=== PATIENT | male | born 1975 | race Caucasian/White ===

== ENCOUNTER 2016-05-23 23:52 | Emergency (ER) | payer OTHER ==
[~2016-05-23] VITALS: Ht 167.6 cm; Wt 77.2 kg
[~2016-05-23 23:52] MED LIST: CTP1 PO; FLV1 PO; LBR25 PO; LSN25 PO; PRT40 PO; THM100 PO; TPRSR25 PO
[2016-05-23 23:55] VITALS: TEMP 36.7; Ht 167.6 cm; Wt 77.2 kg
--- NOTE | 2016-05-24 00:17 | EMERGENCY ROOM VISIT NOTE ---
History Report prepared by Gui: John Torres Under the Supervision of: Dr. Parish Luis M.D. First contact with patient: 00:00 Chief Complaint: MENTAL HEALTH EVALUATION Stated Complaint: MENTAL HEALTH EVAL History of Present Illness The patient is a 40 year old male who presents to the Emergency Room via police after the patient's called because she felt he was violating a PFA. Per patient, him and his were fighting when he got upset and said some things he didn't mean such as threatening to hurt himself. The patient notes that these threats were just a "knee jerk reaction" from the altercation and he did not actually mean them. At this time, he denies any violent thoughts, suicidal or homicidal ideation. He notes that he has been somewhat depressed since his marriage has not been going well for the past few months. The patient also consumed some alcohol today. He denies any pain at this time. Source of History: patient Onset: prior to arrival Position: other (global ) Note: Denies: violent thoughts, suicidal ideation, homicidal ideation Review of Systems See HPI for pertinent positives & negatives. A total of 10 systems reviewed and were otherwise negative. Past Medical & Surgical Medical Problems: (1) Alcoholism (2) Hypertension Family History No pertinent family history Social History Smoking Status: Current Some Day Smoker Alcohol Use: heavy Drug Use: none Marital Status: Housing Status: lives with family Occupation Status: employed Current/Historical Medications Scheduled Chlordiazepoxide (Chlordiazepoxide HCl), 25 MG PO BID Clonidine HCl (Clonidine HCl), 0.2 MG PO BID Folic Acid (Folic Acid), 1 MG PO QAM Lisinopril (Lisinopril), 2.5 MG PO QAM Metoprolol Succinate (Metoprolol Succinate ER), 25 MG PO QAM Pantoprazole (Pantoprazole Sodium), 40 MG PO QAM Thiamine HCl (Vitamin B-1), 100 MG PO QAM Allergies Coded Allergies: No Known Allergies (Unverified , 07/02/15) Physical Exam Vital Signs Date Time Temp Pulse Resp B/P Pulse Ox O2 Delivery O2 Flow Rate FiO2 05/24/16 00:43 68 18 153/101 97 05/23/16 23:55 36.7 76 18 160/113 96 Room Air Physical Exam GENERAL: Patient is well appearing and in no acute distress. HEENT: No acute trauma, normocephalic atraumatic, mucous membranes moist, no nasal congestion, no scleral icterus. NECK: No stridor, no adenopathy, no meningismus, trachea is midline. LUNGS: No dyspnea. Clear to auscultation and equal bilaterally. No wheeze, no rhonchi. HEART: Regular rate and rhythm. No murmurs, rubs, gallops appreciated. ABDOMEN: Soft, nontender, bowel sounds positive, no masses appreciated, no peritonitis. BACK: No midline tenderness, no CVA tenderness EXTREMITIES: Normal motion all extremities, no cyanosis, no edema. NEUROLOGIC: Alert and oriented, no acute motor or sensory deficits, no focal weakness, cranial nerves grossly intact. SKIN: No rash, no jaundice, no diaphoresis. PSYCH: Denies acute depression, admits chronic, denies suicidal ideation, denies homicidal ideation, denies hallucinations. Medical Decision & Procedures ED Course 0003: The patient was evaluated in room A7. A complete history and physical exam was performed. 0038: At this time, I reevaluated the patient and he feels comfortable going to care home. He is aware of his hypertension and will get his blood pressure rechecked in a couple of days. Medical Decision Differential: Mood Disorder, Overdose, Infectious, Electrolyte Abnormality, Cardiac, Hepatic, Endocrine, Toxicologic, Neurologic, amongst other pathologies entertained. 40 yr old male arrives with police after verbal altercation in which he said he might as well but without any act of furtherance nor plan to do so. Here he adamantly states he does not want to kill himself. He is not intoxicated. No evidence of trauma. He admits history of depression though no previous suicidal attempts nor actions. Denies inpatient psych treatment in past. Denies needing to see mental health professional. He does not want to be admitted. He will be going to care home with police. He is aware he can return at any time if worsening or other concerns. He can 911 at any time if concerns to harm himself or others. Impression Primary Impression: Depression Scribe Attestation The scribe's documentation has been prepared under my direction and personally reviewed by me in its entirety. I confirm that the note above accurately reflects all work, treatment, procedures, and medical decision making performed by me. Departure Information Dispostion Home / Self-Care Forms HOME CARE DOCUMENTATION FORM, IMPORTANT VISIT INFORMATION Patient Instructions ED Depression, [facility] Additional Instructions We are always here to help. If at any time you feel you are a risk to yourself or others call 911 or return to ED. Problem Qualifiers Primary Impression: Depression Depression Type: unspecified Qualified Codes: F32.9 - Major depressive disorder, single episode, unspecified
[2016-05-24 00:43] VITALS: BP 153/101; PULSE 68; O2SAT 97
== END 2016-05-24 00:44 | disposition home or self-care (01) ==
LOC: C.EDB 23:53 → C.EDA 05-24 00:44
DX: F32.9 Major depressive disorder, single episode, unspecified (principal); F10.20 Alcohol dependence, uncomplicated; I10 Essential (primary) hypertension; F17.210 Nicotine dependence, cigarettes, uncomplicated; Z79.899 Other long term (current) drug therapy

== ENCOUNTER 2018-07-18 07:02 | Inpatient (IN) ==
[2018-07-18] MEDS ORDERED: MoRPHine SULFATE 4 MG/ML 1 ML CARP\\VIAL IV STA (07:27)
[2018-07-18] MEDS ORDERED: ONDANSETRON INJ 2 MG/ML 2 ML VIAL IV STA (07:27)
[2018-07-18] MEDS ORDERED: SODIUM CHLORIDE 0.9% 1000ML 2,000 ML IV SCH (07:30)
[2018-07-18 08:02] LABS: Basophils # (auto) 0.01 K/uL (0-0.2); Basophils % (auto) 0.2 %; Hematocrit (blood only) 47.6 % (42-52); Lymphocytes # (auto) 0.41 K/uL (1.2-3.4); Lymphocytes % (auto) 6.8 %; Mean Corpuscular Hgb Conc 35.7 g/dL (32-36); Mean Corpuscular Volume 99.6 fL (80-100); Mean Platelet Volume 10.5 fL (7.4-10.4); Monocytes # (auto) 0.34 K/uL (0.11-0.59); Monocytes % (auto) 5.6 %; Neutrophils # (auto) 5.28 K/uL (1.4-6.5); Neutrophils % (auto) 87.4 %; Platelet Count 173 K/uL (130-400); RDW Standard Deviation 54.9 fL (36.4-46.3); Red Blood Count 4.78 M/uL (4.7-6.1); White Blood Count 6.04 K/uL (4.8-10.8)
[2018-07-18 08:22] LABS: Albumin Level 4.1 gm/dl (3.4-5.0); BUN Creatinine Ratio 12.4 (10-20); Calcium 9.9 mg/dl (8.5-10.1); Est GFR (African American) 107.7; Est GFR (Non-African American) 92.9; Potassium 3.7 mmol/L (3.5-5.1)
[2018-07-18 08:25] LABS: Bilirubin,Total 1.9 mg/dl (0.2-1); Globulin 4.3 gm/dl (2.5-4.0); Total Protein 8.4 gm/dl (6.4-8.2)
[2018-07-18 08:56] LABS: Appearance Urine Clear (Clear); Bacteria Urine Automated Negative (Negative); Bilirubin Urine Negative (Negative); Blood Urine 1+ (Negative); Color Urine Dark Yellow; Glucose Urine UA Negative (Negative); Leukocyte Esterase Urine Negative (Negative); Nitrite Urine Negative (Negative); Protein Urine 3+ (Negative); RBC Urine Automated 0-4 /hpf (0-4); Specific Gravity Urine 1.028 (1.000-1.030); Urobilinogen Urine Negative (Negative); pH Urine 5.5 (4.5-7.5)
[2018-07-18 08:57] LABS: Ketones Urine 4+ (Negative)
[2018-07-18] MEDS ORDERED: IOVERSOL 100ml IV PRN (09:02)
[2018-07-18] MEDS ORDERED: THIAMINE HCL 100 MG in SYRINGE 9 ML IV STA (09:09)
[2018-07-18] MEDS ORDERED: LORazepam 1 MG/2 ML VIAL IV PRN ×2 (09:09→13:45)
[2018-07-18] MEDS ORDERED: FOLIC ACID 1 MG in SYRINGE 9.8 ML IV STA (09:09)
--- NOTE | 2018-07-18 09:21 | CT Scan Report ---
ABDOMEN AND PELVIS CT WITH IV CONTRAST CT DOSE: 584.71 mGycm HISTORY: Acute generalized abdominal pain abd pain TECHNIQUE: Multiaxial CT images of the abdomen and pelvis were performed following the use of intrave nous contrast. A dose lowering technique was utilized adhering to the principles of ALARA. COMPARISON STUDY: CT abdomen pelvis 04/23/2018. FINDINGS: Lung bases are generally clear. There is no pneumatosis or pneumoperitoneum identified. Coronary enoc rial calcifications are noted. Hepatic steatosis . There is a 1.5 cm circumscribed hypodense lesion about the left hepatic lobe whic h is unchanged suggestive of a probable cyst. Liver is otherwise unremarkable. There is no biliary du ctal dilation identified. There is mild gallbladder distention. Spleen, pancreas and adrenal glands a re unremarkable. Mild left perinephric stranding. Suggestion of punctate bilateral nephrolithiasis. T here is unchanged mild dilation about the left ureter, most pronounced the left hemipelvis which is u nchanged. Partial distention of the urinary bladder with moderate wall thickening and mild perivesicu lar stranding. Prostate measures within the upper limits of normal in size. Small fat filled bilatera l hernias. Mild calcified plaque about the abdominal aorta without aneurysm. There is no adenopathy. Air distended distal esophagus with mild distal esophageal wall thickening. There are a few small bow el air-fluid levels noted without evidence of small bowel obstruction. Hyperdense focus within the re ctum may reflect a pill fragment. Colonic diverticulosis. There is mild wall thickening noted about t he colon extending from the cecum through the proximal sigmoid with areas of partial distention. Mura l fibrofatty changes about the cecum. Terminal ileum is unremarkable. Fluid is noted about the distal appendiceal tip appendix measures within the upper limits of normal at 7 mm, unchanged without evide nce of acute appendicitis. There is no ascites. Soft tissues are unremarkable. Bones appear to be int act. Suggested bone island about the right femoral neck. IMPRESSION: 1. Mild wall thickening throughout the colon extending from the cecum through the sigmoid may be seco ndary to partial distention versus a nonspecific mild colitis. 2. A few scattered small bowel air-fluid levels throughout the abdomen are noted. These may be physio logic or reflect a mild enteritis or ileus. 3. Fluid about the appendiceal tip redemonstrated which is unchanged. No evidence of acute appendicit is. 4. Mild colonic diverticulosis without acute diverticulitis. 5. Suggested cystitis. Correlate with urinalysis. 6. Hepatic steatosis. 7. Punctate bilateral nonobstructing nephrolithiasis. 8. Additional findings as above. Electronically signed by: Raudel Vazquez M.D. 07/18/2018 9:19 AM
[2018-07-18] MEDS ORDERED: LORazepam 1 MG/2 ML VIAL IV STA (09:55)
[2018-07-18] MEDS ORDERED: METOPROLOL SUCC 50MG EXT REL TAB PO STA (09:57)
[2018-07-18] MEDS ORDERED: METOPROLOL TARTRATE 1 MG/ML VIAL IV STA (10:01)
[2018-07-18] MEDS ORDERED: GI COCKTAIL ED USE PO ONE (11:30)
--- NOTE | 2018-07-18 12:09 | History & Physical Report ---
Date of Service July 18, 2018 Assessment & Plan (1) Hematemesis: Ongoing emesis for several days but witness hematemesis x1 in the ED today Hb WNL, monitor Hx of hiatal hernia and espophagitis Has not been able to take protonix for several days GI cocktail, carafate, protonix CTAP noted Lipase WNL EGD with Dr. Hillman in the past, c/s pending Likely related to alcohol use given this started after a day of drinking on Wednesday and then worsened after alcohol ingestion on Wednesday Pt advised of this (2) Alcohol withdrawal: WAS protocol Mild tachycardia Will start on proph jesica dosing (3) HTN (hypertension): Labile in the setting of missed meds Monitor with metoprolol PRN (4) GERD (gastroesophageal reflux disease): Prontonix BID (5) Anxiety: Ativan PRN (6) Alcoholism: EtOH neg on admission Mildly elevated LFTs and fatty liver noted on CTAP (7) DVT prophylaxis: SCDs given hematemesis History of Present Illness Primary Care Provider: Amaya Anand, DO 42 y/o M c/o inability to tolerate PO. Pt states that he was in his usual state of health. He has a hx of heavy alcohol use, but has cut back his intake substantially. He went to a [employer] game on Wednesday and had "4, 5, 6 maybe all day" and had no issues. He started to have issues with n/v on Wednesday. Wednesday he felt fine. he had to leave work early due to n/v and he did not go to work on Wednesday due to all day n/v. This persisted into Wednesday. He states he "had a couple" drinks on Wednesday despite the emesis. He was able to keep down a sandwich as well. Yesterday however, he had worsening n/v and was not able to keep anything down. He has not been able to take his medications for the last few days due to n/v. He notes a large amount of reflux today. While in the ED he had an episode of emesis that is red/brown in color. This was the first emesis that looks like this. Pt was given a GI cocktail just after this emesis and is feeling improved. He has abd cramping with the emesis, but no abd pain otherwise. He notes that he was SOB with prolonged emesis and at rest at times. Pt denies fever, chest pain, c/d, LE pain or swelling. Pt had an EGD several months ago with Dr. Hillman. He had a f/u appt with him about 2 months ago and things were doing well at that time. He was to have a f/u in the next 1-2 weeks. He is not certain if there are plans for a repeat EGD at that time. Pt states that he was given some sort of medication to help with his anxiety. He drank while using this medication and was having hallucinations. Allergies Allergy/AdvReac Type Severity Reaction Status Date / Time No Known Allergies Allergy Verified 07/18/18 08:44 Home Medications Home Medications Medication Instructions Recorded Confirmed Type bupropion HCl 300 mg PO QAM 04/21/18 07/18/18 History hydrochlorothiazide 12.5 mg PO QAM 04/21/18 07/18/18 History lisinopril 40 mg PO QAM 04/21/18 07/18/18 History metoprolol succinate 100 mg PO QAM 04/21/18 07/18/18 History multivitamin [Daily-Mark] 1 tab PO QAM #1 tab 04/27/18 07/18/18 Rx pantoprazole 40 mg PO BID #60 tab 05/23/18 07/18/18 Rx acetaminophen [Tylenol Extra 500 mg PO Q6H PRN 07/18/18 07/18/18 History Strength] bupropion HCl 150 mg PO QAM 07/18/18 07/18/18 History Past Med/Surg History Medical History Alcoholism (Chronic) Hypertension (Chronic) Esophagitis (Inactive) Anxiety Depression GERD (gastroesophageal reflux disease) Kidney stones Surgical History History of esophagogastroduodenoscopy (EGD) Hx of vasectomy Family History Aunt Family history of diabetes mellitus Mother Family hx colonic polyps Other No family history of adverse response to anesthesia Social History Preferred Language: Greenlandic Beliefs That Will Affect Care: None Current Living Situation: Alone Other Information That Helps Us Care for You: No Feels Safe at Home: Yes Smoking Status: Never smoker Hx Alcohol Use: Yes Hx Substance Use: No (PREVIOUS HX OF MARIJUANA USE) Review of Systems Pertinent positives and negatives reviewed in HPI--all others negative Physical Exam Vital Signs (Past 24 Hours): Last Vital Signs Temp 36.8 C 07/18/18 07:09 Pulse 109 H 07/18/18 11:00 Resp 16 07/18/18 11:00 BP 143/107 H 07/18/18 11:00 Pulse Ox 98 07/18/18 11:00 Constitutional: WD/WN, vitals as above Eyes: normal visual lopez by confrontation and + anicteric sclerae Neck: normal visual inspection and trachea midline Respiratory: normal respiratory effort, lungs clear to auscultation Cardiovascular: Rate/Rhythm: regular rhythm and + tachycardic Gastrointestinal (Abdomen): Inspection/Auscultation: abdomen not distended Percussion/Palpation: abdomen soft; abdomen nontender Musculoskeletal: Head/Neck/Chest: normocephalic and head atraumatic negative for edema, peripheral pulses intact Skin: no rashes, warm and dry Neurologic: awake; not confused Speech / Cognition: normal speech Psychiatric: Orientation: oriented x 3 Affect: + anxious affect Results & Data Diagnostic Findings CTAP: 1. Mild wall thickening throughout the colon extending from the cecum through the sigmoid may be secondary to partial distention versus a nonspecific mild colitis. 2. A few scattered small bowel air-fluid levels throughout the abdomen are noted. These may be physiologic or reflect a mild enteritis or ileus. 3. Fluid about the appendiceal tip redemonstrated which is unchanged. No evidence of acute appendicitis. 4. Mild colonic diverticulosis without acute diverticulitis. 5. Suggested cystitis. Correlate with urinalysis. 6. Hepatic steatosis. 7. Punctate bilateral nonobstructing nephrolithiasis. 8. Additional findings as above. ECG Rhythm: sinus tachycardia Code Status & VTE Plan Code Status Full code VTE Prophylaxis Plan VTE Prophylaxis will be ordered: Yes (1) Alcohol withdrawal Complication of substance-induced condition: with delirium Qualified Code(s): F10.231 - Alcohol dependence with withdrawal delirium
--- NOTE | 2018-07-18 13:01 | Emergency Department Note ---
Entered by Rebecca Messer acting as a scribe for History of Present Illness General Chief complaint: Flu Like Symptoms Stated complaint: EVERYTHING-VOMITING Source: patient History of Present Illness Provider complaint: vomiting Onset (ago): day(s) 6 Location: abdomen Severity: similar to prior episodes Pain Consistency: + other (persistent) Maximum Pain Intensity: 4 Quality: + other (vomiting) Associated symptoms: + other (difficulty urinating, pain with urination, constipation, abdominal pain. Denies: cough, fever) The patient is a 42 year old male who presents to the Emergency Room with complaints of persistent vomiting beginning 3 days ago. The patient notes difficulty urinating and pain with urination, beginning around 6 days ago. He reports constipation. The patient states he has abdominal pain from vomiting. He denies cough or fever. The patient reports history of similar symptoms 3 months ago. He states he drinks alcohol 2 or 3 times a week, about 4 to 6 drinks per occasion. No other exacerbating or remitting factors. He is unable to keep anything down at this point. Home Medications Home Medications Medication Instructions Recorded Confirmed Type bupropion HCl 300 mg PO QAM 04/21/18 07/18/18 History hydrochlorothiazide 12.5 mg PO QAM 04/21/18 07/18/18 History lisinopril 40 mg PO QAM 04/21/18 07/18/18 History metoprolol succinate 100 mg PO QAM 04/21/18 07/18/18 History multivitamin [Daily-Mark] 1 tab PO QAM #1 tab 04/27/18 07/18/18 Rx pantoprazole 40 mg PO BID #60 tab 05/23/18 07/18/18 Rx acetaminophen [Tylenol Extra 500 mg PO Q6H PRN 07/18/18 07/18/18 History Strength] bupropion HCl 150 mg PO QAM 07/18/18 07/18/18 History Allergies Allergy/AdvReac Type Severity Reaction Status Date / Time No Known Allergies Allergy Verified 07/18/18 08:44 Past Med/Surg History Medical History Alcoholism (Chronic) Hypertension (Chronic) Esophagitis (Inactive) Anxiety Depression GERD (gastroesophageal reflux disease) Kidney stones Surgical History History of esophagogastroduodenoscopy (EGD) Hx of vasectomy Family History Aunt Family history of diabetes mellitus Mother Family hx colonic polyps Other No family history of adverse response to anesthesia Social History Preferred Language: Wallisian Beliefs That Will Affect Care: None Current Living Situation: Alone Other Information That Helps Us Care for You: No Feels Safe at Home: Yes Smoking Status: Never smoker Hx Alcohol Use: Yes Hx Substance Use: No (PREVIOUS HX OF MARIJUANA USE) Review of Systems See HPI for pertinent positives & negatives. and A total of 10 systems reviewed and were otherwise negative Physical Exam Vital Signs Vital Signs - 24 hr 07/18/18 07:09 07/18/18 07:45 07/18/18 08:49 Temperature 36.8 C Temperature Source Oral Sepsis Recent Fever Within 48 Hours No Sepsis New/Unexplained Change in Mental Status No Sepsis Action Taken by Nursing No Action Required Pulse Rate 140 H Pulse Rate [Left Apical] 112 H Respiratory Rate 18 18 Respiratory Effort / Characteristics Non-Labored Spontaneous Non-Labored Respiratory Depth Normal Normal Respiratory Pattern Regular Blood Pressure 170/120 H Blood Pressure [Right Arm] 159/113 H Blood Pressure Mean 136 Blood Pressure Mean [Right Arm] 128 Blood Pressure Position Sitting Pulse Oximetry 96 98 98 Oxygen Delivery Method Room Air Room Air Room Air 07/18/18 10:00 07/18/18 10:17 07/18/18 11:00 Temperature Temperature Source Sepsis Recent Fever Within 48 Hours Sepsis New/Unexplained Change in Mental Status Sepsis Action Taken by Nursing Pulse Rate 126 H Pulse Rate [Left Apical] 112 H 109 H Respiratory Rate 16 16 Respiratory Effort / Characteristics Non-Labored Respiratory Depth Normal Normal Respiratory Pattern Blood Pressure 147/110 H Blood Pressure [Right Arm] 147/110 H 143/107 H Blood Pressure Mean Blood Pressure Mean [Right Arm] 122 119 Blood Pressure Position Pulse Oximetry 97 98 Oxygen Delivery Method Room Air Room Air 07/18/18 12:45 Temperature Temperature Source Sepsis Recent Fever Within 48 Hours Sepsis New/Unexplained Change in Mental Status Sepsis Action Taken by Nursing Pulse Rate Pulse Rate [Left Apical] 106 H Respiratory Rate 16 Respiratory Effort / Characteristics Respiratory Depth Normal Respiratory Pattern Blood Pressure Blood Pressure [Right Arm] 145/109 H Blood Pressure Mean Blood Pressure Mean [Right Arm] 121 Blood Pressure Position Pulse Oximetry 97 Oxygen Delivery Method Room Air GENERAL: Sitting up in bed, alert, well appearing, well nourished, no distress, non-toxic, disheveled. EYE EXAM: normal conjunctiva. PERRL and EOM's grossly intact. OROPHARYNX: no exudate, no erythema, lips, buccal mucosa, and tongue normal and mucous membranes are dry. NECK: supple, no nuchal rigidity, no adenopathy, non-tender LUNGS: Clear to auscultation. Normal chest wall mechanics HEART: Tachycardic. No murmurs, S1 normal and S2 normal ABDOMEN: abdomen soft, normo-active bowel, sounds, no masses, no rebound or guarding. Mild diffuse tenderness. BACK: Back is symmetrical on inspection and there is no deformity, no midline tenderness, no CVA tenderness. SKIN: no rashes and no bruising UPPER EXTREMITIES: upper extremities are grossly normal. LOWER EXTREMITIES: No pitting edema. NEURO EXAM: Normal sensorium, cranial nerves II-XII grossly intact, normal speech, no gross weakness of arms, no gross weakness of legs. Course ED COURSE: Vital signs were reviewed and showed tachycardia. The patients medical record was reviewed. The above diagnostic studies were performed and reviewed. ED treatments and interventions as stated above. 0718: The patient was evaluated in room B10. A complete history and physical examination was performed. 0837: I reevaluated the patient and discussed his test results. 0844: I updated the patient. 0954: Upon reevaluation, the patient's heart rate is still 125. 1021: I reviewed the patient's case with Dr. Valerio, [facility] hospitalist. She will evaluate the patient for further management. 1024: Upon reevaluation, the patient is resting. I discussed my findings with the patient and he understands and agrees with the treatment plan. Based on the patients age, coexisting illnesses, exam and lab findings the decision to treat as an inpatient was made. The patient remained stable while under my care. The patient will be evaluated for further management. Consultations Consultation #1: Dr. Valerio [facility] hospitalist Time: 10:21 Administered Medications Lorazepam (Ativan) 1 mg in 2 mls @ 0.5 mls/min IV UD PRN PRN Reason: Alcohol Withdrawal Stop: 08/17/18 09:08 Last Admin: 07/18/18 09:28 Dose: 0.5 mls/min Documented by: [id number] Ioversol (Optiray 320 100ml) 94 ml IV ONCE PRN PRN Reason: Interaction Checking Stop: 07/22/18 09:01 Last Admin: 07/18/18 09:03 Dose: 94 ml Documented by: [id number] Discontinued Medications Al Hydrox/Mg Hydrox/Simethicone () 1 dose PO ONE ONE Stop: 07/18/18 11:31 Last Admin: 07/18/18 11:40 Dose: 1 dose Documented by: [id number] Sodium Chloride (Nss 1000ml) 2,000 mls @ 999 mls/hr IV .Q2H1M ALVERTO Stop: 07/18/18 09:30 Last Infusion: 07/18/18 09:57 Dose: 0 mls/hr Documented by: [id number] Admin: 07/18/18 07:53 Dose: 999 mls/hr Documented by: [id number] Folic Acid 1 mg/ Syringe 10 mls @ 5 mls/min IV NOW STA Stop: 07/18/18 09:10 Last Admin: 07/18/18 10:04 Dose: 5 mls/min Documented by: [id number] Thiamine HCl 100 mg/ Syringe 10 mls @ 2 mls/min IV NOW STA Stop: 07/18/18 09:13 Last Admin: 07/18/18 10:04 Dose: 2 mls/min Documented by: [id number] Lorazepam (Ativan) 1 mg in 2 mls @ 2 mls/min IV NOW STA Stop: 07/18/18 09:56 Last Admin: 07/18/18 10:04 Dose: 2 mls/min Documented by: [id number] Metoprolol Succinate (Toprol Xl) 100 mg PO NOW STA Stop: 07/18/18 09:58 Last Admin: 07/18/18 10:09 Dose: Not Given Documented by: [id number] Metoprolol Tartrate (Lopressor) 5 mg IV NOW STA Stop: 07/18/18 10:02 Last Admin: 07/18/18 10:17 Dose: 5 mg Documented by: [id number] Morphine Sulfate (Morphine Sulfate) 4 mg IV NOW STA Stop: 07/18/18 07:28 Last Admin: 07/18/18 07:52 Dose: 4 mg Documented by: [id number] Ondansetron HCl (Zofran) 4 mg IV NOW STA Stop: 07/18/18 07:28 Last Admin: 07/18/18 07:52 Dose: 4 mg Documented by: [id number] Medical Decision Making Differential Diagnosis Differential diagnoses includes but is not limited to gastritis, peptic ulcer disease, GERD, gallbladder disease, pancreatitis, small bowel obstruction, acute coronary syndrome, pericarditis, ischemic bowel, irritable bowel disease, irritable bowel syndrome, appendicitis, diverticulitis, malignancy, hernia, urinary tract infection, torsion, perforation, trauma, infectious. Medical Records Attestation: I reviewed the patient's medical records. Home Medications Current Medication List: was personally reviewed by nd Laboratory Data Attestation: I reviewed the patient's lab results. Result diagrams: 07/18/18 07:47 07/18/18 07:47 Lab Results 07/18/18 07/18/18 07/18/18 Range/Units 07:42 07:47 07:47 WBC 6.04 (4.8-10.8) K/uL RBC 4.78 (4.7-6.1) M/uL Hgb 17.0 (14.0-18.0) g/dL Hct 47.6 (42-52) % MCV 99.6 (80-100) fL MCH 35.6 H (25-34) pg MCHC 35.7 (32-36) g/dL RDW Std Deviation 54.9 H (36.4-46.3) fL RDW Coeff of Rashida 15.0 H (11.5-14.5) % Plt Count 173 (130-400) K/uL MPV 10.5 H (7.4-10.4) fL Immature Gran % (Auto) 0.0 % Neut % (Auto) 87.4 % Lymph % (Auto) 6.8 % Grady % (Auto) 5.6 % Eos % (Auto) 0.0 % Baso % (Auto) 0.2 % Immature Gran # (Auto) 0.00 (0.00-0.02) K/uL Neut # (Auto) 5.28 (1.4-6.5) K/uL Lymph # (Auto) 0.41 L (1.2-3.4) K/uL Grady # (Auto) 0.34 (0.11-0.59) K/uL Eos # (Auto) 0.00 (0-0.5) K/uL Baso # (Auto) 0.01 (0-0.2) K/uL Sodium 141 (136-145) mmol/L Potassium 3.7 (3.5-5.1) mmol/L Chloride 104 (98-107) mmol/L Carbon Dioxide 16 L (21-32) mmol/L Anion Gap 21.0 H (3-11) BUN 12 (7-18) mg/dl Creatinine 0.99 (0.6-1.4) mg/dl Est Cr Clr Drug Dosing 90.0 ml/min Est GFR ( Amer) 107.7 Est GFR (Non-Af Amer) 92.9 BUN/Creatinine Ratio 12.4 (10-20) Glucose 113 H (70-99) mg/dl Calcium 9.9 (8.5-10.1) mg/dl Total Bilirubin 1.9 H (0.2-1) mg/dl AST 148 H (15-37) U/L ALT 120 H (12-78) U/L Alkaline Phosphatase 107 (45-117) U/L Total Protein 8.4 H (6.4-8.2) gm/dl Albumin 4.1 (3.4-5.0) gm/dl Globulin 4.3 H (2.5-4.0) gm/dl Albumin/Globulin Ratio 1.0 (0.9-2) Lipase 256 (73-393) U/L Urine Color Urine Appearance (Clear) Urine pH (4.5-7.5) POC Urine pH (4.5-7.5) Ur Specific [place] (1.000-1.030) Urine Protein (Negative) POC Urine Protein (Negative) Urine Glucose (UA) (Negative) POC Ur Glucose (UA) (Normal) Urine Ketones (Negative) POC Urine Ketones (Negative) Urine Blood (Negative) POC Urine Blood (Negative) Urine Nitrite (Negative) POC Urine Nitrite (Negative) Urine Bilirubin (Negative) POC Urine Bilirubin (Negative) Urine Urobilinogen (Negative) POC Urine Urobilinogen (Normal) Ur Leukocyte Esterase (Negative) POC U Leukocyte Esteras (Negative) Urine WBC (Auto) (0-5) /hpf Urine RBC (Auto) (0-4) /hpf U Hyaline Cast (Auto) (0-5) /lpf U Epithel Cells (Auto) (0-5) /lpf Urine Bacteria (Auto) (Negative) Ethyl Alcohol mg/dL < 3.0 (0-3) mg/dl 07/18/18 07/18/18 Range/Units 07:48 07:48 WBC (4.8-10.8) K/uL RBC (4.7-6.1) M/uL Hgb (14.0-18.0) g/dL Hct (42-52) % MCV (80-100) fL MCH (25-34) pg MCHC (32-36) g/dL RDW Std Deviation (36.4-46.3) fL RDW Coeff of Rashida (11.5-14.5) % Plt Count (130-400) K/uL MPV (7.4-10.4) fL Immature Gran % (Auto) % Neut % (Auto) % Lymph % (Auto) % Grady % (Auto) % Eos % (Auto) % Baso % (Auto) % Immature Gran # (Auto) (0.00-0.02) K/uL Neut # (Auto) (1.4-6.5) K/uL Lymph # (Auto) (1.2-3.4) K/uL Grady # (Auto) (0.11-0.59) K/uL Eos # (Auto) (0-0.5) K/uL Baso # (Auto) (0-0.2) K/uL Sodium (136-145) mmol/L Potassium (3.5-5.1) mmol/L Chloride (98-107) mmol/L Carbon Dioxide (21-32) mmol/L Anion Gap (3-11) BUN (7-18) mg/dl Creatinine (0.6-1.4) mg/dl Est Cr Clr Drug Dosing ml/min Est GFR ( Amer) Est GFR (Non-Af Amer) BUN/Creatinine Ratio (10-20) Glucose (70-99) mg/dl Calcium (8.5-10.1) mg/dl Total Bilirubin (0.2-1) mg/dl AST (15-37) U/L ALT (12-78) U/L Alkaline Phosphatase (45-117) U/L Total Protein (6.4-8.2) gm/dl Albumin (3.4-5.0) gm/dl Globulin (2.5-4.0) gm/dl Albumin/Globulin Ratio (0.9-2) Lipase (73-393) U/L Urine Color Dark Yellow Urine Appearance Clear (Clear) Urine pH 5.5 (4.5-7.5) POC Urine pH 5 (4.5-7.5) Ur Specific [place] 1.028 (1.000-1.030) Urine Protein 3+ H (Negative) POC Urine Protein 3+ H (Negative) Urine Glucose (UA) Negative (Negative) POC Ur Glucose (UA) Normal (Normal) Urine Ketones 4+ H (Negative) POC Urine Ketones 3+ (Large) H (Negative) Urine Blood 1+ H (Negative) POC Urine Blood Trace H (Negative) Urine Nitrite Negative (Negative) POC Urine Nitrite Negative (Negative) Urine Bilirubin Negative (Negative) POC Urine Bilirubin Negative (Negative) Urine Urobilinogen Negative (Negative) POC Urine Urobilinogen Normal (Normal) Ur Leukocyte Esterase Negative (Negative) POC U Leukocyte Esteras Negative (Negative) Urine WBC (Auto) 1-5 (0-5) /hpf Urine RBC (Auto) 0-4 (0-4) /hpf U Hyaline Cast (Auto) 1-5 (0-5) /lpf U Epithel Cells (Auto) 5-10 H (0-5) /lpf Urine Bacteria (Auto) Negative (Negative) Ethyl Alcohol mg/dL (0-3) mg/dl Imaging Data Radiologist's Impression: Radiology results as stated below per my review and the radiologist's interpretation: ABDOMEN AND PELVIS CT WITH IV CONTRAST CT DOSE: 584.71 mGycm HISTORY: Acute generalized abdominal pain abd pain TECHNIQUE: Multiaxial CT images of the abdomen and pelvis were performed following the use of intravenous contrast. A dose lowering technique was utilized adhering to the principles of ALARA. COMPARISON STUDY: CT abdomen pelvis 04/23/2018. FINDINGS: Lung bases are generally clear. There is no pneumatosis or pneumoperitoneum identified. Coronary arterial calcifications are noted. Hepatic steatosis . There is a 1.5 cm circumscribed hypodense lesion about the left hepatic lobe which is unchanged suggestive of a probable cyst. Liver is otherwise unremarkable. There is no biliary ductal dilation identified. There is mild gallbladder distention. Spleen, pancreas and adrenal glands are unremarkable. Mild left perinephric stranding. Suggestion of punctate bilateral nephrolithiasis. There is unchanged mild dilation about the left ureter, most pronounced the left hemipelvis which is unchanged. Partial distention of the urinary bladder with moderate wall thickening and mild perivesicular stranding. Prostate measures within the upper limits of normal in size. Small fat filled bilateral hernias. Mild calcified plaque about the abdominal aorta without aneurysm. There is no adenopathy. Air distended distal esophagus with mild distal esophageal wall thickening. There are a few small bowel air-fluid levels noted without evidence of small bowel obstruction. Hyperdense focus within the rectum may reflect a pill fragment. Colonic diverticulosis. There is mild wall thickening noted about the colon extending from the cecum through the proximal sigmoid with areas of partial distention. Mural fibrofatty changes about the cecum. Terminal ileum is unremarkable. Fluid is noted about the distal appendiceal tip appendix measures within the upper limits of normal at 7 mm, unchanged without evidence of acute appendicitis. There is no ascites. Soft tissues are unremarkable. Bones appear to be intact. Suggested bone island about the right femoral neck. IMPRESSION: 1. Mild wall thickening throughout the colon extending from the cecum through the sigmoid may be secondary to partial distention versus a nonspecific mild colitis. 2. A few scattered small bowel air-fluid levels throughout the abdomen are noted. These may be physiologic or reflect a mild enteritis or ileus. 3. Fluid about the appendiceal tip redemonstrated which is unchanged. No evidence of acute appendicitis. 4. Mild colonic diverticulosis without acute diverticulitis. 5. Suggested cystitis. Correlate with urinalysis. 6. Hepatic steatosis. 7. Punctate bilateral nonobstructing nephrolithiasis. 8. Additional findings as above. Electronically signed by: Raudel Vazquez M.D. 07/18/2018 9:19 AM ECG Data Attestation: I personally reviewed and interpreted this ECG as follows: Indication: tachycardia Rate (beats per minute): 120 Rhythm: sinus tachycardia Findings: + other (l axis. poor baseline. ) and + nonspecific-ST abn (septal, lateral) Comparison ECG Date: from (04/21/18) Change: no significant change Blood Pressure Blood Pressure Findings: Normal blood pressure Blood Pressure Disposition: did not require urgent referral MDM Narrative Patient is a 42-year-old male that presents the ER for vomiting which started on Wednesday. He does admit to some burning with urination. He does have sore epigastric region. He drinks about 6 shots of liquor about 3 days a week. He is to be a much heavier drinker. He has no other complaints at this time. Labs were obtained and showed no significant leukocytosis or anemia. BMP with a CO2 of 16. Mild gap at 21. Transaminitis in the 120s-140s. Bilirubin was elevated at 1.9. Transaminitis is actually improved from previous. UA had plus for ketones. Patient was given 2 L IV fluids. Heart rate was in the 140s initially and trended down to the mid 120s. Alcohol was negative. He did not take his Lopressor this morning and he was given IV Lopressor heart rate trended down a little bit more. Initially he had tremors in the upper extremities was hyperte nsive and tachycardic. Unsure at this time whether this is a viral gastroenteritis versus alcohol withdrawal but with his heart rate and tremors and 2 doses of IV Ativan with 1 dose of IV Lopressor I discussed case with the hospitalist for further observation. Impression & Plan Vomiting, Alcohol withdrawal, Tachycardia Critical Care Time I have personally spent 35 minutes of critical care time in the direct management of this patient. This includes bedside care, interpretation of diagnostic studies, and testing, discussion with consultants, patient, and family members, and other required patient management activities. This 35 minutes is in excess of all separately billable procedures. Critical Care Time: Yes Total Critical Care Time: 35 Discharge Plan Visit Data Chief Complaint: Flu Like Symptoms Stated Complaint: EVERYTHING-VOMITING ED Provider: Brian Valerio Discharge Problem: Vomiting, Alcohol withdrawal, Tachycardia Patient Disposition: Being Evaluated by Hospitalist Forms Stand Alone Forms: My [facility] Prescriptions Prescriptions: No Action multivitamin [Daily-Mark] Tablet 1 tab PO QAM Qty: 1 RF: 0 pantoprazole 40 mg tablet,delayed release (DR/EC) 40 mg PO BID Qty: 60 RF: 0 bupropion HCl 300 mg Tablet Extended Release 24 Hr 300 mg PO QAM RF: 0 metoprolol succinate 100 mg Tablet Extended Release 24 Hr 100 mg PO QAM RF: 0 hydrochlorothiazide 12.5 mg Capsule 12.5 mg PO QAM RF: 0 lisinopril 40 mg Tablet 40 mg PO QAM RF: 0 acetaminophen [Tylenol Extra Strength] 500 mg Tablet 500 mg PO Q6H PRN (Reason: Pain) RF: 0 bupropion HCl 150 mg tablet extended release 24 hr 150 mg PO QAM RF: 0 Referrals Referrals: Amaya Anand DO [Primary Care Provider] - Discharge Problem: Vomiting Qualifiers: Vomiting type: unspecified Vomiting Intractability: non-intractable Nausea presence: with nausea Qualified Code(s): R11.2 - Nausea with vomiting, unspecified Alcohol withdrawal Qualifiers: Complication of substance-induced condition: uncomplicated Qualified Code(s): F10.230 - Alcohol dependence with withdrawal, uncomplicated The scribe's documentation has been prepared under my direction and personally reviewed by me in its entirety. I confirm that the note above accurately reflects all work, treatment, procedures, and medical decision making performed by me.
[2018-07-18] MEDS ORDERED: ACETAMINOPHEN 325 MG TAB PO PRN (13:45)
[2018-07-18] MEDS ORDERED: METOPROLOL TARTRATE 1 MG/ML VIAL IV PRN (13:45)
[2018-07-18] MEDS ORDERED: GABAPENTIN 1200MG ALCOHOL WITHDRAWAL LOAD PO STA (13:45)
[2018-07-18] MEDS ORDERED: LORazepam 1 MG TAB PO PRN (13:45)
[2018-07-18] MEDS ORDERED: ALUMINUM/MAGNESIUM SUSP 72 ML, LIDOCAINE HCL VISCOUS 2% 24 ML, BARCODE IDENTIFIER 1 EA PO PRN (13:45)
[2018-07-18] MEDS ORDERED: ONDANSETRON INJ 2 MG/ML 2 ML VIAL IV PRN (13:45)
[2018-07-18] MEDS ORDERED: MAGNESIUM HYDROXIDE SUSP 30 ML UDC PO PRN (13:45)
[2018-07-18] MEDS ORDERED: GABAPENTIN 600 MG TAB PO ONE (14:00)
[2018-07-18] MEDS ORDERED: MULTI-VITAMIN INFUSION 10 ML, THIAMINE HCL 100 MG, FOLIC ACID 1 MG in SODIUM CHLORIDE 0... IV SCH (14:30)
[2018-07-18] MEDS ORDERED: THIAMINE HCL 100 MG in SYRINGE 9 ML IV SCH (14:30)
[2018-07-18] MEDS: SUCRALFATE 1 GM/10 ML UDC PO SCH ×3 (14:31→21:06)
[2018-07-18] MEDS: NSS + 20MEQ KCL 20 MEQ/1,000 ML BAG IV SCH (16:49)
[2018-07-18] MEDS: PANTOprazole 40 MG in SYRINGE 0 ML IV SCH ×2 (17:18→21:06)
[2018-07-18] MEDS: GABAPENTIN 600 MG TAB PO SCH (21:06)
--- NOTE | 2018-07-18 23:08 | Consultation Report ---
DATE OF CONSULTATION: 07/18/2018 ATTENDING PHYSICIAN: Iris Valerio MD CONSULTING PHYSICIAN: Yusef Hillman DO REASON FOR CONSULTATION: Hematemesis. HISTORY OF PRESENT ILLNESS: David Ellis is a 42-year-old male who underwent an upper endoscopy on 05/23/2018 secondary to GERD. He was noted to have moderately severe esophagitis. Biopsies were taken at that time. His biopsies at that time showed chronic active esophagitis with ulceration. He was placed on twice daily PPI therapy and was given Carafate for symptom control. He was doing well as an outpatient until returning to the Department of Emergency Medicine on 07/18/2018 with complaints of flu-like symptoms and vomiting. In the Department of Emergency Medicine, he did have laboratory studies, which showed a hemoglobin of 17.0, hematocrit 47.6, white blood cell count of 6.04, platelet count of 173. His liver panel showed a total bilirubin of 1.9 with an AST of 148, ALT of 120 and an alkaline phosphatase of 107. He did have a CT scan of the abdomen and pelvis performed, which showed mild wall thickening throughout the colon extending from the cecum through the sigmoid to be secondary to partial distention versus a nonspecific mild colitis. There are few small bowel air fluid levels, mild colonic diverticulosis, hepatic steatosis. He was subsequently admitted. He did have a single episode of hematemesis in the ER today per patient's chart. He was admitted. He was placed on Protonix 40 mg IV b.i.d. and Carafate 1 g p.o. q.i.d. At the time that I saw the patient, he stated that he was having severe epigastric pain rated as a 6/10 in intensity, nonradiating that did improve slightly with a GI cocktail, exacerbated by alcohol. He is asking for IV pain medication as he feels that his pain is severe. He states that he has not had any further episodes of vomiting since his one episode in the ER. He has not had a bowel movement in 2 days. He denies melena or hematochezia. He has not been hemodynamically unstable since his arrival. He states that he has continued to drink alcohol, though he has maintained outpatient therapy with Protonix b.i.d. He denies any further complaints. PAST MEDICAL HISTORY: Significant for GERD, kidney stones, esophagitis, depression, anxiety, hypertension, chronic alcohol abuse. PAST SURGICAL HISTORY: Includes vasectomy. ALLERGIES: None. MEDICATIONS AT PRESENT: Include Tylenol 650 mg p.o. q. 4 hours p.r.n. pain or fever, Ativan 1 mg p.r.n. alcohol withdrawal symptoms, gabapentin 600 mg p.o. q. 12 hours, gabapentin 600 mg p.o. q. 6 hours, gabapentin 600 mg p.o. q. 24 hours protocol, magnesium hydroxide 30 mL p.o. q. 12 p.r.n. constipation, Zofran 4 mg IV q. 6 p.r.n. nausea, Protonix 40 mg IV b.i.d., Carafate 1 g p.o. q.i.d. SOCIAL HISTORY: Negative for tobacco or illicit drug use. He does drink alcohol daily. REVIEW OF SYSTEMS: Negative x12 system review. PHYSICAL EXAMINATION: VITAL SIGNS: Temp 36.9, pulse 97, respirations 16, blood pressure 148/90, pulse ox 95% on room air. GENERAL: He is awake, cooperative, agitated, mild distress from pain. HEAD: Normocephalic, atraumatic. ENT: External evaluation of ears and nose are normal. Oropharynx clear. NECK: Soft, supple. No JVD or lymphadenopathy. CHEST: Clear to auscultation bilaterally. CARDIOVASCULAR SYSTEM: Regular rate and rhythm. ABDOMEN: Soft, tender in the midepigastric area. Nondistended. Positive bowel sounds. There is no appreciable hepatosplenomegaly or stigmata of chronic liver disease. EXTREMITIES: No clubbing, cyanosis or edema. LABORATORY STUDIES AND RADIOGRAPHIC STUDIES: Reviewed in the HPI. IMPRESSION: A 42-year-old male with known alcohol abuse and known severe esophagitis on recent esophagogastroduodenoscopy who returns with severe epigastric abdominal pain and a single episode of hematemesis. He remains hemodynamically stable. PLAN: At the present time, I would recommend continuing the patient on Protonix 40 mg IV b.i.d. I would recommend continuing him on Carafate 1 g p.o. q.i.d. I would recommend that the patient now be observed for alcohol withdrawal and I will defer to the primary team in regards to pain management. I will follow his clinical course and make further recommendations. I did inform him that continued alcohol abuse can worsen his known esophagitis and also lead to nausea and vomiting, which can lead to corrosive damage to the esophagus from gastric contents being expelled into the esophagus. He is not interested in alcohol cessation either as an inpatient or outpatient program at present.
[2018-07-19] MEDS: NSS + 20MEQ KCL 20 MEQ/1,000 ML BAG IV SCH ×2 (02:45→18:04)
[2018-07-19] MEDS: GABAPENTIN 600 MG TAB PO SCH (03:33)
[2018-07-19 06:17] LABS: Basophils # (auto) 0.01 K/uL (0-0.2); Basophils % (auto) 0.2 %; Eosinophils # (auto) 0.01 K/uL (0-0.5); Eosinophils % (auto) 0.2 %; Hematocrit (blood only) 44.5 % (42-52); Hemoglobin 15.1 g/dL (14.0-18.0); Immature Granulocytes # (auto) 0.01 K/uL (0.00-0.02); Immature Granulocytes % (auto) 0.2 %; Lymphocytes # (auto) 1.29 K/uL (1.2-3.4); Lymphocytes % (auto) 25.8 %; Mean Corpuscular Hgb Conc 33.9 g/dL (32-36); Mean Corpuscular Volume 103.5 fL (80-100); Mean Platelet Volume 11.1 fL (7.4-10.4); Monocytes # (auto) 0.53 K/uL (0.11-0.59); Monocytes % (auto) 10.6 %; Neutrophils # (auto) 3.15 K/uL (1.4-6.5); Platelet Count 117 K/uL (130-400); RDW Coefficient of Variation 15.1 % (11.5-14.5); RDW Standard Deviation 57.1 fL (36.4-46.3)
[2018-07-19 06:51] LABS: BUN Creatinine Ratio 12.6 (10-20); Calcium 8.2 mg/dl (8.5-10.1); Creatinine Clr Calc Pharmacy 102.4 ml/min; Est GFR (African American) 122.5; Est GFR (Non-African American) 105.7; Magnesium 1.8 mg/dl (1.8-2.4); Potassium 3.5 mmol/L (3.5-5.1)
[2018-07-19 07:02] LABS: Phosphorus 1.2 mg/dl (2.5-4.9)
[2018-07-19] MEDS ORDERED: POTASSIUM PHOS 3 MMOL/1 ML INFUSION IV STA (08:09)
[2018-07-19] MEDS ORDERED: POTASSIUM PHOSPHATE 24 MMOL in SODIUM CHLORIDE 0.9% 500 ML IV ONE (08:45)
[2018-07-19] MEDS: SUCRALFATE 1 GM/10 ML UDC PO SCH ×2 (09:20→13:00)
[2018-07-19] MEDS: PANTOprazole 40 MG in SYRINGE 0 ML IV SCH (09:20)
--- NOTE | 2018-07-19 09:24 | Gastroenterology Progress Note ---
Date of Service July 19, 2018 Assessment & Plan (1) Esophagitis determined by endoscopy: Patient is a 42 yo male with esophagitis who stopped taking his PPI therapy and presented to the ER after developing hematemesis. He is hemodynamically stable. He is hungry. He has had no further hematemesis or melena. 1) Protonix 40 mg IV twice daily. When discharged can be transitioned to 40 mg po BID. 2) Continue Carafate 1 gm four times daily before meals and bedtime for a total of 10 days. 3) Okay to advance diet as tolerated. 4) Plan for outpatient EGD once appropriate healing time has passed. Our office has scheduled this. Instructions will be mailed to patient. He is to follow-up in the office after this procedure. 5) Supportive care and alcohol withdrawal protocol per primary team. Thank you for allowing us to participate in the care of this patient. If you should have further questions or concerns, please contact [phone] or [phone]. Present on Admission?: Yes Supervising Physician Co-Signing Physician Notes Agree with DARRELL Calloway as above Abd: Soft, NT, ND, +BS Continue current therapy, doing much better today Advance diet as tolerated Repeat EGD as outpatient in 2 weeks Subjective Patient is a 42 yo male with known esophagitis likely 2/2 alcohol use who returned to the hospital after developing hematemesis. He had not been taking his PPI therapy for several days. He is presently on IV Protonix 40 mg BID. He is taking Carafate 1 gm four times daily. At present, he is hemodynamically s table. H/H is 15.1/44.5. He denies further hematemesis, epigastric pain, reflux, or heartburn. He reports he is incredibly hungry. He denies further complaints at present. Constitutional: no fever Respiratory: no cough and no dyspnea Cardiovascular: no chest pain Gastrointestinal: no abdominal pain, no heartburn, no hematemesis and no melena Physical Exam Vital Signs (Past 24 Hours): Last Vital Signs Temp 36.8 C 07/19/18 07:57 Pulse 71 07/19/18 07:57 Resp 20 07/19/18 07:57 BP 148/100 H 07/19/18 07:57 Pulse Ox 96 07/19/18 07:57 Constitutional: WD/WN, vitals as above Respiratory: normal respiratory effort, lungs clear to auscultation Cardiovascular: RRR, no murmur, no edema Gastrointestinal (Abdomen): normal bowel sounds, soft, nontender, no hepatosplenomegaly Psychiatric: A+Ox3, euthymic affect
[2018-07-19] MEDS ORDERED: GABAPENTIN 600 MG TAB PO SCH (10:00)
[2018-07-19] MEDS ORDERED: METOPROLOL SUCC 50MG EXT REL TAB PO STA (17:57)
--- NOTE | 2018-07-19 20:48 | Discharge Summary ---
Date of Service date of admission - July 18, 2018 date of discharge - July 19, 2018 Admission HPI Per Admitting Provider 42 y/o male with h/o alcohol abuse who presented with emesis and inability to tolerate PO. Again he has a history of heavy alcohol use but has cut back his intake substantially of late. He went to a [employer] game one week ago and had "4, 5, 6 maybe all day" and had no issues. He then started to have nausea/emesis on Wednesday of last week. Wednesday he felt fine. he had to leave work early due to nausea/emesis and he did not go to work on Wednesday due to the vomiting. This persisted into Wednesday. He stated he "had a couple" drinks on Wednesday despite the emesis. He was able to keep down a sandwich as well. Yesterday (Wednesday) however he had worsening nausea/vomiting and was not able to keep anything down. He has not been able to take his medications for the last few days due to the GI symptoms. He notes a large amount of reflux today. While in the ED he had an episode of emesis that is red/brown in color. This was the first emesis that looks like this. Pt was given a GI cocktail just after this emesis and is feeling improved. He has abdominal cramping with the emesis but no abdominal pain otherwise. He notes that he was SOB with prolonged emesis and at rest at times. Pt denies fever, chest pain, c/d, LE pain or swelling. Pt had an EGD several months ago with Dr. Hillman. He had a f/u appt with him about 2 months ago and things were doing well at that time. He was to have a f/u in the next 1-2 weeks. Pt states that he was given some sort of medication to help with his anxiety. He drank while using this medication and was having hallucinations. Principal Diagnosis nausea, vomiting, hematemesis - resolved; due to esophagitis/gastritis? enteritis? Discharge Exam Constitutional well developed and well nourished; no acute distress, not ill appearing, not intoxicated appearing, + not average body habitus, not diaphoretic and not malnourished ENMT external ear and nose normal, oropharynx normal Respiratory normal respiratory effort, lungs clear to auscultation Cardiovascular Rate/Rhythm: regular rhythm and + tachycardic Heart Sounds: normal S1 and normal S2; no murmur Vessels: posterior tibial pulses present and dorsalis pedis pulses present; no JVD Extremities: no edema Gastrointestinal (Abdomen) normal bowel sounds, soft, nontender, no hepatosplenomegaly Skin no rashes, warm and dry Neurologic no focal motor deficits Psychiatric A+Ox3, euthymic affect Discharge Data Allergies Allergy/AdvReac Type Severity Reaction Status Date / Time No Known Allergies Allergy Verified 07/18/18 08:44 Consultations gastroenterology Ordered Studies CT abd/pelvis - IMPRESSION: 1. Mild wall thickening throughout the colon extending from the cecum through the sigmoid may be secondary to partial distention versus a nonspecific mild colitis. 2. A few scattered small bowel air-fluid levels throughout the abdomen are noted. These may be physiologic or reflect a mild enteritis or ileus. 3. Fluid about the appendiceal tip redemonstrated which is unchanged. No evidence of acute appendicitis. 4. Mild colonic diverticulosis without acute diverticulitis. 5. Suggested cystitis. Correlate with urinalysis. 6. Hepatic steatosis. 7. Punctate bilateral nonobstructing nephrolithiasis. Hospital Course (1) Hematemesis: Has had esophagitis in the past - EGD confirmed - and thus recurrent esophagitis could have caused this. Tameka-shannan tear from recent vomiting also possible. Either way the hematemesis did not recur. He will continue on PPI twice daily. Carafate 1gm QID x 7 days was added at discharge. Seen in consult by GI -- they will perform outpatient EGD in the near-future. Discharge hemoglobin was 15.1. (2) Vomiting: See above. Suspect esophagitis in the setting of recent heavy alcohol use. Cannot exclude infectious gastroenteritis but felt to be less likely. Was able to tolerate a diet prior to discharge. (3) Tachycardia: Suspect he had mild alcohol withdrawal. I cannot exclude that he was going through withdrawal several days prior to admission. Perhaps his intractable nausea/emesis in the week leading up to this stay was actually due somewhat in part to withdrawal. He will resume his toprol xl daily. (4) Anxiety: Continue wellbutrin. (5) GERD (gastroesophageal reflux disease): PPI BID + carafate 1gm QID. Outpatient EGD recommended. (6) HTN (hypertension): Resume all prior outpatient medications. (7) Alcoholism: Counseled to quit drinking. May have had alcohol withdrawal prior to admission and during his brief stay. Discharged on folic acid + thiamine. Also discharged on gabapentin taper for suspected withdrawal. (8) Alcoholic hepatitis: Mildly elevated LFTs during the stay. Will need these repeated as an outpatient. (9) Thrombocytopenia: Likely due to alcohol abuse. needs repeat CBC as outpatient to ensure normalization. (10) Esophagitis determined by endoscopy: history of. repeat EGD after discharge. Continue PPI twice daily. (11) Hypophosphatemia: Replaced with IV phosphorus. Total Time Total Time Spent Total Time Spent (In Minutes): 35 Total Time Includes: Examination of the Patient, Discharge Planning and Medication Reconciliation Discharge Plan Discharge Items Patient Disposition: Home - Self-Care Reason For Visit: vomiting Discharge Diagnosis: vomiting - resolved; now tolerating diet. probable alcohol withdrawal. Discharge Goals: Diagnostic testing and Therapeutic intervention Activity: As commented below Activity Comment: no driving for the next 3 days Exercise/Sports: Wait until after follow-up appointment Driving/Machine Use: Resume 3 days after discharge Non-emergency contact: Primary Care Provider Call non-emergency contact if: you have any medication questions, your symptoms worsen and your temperature is above 100.5 Follow-up/Referrals: Amaya Anand DO [Primary Care Provider] - Diet: Regular Addtl Provider Instructions: From Akbar Peck - hospitalist - You were admitted for vomiting. This was likely due to recent consumption of alcohol. You were seen by Anika GARCIA - they plan to perform an upper endoscopy on you in the near-future. Your symptoms improved with fluids, IV acid reducers, and time. I suspect you have been experiencing alcohol withdrawal over the last few days at home. At this time we recommend - 1. gabapentin taper - this will help with any residual alcohol withdrawal. Start this medication TONIGHT. 2. folic acid supplement 1 tablet daily for 30 days. 3. thiamine supplement - 2 tablets twice a day for 30 days. 4. magnesium supplement daily indefinitely unless otherwise directed by your doctors. 5. carafate (sucralfate) 1gm before meals & at bedtime for 1 week. 6. STOP ALL TYLENOL CONSUMPTION. 7. PLEASE ABSTAIN 100% FROM ALCOHOL IF POSSIBLE. Your family doctor can refer you to specialists, counselors, etc to help you abstain. 8. Advise no driving for 3 days. 9. Continue your pantoprazole twice a day as previous. 10. Diet - avoid spicy foods, fried foods, soda, tea, coffee, fast foods, alcohol - for 2 weeks minimum. 11. follow-up -- see your family doctor within 5-7 days. 12. return to [facility] if - * you have fevers over 100.5 degrees * you have worsening abdominal pain, nausea, vomiting * you have yellowing of the whites of the eyes * you have vomiting of any blood * any other concerns Prescriptions: New gabapentin 600 mg Tablet 600 mg PO DIRECTED Qty: 7 RF: 0 thiamine HCl (vitamin B1) 100 mg tablet 200 mg PO BID 30 Days Qty: 120 RF: 0 folic acid 1 mg tablet 1 mg PO DAILY 30 Days Qty: 30 RF: 0 sucralfate [Carafate] 1 gram tablet 1 gm PO ACHS 7 Days Qty: 28 RF: 0 magnesium oxide 400 mg capsule 400 mg PO DAILY Qty: 30 RF: 2 Continued multivitamin [Daily-Mark] Tablet 1 tab PO QAM Qty: 1 RF: 0 pantoprazole 40 mg tablet,delayed release (DR/EC) 40 mg PO BID Qty: 60 RF: 0 bupropion HCl 300 mg Tablet Extended Release 24 Hr 300 mg PO QAM RF: 0 metoprolol succinate 100 mg Tablet Extended Release 24 Hr 100 mg PO QAM RF: 0 hydrochlorothiazide 12.5 mg Capsule 12.5 mg PO QAM RF: 0 lisinopril 40 mg Tablet 40 mg PO QAM RF: 0 bupropion HCl 150 mg tablet extended release 24 hr 150 mg PO QAM RF: 0 Discontinued acetaminophen [Tylenol Extra Strength] 500 mg Tablet 500 mg PO Q6H PRN (Reason: Pain) RF: 0 Stand-Alone Forms: [facility] Discharge Orders: Discharge Order (Routine); Ordered 07/19/18 Ordered By: Akbar Peck Admission Data Admit Date/Time: 07/18/18 12:11 Attending Provider: Akbar Peck Admit Provider: Iris Valerio Primary Care Provider: Amaya Anand Other Providers: Iris Valerio ; Yusef Hillman Service: Medical Other Interventions: Discharge Summary Assessment (RN) Last Done: 07/19/18 18:05 Pending Studies at Discharge: No DC Date/Time DO NOT enter until pt leaves facility: 07/19/18 18:23
[2018-07-20] MEDS ORDERED: GABAPENTIN 600 MG TAB PO SCH (14:00)
[2018-07-21] MEDS ORDERED: GABAPENTIN 600 MG TAB PO SCH (22:00)
== END 2018-07-19 18:23 | disposition home or self-care (01) | DRG 369 ==
LOC: ED 07:02 → SUATTDRO 12:11 → 2N 12:11

== ENCOUNTER 2019-07-01 15:13 | Inpatient (IN) ==
--- OUTSIDE RECORDS SUMMARY | 2019-07-01 15:15 | External Medical Summary | Continuity of Care Document ---
:1975 Author Name Ramses Gonzalez, Provider Address Unavailable Unavailable , Care Team Providers Name Role Phone Unavailable Unavailable Unavailable Katrina Soliman PA-C Unavailable [email or web address] WILLYIVANALACY Unavailable Unavailable Unavailable Unavailable Unavailable Problems Gastric reflux (530.81) (K21.9) Elevated liver enzymes (790.5) (R74.8) Alcohol abuse (305.00) (F10.10) Abnormal CT scan, esophagus (793.4) (R93.3) Esophagitis determined by endoscopy (530.10) (K20.9) Allergies and Adverse Reactions No Known Drug Allergies (Allergy) Medications Pantoprazole Sodium 40 MG Oral Tablet De layed Release; TAKE 1 TABLET TWICE DAILY 30 MINUTES BEFORE BREAKFAST AND DINNER. LORETTA Soliman Start: 2018 Quantity: 60 Refills: 5 Lisinopril 10 MG Oral Tablet , M.D. Refills: 0 hydroCHLOROthiazide 12.5 MG Oral Tablet , M.D. Refills: 0 Metoprolol Tartrate TABS , M.D. Refills: 0 Wellbutrin SR 150 MG Oral Tablet Extended Release 12 Hour , M.D. Refills: 0 Procedures Procedures not documented Immunizations Immunizations not documented Plan of Treatment Planned Observations Planned Goals not documented Results No Known Results Results not documented Encounters Appointment; Thomas Valdez M.D. 20-Jul-2018 9:20 Encounter Diagnosis: Problem not documented Appointment; Katrina Soliman PA-C 09-May-2018 16:00 Encounter Diagnosis: Problem not documented Appointment; Katrina Soliman PA-C 25-Apr-2018 14:00 Encounter Diagnosis: Problem not documented
--- OUTSIDE RECORDS SUMMARY | 2019-07-01 15:16 | External Medical Summary | Continuity of Care Document ---
:1975 Author Name Ramses Gonzalez, Provider Address Unavailable Unavailable , Care Team Providers Name Role Phone Unavailable Unavailable Unavailable Katrina Soliman PA-C Unavailable [email or web address] LACY AGUILERA Unavailable Unavailable Unavailable Unavailable Unavailable Problems Gastric reflux (530.81) (K21.9) Elevated liver enzymes (790.5) (R74.8) Alcohol abuse (305.00) (F10.10) Abnormal CT scan, esophagus (793.4) (R93.3) Esophagitis determined by endoscopy (530.10) (K20.9) Allergies and Adverse Reactions No Known Drug Allergies (Allergy) Medications Lisinopril 10 MG Oral Tablet , M.D. Refills: 0 hydroCHLOROthiazide 12.5 MG Oral Tablet , M.D. Refills: 0 Metoprolol Tartrate TABS , M.D. Refills: 0 Wellbutrin SR 150 MG Oral Tablet Extended Release 12 Hour , M.D. Refills: 0 Pantoprazole Sodium 40 MG Oral Tablet De layed Release; TAKE 1 TABLET TWICE DAILY 30 MINUTES BEFORE BREAKFAST AND DINNER. LORETTA Soliman Start: 2018 Quantity: 60 Refills: 5 Procedures Procedures not documented Immunizations Immunizations not [...]
[2019-07-01] MEDS ORDERED: FAMOTIDINE 20MG/5ML IV PUSH IV STA (15:29)
[2019-07-01] MEDS ORDERED: SODIUM CHLORIDE 0.9% 1000ML 1,000 ML IV SCH (15:30)
[2019-07-01] MEDS ORDERED: MULTI-VITAMIN INFUSION 10 ML, THIAMINE HCL 100 MG, FOLIC ACID 1 MG in SODIUM CHLORIDE 0... IV ONE (15:32)
[2019-07-01 16:03] LABS: Basophils # (auto) 0.17 K/uL (0-0.2); Basophils % (auto) 1.2 %; Eosinophils # (auto) 0.08 K/uL (0-0.5); Eosinophils % (auto) 0.6 %; Hematocrit (blood only) 34.7 % (42-52); Hemoglobin 11.7 g/dL (14.0-18.0); Immature Granulocytes # (auto) 0.05 K/uL (0.00-0.02); Immature Granulocytes % (auto) 0.4 %; Lymphocytes # (auto) 2.27 K/uL (1.2-3.4); Mean Corpuscular Hemoglobin 37.3 pg (25-34); Mean Corpuscular Hgb Conc 33.7 g/dL (32-36); Mean Corpuscular Volume 110.5 fL (80-100); Mean Platelet Volume 11.5 fL (7.4-10.4); Monocytes # (auto) 1.53 K/uL (0.11-0.59); Monocytes % (auto) 10.8 %; Neutrophils # (auto) 10.05 K/uL (1.4-6.5); Platelet Count 349 K/uL (130-400); RDW Coefficient of Variation 17.7 % (11.5-14.5); RDW Standard Deviation 71.9 fL (36.4-46.3); Red Blood Count 3.14 M/uL (4.7-6.1); White Blood Count 14.15 K/uL (4.8-10.8)
[2019-07-01 16:11] LABS: INR 1.2 (0.9-1.1)
[2019-07-01] MEDS ORDERED: IOVERSOL 100ml IV PRN (16:25)
--- NOTE | 2019-07-01 16:27 | XRay Report ---
XR chest 1V portable HISTORY: weakness COMPARISON: Chest 04/23/2018. FINDINGS: There are low lung volumes. Mild elevation of the right hemidiaphragm. No evidence for pulm onary edema. The cardiac silhouette is normal in size. Right basilar linear densities favor subsegmen tanya atelectasis. The upper lung zones are clear. IMPRESSION: Low lung volumes with a right basilar linear density suggesting subsegmental atelectasis. ACT 112: Negative or not required by law. Electronically signed by: Dl Quiñones M.D. 07/01/2019 4:26 PM
[2019-07-01 16:37] LABS: Alanine Aminotransferase 103 U/L (12-78); Albumin Globulin Ratio 0.5 (0.9-2); Albumin Level 2.3 gm/dl (3.4-5.0); Alkaline Phosphatase 408 U/L (45-117); Aspartate Aminotransferase 438 U/L (15-37); BUN Creatinine Ratio 18.7 (10-20); Bilirubin,Total 12.1 mg/dl (0.2-1); Blood Urea Nitrogen 34 mg/dl (7-18); Carbon Dioxide 23 mmol/L (21-32); Chloride 105 mmol/L (98-107); Est GFR (African American) 51.9; Est GFR (Non-African American) 44.8; Globulin 4.4 gm/dl (2.5-4.0); Glucose 113 mg/dl (70-99); Magnesium 1.5 mg/dl (1.8-2.4); Potassium 3.1 mmol/L (3.5-5.1); Sodium 138 mmol/L (136-145); Total Protein 6.7 gm/dl (6.4-8.2); Troponin I < 0.015 ng/ml (0-0.045)
--- NOTE | 2019-07-01 16:43 | Emergency Department Note ---
ED Provider Note NAME: EL ZARAGOZA AGE: 43 SEX: M ARRIVES VIA: Walk-In INFORMANT: Patient, ED PROVIDER(S): Vanessa Aguilar MD CHIEF COMPLAINT: Mid upper back pain, abdominal pain, weakness x2 weeks IMPRESSION: Jaundice PLAN: Disposition: Admitted Condition: Unstable MEDICAL DECISION MAKING: This patient was evaluated and appeared to be in no significant distress. Vital signs were obtained and patient's blood pressure is noted to be markedly hypotensive, SBP 60s to 70s. Patient states he took lisinopril 40, metoprolol succinate 100 and hydrochlorothiazide 12.5 this morning. He denies any alcohol for several days however blood alcohol level is 199. Patient is clearly jaundiced on exam. He has an established history of alcohol abuse, cirrhosis of the liver. He is afebrile and heart rate is stable. Patient did receive 1 L of IV normal saline solution bolus, a liter of banana bag in addition with little improvement in his blood pressure. CT scan of the abdomen pelvis was performed. CT imaging reveals no acute abnormality, cirrhotic liver and portal hypertension are noted. There is a small amount of ascites and a distended gallbladder. Patient did receive 20 mEq of IV potassium, 1 g of IV magnesium. A third liter of normal saline solution was hung. Case was discussed with Dr. Young of the hospitalist service who will evaluate the patient for further management. The patient was informed of the findings and plan and agrees. Triage Nursing notes reviewed. Additional history obtained from father Prior medical records reviewed Vital Signs: reviewed and remarkable for hypotension, normal heart rate Differential diagnosis: Obstructing pancreatic mass, cholelithiasis, pancreatitis, peptic ulcer, sepsis, pneumonia, aspiration, GI bleed, alcohol intoxication, medication overdose ER treatment provided: IV normal saline solution Banana bag Diagnostics interpreted by me: ECG: Normal sinus rhythm at 77 bpm with a low voltage QRS, T wave inversion in t he anterior lateral leads. No ectopy, no acute ischemic change Cardiac Monitoring: An order for cardiac monitoring was placed and the patient is found to be in a normal sinus rhythm at 70 bpm. Laboratory studies: Patient was noted to have alcohol of 199 Imaging studies: XR chest 1V portable HISTORY: weakness COMPARISON: Chest 04/23/2018. FINDINGS: There are low lung volumes. Mild elevation of the right hemidiaphragm. No evidence for pulmonary edema. The cardiac silhouette is normal in size. Right basilar linear densities favor subsegmental atelectasis. The upper lung zones are clear. IMPRESSION: Low lung volumes with a right basilar linear density suggesting subsegmental atelectasis. ACT 112: Negative or not required by law. Electronically signed by: Dl Quiñones M.D. 07/01/2019 4:26 PM Dictated: 07/01/19 1625 Transcribed: 07/01/191624 ABDOMEN AND PELVIS CT WITH IV CONTRAST CT DOSE: 422.25 mGy.cm HISTORY: epigastric pain to back, ETOH jaundice TECHNIQUE: Multiaxial CT images of the abdomen and pelvis were performed following the use of intravenous contrast. A dose lowering technique was utilized adhering to the principles of ALARA. COMPARISON STUDY: Liver CT 03/14/2019. Abdomen and pelvis CT 07/18/2018. FINDINGS: A few bibasilar linear densities consistent with subsegmental atelectasis. No pneumoperitoneum. No pneumatosis. No suspicious lytic or blastic osseous lesions. Heterogeneous liver demonstrating fatty change. Stable 1.7 cm hypodense lesion within the left hepatic lobe. This favors a cyst. Mild gallbladder wall thickening is noted. Small amount of ascites most pronounced within the perihepatic location and the pelvis. The spleen, adrenal glands, pancreas, and kidneys enhance normally. No hydronephrosis. No retroperitoneal lymphadenopathy. Small paraesophageal varices are noted. Recanalization of the umbilical vein with a few small upper abdominal varicosities. Nodular contour to the liver consistent with cirrhosis. Small amount of edema surrounding the pancreas favors the ascites. The main portal vein is patent. Normal bladder. Fal l fat-containing right inguinal hernia. No retroperitoneal lymphadenopathy. Normal caliber abdominal aorta. Colonic diverticulosis. No CT evidence for acute diverticulitis. No bowel wall thickening or obstruction. Normal appendix. Submucosal fat within the proximal colon remains unchanged. This is likely chronic. IMPRESSION: 1. Cirrhotic liver with evidence for portal hypertension. 2. Small amount of ascites. There is edema surrounding the pancreas which is likely due to the ascites. The pancreas demonstrates normal enhancement. 3. Mild gallbladder wall thickening which is likely due to the patient's edematous state. A developing acute cholecystitis is considered less likely but not entirely excluded. 4. No bowel wall thickening or obstruction. 5. Colonic diverticulosis. No evidence for acute diverticulitis. ACT 112: Negative or not required by law. Electronically signed by: Dl Quiñones M.D. 07/01/2019 5:03 PM Dictated: 07/01/191651 Transcribed: 07/01/191651 Consultation(s): Dr. Young, [facility] hospitalist. HPI: 43/M arrives for evaluation of weakness, abdominal pain for the better part of 2 weeks. Patient states he has not been feeling well overall and has been taking Tylenol intermittently. Patient took 1000 mg last evening and 500 mg again today. He states he has not had any alcohol for "several days." Patient has been feeling depressed about his inability to work. He had a job at [employer] for several days but states it was too stressful and the pay was too low. Patient apparently called his parents today with complaints of chest pain. He complains of upper middle back pain and abdominal pain. He denies any vomiting or fevers. He denies any blood in his stools. Patient has been to our facility with alcohol intoxication, alcohol withdrawal and delirium. ROS: See above HPI for pertinent positives & negatives. A total of 10 systems reviewed and were otherwise negative. PAST MEDICAL HISTORY:Alcohol abuse, cirrhosis, alcohol withdrawal, delirium PAST SURGICAL HISTORY:See Below FAMILY HISTORY:See Below SOCIAL HISTORY:Positive continued alcohol consumption, recently briefly worked at [employer], otherwise unemployed. HOME MEDICATIONS:Bupropion, gabapentin, hydrochlorothiazide, lisinopril, mag oxide, metoprolol, daily multivitamin, pantoprazole, Carafate ALLERGIES:Ibuprofen PHYSICAL EXAMINATION: Vital signs reviewed. Hypotensive General: Chronically ill-appearing, in no significant distress. HEENT: Positive scleral icterus, PERRLA, neck supple. Atraumatic. Cardiovascular: Regular rate and rhythm, no extra sounds. Pulmonary: Clear to auscultation bilaterally, normal work of breathing. Abdomen: Soft, mild diffuse abdominal tenderness, nondistended, positive bowel sounds. Musculoskeletal: Atraumatic, no peripheral edema. Neurologic: Patient awake alert and oriented x 3 Skin: Warm, dry, jaundiced, no rash Critical care: I have personally spent greater than 45 minutes of critical care time in the direct management of this patient. This includes bedside care, interpretation of diagnostic studies, and testing, discussion with consultants, patient, and family members, and other required patient management activities. This 45 minutes is in excess of all separately billable procedures. Vanessa Aguilar MD Impression & Plan Acute hepatic failure, Acute hypotension, Jaundice, Alcohol abuse with intoxication Past Med/Surg History Surgical History History of esophagogastroduodenoscopy (EGD) Hx of vasectomy Family History Aunt Family history of diabetes mellitus Mother Family hx colonic polyps Other No family history of adverse response to anesthesia Denies family history of Crohn's disease Colorectal cancer Ulcerative colitis Social History Preferred Language: Yoruba Communication Ability: Effective Visual Impairment: No Limitations Cut Filer Required: No Beliefs That Will Affect Care: None Current Living Situation: Alone Feels Safe at Home: Yes Smoking Status: Never smoker Second Hand Exposure: No ; Hx Alcohol Use: Yes Alcohol type: other Alcohol Intake Frequency Comment: hx of heavy use, now at 3-4 x/week Hx Substance Use: No (PREVIOUS HX OF MARIJUANA USE) Results & Data Vital Signs Vital Signs - 24 hr 07/01/19 15:19 07/01/19 15:25 07/01/19 15:27 Temperature 36.8 C Temperature Source Oral Pulse Rate 87 Pulse Rate from SpO2 Sensor Pulse Rhythm Regular Pulse Strength Normal Respiratory Rate 20 Respiratory Effort / Characteristics Non-Labored Spontaneous Respiratory Depth Normal Respiratory Pattern Regular Blood Pressure 74/44 L Blood Pressure [Right Arm] 85/55 L 80/56 L Blood Pressure Mean 54 Blood Pressure Mean [Right Arm] 65 64 Blood Pressure Position Sitting Pulse Oximetry 98 Oxygen Delivery Method Room Air Sepsis Recent Fever Within 48 Hours No Sepsis Action Taken by Nursing No Action Required 07/01/19 15:47 07/01/19 15:48 07/01/19 15:49 Temperature Temperature Source Pulse Rate 71 Pulse Rate from SpO2 Sensor 71 Pulse Rhythm Pulse Strength Respiratory Rate 19 Respiratory Effort / Characteristics Respiratory Depth Respiratory Pattern Blood Pressure 55/35 L Blood Pressure [Right Arm] Blood Pressure Mean 38 Blood Pressure Mean [Right Arm] Blood Pressure Position Pulse Oximetry 96 96 96 Oxygen Delivery Method Room Air Room Air Sepsis Recent Fever Within 48 Hours Sepsis Action Taken by Nursing 07/01/19 15:50 07/01/19 15:53 07/01/19 15:54 Temperature Temperature Source Pulse Rate 70 69 70 Pulse Rate from SpO2 Sensor 70 70 70 Pulse Rhythm Pulse Strength Respiratory Rate 18 18 17 Respiratory Effort / Characteristics Respiratory Depth Respiratory Pattern Blood Pressure 60/35 L 65/41 L 63/41 L Blood Pressure [Right Arm] Blood Pressure Mean 47 52 45 Blood Pressure Mean [Right Arm] Blood Pressure Position Pulse Oximetry 96 95 95 Oxygen Delivery Method Sepsis Recent Fever Within 48 Hours Sepsis Action Taken by Nursing 07/01/19 16:00 07/01/19 16:10 07/01/19 16:13 Temperature Temperature Source Pulse Rate 72 72 75 Pulse Rate from SpO2 Sensor 72 73 77 Pulse Rhythm Pulse Strength Respiratory Rate 16 22 22 Respiratory Effort / Characteristics Respiratory Depth Respiratory Pattern Blood Pressure 72/48 L 76/55 L 77/61 L Blood Pressure [Right Arm] Blood Pressure Mean 53 61 64 Blood Pressure Mean [Right Arm] Blood Pressure Position Pulse Oximetry 98 99 100 Oxygen Delivery Method Room Air Room Air Sepsis Recent Fever Within 48 Hours Sepsis Action Taken by Nursing 07/01/19 16:20 07/01/19 16:35 07/01/19 16:36 Temperature Temperature Source Pulse Rate 80 82 86 Pulse Rate from SpO2 Sensor 80 82 86 Pulse Rhythm Pulse Strength Respiratory Rate 20 21 23 Respiratory Effort / Characteristics Respiratory Depth Respiratory Pattern Blood Pressure 87/61 L 85/64 L 85/64 L Blood Pressure [Right Arm] Blood Pressure Mean 72 71 68 Blood Pressure Mean [Right Arm] Blood Pressure Position Pulse Oximetry 99 99 99 Oxygen Delivery Method Room Air Room Air Sepsis Recent Fever Within 48 Hours Sepsis Action Taken by Nursing 07/01/19 16:40 07/01/19 16:41 07/01/19 16:50 Temperature Temperature Source Pulse Rate 84 85 80 Pulse Rate from SpO2 Sensor 84 83 Pulse Rhythm Pulse Strength Respiratory Rate 21 16 Respiratory Effort / Characteristics Respiratory Depth Respiratory Pattern Blood Pressure 84/64 L 83/59 L Blood Pressure [Right Arm] Blood Pressure Mean 68 62 Blood Pressure Mean [Right Arm] Blood Pressure Position Pulse Oximetry 98 100 Oxygen Delivery Method Sepsis Recent Fever Within 48 Hours Sepsis Action Taken by Nursing 07/01/19 16:51 07/01/19 16:53 07/01/19 17:00 Temperature Temperature Source Pulse Rate 79 81 83 Pulse Rate from SpO2 Sensor 82 Pulse Rhythm Pulse Strength Respiratory Rate 16 19 21 Respiratory Effort / Characteristics Respiratory Depth Respiratory Pattern Blood Pressure Blood Pressure [Right Arm] Blood Pressure Mean Blood Pressure Mean [Right Arm] Blood Pressure Position Pulse Oximetry 96 Oxygen Delivery Method Sepsis Recent Fever Within 48 Hours Sepsis Action Taken by Nursing 07/01/19 17:02 07/01/19 17:04 Temperature Temperature Source Pulse Rate 79 81 Pulse Rate from SpO2 Sensor 79 80 Pulse Rhythm Pulse Strength Respiratory Rate 19 18 Respiratory Effort / Characteristics Respiratory Depth Respiratory Pattern Blood Pressure 82/58 L Blood Pressure [Right Arm] Blood Pressure Mean 66 Blood Pressure Mean [Right Arm] Blood Pressure Position Pulse Oximetry 98 100 Oxygen Delivery Method Sepsis Recent Fever Within 48 Hours Sepsis Action Taken by Nursing Laboratory Data Result diagrams: 07/01/19 15:36 07/01/19 15:36 Lab Results 07/01/19 07/01/19 07/01/19 Range/Units 15:36 15:36 15:36 WBC 14.15 H (4.8-10.8) K/uL RBC 3.14 L (4.7-6.1) M/uL Hgb 11.7 L (14.0-18.0) g/dL Hct 34.7 L (42-52) % MCV 110.5 H (80-100) fL MCH 37.3 H (25-34) pg MCHC 33.7 (32-36) g/dL RDW Std Deviation 71.9 H (36.4-46.3) fL RDW Coeff of Rashida 17.7 H (11.5-14.5) % Plt Count 349 (130-400) K/uL MPV 11.5 H (7.4-10.4) fL Immature Gran % (Auto) 0.4 % Neut % (Auto) 71.0 % Lymph % (Auto) 16.0 % Robertson % (Auto) 10.8 % Eos % (Auto) 0.6 % Baso % (Auto) 1.2 % Immature Gran # (Auto) 0.05 H (0.00-0.02) K/uL Neut # (Auto) 10.05 H (1.4-6.5) K/uL Lymph # (Auto) 2.27 (1.2-3.4) K/uL Robertson # (Auto) 1.53 H (0.11-0.59) K/uL Eos # (Auto) 0.08 (0-0.5) K/uL Baso # (Auto) 0.17 (0-0.2) K/uL PT 13.0 H (9.0-12.0) Seconds INR 1.2 H (0.9-1.1) Sodium 138 (136-145) mmol/L Potassium 3.1 L (3.5-5.1) mmol/L Chloride 105 (98-107) mmol/L Carbon Dioxide 23 (21-32) mmol/L Anion Gap 10.0 (3-11) BUN 34 H (7-18) mg/dl Creatinine 1.80 H (0.6-1.4) mg/dl Est Cr Clr Drug Dosing 49.0 ml/min Est GFR ( Amer) 51.9 Est GFR (Non-Af Amer) 44.8 BUN/Creatinine Ratio 18.7 (10-20) Glucose 113 H (70-99) mg/dl Lactate (0.4-2.0) mmol/L Calcium 8.0 L (8.5-10.1) mg/dl Magnesium 1.5 L (1.8-2.4) mg/dl Total Bilirubin 12.1 H (0.2-1) mg/dl AST 438 H (15-37) U/L ALT 103 H (12-78) U/L Alkaline Phosphatase 408 H (45-117) U/L Ammonia (11-32) umol/L Troponin I < 0.015 (0-0.045) ng/ml Total Protein 6.7 (6.4-8.2) gm/dl Albumin 2.3 L (3.4-5.0) gm/dl Globulin 4.4 H (2.5-4.0) gm/dl Albumin/Globulin Ratio 0.5 L (0.9-2) TSH 3.760 (0.300-4.500) uIu/ml Acetaminophen Ethyl Alcohol mg/dL (0-3) mg/dl 07/01/19 07/01/19 07/01/19 Range/Units 15:36 15:36 15:36 WBC (4.8-10.8) K/uL RBC (4.7-6.1) M/uL Hgb (14.0-18.0) g/dL Hct (42-52) % MCV (80-100) fL MCH (25-34) pg MCHC (32-36) g/dL RDW Std Deviation (36.4-46.3) fL RDW Coeff of Rashida (11.5-14.5) % Plt Count (130-400) K/uL MPV (7.4-10.4) fL Immature Gran % (Auto) % Neut % (Auto) % Lymph % (Auto) % Robertson % (Auto) % Eos % (Auto) % Baso % (Auto) % Immature Gran # (Auto) (0.00-0.02) K/uL Neut # (Auto) (1.4-6.5) K/uL Lymph # (Auto) (1.2-3.4) K/uL Robertson # (Auto) (0.11-0.59) K/uL Eos # (Auto) (0-0.5) K/uL Baso # (Auto) (0-0.2) K/uL PT (9.0-12.0) Seconds INR (0.9-1.1) Sodium (136-145) mmol/L Potassium (3.5-5.1) mmol/L Chloride (98-107) mmol/L Carbon Dioxide (21-32) mmol/L Anion Gap (3-11) BUN (7-18) mg/dl Creatinine (0.6-1.4) mg/dl Est Cr Clr Drug Dosing ml/min Est GFR ( Amer) Est GFR (Non-Af Amer) BUN/Creatinine Ratio (10-20) Glucose (70-99) mg/dl Lactate 4.8 H* (0.4-2.0) mmol/L Calcium (8.5-10.1) mg/dl Magnesium (1.8-2.4) mg/dl Total Bilirubin (0.2-1) mg/dl AST (15-37) U/L ALT (12-78) U/L Alkaline Phosphatase (45-117) U/L Ammonia < 10.0 L (11-32) umol/L Troponin I (0-0.045) ng/ml Total Protein (6.4-8.2) gm/dl Albumin (3.4-5.0) gm/dl Globulin (2.5-4.0) gm/dl Albumin/Globulin Ratio (0.9-2) TSH (0.300-4.500) uIu/ml Acetaminophen Ethyl Alcohol mg/dL 199.0 H (0-3) mg/dl 03/21/20 Range/Units 15:46 WBC (4.8-10.8) K/uL RBC (4.7-6.1) M/uL Hgb (14.0-18.0) g/dL Hct (42-52) % MCV (80-100) fL MCH (25-34) pg MCHC (32-36) g/dL RDW Std Deviation (36.4-46.3) fL RDW Coeff of Rashida (11.5-14.5) % Plt Count (130-400) K/uL MPV (7.4-10.4) fL Immature Gran % (Auto) % Neut % (Auto) % Lymph % (Auto) % Robertson % (Auto) % Eos % (Auto) % Baso % (Auto) % Immature Gran # (Auto) (0.00-0.02) K/uL Neut # (Auto) (1.4-6.5) K/uL Lymph # (Auto) (1.2-3.4) K/uL Robertson # (Auto) (0.11-0.59) K/uL Eos # (Auto) (0-0.5) K/uL Baso # (Auto) (0-0.2) K/uL PT (9.0-12.0) Seconds INR (0.9-1.1) Sodium (136-145) mmol/L Potassium (3.5-5.1) mmol/L Chloride (98-107) mmol/L Carbon Dioxide (21-32) mmol/L Anion Gap (3-11) BUN (7-18) mg/dl Creatinine (0.6-1.4) mg/dl Est Cr Clr Drug Dosing ml/min Est GFR ( Amer) Est GFR (Non-Af Amer) BUN/Creatinine Ratio (10-20) Glucose (70-99) mg/dl Lactate (0.4-2.0) mmol/L Calcium (8.5-10.1) mg/dl Magnesium (1.8-2.4) mg/dl Total Bilirubin (0.2-1) mg/dl AST (15-37) U/L ALT (12-78) U/L Alkaline Phosphatase (45-117) U/L Ammonia (11-32) umol/L Troponin I (0-0.045) ng/ml Total Protein (6.4-8.2) gm/dl Albumin (3.4-5.0) gm/dl Globulin (2.5-4.0) gm/dl Albumin/Globulin Ratio (0.9-2) TSH (0.300-4.500) uIu/ml Acetaminophen Cancelled Ethyl Alcohol mg/dL (0-3) mg/dl Administered Medications Ioversol (Optiray 320 100ml) 94 ml IV ONCE PRN PRN Reason: Interaction Checking Stop: 07/05/19 16:24 Last Admin: 07/01/19 16:26 Dose: 94 ml Documented by: [id number] Discontinued Medications Famotidine (Pepcid 20mg Iv Push) 20 mg IV ONE STA Stop: 07/01/19 15:30 Last Admin: 07/01/19 17:05 Dose: 20 mg Documented by: [id number] Sodium Chloride (Nss 1000ml) 1,000 mls @ 999 mls/hr IV .Q1H1M ALVERTO Stop: 07/01/19 16:30 Last Infusion: 07/01/19 17:06 Dose: 0 mls/hr Documented by: [id number] Infusion: 07/01/19 16:47 Dose: 0 mls/hr Documented by: [id number] Admin: 07/01/19 15:47 Dose: 999 mls/hr Documented by: [id number] Multivitamins 10 ml/ Thiamine HCl 100 mg/ Folic Acid 1 mg/Sodium Chloride 1,011.2 mls @ 1,011.2 mls/hr IV .Q1H ONE Stop: 07/01/19 16:31 Last Infusion: 07/01/19 16:47 Dose: 0 mls/hr Documented by: [id number] Admin: 07/01/19 15:51 Dose: 1,011.2 mls/hr Documented by: [id number] Ceftriaxone Sodium (Rocephin) 2,000 mg in 70 mls @ 140 mls/hr IV NOW STA Stop: 07/01/19 17:15 Last Admin: 07/01/19 17:05 Dose: 140 mls/hr Documented by: [id number] Discharge Plan Visit Data Chief Complaint: Shortness of Breath/Dyspnea Stated Complaint: SOB ED Provider: Vanessa Aguilar Discharge Problem: Acute hepatic failure, Acute hypotension, Jaundice, Alcohol abuse with intoxication Patient Disposition: Admitted As Inpatient Forms Stand Alone Forms: [facility] Prescriptions Prescriptions: No Action pantoprazole 40 mg tablet,delayed release (DR/EC) 40 mg PO BID Qty: 60 RF: 0 multivitamin [Daily-Mark] Tablet 1 tab PO QAM Qty: 1 RF: 0 metoprolol succinate 100 mg Tablet Extended Release 24 Hr 100 mg PO QAM RF: 0 hydrochlorothiazide 12.5 mg Capsule 12.5 mg PO QAM RF: 0 lisinopril 40 mg Tablet 40 mg PO QAM RF: 0 bupropion HCl 150 mg tablet extended release 24 hr 150 mg PO QAM RF: 0 magnesium oxide 400 mg capsule 400 mg PO DAILY Qty: 30 RF: 2 gabapentin 600 mg tablet 600 mg PO UD PRN (Reason: Pain) RF: 0 sucralfate 1 gram tablet 1 g PO ACHS RF: 0 Referrals Referrals: Amaya Anand DO [Primary Care Provider] - Meds Home Medications and Allergies Home Medications Medication Instructions Recorded Confirmed Type hydrochlorothiazide 12.5 mg PO QAM 04/21/18 07/01/19 History lisinopril 40 mg PO QAM 04/21/18 07/01/19 History metoprolol succinate 100 mg PO QAM 04/21/18 07/01/19 History bupropion HCl 150 mg PO QAM 07/18/18 07/01/19 History gabapentin 600 mg PO UD PRN 07/01/19 07/01/19 History sucralfate 1 g PO ACHS 07/01/19 07/01/19 History Allergies Allergy/AdvReac Type Severity Reaction Status Date / Time ibuprofen AdvReac Intermediate MAKES HIM Verified 07/01/19 16:48 PUKE Discharge Problem: Acute hepatic failure Qualifiers: Hepatic coma status: without hepatic coma Qualified Code(s): K72.00 - Acute and subacute hepatic failure without coma
[2019-07-01] MEDS ORDERED: cefTRIAXone SODIUM 2,000 MG/70 ML BAG IV STA (16:46)
--- NOTE | 2019-07-01 17:04 | CT Scan Report ---
ABDOMEN AND PELVIS CT WITH IV CONTRAST CT DOSE: 422.25 mGy.cm HISTORY: epigastric pain to back, ETOH jaundice TECHNIQUE: Multiaxial CT images of the abdomen and pelvis were performed following the use of intrave nous contrast. A dose lowering technique was utilized adhering to the principles of ALARA. COMPARISON STUDY: Liver CT 03/14/2019. Abdomen and pelvis CT 07/18/2018. FINDINGS: A few bibasilar linear densities consistent with subsegmental atelectasis. No pneumoperiton eum. No pneumatosis. No suspicious lytic or blastic osseous lesions. Heterogeneous liver demonstratin g fatty change. Stable 1.7 cm hypodense lesion within the left hepatic lobe. This favors a cyst. Mild gallbladder wall thickening is noted. Small amount of ascites most pronounced within the perihepatic location and the pelvis. The spleen, adrenal glands, pancreas, and kidneys enhance normally. No hydr onephrosis. No retroperitoneal lymphadenopathy. Small paraesophageal varices are noted. Recanalizatio n of the umbilical vein with a few small upper abdominal varicosities. Nodular contour to the liver c onsistent with cirrhosis. Small amount of edema surrounding the pancreas favors the ascites. The main portal vein is patent. Normal bladder. Fall fat-containing right inguinal hernia. No retroperitoneal lymphadenopathy. Normal caliber abdominal aorta. Colonic diverticulosis. No CT evidence for acute di verticulitis. No bowel wall thickening or obstruction. Normal appendix. Submucosal fat within the pro ximal colon remains unchanged. This is likely chronic. IMPRESSION: 1. Cirrhotic liver with evidence for portal hypertension. 2. Small amount of ascites. There is edema surrounding the pancreas which is likely due to the ascite s. The pancreas demonstrates normal enhancement. 3. Mild gallbladder wall thickening which is likely due to the patient's edematous state. A developin g acute cholecystitis is considered less likely but not entirely excluded. 4. No bowel wall thickening or obstruction. 5. Colonic diverticulosis. No evidence for acute diverticulitis. ACT 112: Negative or not required by law. Electronically signed by: Dl Quiñones M.D. 07/01/2019 5:03 PM
[2019-07-01] MEDS ORDERED: MAGNESIUM SULFATE / D5W 1 GM/100 ML BAG IV ONE (17:11)
[2019-07-01 17:17] LABS: Macrocytosis Present; Target Cells 1+
--- NOTE | 2019-07-01 17:37 | History & Physical Report ---
Date of Service July 01, 2019 Assessment & Plan (1) Alcoholic hepatitis: patient admits to being depressed, drinking a lot more recently, drinks hard liquor he has also been taking Tylenol for back pain Bili up to 12, AST 400, ALT 100, Alk phos 408 INR is only 1.2 Cr up at 1.8, likely dehydrated discriminant function only 16, d/w Dr. Beverly, no mortality benefit to give Prednisilone at this time will give supportive care with IV fluids, monitor CMP closely GI will see tomorrow (2) Acute hypotension: combinations of three things: he is volume depleted, he has cirrhosis and always with soft BP and he took all his medications this morning receiving his second bag of fluids now will continue NSS at 100cc/hr can bolus if needed but he is completely asymptomatic with BP in the 80's systolic, feels fine suspect he lives with pressures close to this low no suspicion of sepsis as he has no clear source will follow up on lactic acid, blood cultures, started on Rocephin for time being (3) GERD (gastroesophageal reflux disease): continue Protonix (4) Cirrhosis: ongoing issue he has been reluctant to accept that it is his alcohol abuse follows with Dr. Hillman in the clinic (5) SUNG (acute kidney injury): Cr up to 1.8, baseline is <1 due to dehydration, drank a Dr Pepper today, had a glass of tea yesterday not drinking any water he is drinking alcohol aggressive hydrations, repeat BMP later this evening and tomorrow HOLD lisinopril and HCTZ renally dose medications (6) Lactic acidosis: likely due to hypovolemia, poor perfusion despite two liters of fluid lactic acid up to 5.9 mentating normally will monitor closely History of Present Illness Chief Complaint: I feel sick Primary Care Provider: Amaya Anand, DO 43 yo male with history of cirrhosis, alcohol abuse, GERD, hypertension who presents to the ED complaining of feeling fatigued, short of breath and yellowing skin. He says that he symptoms have been going on for a few days. He has not noticed any fever or chills, no abdominal pain. He has some nausea but he always has nausea. He has not been drinking fluids other than alcohol, drinking at least 6 hard drinks a day, but likely more. He has only had a Dr. Ritter today and a glass of tea yesterday. Minimal food intake. He admits that this has been going on for the past week. On Wednesday he met with his ex and consumer attorney and they were concerned that he was yellow. He had not noticed being yellow before. His father says that last weekend, 7 days ago, he was not yellow so this is new issue. He does not have a cough, does not have any dysuria but admits that he is not making much urine and it is dark. He had a normal bowel movement today, no melena or bright red blood. He was having some neck and back pain for which he took 2000mg of Tylenol yesterday and 1000 or 2000mg of Tylenol today, he could not remember if it was one or two pills. He admits that he has been taking his Metoprolol 100mg, Lisinopril 40mg and HCTZ 25mg every day, he took them this morning. He had alcohol today. In the ED he was profoundly hypotensive but was still mentating normally with recorded systolic BP in the 60's. He received two liters of fluid and BP up to high 80's systolic and he felt great, felt a lot better. His only complaint for me was that he was laying too flat and his neck hurt. Labs showed WBC of 14k, he had no recorded fever. INR 1.2. Cr elevated at 1.8 which is markedly up from a baseline of < 1. Bilirubin up to 12 which is the highest it has ever been. AST and Alk phos in the 400's and ALT in the 100's. Lactic acid elevated at 4. CXR did not show an infiltrate. CT abdomen pelvis with cirrhotic liver, mild ascites, distended gall bladder with some surrounding fluid but no clear signs of cholecystitis. Given the lack of abdominal pain, no fever and heavy alcohol intake acute alcohol hepatitis was felt more likely than cholecystitis. Allergies Allergy/AdvReac Type Severity Reaction Status Date / Time ibuprofen AdvReac Intermediate MAKES HIM Verified 07/01/19 16:48 PUKE Home Medications Home Medications Medication Instructions Recorded Confirmed Type hydrochlorothiazide 12.5 mg PO QAM 04/21/18 07/01/19 History lisinopril 40 mg PO QAM 04/21/18 07/01/19 History metoprolol succinate 100 mg PO QAM 04/21/18 07/01/19 History multivitamin [Daily-Mark] 1 tab PO QAM #1 tab 04/27/18 07/01/19 Rx bupropion HCl 150 mg PO QAM 07/18/18 07/01/19 History magnesium oxide 400 mg PO DAILY #30 cap 07/19/18 07/01/19 Rx pantoprazole 40 mg tablet,delayed 40 mg PO BID #60 tab 05/29/19 07/01/19 Rx release gabapentin 300 mg PO TID 07/01/19 07/01/19 History sucralfate 1 g PO ACHS 07/01/19 07/01/19 History Past Med/Surg History Surgical History History of esophagogastroduodenoscopy (EGD) Hx of vasectomy Family History Aunt Family history of diabetes mellitus Mother Family hx colonic polyps Other No family history of adverse response to anesthesia Denies family history of Crohn's disease Colorectal cancer Ulcerative colitis Social History Preferred Language: [place] Communication Ability: Effective Visual Impairment: No Limitations Residential Green Building 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 Required: No Beliefs That Will Affect Care: None Current Living Situation: Alone Current Living Situation Comment: rents a house Other Information That Helps Us Care for You: No Feels Safe at Home: Yes Safety Concerns: Feels Safe At This Time Smoking Status: Former smoker Second Hand Exposure: No ; Hx Alcohol Use: Yes Alcohol type: hard liquor Alcohol Intake Frequency Comment: hx of heavy use, now at 3-4 x/week Hx Substance Use: No (Pt has med card for marijuana) Review of Systems Review of Systems: All systems reviewed & are unremarkable except as noted in HPI & below Constitutional: + fatigue and + weakness; no fever, no chills and no sweats Respiratory: + dyspnea on exertion; no cough, no dyspnea and no wheezing Cardiovascular: no chest pain, no palpitations, no syncope and no edema Gastrointestinal: + nausea; no abdominal pain, no vomiting, no constipation, no diarrhea/loose stools, no blood in stools and no melena Genitourinary: + decreased urination (dark urine); no dysuria, no hematuria and no flank pain Musculoskeletal: + back pain, + neck pain and + muscle weakness (generalized) Integumentary: + yellowing of the skin Physical Exam Constitutional: + ill appearing; no altered mental status and not in distress Eyes: PERRL and EOM intact bilaterally; sclerae not anicteric (icterus) ENMT: external ear and nose normal, oropharynx normal (dry oral mucous membranes) Neck: trachea midline, no thyromegaly Respiratory: normal respiratory effort, lungs clear to auscultation Cardiovascular: RRR, no murmur, no edema (weak peripheral pulses) Gastrointestinal (Abdomen): Inspection/Auscultation: + abdomen distended and normal bowel sounds Percussion/Palpation: abdomen soft and + dullness to percussion; abdomen nontender, no guarding, abdomen not rigid, no hepatosplenomegaly and no ascites Musculoskeletal: no cyanosis or clubbing, extremities motor strength 5/5 Skin: no rashes, warm and dry + jaundice Neurologic: patellar DTR's 2+ bilat, sensation intact and PERRL, EOMI, accommodation nl, no face palsy, no dysarthria Psychiatric: A+Ox3, euthymic affect Lymphatic: no cervical or axillary lymphadenopathy Results & Data Vital Signs (Past 12 Hours) Vital Signs Temp Pulse Resp BP BP Pulse Ox 07/01/19 17:20 80 22 81/53 L 07/01/19 17:10 86 23 88/59 L 98 07/01/19 17:04 81 18 82/58 L 100 07/01/19 17:02 79 19 98 07/01/19 17:00 83 21 96 07/01/19 16:53 81 19 07/01/19 16:51 79 16 07/01/19 16:50 80 16 83/59 L 07/01/19 16:41 85 21 100 07/01/19 16:40 84 84/64 L 98 07/01/19 16:36 86 23 85/64 L 99 07/01/19 16:35 82 21 85/64 L 99 07/01/19 16:20 80 20 87/61 L 99 07/01/19 16:13 75 22 77/61 L 100 07/01/19 16:10 72 22 76/55 L 99 07/01/19 16:00 72 16 72/48 L 98 07/01/19 15:54 70 17 63/41 L 95 07/01/19 15:53 69 18 65/41 L 95 07/01/19 15:50 70 18 60/35 L 96 07/01/19 15:49 71 19 55/35 L 96 07/01/19 15:48 96 07/01/19 15:47 96 07/01/19 15:27 80/56 L 07/01/19 15:25 85/55 L 07/01/19 15:19 36.8 C 87 20 74/44 L 98 Laboratory Results Laboratory Results - last 24 hr 07/01/19 07/01/19 07/01/19 15:36 15:36 15:36 WBC 14.15 H RBC 3.14 L Hgb 11.7 L Hct 34.7 L MCV 110.5 H MCH 37.3 H MCHC 33.7 RDW Std Deviation 71.9 H RDW Coeff of Rashida 17.7 H Plt Count 349 MPV 11.5 H Immature Gran % (Auto) 0.4 Neut % (Auto) 71.0 Lymph % (Auto) 16.0 [place] % (Auto) 10.8 Eos % (Auto) 0.6 Baso % (Auto) 1.2 Immature Gran # (Auto) 0.05 H Neut # (Auto) 10.05 H Lymph # (Auto) 2.27 [place] # (Auto) 1.53 H Eos # (Auto) 0.08 Baso # (Auto) 0.17 Macrocytosis Present Target Cells 1+ PT 13.0 H INR 1.2 H Sodium 138 Potassium 3.1 L Chloride 105 Carbon Dioxide 23 Anion Gap 10.0 BUN 34 H Creatinine 1.80 H Est Cr Clr Drug Dosing 49.0 Est GFR ( Amer) 51.9 Est GFR (Non-Af Amer) 44.8 BUN/Creatinine Ratio 18.7 Glucose 113 H Lactate Calcium 8.0 L Magnesium 1.5 L Total Bilirubin 12.1 H AST 438 H ALT 103 H Alkaline Phosphatase 408 H Ammonia Troponin I < 0.015 Total Protein 6.7 Albumin 2.3 L Globulin 4.4 H Albumin/Globulin Ratio 0.5 L TSH 3.760 Acetaminophen Ethyl Alcohol mg/dL Miscellaneous Test 07/01/19 07/01/19 07/01/19 15:36 15:36 15:36 WBC RBC Hgb Hct MCV MCH MCHC RDW Std Deviation RDW Coeff of Rashida Plt Count MPV Immature Gran % (Auto) Neut % (Auto) Lymph % (Auto) [place] % (Auto) Eos % (Auto) Baso % (Auto) Immature Gran # (Auto) Neut # (Auto) Lymph # (Auto) [place] # (Auto) Eos # (Auto) Baso # (Auto) Macrocytosis Target Cells PT INR Sodium Potassium Chloride Carbon Dioxide Anion Gap BUN Creatinine Est Cr Clr Drug Dosing Est GFR ( Amer) Est GFR (Non-Af Amer) BUN/Creatinine Ratio Glucose Lactate 4.8 H* Calcium Magnesium Total Bilirubin AST ALT Alkaline Phosphatase Ammonia < 10.0 L Troponin I Total Protein Albumin Globulin Albumin/Globulin Ratio TSH Acetaminophen Ethyl Alcohol mg/dL 199.0 H Miscellaneous Test 07/01/19 07/01/19 07/01/19 15:46 15:46 17:25 WBC RBC Hgb Hct MCV MCH MCHC RDW Std Deviation RDW Coeff of Rashida Plt Count MPV Immature Gran % (Auto) Neut % (Auto) Lymph % (Auto) [place] % (Auto) Eos % (Auto) Baso % (Auto) Immature Gran # (Auto) Neut # (Auto) Lymph # (Auto) [place] # (Auto) Eos # (Auto) Baso # (Auto) Macrocytosis Target Cells PT INR Sodium Potassium Chloride Carbon Dioxide Anion Gap BUN Creatinine Est Cr Clr Drug Dosing Est GFR ( Amer) Est GFR (Non-Af Amer) BUN/Creatinine Ratio Glucose Lactate 5.9 H* Calcium Magnesium Total Bilirubin AST ALT Alkaline Phosphatase Ammonia Troponin I Total Protein Albumin Globulin Albumin/Globulin Ratio TSH Acetaminophen Cancelled Ethyl Alcohol mg/dL Miscellaneous Test Pending 07/01/19 19:19 WBC RBC Hgb Hct MCV MCH MCHC RDW Std Deviation RDW Coeff of Rashida Plt Count MPV Immature Gran % (Auto) Neut % (Auto) Lymph % (Auto) [place] % (Auto) Eos % (Auto) Baso % (Auto) Immature Gran # (Auto) Neut # (Auto) Lymph # (Auto) [place] # (Auto) Eos # (Auto) Baso # (Auto) Macrocytosis Target Cells PT INR Sodium Potassium Chloride Carbon Dioxide Anion Gap BUN Creatinine Est Cr Clr Drug Dosing Est GFR ( Amer) Est GFR (Non-Af Amer) BUN/Creatinine Ratio Glucose Lactate 5.4 H* Calcium Magnesium Total Bilirubin AST ALT Alkaline Phosphatase Ammonia Troponin I Total Protein Albumin Globulin Albumin/Globulin Ratio TSH Acetaminophen Ethyl Alcohol mg/dL Miscellaneous Test Diagnostic Findings XR chest 1V portable FINDINGS: There are low lung volumes. Mild elevation of the right hemidiaphragm. No evidence for pulmonary edema. The cardiac silhouette is normal in size. Right basilar linear densities favor subsegmental atelectasis. The upper lung zones are clear. IMPRESSION: Low lung volumes with a right basilar linear density suggesting subsegmental atelectasis. CT ABDOMEN/PELVIS IMPRESSION: 1. Cirrhotic liver with evidence for portal hypertension. 2. Small amount of ascites. There is edema surrounding the pancreas which is likely due to the ascites. The pancreas demonstrates normal enhancement. 3. Mild gallbladder wall thickening which is likely due to the patient's edematous state. A developing acute cholecystitis is considered less likely but not entirely excluded. 4. No bowel wall thickening or obstruction. 5. Colonic diverticulosis. No evidence for acute diverticulitis. Code Status & VTE Plan VTE Prophylaxis Plan VTE Prophylaxis will be ordered: Yes PG Care Time/CCT Total # of Minutes Spent Total Time Spent with Patient: Total time spent is greater than 50% in coordination of care (as documented) at patient's floor/unit and/or counseling patient: Coding Level of Care Code 37430 Initial Inpt Care Lvl 3 Diagnoses Alcoholic hepatitis K70.10 Acute hypotension I95.9 GERD (gastroesophageal reflux disease) K21.9 Cirrhosis K74.60 SUNG (acute kidney injury) N17.9 Lactic acidosis E87.2
[2019-07-01] MEDS: SODIUM CHLORIDE 0.9% 500 ML IV SCH ×3 (18:04→22:10)
[2019-07-01] MEDS: POTASSIUM CHLORIDE / WTR 10 MEQ/100 ML PLCT IV SCH ×2 (18:04→19:05)
[2019-07-01] MEDS ORDERED: ONDANSETRON INJ 2 MG/ML 2 ML VIAL IV PRN (19:40)
[2019-07-01] MEDS ORDERED: LORazepam 1 MG TAB PO PRN (19:40)
[2019-07-01] MEDS: PANTOprazole 40 MG TAB PO SCH (20:26)
[2019-07-01] MEDS: FOLIC ACID 1 MG in SYRINGE 9.8 ML IV SCH (20:26)
[2019-07-01] MEDS: GABAPENTIN 300 MG CAP PO SCH (20:26)
[2019-07-01] MEDS: HEPARIN SOD 5,000 UNIT/0.5 ML VIAL SQ SCH (20:26)
[2019-07-01] MEDS: THIAMINE HCL 100 MG in SYRINGE 9 ML IV SCH (20:26)
[2019-07-01] MEDS: SODIUM CHLORIDE 0.9% 1000ML 1,000 ML IV SCH (20:27)
[2019-07-01 21:48] LABS: Albumin Globulin Ratio 0.5 (0.9-2); BUN Creatinine Ratio 21.3 (10-20); Bilirubin,Total 9.3 mg/dl (0.2-1); Creatinine Clr Calc Pharmacy 63.4 ml/min; Est GFR (African American) 70.9; Est GFR (Non-African American) 61.2; Globulin 3.8 gm/dl (2.5-4.0); Potassium 4.1 mmol/L (3.5-5.1); Total Protein 5.8 gm/dl (6.4-8.2)
[2019-07-01] MEDS ORDERED: IBUPROFEN 200 MG TAB PO PRN (22:26)
[2019-07-01 22:33] LABS: Appearance Urine Slightly Cloudy (Clear); Color Urine Amber; Ictotest Urine Positive (Negative); Specific Gravity Urine 1.044 (1.000-1.030); Sulfosalicylic Acid Urine Negative (Negative)
[2019-07-01 22:35] LABS: Bacteria Urine Automated Negative (Negative); RBC Urine Automated 0-4 /hpf (0-4)
[2019-07-01] MEDS ORDERED: KETOROLAC TROMETHAMINE 15 MG/ML VIAL IV ONE (22:44)
[2019-07-02] MEDS: HEPARIN SOD 5,000 UNIT/0.5 ML VIAL SQ SCH ×3 (06:09→20:37)
[2019-07-02] MEDS: SODIUM CHLORIDE 0.9% 1000ML 1,000 ML IV SCH ×3 (06:27→23:48)
[2019-07-02 07:06] LABS: Basophils # (auto) 0.15 K/uL (0-0.2); Basophils % (auto) 1.9 %; Eosinophils # (auto) 0.08 K/uL (0-0.5); Hematocrit (blood only) 30.3 % (42-52); Hemoglobin 10.1 g/dL (14.0-18.0); Immature Granulocytes # (auto) 0.03 K/uL (0.00-0.02); Immature Granulocytes % (auto) 0.4 %; Lymphocytes # (auto) 1.21 K/uL (1.2-3.4); Lymphocytes % (auto) 15.3 %; Mean Corpuscular Hemoglobin 37.1 pg (25-34); Mean Corpuscular Hgb Conc 33.3 g/dL (32-36); Mean Corpuscular Volume 111.4 fL (80-100); Mean Platelet Volume 11.2 fL (7.4-10.4); Monocytes # (auto) 0.96 K/uL (0.11-0.59); Monocytes % (auto) 12.1 %; Neutrophils # (auto) 5.49 K/uL (1.4-6.5); Neutrophils % (auto) 69.3 %; Platelet Count 223 K/uL (130-400); RDW Coefficient of Variation 18.1 % (11.5-14.5); Red Blood Count 2.72 M/uL (4.7-6.1); White Blood Count 7.92 K/uL (4.8-10.8)
[2019-07-02 07:20] LABS: INR 1.3 (0.9-1.1)
[2019-07-02] MEDS: BuPROPion XL 150 MG TABCR PO SCH (07:34)
[2019-07-02] MEDS: GABAPENTIN 300 MG CAP PO SCH ×3 (07:34→20:37)
[2019-07-02] MEDS: PANTOprazole 40 MG TAB PO SCH ×2 (07:34→20:37)
[2019-07-02 07:40] LABS: BUN Creatinine Ratio 17.6 (10-20); Calcium 7.4 mg/dl (8.5-10.1); Creatinine Clr Calc Pharmacy 50.9 ml/min; Est GFR (African American) 54.4; Potassium 3.8 mmol/L (3.5-5.1)
[2019-07-02 07:41] LABS: Macrocytosis Present; Target Cells 2+
[2019-07-02 07:43] LABS: Albumin Globulin Ratio 0.5 (0.9-2); Bilirubin,Total 10.6 mg/dl (0.2-1); Globulin 3.9 gm/dl (2.5-4.0); Total Protein 5.9 gm/dl (6.4-8.2)
[2019-07-02] MEDS ORDERED: KETOROLAC 30 MG/ML VIAL IV PRN (08:37)
[2019-07-02] MEDS: THIAMINE HCL 100 MG in SYRINGE 9 ML IV SCH (09:36)
[2019-07-02] MEDS: FOLIC ACID 1 MG in SYRINGE 9.8 ML IV SCH (09:36)
[2019-07-02] MEDS: BACLOFEN 10 MG TAB PO SCH ×2 (10:26→20:37)
[2019-07-02] MEDS: POLYETHYLENE (MIRALAX) 17 GM PACK PO SCH ×2 (10:26→20:37)
--- NOTE | 2019-07-02 11:08 | Gastrointestinal Consultation ---
Date of Consultation July 02, 2019 Assessment & Plan (1) Alcoholic hepatitis: 43-year-old gentleman with non-decompensated clinical cirrhosis with a clinical presentation of an acute hepatitis picture in the setting of an elevated white count, and renal dysfunction concerning for alcoholic hepatitis and subsequent acute kidney injury concerning for renal syndrome. He does not have any signs of bleeding or confusion. Discriminant function is not greater than 32 meaning that there is no role or clinical benefit for steroids Follow blood cultures UA without concern but follow urine culture Check urine sodium Reasonable to start Trental, although data is lacking for treatment of all But more prevention of HRS which he may indeed have Given his volume resuscitation which is been greater than 2 L and urine output of only 450 since admission, if urine sodium is less than 10 I would start Midodrine 5 mg 3 times daily, 25 mg IV every 8 of albumin, and 150 mg IV every 8 of octreotide Follow Tylenol level Reasonable to check EBV, HSV, and acute hep a and B labs. Alcohol sensation Watch for withdrawal Dr. Hillman will return tomorrow to assume care. History of Present Illness Reason for Consultation: Concern of hepatitis Attending Physician: Alexander Young, DO History of Present Illness I was asked to see this gentleman on behalf of Dr. Hillman whom I am covering for today, He is a 43-year-old male with history of clinical cirrhosis without decompensating features who presented to the ER after family found him with complaints of fatigue and yellow skin. He apparently has been having symptoms ongoing for the last several days, he has been having normal food and p.o. intake, he has been drinking 4-6 vodka drinks a day. He is not known to have any decompensating features such as bleeding, ascites, or hepatic encephalopathy, he also does not complain of any of those symptoms or concerns today. He has no complaints and has no nausea vomiting abdominal pain or confusion now or yesterday upon admission. In the ER he was found to be hypotensive with normal mentation, he received 2 L of fluid with normalization of his blood pressure. A white count was shown to be 14 INR 1.2 and a creatinine of 1.8. Bilirubin was up to 12 at presentation with an AST ALT in the 400s and 100s respectively. Chest x-ray was that without infiltrate and CT scan of the abdomen showed a cirrhotic liver very mild ascites with no changes concerning for obstruction. Overnight he is without complaint, he has no signs of bleeding, no nausea vomiting no abdominal pain. His last endoscopy revealed only reflux esophagitis without evidence of varices. Allergies Allergy/AdvReac Type Severity Reaction Status Date / Time ibuprofen AdvReac Intermediate MAKES HIM Verified 07/01/19 16:48 PUKE Home Medications Home Medications Medication Instructions Recorded Confirmed Type hydrochlorothiazide 12.5 mg PO QAM 04/21/18 07/01/19 History lisinopril 40 mg PO QAM 04/21/18 07/01/19 History metoprolol succinate 100 mg PO QAM 04/21/18 07/01/19 History multivitamin [Daily-Mark] 1 tab PO QAM #1 tab 04/27/18 07/01/19 Rx bupropion HCl 150 mg PO QAM 07/18/18 07/01/19 History magnesium oxide 400 mg PO DAILY #30 cap 07/19/18 07/01/19 Rx pantoprazole 40 mg tablet,delayed 40 mg PO BID #60 tab 05/29/19 07/01/19 Rx release gabapentin 300 mg PO TID 07/01/19 07/01/19 History sucralfate 1 g PO ACHS 07/01/19 07/01/19 History Patient History Surgical History History of esophagogastroduodenoscopy (EGD) Hx of vasectomy Family History Aunt Family history of diabetes mellitus Mother Family hx colonic polyps Other No family history of adverse response to anesthesia Denies family history of Crohn's disease Colorectal cancer Ulcerative colitis Social History Preferred Language: [place] Communication Ability: Effective Visual Impairment: No Limitations Foam Molder Required: No Beliefs That Will Affect Care: None Current Living Situation: Alone Current Living Situation Comment: rents a house Other Information That Helps Us Care for You: No Feels Safe at Home: Yes Safety Concerns: Feels Safe At This Time Smoking Status: Former smoker Second Hand Exposure: No ; Hx Alcohol Use: Yes Alcohol type: hard liquor Alcohol Intake Frequency Comment: hx of heavy use, now at 3-4 x/week Hx Substance Use: No (Pt has med card for marijuana) Physical Exam Physical Exam: Deeply yellow eating a solid food sitting up in bed during her interview no signs of asterixis Constitutional: WD/WN, vitals as above Cardiovascular: RRR, no murmur, no edema Gastrointestinal (Abdomen): normal bowel sounds, soft, nontender, no hepatosplenomegaly Results & Data ([facility]) Vital Signs (Past 12 Hours) Vital Signs Temp Pulse Pulse Resp BP BP Pulse Ox 07/02/19 09:00 79 07/02/19 07:14 36.8 C 78 20 106/73 98 07/02/19 04:29 36.9 C 80 22 109/76 99 07/01/19 23:51 36.8 C 81 20 96/65 L 98 07/01/19 23:47 84
[2019-07-02] MEDS ORDERED: MAGNESIUM SULFATE / D5W 1 GM/100 ML BAG IV ONE (12:00)
[2019-07-02] MEDS: PENTOXIFYLLINE 400MG EXT REL TAB PO SCH ×2 (12:15→20:37)
--- NOTE | 2019-07-02 15:39 | Hospitalist Progress Note ---
Date of Service July 02, 2019 Assessment & Plan (1) Alcoholic hepatitis: patient admits to being depressed, drinking a lot more recently, drinks hard liquor he had also been taking Tylenol for back pain Bili up to 12, AST 400, ALT 100, Alk phos 408, PT was 13 all at time of admission discriminant function 16 on admission, up a little further at 19 today but still < 32, no role for steroids repeat CMP this afternoon still with elevated bili at 11.1, PT 14.2, AST ALT and alk phos all down slightly albumin 2.0 continue supportive care with fluids, follow up on cultures to rule out infection viral testing, hepatitis sent by GI (2) SUNG (acute kidney injury): Cr up to 1.8, baseline is <1 due to dehydration, very little oral intake for several days besides alcohol not drinking any water was taking lisinopril and HCTZ up until time of admission aggressive IV hydration, at this time + 5 liters, 650mL of UO so he is not oliguric urine sodium is 28 so less inclined to think he has hepatorenal syndrome but could still develop it Dr. Beverly recommends starting Trental to prevent HRS repeat Cr is 1.86 this afternoon, will ask Dr. Butcher to see tomorrow since the Cr did not improve with IV fluids hold nephrotoxins, renally dose medications (3) Acute hypotension: combinations of three things: he is volume depleted, he has cirrhosis and always with soft BP and he took all his blood pressure medications prior to admission positive 5 liters at this point BP are better, consistently > 100 systolic no suspicion of sepsis as he has no clear source continue on Rocephin for now and follow up on blood cultures at 48 hours out no fever and WBC down to 7k (suspect it was up on admission due to hemoconcentration) (4) GERD (gastroesophageal reflux disease): continue Protonix (5) Cirrhosis: ongoing issue he has been reluctant to accept that it is his alcohol abuse follows with Dr. 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 says he normally does not do this he admits to having spasms frequently will try heat three times a day for 20 minuts, Baclofen 10mg BID (8) Lactic acidosis: likely due to hypovolemia, poor perfusion lactic acid trended up to peak of 5.9 and then trended down to 4.3 with better blood pressure repeat in the morning BP stable, mentating well, does not appear that ill overall overall prognosis would be guarded, unsure how well or how quickly he will recover from acute hepatitis Admission and Anticipated Discharge Date Admission Date: July 01, 2019 Subjective patient feeling better today, his main complaint is some bilateral lower back pain, more on the right says his muscles started to cramp after he was working on his feet a lot at [employer] he feels like he has more energy today, he was able to sit up in bed for a while his appetite is better, ate his entire breakfast and lunch discussed with Dr. Beverly, appreciate his input, checked urine sodium and it was 28, argues against HRS reviewed labs in detail, Cr still elevated at 1.7 and then 1.8 on repeat this afternoon bili up at 11, PT up slightly at 14.2, his discriminant function score still < 32 so no role for steroids, d/w Dr. Beverly he is making urine but he is positive almost 5 liters with 650mL total urine output Dr. Beverly recommended Trental to prevent HRS transaminases still elevated WBC down to 7, no clear signs of infection, perhaps leukocytosis yesterday was just hemoconcentration no signs of withdrawal at this time Review of Systems Review of Systems: All systems reviewed & are unremarkable except as noted in HPI & below Constitutional: + fatigue and + weakness; no fever Respiratory: + dyspnea on exertion; no cough and no dyspnea Cardiovascular: no chest pain, no palpitations, no syncope and no edema Gastrointestinal: + nausea (only after blood draws, vasovagal) and + constipation; no abdominal pain and no diarrhea/loose stools Genitourinary: no dysuria and no decreased urination Integumentary: + yellowing of the skin Physical Exam Constitutional: no altered mental status and not in distress Eyes: PERRL and EOM intact bilaterally; sclerae not anicteric (icterus) ENMT: external ear and nose normal, oropharynx normal (dry oral mucous membranes) Neck: trachea midline, no thyromegaly Respiratory: normal respiratory effort, lungs clear to auscultation Cardiovascular: RRR, no murmur, no edema (weak peripheral pulses) Gastrointestinal (Abdomen): Inspection/Auscultation: + abdomen distended and normal bowel sounds Percussion/Palpation: abdomen soft and + dullness to percussion; abdomen nontender, no guarding, abdomen not rigid, no hepatosplenomegaly and no ascites Musculoskeletal: no cyanosis or clubbing, extremities motor strength 5/5 Skin: no rashes, warm and dry + jaundice Neurologic: patellar DTR's 2+ bilat, sensation intact and PERRL, EOMI, accommodation nl, no face palsy, no dysarthria Psychiatric: A+Ox3, euthymic affect Lymphatic: no cervical or axillary lymphadenopathy Results & Data ([facility]) Vital Signs (Past 12 Hours) Vital Signs Temp Pulse Pulse Resp BP BP Pulse Ox 07/02/19 11:54 36.6 C 85 20 104/69 99 07/02/19 09:00 79 07/02/19 07:14 36.8 C 78 20 106/73 98 07/02/19 04:29 36.9 C 80 22 109/76 99 Laboratory Results Laboratory Results - last 24 hr 07/01/19 07/01/19 07/01/19 15:36 15:36 15:36 WBC 14.15 H RBC 3.14 L Hgb 11.7 L Hct 34.7 L MCV 110.5 H MCH 37.3 H MCHC 33.7 RDW Std Deviation 71.9 H RDW Coeff of Rashida 17.7 H Plt Count 349 MPV 11.5 H Immature Gran % (Auto) 0.4 Neut % (Auto) 71.0 Lymph % (Auto) 16.0 [place] % (Auto) 10.8 Eos % (Auto) 0.6 Baso % (Auto) 1.2 Immature Gran # (Auto) 0.05 H Neut # (Auto) 10.05 H Lymph # (Auto) 2.27 [place] # (Auto) 1.53 H Eos # (Auto) 0.08 Baso # (Auto) 0.17 Macrocytosis Present Target Cells 1+ PT 13.0 H INR 1.2 H Sodium 138 Potassium 3.1 L Chloride 105 Carbon Dioxide 23 Anion Gap 10.0 BUN 34 H Creatinine 1.80 H Est Cr Clr Drug Dosing 49.0 Est GFR ( Amer) 51.9 Est GFR (Non-Af Amer) 44.8 BUN/Creatinine Ratio 18.7 Glucose 113 H Lactate Calcium 8.0 L Magnesium 1.5 L Total Bilirubin 12.1 H AST 438 H ALT 103 H Alkaline Phosphatase 408 H Ammonia Troponin I < 0.015 Total Protein 6.7 Albumin 2.3 L Globulin 4.4 H Albumin/Globulin Ratio 0.5 L TSH 3.760 Urine Color Urine Appearance Urine pH Ur Specific [place] Urine Protein Urine Glucose (UA) Urine Ketones Urine Blood Urine Nitrite Urine Bilirubin Urine Urobilinogen Ur Leukocyte Esterase Urine WBC (Auto) Urine RBC (Auto) U Hyaline Cast (Auto) U Epithel Cells (Auto) Urine Bacteria (Auto) Ur Random Sodium Acetaminophen Ethyl Alcohol mg/dL Miscellaneous Test 07/01/19 07/01/19 07/01/19 15:36 15:36 15:36 WBC RBC Hgb Hct MCV MCH MCHC RDW Std Deviation RDW Coeff of Rashida Plt Count MPV Immature Gran % (Auto) Neut % (Auto) Lymph % (Auto) [place] % (Auto) Eos % (Auto) Baso % (Auto) Immature Gran # (Auto) Neut # (Auto) Lymph # (Auto) [place] # (Auto) Eos # (Auto) Baso # (Auto) Macrocytosis Target Cells PT INR Sodium Potassium Chloride Carbon Dioxide Anion Gap BUN Creatinine Est Cr Clr Drug Dosing Est GFR ( Amer) Est GFR (Non-Af Amer) BUN/Creatinine Ratio Glucose Lactate 4.8 H* Calcium Magnesium Total Bilirubin AST ALT Alkaline Phosphatase Ammonia < 10.0 L Troponin I Total Protein Albumin Globulin Albumin/Globulin Ratio TSH Urine Color Urine Appearance Urine pH Ur Specific [place] Urine Protein Urine Glucose (UA) Urine Ketones Urine Blood Urine Nitrite Urine Bilirubin Urine Urobilinogen Ur Leukocyte Esterase Urine WBC (Auto) Urine RBC (Auto) U Hyaline Cast (Auto) U Epithel Cells (Auto) Urine Bacteria (Auto) Ur Random Sodium Acetaminophen Ethyl Alcohol mg/dL 199.0 H Miscellaneous Test 07/01/19 07/01/19 07/01/19 15:46 15:46 17:25 WBC RBC Hgb Hct MCV MCH MCHC RDW Std Deviation RDW Coeff of Rashida Plt Count MPV Immature Gran % (Auto) Neut % (Auto) Lymph % (Auto) [place] % (Auto) Eos % (Auto) Baso % (Auto) Immature Gran # (Auto) Neut # (Auto) Lymph # (Auto) [place] # (Auto) Eos # (Auto) Baso # (Auto) Macrocytosis Target Cells PT INR Sodium Potassium Chloride Carbon Dioxide Anion Gap BUN Creatinine Est Cr Clr Drug Dosing Est GFR ( Amer) Est GFR (Non-Af Amer) BUN/Creatinine Ratio Glucose Lactate 5.9 H* Calcium Magnesium Total Bilirubin AST ALT Alkaline Phosphatase Ammonia Troponin I Total Protein Albumin Globulin Albumin/Globulin Ratio TSH Urine Color Urine Appearance Urine pH Ur Specific [place] Urine Protein Urine Glucose (UA) Urine Ketones Urine Blood Urine Nitrite Urine Bilirubin Urine Urobilinogen Ur Leukocyte Esterase Urine WBC (Auto) Urine RBC (Auto) U Hyaline Cast (Auto) U Epithel Cells (Auto) Urine Bacteria (Auto) Ur Random Sodium Acetaminophen Cancelled Ethyl Alcohol mg/dL Miscellaneous Test Pending 07/01/19 07/01/19 07/01/19 19:19 21:05 21:13 WBC RBC Hgb Hct MCV MCH MCHC RDW Std Deviation RDW Coeff of Rashida Plt Count MPV Immature Gran % (Auto) Neut % (Auto) Lymph % (Auto) [place] % (Auto) Eos % (Auto) Baso % (Auto) Immature Gran # (Auto) Neut # (Auto) Lymph # (Auto) [place] # (Auto) Eos # (Auto) Baso # (Auto) Macrocytosis Target Cells PT INR Sodium 141 Potassium 4.1 D Chloride 112 H Carbon Dioxide 17 L Anion Gap 11.0 BUN 30 H Creatinine 1.39 D Est Cr Clr Drug Dosing 63.4 Est GFR ( Amer) 70.9 Est GFR (Non-Af Amer) 61.2 BUN/Creatinine Ratio 21.3 H Glucose 113 H Lactate 5.4 H* 4.3 H* Calcium 7.0 L Magnesium Total Bilirubin 9.3 H AST 376 H ALT 91 H Alkaline Phosphatase 356 H Ammonia Troponin I Total Protein 5.8 L Albumin 2.0 L Globulin 3.8 Albumin/Globulin Ratio 0.5 L TSH Urine Color Urine Appearance Urine pH Ur Specific [place] Urine Protein Urine Glucose (UA) Urine Ketones Urine Blood Urine Nitrite Urine Bilirubin Urine Urobilinogen Ur Leukocyte Esterase Urine WBC (Auto) Urine RBC (Auto) U Hyaline Cast (Auto) U Epithel Cells (Auto) Urine Bacteria (Auto) Ur Random Sodium Acetaminophen Ethyl Alcohol mg/dL Miscellaneous Test 07/01/19 07/02/19 07/02/19 22:00 06:45 06:45 WBC 7.92 RBC 2.72 L Hgb 10.1 L Hct 30.3 L MCV 111.4 H MCH 37.1 H MCHC 33.3 RDW Std Deviation 73.0 H RDW Coeff of Rashida 18.1 H Plt Count 223 MPV 11.2 H Immature Gran % (Auto) 0.4 Neut % (Auto) 69.3 Lymph % (Auto) 15.3 [place] % (Auto) 12.1 Eos % (Auto) 1.0 Baso % (Auto) 1.9 Immature Gran # (Auto) 0.03 H Neut # (Auto) 5.49 Lymph # (Auto) 1.21 [place] # (Auto) 0.96 H Eos # (Auto) 0.08 Baso # (Auto) 0.15 Macrocytosis Present Target Cells 2+ PT 14.0 H INR 1.3 H Sodium Potassium Chloride Carbon Dioxide Anion Gap BUN Creatinine Est Cr Clr Drug Dosing Est GFR ( Amer) Est GFR (Non-Af Amer) BUN/Creatinine Ratio Glucose Lactate Calcium Magnesium Total Bilirubin AST ALT Alkaline Phosphatase Ammonia Troponin I Total Protein Albumin Globulin Albumin/Globulin Ratio TSH Urine Color Erika Urine Appearance Slightly Cloudy A Urine pH Ur Specific [place] 1.044 H Urine Protein Urine Glucose (UA) Urine Ketones Urine Blood Urine Nitrite Urine Bilirubin Urine Urobilinogen Ur Leukocyte Esterase Urine WBC (Auto) 1-5 Urine RBC (Auto) 0-4 U Hyaline Cast (Auto) 1-5 U Epithel Cells (Auto) 5-10 H Urine Bacteria (Auto) Negative Ur Random Sodium Acetaminophen Ethyl Alcohol mg/dL Miscellaneous Test 07/02/19 07/02/19 07/02/19 06:45 12:25 15:19 WBC RBC Hgb Hct MCV MCH MCHC RDW Std Deviation RDW Coeff of Rashida Plt Count MPV Immature Gran % (Auto) Neut % (Auto) Lymph % (Auto) [place] % (Auto) Eos % (Auto) Baso % (Auto) Immature Gran # (Auto) Neut # (Auto) Lymph # (Auto) [place] # (Auto) Eos # (Auto) Baso # (Auto) Macrocytosis Target Cells PT 14.2 H INR 1.4 H Sodium 140 Potassium 3.8 Chloride 111 H Carbon Dioxide 22 Anion Gap 7.0 BUN 30 H Creatinine 1.73 H D Est Cr Clr Drug Dosing 50.9 Est GFR ( Amer) 54.4 Est GFR (Non-Af Amer) 47.0 BUN/Creatinine Ratio 17.6 Glucose 106 H Lactate Calcium 7.4 L Magnesium Total Bilirubin 10.6 H AST 358 H ALT 86 H Alkaline Phosphatase 349 H Ammonia Troponin I Total Protein 5.9 L Albumin 2.0 L Globulin 3.9 Albumin/Globulin Ratio 0.5 L TSH Urine Color Urine Appearance Urine pH Ur Specific [place] Urine Protein Urine Glucose (UA) Urine Ketones Urine Blood Urine Nitrite Urine Bilirubin Urine Urobilinogen Ur Leukocyte Esterase Urine WBC (Auto) Urine RBC (Auto) U Hyaline Cast (Auto) U Epithel Cells (Auto) Urine Bacteria (Auto) Ur Random Sodium 28 Acetaminophen Ethyl Alcohol mg/dL Miscellaneous Test 07/02/19 15:19 WBC RBC Hgb Hct MCV MCH MCHC RDW Std Deviation RDW Coeff of Rashida Plt Count MPV Immature Gran % (Auto) Neut % (Auto) Lymph % (Auto) [place] % (Auto) Eos % (Auto) Baso % (Auto) Immature Gran # (Auto) Neut # (Auto) Lymph # (Auto) [place] # (Auto) Eos # (Auto) Baso # (Auto) Macrocytosis Target Cells PT INR Sodium 140 Potassium 4.0 Chloride 110 H Carbon Dioxide 19 L Anion Gap 12.0 H BUN 31 H Creatinine 1.86 H Est Cr Clr Drug Dosing 47.4 Est GFR ( Amer) 49.9 Est GFR (Non-Af Amer) 43.0 BUN/Creatinine Ratio 16.7 Glucose 114 H Lactate Calcium 7.6 L Magnesium Total Bilirubin 11.1 H AST 317 H ALT 81 H Alkaline Phosphatase 350 H Ammonia Troponin I Total Protein 6.0 L Albumin 2.0 L Globulin 4.0 Albumin/Globulin Ratio 0.5 L TSH Urine Color Urine Appearance Urine pH Ur Specific [place] Urine Protein Urine Glucose (UA) Urine Ketones Urine Blood Urine Nitrite Urine Bilirubin Urine Urobilinogen Ur Leukocyte Esterase Urine WBC (Auto) Urine RBC (Auto) U Hyaline Cast (Auto) U Epithel Cells (Auto) Urine Bacteria (Auto) Ur Random Sodium Acetaminophen Ethyl Alcohol mg/dL Miscellaneous Test Medications Administered Current Inpatient Medications Baclofen (Lioresal) 10 mg PO BID [facility] Stop: 08/01/19 09:59 Last Admin: 07/02/19 10:26 Dose: 10 mg Documented by: Bupropion HCl (Wellbutrin-Xl) 150 mg PO QAM [facility] Stop: 08/01/19 08:59 Last Admin: 07/02/19 07:34 Dose: 150 mg Documented by: Gabapentin (Neurontin) 300 mg PO TID [facility] Stop: 07/31/19 20:59 Last Admin: 07/02/19 13:59 Dose: 300 mg Documented by: Heparin Sodium (Porcine) (Heparin Sodium (Porcine)) 5,000 units SQ Q8 [facility] Stop: 07/31/19 21:59 Last Admin: 07/02/19 13:59 Dose: 5,000 units Documented by: Sodium Chloride (Nss 1000ml) 1,000 mls @ 100 mls/hr IV .Q10H [facility] Stop: 07/31/19 19:39 Last Admin: 07/02/19 06:27 Dose: 100 mls/hr Documented by: Thiamine HCl 100 mg/ Syringe 10 mls @ 2 [facility] [place]: 07/31/19 19:59 Last Admin: 07/02/19 09:36 Dose: 2 mls/min Documented by: Folic Acid 1 mg/ Syringe 10 mls @ 5 mls[facility] [place]: 07/31/19 19:59 Last Admin: 07/02/19 09:36 Dose: 5 mls/min Documented by: Ioversol (Optiray 320 100ml) 94 ml IV ONCE PRN PRN Reason: Interaction Checking Stop: 07/05/19 16:24 Last Admin: 07/01/19 16:26 Dose: 94 ml Documented by: Ketorolac Tromethamine (Toradol) 30 mg IV Q6H PRN PRN Reason: Pain Stop: 07/07/19 08:36 Last Admin: 07/02/19 09:34 Dose: 30 mg Documented by: Lorazepam (Ativan) 1 mg PO ONE PRN; Protocol PRN Reason: EtoH Withdrawal AWSS 6-10 Ondansetron HCl (Zofran) 4 mg IV Q6H PRN PRN Reason: Nausea Stop: 07/31/19 19:39 Pantoprazole Sodium (Protonix) 40 mg PO BID [facility] Stop: 07/31/19 20:59 Last Admin: 07/02/19 07:34 Dose: 40 mg Documented by: Pentoxifylline (Trental) 400 mg PO BID [facility] Stop: 08/01/19 11:29 Last Admin: 07/02/19 12:15 Dose: 400 mg Documented by: Polyethylene Glycol (Miralax Powder Packet) 17 gm PO BID [facility] Stop: 08/01/19 09:59 Last Admin: 07/02/19 10:26 Dose: 17 gm Documented by: PG Care Time/CCT Total # of Minutes Spent Total Time Spent with Patient: Total time spent is greater than 50% in coordination of care (as documented) at patient's floor/unit and/or counseling patient: Coding Level of Care Code 16426 Subseq Hosp Care Lvl 3 Diagnoses Alcoholic hepatitis K70.10 SUNG (acute kidney injury) N17.9 Acute hypotension I95.9 GERD (gastroesophageal reflux disease) K21.9 Cirrhosis K74.60 Alcohol withdrawal F10.230 Complication of substance-induced condition: uncomplicated Back pain M54.9 Lactic acidosis E87.2 (1) Alcohol withdrawal Complication of substance-induced condition: uncomplicated Qualified Code(s): F10.230 - Alcohol dependence with withdrawal, uncomplicated
[2019-07-02 15:52] LABS: INR 1.4 (0.9-1.1); Prothrombin Time 14.2 Seconds (9.0-12.0)
[2019-07-02 15:53] LABS: Albumin Globulin Ratio 0.5 (0.9-2); BUN Creatinine Ratio 16.7 (10-20); Bilirubin,Total 11.1 mg/dl (0.2-1); Calcium 7.6 mg/dl (8.5-10.1); Creatinine Clr Calc Pharmacy 47.4 ml/min; Est GFR (African American) 49.9
[2019-07-02] MEDS: cefTRIAXone SODIUM 1,000 MG in DEXTROSE 5% 50 ML IV SCH (17:03)
--- NOTE | 2019-07-02 18:24 | Electrocardiogram Report ---
Test Reason : Blood Pressure : / mmHG Vent. Rate : 077 BPM Atrial Rate : 077 BPM P-R Int : 156 ms QRS Dur : 090 ms QT Int : 472 ms P-R-T Axes : 006 012 015 degrees QTc Int : 534 ms Normal sinus rhythm Low voltage QRS T wave abnormality, consider anterolateral ischemia Abnormal ECG When compared with ECG of 18-JUL-2018 07:30, Vent. rate has decreased BY 43 BPM Confirmed by David Joseph ([id number]) on 07/02/2019 6:23:51 PM Referred By: REFERRED SELF Confirmed By:Rigo Joseph
[2019-07-03] MEDS: HEPARIN SOD 5,000 UNIT/0.5 ML VIAL SQ SCH ×3 (05:59→20:41)
[2019-07-03 06:26] LABS: Basophils # (auto) 0.09 K/uL (0-0.2); Eosinophils # (auto) 0.09 K/uL (0-0.5); Hematocrit (blood only) 29.6 % (42-52); Hemoglobin 9.9 g/dL (14.0-18.0); Immature Granulocytes # (auto) 0.05 K/uL (0.00-0.02); Immature Granulocytes % (auto) 0.5 %; Lymphocytes # (auto) 1.58 K/uL (1.2-3.4); Mean Corpuscular Hemoglobin 37.6 pg (25-34); Mean Corpuscular Hgb Conc 33.4 g/dL (32-36); Mean Corpuscular Volume 112.5 fL (80-100); Mean Platelet Volume 11.3 fL (7.4-10.4); Monocytes % (auto) 8.6 %; Neutrophils % (auto) 71.9 %; Platelet Count 208 K/uL (130-400); RDW Coefficient of Variation 17.8 % (11.5-14.5); RDW Standard Deviation 72.5 fL (36.4-46.3); Red Blood Count 2.63 M/uL (4.7-6.1); White Blood Count 9.31 K/uL (4.8-10.8)
[2019-07-03 06:40] LABS: INR 1.5 (0.9-1.1); Prothrombin Time 15.6 Seconds (9.0-12.0)
[2019-07-03 06:50] LABS: Macrocytosis Present; Target Cells 2+
[2019-07-03 06:51] LABS: Albumin Globulin Ratio 0.5 (0.9-2); Albumin Level 1.9 gm/dl (3.4-5.0); BUN Creatinine Ratio 20.7 (10-20); Bilirubin,Total 11.4 mg/dl (0.2-1); Calcium 7.5 mg/dl (8.5-10.1); Est GFR (African American) 72.2; Est GFR (Non-African American) 62.3; Globulin 3.8 gm/dl (2.5-4.0); Potassium 3.6 mmol/L (3.5-5.1); Total Protein 5.7 gm/dl (6.4-8.2)
[2019-07-03] MEDS: FOLIC ACID 1 MG in SYRINGE 9.8 ML IV SCH (08:23)
[2019-07-03] MEDS: THIAMINE HCL 100 MG in SYRINGE 9 ML IV SCH (08:23)
[2019-07-03] MEDS: GABAPENTIN 300 MG CAP PO SCH ×3 (08:24→20:41)
[2019-07-03] MEDS: PANTOprazole 40 MG TAB PO SCH ×2 (08:24→20:41)
[2019-07-03] MEDS: BACLOFEN 10 MG TAB PO SCH ×2 (08:24→20:40)
[2019-07-03] MEDS: BuPROPion XL 150 MG TABCR PO SCH (08:24)
[2019-07-03] MEDS: PENTOXIFYLLINE 400MG EXT REL TAB PO SCH ×2 (08:24→20:41)
[2019-07-03] MEDS: POLYETHYLENE (MIRALAX) 17 GM PACK PO SCH ×2 (08:25→20:41)
[2019-07-03] MEDS: NORMOSOL-R 1,000 ML IV SCH ×2 (09:32→17:32)
--- NOTE | 2019-07-03 09:46 | Nephrology Consultation ---
Date of Consultation July 03, 2019 Assessment & Plan (1) Alcoholic hepatitis: ETOH use up until day of admission. Current MELD 23. Mild ascites noted on US. Albumin 1.9. (2) SUNG (acute kidney injury): Clinically consistent with prerenal physiology due to dehydration. No obvious signs of infection. Non-oliguric. Urine sodium 28. Urine findings and clinical presentation less consistent with HRS. Electrolytes are within normal limits. Volume status is acceptable. I would provide an additional 1 L of IVF with a balance solution today. Continue to maintain a slightly positive fluid balance. A liter of Normosol has been ordered to infuse once NSS complete. Please continue to document I/O's and repeat a metabolic profile tomorrow AM. Creatinine did improve overnight appropriately. To minimize the risk of exposure to different healthcare providers during the hospitalization, nephrology will continue to follow peripherally during the hospitalization. Please call with any questions or concerns. I would advise that we avoid NSAIDS at this time and have placed a stop on the order for PRN toradol. Lisinopril has been held but STACEY/ARB could be considered as needed for hypertension. (3) Acute hypotension: (4) Cirrhosis: (5) Back pain: (6) Lactic acidosis: History of Present Illness Reason for Consultation: SUNG Requesting Physician: Akbar Peck Attending Physician: Akbar Peck History of Present Illness Mr. Ellis is a 43-year-old male with alcoholic cirrhosis who presented to the ED at [facility] with fatigue and jaundice. The patient was brought to the hospital by concerned family. He had been consuming at least 4-6 drinks of vodka per day prior to admission. Laboratory studies on admission demonstrated acute kidney injury. Baseline creatinine was known to be normal. Lactate was elevated at 5.9. Evidence of decompensated liver disease also noted with cholestasis including a total bili of 11.4. Current MELD score 23. Creatinine has improved from 1.86 to 1.37 mg/dL. Electrolytes were found to be within normal limits. Lactate is improving. Cultures are pending. A positive fluid balance has been maintained with IV saline. BP was low on admission and has also improved with volume resuscitation. US demonstrated mild ascites. There is no history of variceal bleeding, ascites, or hepatic encephalopathy. The patient has not been evaluated for liver transplant in the past. Lisinopril has been held. He denies significant NSAID use. He cannot tolerate Ibuprofen due to a history of gastritis and ulcers. David was seen while he was walking the halls this morning. Sinus tachycardia noted on tele. David states that he feels well. He denies any tremors. Review of systems is notable for chronic back pain and some abdominal bloating. Appetite is good and he feels that he ate too much this morning. He has not been eating well at home. Allergies Allergy/AdvReac Type Severity Reaction Status Date / Time ibuprofen AdvReac Intermediate MAKES HIM Verified 07/01/19 16:48 PUKE Home Medications Home Medications Medication Instructions Recorded Confirmed Type hydrochlorothiazide 12.5 mg PO QAM 04/21/18 07/01/19 History lisinopril 40 mg PO QAM 04/21/18 07/01/19 History metoprolol succinate 100 mg PO QAM 04/21/18 07/01/19 History multivitamin [Daily-Mark] 1 tab PO QAM #1 tab 04/27/18 07/01/19 Rx bupropion HCl 150 mg PO QAM 07/18/18 07/01/19 History magnesium oxide 400 mg PO DAILY #30 cap 07/19/18 07/01/19 Rx pantoprazole 40 mg tablet,delayed 40 mg PO BID #60 tab 05/29/19 07/01/19 Rx release gabapentin 300 mg PO TID 07/01/19 07/01/19 History sucralfate 1 g PO ACHS 07/01/19 07/01/19 History Patient History Medical History Alcoholism (Chronic) Anxiety Depression Esophagitis (Inactive) GERD (gastroesophageal reflux disease) Hypertension (Chronic) Kidney stones Surgical History History of esophagogastroduodenoscopy (EGD) Hx of vasectomy Family History Aunt Family history of diabetes mellitus Mother Family hx colonic polyps Other No family history of adverse response to anesthesia Denies family history of Crohn's disease Colorectal cancer Ulcerative colitis Social History Preferred Language: Azeri Communication Ability: Effective Visual Impairment: No Limitations Die Polisher Required: No Beliefs That Will Affect Care: None Current Living Situation: Alone Current Living Situation Comment: rents a house Other Information That Helps Us Care for You: No Feels Safe at Home: Yes Safety Concerns: Feels Safe At This Time Smoking Status: Former smoker Second Hand Exposure: No ; Hx Alcohol Use: Yes Alcohol type: hard liquor Alcohol Intake Frequency Comment: hx of heavy use, now at 3-4 x/week Hx Substance Use: No (Pt has med card for marijuana) Review of Systems Constitutional: no fever, no chills and no anorexia Eyes: no problem reported Ear, Nose, Mouth, Throat: no problem reported Respiratory: no cough and no dyspnea Cardiovascular: no chest pain, no palpitations and no edema Gastrointestinal: + bloating; no nausea and no diarrhea/loose stools Genitourinary: no problem reported Musculoskeletal: no problem reported Integumentary: + change in skin color Neurologic: no problem reported Psychiatric: no problem reported Physical Exam Constitutional: well developed; no acute distress Eyes: no conjunctival abnormality and sclerae not anicteric ENMT: Mouth: + dry oral mucous membranes; no oral mucosal abnormality Respiratory: normal respiratory effort; not tachypneic Skin: + jaundice Results & Data Vital Signs (Past 12 Hours) Vital Signs Temp Pulse Pulse Pulse Resp BP Pulse Ox 07/03/19 07:47 83 07/03/19 07:30 36.6 C 87 16 116/79 98 07/03/19 03:44 36.7 C 84 18 104/70 98 07/02/19 23:40 36.8 C 84 18 106/73 98 Laboratory Results Laboratory Results - last 24 hr 07/02/19 07/02/19 07/02/19 12:25 15:19 15:19 WBC RBC Hgb Hct MCV MCH MCHC RDW Std Deviation RDW Coeff of Rashida Plt Count MPV Immature Gran % (Auto) Neut % (Auto) Lymph % (Auto) [place] % (Auto) Eos % (Auto) Baso % (Auto) Immature Gran # (Auto) Neut # (Auto) Lymph # (Auto) [place] # (Auto) Eos # (Auto) Baso # (Auto) Macrocytosis Target Cells PT 14.2 H INR 1.4 H Sodium 140 Potassium 4.0 Chloride 110 H Carbon Dioxide 19 L Anion Gap 12.0 H BUN 31 H Creatinine 1.86 H Est Cr Clr Drug Dosing 47.4 Est GFR ( Amer) 49.9 Est GFR (Non-Af Amer) 43.0 BUN/Creatinine Ratio 16.7 Glucose 114 H Lactate Calcium 7.6 L Total Bilirubin 11.1 H AST 317 H ALT 81 H Alkaline Phosphatase 350 H Total Protein 6.0 L Albumin 2.0 L Globulin 4.0 Albumin/Globulin Ratio 0.5 L Ur Random Sodium 28 07/03/19 07/03/19 07/03/19 06:16 06:16 06:16 WBC 9.31 RBC 2.63 L Hgb 9.9 L Hct 29.6 L MCV 112.5 H MCH 37.6 H MCHC 33.4 RDW Std Deviation 72.5 H RDW Coeff of Rashida 17.8 H Plt Count 208 MPV 11.3 H Immature Gran % (Auto) 0.5 Neut % (Auto) 71.9 Lymph % (Auto) 17.0 [place] % (Auto) 8.6 Eos % (Auto) 1.0 Baso % (Auto) 1.0 Immature Gran # (Auto) 0.05 H Neut # (Auto) 6.70 H Lymph # (Auto) 1.58 [place] # (Auto) 0.80 H Eos # (Auto) 0.09 Baso # (Auto) 0.09 Macrocytosis Present Target Cells 2+ PT 15.6 H INR 1.5 H Sodium Potassium Chloride Carbon Dioxide Anion Gap BUN Creatinine Est Cr Clr Drug Dosing Est GFR ( Amer) Est GFR (Non-Af Amer) BUN/Creatinine Ratio Glucose Lactate 2.9 H* Calcium Total Bilirubin AST ALT Alkaline Phosphatase Total Protein Albumin Globulin Albumin/Globulin Ratio Ur Random Sodium 07/03/19 06:16 WBC RBC Hgb Hct MCV MCH MCHC RDW Std Deviation RDW Coeff of Rashida Plt Count MPV Immature Gran % (Auto) Neut % (Auto) Lymph % (Auto) [place] % (Auto) Eos % (Auto) Baso % (Auto) Immature Gran # (Auto) Neut # (Auto) Lymph # (Auto) [place] # (Auto) Eos # (Auto) Baso # (Auto) Macrocytosis Target Cells PT INR Sodium 141 Potassium 3.6 Chloride 112 H Carbon Dioxide 20 L Anion Gap 9.0 BUN 28 H Creatinine 1.37 D Est Cr Clr Drug Dosing 70.0 Est GFR ( Amer) 72.2 Est GFR (Non-Af Amer) 62.3 BUN/Creatinine Ratio 20.7 H Glucose 101 H Lactate Calcium 7.5 L Total Bilirubin 11.4 H AST 259 H ALT 71 Alkaline Phosphatase 312 H Total Protein 5.7 L Albumin 1.9 L Globulin 3.8 Albumin/Globulin Ratio 0.5 L Ur Random Sodium PG Care Time/CCT Total # of Minutes Spent Total Time Spent with Patient: Total time spent is greater than 50% in coordination of care (as documented) at patient's floor/unit and/or counseling patient: Coding Level of Care Code 67135 Inpt Consult Level 3 Diagnoses Alcoholic hepatitis K70.10 SUNG (acute kidney injury) N17.9 Acute hypotension I95.9 Cirrhosis K74.60 Back pain M54.9 Lactic acidosis E87.2
--- NOTE | 2019-07-03 10:59 | Gastroenterology Progress Note ---
Date of Service July 03, 2019 Assessment & Plan (1) Cirrhosis: Discussed his need for total abstinence from alcohol in the future as it is a known liver toxin, and will worsen his already damaged liver. Discriminant Function remains below 32, no role for steroids Renal panel improved, without evidence of HRS Continue supportive care Consider Social service consult for options for in and outpatient rehab (2) Acute hepatic failure: (3) Elevated liver enzymes: Admission and Anticipated Discharge Date Admission Date: July 01, 2019 Subjective Patient feeling slightly improved today. Still with poor appetite. He denies any abdominal pain, fevers, chills, nausea, vomiting or diarrhea. States his last drink was approximately 5 days ago. He has previously had a DUI, though it was approximately 15 years ago. His longest course of sobriety has been, "months." He states that he has previously done inpatient rehab, but does not have an outpatient treatment plan as of now. He denies any further complaints at present. Review of Systems Review of Systems: All systems reviewed & are unremarkable except as noted in HPI & below Physical Exam Constitutional: + ill appearing (chronic), + frail appearing and + disheveled Eyes: sclerae not anicteric ENMT: external ear and nose normal, oropharynx normal Neck: trachea midline, no thyromegaly Respiratory: normal respiratory effort, lungs clear to auscultation Cardiovascular: RRR, no murmur, no edema Gastrointestinal (Abdomen): Percussion/Palpation: abdomen soft; abdomen nontender, no guarding and abdomen not rigid Skin: + jaundice Results & Data Results & Data ([facility]) Vital Signs (Past 12 Hours) Vital Signs Temp Pulse Pulse Pulse Resp BP Pulse Ox 07/03/19 07:47 83 07/03/19 07:30 36.6 C 87 16 116/79 98 07/03/19 03:44 36.7 C 84 18 104/70 98 07/02/19 23:40 36.8 C 84 18 106/73 98 PG Care Time/CCT Total # of Minutes Spent Total Time Spent with Patient: Total time spent is greater than 50% in coordination of care (as documented) at patient's floor/unit and/or counseling patient: Coding Level of Care Code 55997 Subseq Hosp Care Lvl 3 Diagnoses Cirrhosis K74.60 Acute hepatic failure K72.00 Hepatic coma status: without hepatic coma Elevated liver enzymes R74.8 (1) Acute hepatic failure Hepatic coma status: without hepatic coma Qualified Code(s): K72.00 - Acute and subacute hepatic failure without coma
--- NOTE | 2019-07-03 11:08 | Hospitalist Progress Note ---
Date of Service July 03, 2019 Assessment & Plan (1) Alcoholic hepatitis: ongoing abnormal LFTs these will likely take an extended period of time to normalize discriminant function still <32 thus deferring on steroids spoke with GI - daily labs, supportive care, and low threshold for transfer to tertiary care if any worsening of labs (2) SUNG (acute kidney injury): improving Cr 1.3 today baseline is <1 was taking lisinopril and HCTZ pre-hospital - these have been d/c HRS not suspected at this time likely ATN / pre-renal etiology defer fluid management to nephrology - appreciate their assistance (3) Acute hypotension: resolved s/p fluid resuscitation at admission BP meds on hold (4) GERD (gastroesophageal reflux disease): continue Protonix (5) Cirrhosis: compensated had an EGD in the past that did not show esophageal varices now with superimposed acute alcoholic hepatitis see above (6) Alcohol withdrawal: cont gabapentin cont thiamine/folic acid Ativan PRN (7) Back pain: heat prn Baclofen 10mg BID prn oxycodone prn (8) Lactic acidosis: overall improved Admission and Anticipated Discharge Date Admission Date: July 01, 2019 Subjective patient complains of mild abdominal bloating. but is still eating. feels a bit shaky. denies abdominal pain. no vomiting. moving bowels. no dyspnea. tele normal. Review of Systems Constitutional: no fever and no chills Respiratory: no cough and no dyspnea Cardiovascular: no chest pain Physical Exam Constitutional: no acute distress and no altered mental status Eyes: + scleral abnormality (icteric ) ENMT: external ear and nose normal, oropharynx normal Respiratory: normal respiratory effort, lungs clear to auscultation Cardiovascular: Rate/Rhythm: regular rate and regular rhythm Heart Sounds: normal S1 and normal S2; no murmur Vessels: posterior tibial pulses present and dorsalis pedis pulses present; no JVD Extremities: no edema Gastrointestinal (Abdomen): Inspection/Auscultation: + abdomen distended and normal bowel sounds Percussion/Palpation: abdomen nontender and no hepatosplenomegaly Skin: + jaundice (to umbilicus ) Neurologic: Motor/Sensory: + tremor (mild ) Psychiatric: A+Ox3, euthymic affect Results & Data ([facility]) Vital Signs (Past 12 Hours) Vital Signs Temp Pulse Pulse Pulse Resp BP Pulse Ox 07/03/19 07:47 83 07/03/19 07:30 36.6 C 87 16 116/79 98 07/03/19 03:44 36.7 C 84 18 104/70 98 07/02/19 23:40 36.8 C 84 18 106/73 98 Laboratory Results Laboratory Results - last 24 hr 07/02/19 07/02/19 07/02/19 12:25 15:19 15:19 WBC RBC Hgb Hct MCV MCH MCHC RDW Std Deviation RDW Coeff of Rashida Plt Count MPV Immature Gran % (Auto) Neut % (Auto) Lymph % (Auto) [place] % (Auto) Eos % (Auto) Baso % (Auto) Immature Gran # (Auto) Neut # (Auto) Lymph # (Auto) [place] # (Auto) Eos # (Auto) Baso # (Auto) Macrocytosis Target Cells PT 14.2 H INR 1.4 H Sodium 140 Potassium 4.0 Chloride 110 H Carbon Dioxide 19 L Anion Gap 12.0 H BUN 31 H Creatinine 1.86 H Est Cr Clr Drug Dosing 47.4 Est GFR ( Amer) 49.9 Est GFR (Non-Af Amer) 43.0 BUN/Creatinine Ratio 16.7 Glucose 114 H Lactate Calcium 7.6 L Total Bilirubin 11.1 H AST 317 H ALT 81 H Alkaline Phosphatase 350 H Total Protein 6.0 L Albumin 2.0 L Globulin 4.0 Albumin/Globulin Ratio 0.5 L Ur Random Sodium 28 07/03/19 07/03/19 07/03/19 06:16 06:16 06:16 WBC 9.31 RBC 2.63 L Hgb 9.9 L Hct 29.6 L MCV 112.5 H MCH 37.6 H MCHC 33.4 RDW Std Deviation 72.5 H RDW Coeff of Rashida 17.8 H Plt Count 208 MPV 11.3 H Immature Gran % (Auto) 0.5 Neut % (Auto) 71.9 Lymph % (Auto) 17.0 [place] % (Auto) 8.6 Eos % (Auto) 1.0 Baso % (Auto) 1.0 Immature Gran # (Auto) 0.05 H Neut # (Auto) 6.70 H Lymph # (Auto) 1.58 [place] # (Auto) 0.80 H Eos # (Auto) 0.09 Baso # (Auto) 0.09 Macrocytosis Present Target Cells 2+ PT 15.6 H INR 1.5 H Sodium Potassium Chloride Carbon Dioxide Anion Gap BUN Creatinine Est Cr Clr Drug Dosing Est GFR ( Amer) Est GFR (Non-Af Amer) BUN/Creatinine Ratio Glucose Lactate 2.9 H* Calcium Total Bilirubin AST ALT Alkaline Phosphatase Total Protein Albumin Globulin Albumin/Globulin Ratio Ur Random Sodium 07/03/19 06:16 WBC RBC Hgb Hct MCV MCH MCHC RDW Std Deviation RDW Coeff of Rashida Plt Count MPV Immature Gran % (Auto) Neut % (Auto) Lymph % (Auto) [place] % (Auto) Eos % (Auto) Baso % (Auto) Immature Gran # (Auto) Neut # (Auto) Lymph # (Auto) [place] # (Auto) Eos # (Auto) Baso # (Auto) Macrocytosis Target Cells PT INR Sodium 141 Potassium 3.6 Chloride 112 H Carbon Dioxide 20 L Anion Gap 9.0 BUN 28 H Creatinine 1.37 D Est Cr Clr Drug Dosing 70.0 Est GFR ( Amer) 72.2 Est GFR (Non-Af Amer) 62.3 BUN/Creatinine Ratio 20.7 H Glucose 101 H Lactate Calcium 7.5 L Total Bilirubin 11.4 H AST 259 H ALT 71 Alkaline Phosphatase 312 H Total Protein 5.7 L Albumin 1.9 L Globulin 3.8 Albumin/Globulin Ratio 0.5 L Ur Random Sodium PG Care Time/CCT Total # of Minutes Spent Total Time Spent with Patient: Total time spent is greater than 50% in coordination of care (as documented) at patient's floor/unit and/or counseling patient: Coding Level of Care Code 95846 Subseq Hosp Care Lvl 3 Diagnoses Alcoholic hepatitis K70.10 SUNG (acute kidney injury) N17.9 Acute hypotension I95.9 GERD (gastroesophageal reflux disease) K21.9 Cirrhosis K74.60 Alcohol withdrawal F10.230 Complication of substance-induced condition: uncomplicated Back pain M54.9 Lactic acidosis E87.2 (1) Alcohol withdrawal Complication of substance-induced condition: uncomplicated Qualified Code(s): F10.230 - Alcohol dependence with withdrawal, uncomplicated
[2019-07-03] MEDS: OXYCODONE HCL IR 5 MG TAB (IMMEDIATE RELEASE) PO PRN (13:22)
[2019-07-03] MEDS: DICLOFENAC SOD 1% GEL 100 GM TUBE EXT SCH ×3 (13:23→20:41)
[2019-07-03] MEDS: cefTRIAXone SODIUM 1,000 MG in DEXTROSE 5% 50 ML IV SCH (16:38)
[2019-07-03] MEDS: THIAMINE HCL 200 MG in SODIUM CHLORIDE 0.9% 50 ML IV SCH (20:40)
[2019-07-03] MEDS ORDERED: THIAMINE HCL 200 MG in SYRINGE 9 ML IV SCH (21:00)
[2019-07-04] MEDS: OXYCODONE HCL IR 5 MG TAB (IMMEDIATE RELEASE) PO PRN (00:36)
[2019-07-04] MEDS: NORMOSOL-R 1,000 ML IV SCH ×2 (00:36→08:02)
[2019-07-04] MEDS ORDERED: LORazepam 2 MG/4 ML VIAL IV STA (02:12)
[2019-07-04] MEDS ORDERED: ATIVAN IV ALCOHOL WITHDRAWL IV PRN (04:42)
[2019-07-04] MEDS ORDERED: LORazepam 3 MG/6 ML VIAL IV PRN (04:42)
[2019-07-04] MEDS ORDERED: LORazepam 2 MG/4 ML VIAL IV PRN (04:42)
[2019-07-04 05:01] LABS: Eosinophils # (auto) 0.15 K/uL (0-0.5); Eosinophils % (auto) 1.6 %; Hematocrit (blood only) 26.3 % (42-52); Hemoglobin 8.8 g/dL (14.0-18.0); Immature Granulocytes # (auto) 0.04 K/uL (0.00-0.02); Immature Granulocytes % (auto) 0.4 %; Lymphocytes # (auto) 1.87 K/uL (1.2-3.4); Lymphocytes % (auto) 19.4 %; Mean Corpuscular Hemoglobin 37.9 pg (25-34); Mean Corpuscular Hgb Conc 33.5 g/dL (32-36); Mean Corpuscular Volume 113.4 fL (80-100); Mean Platelet Volume 11.1 fL (7.4-10.4); Monocytes # (auto) 0.93 K/uL (0.11-0.59); Monocytes % (auto) 9.6 %; Neutrophils # (auto) 6.57 K/uL (1.4-6.5); Platelet Count 190 K/uL (130-400); RDW Coefficient of Variation 17.9 % (11.5-14.5); RDW Standard Deviation 73.2 fL (36.4-46.3); Red Blood Count 2.32 M/uL (4.7-6.1); White Blood Count 9.66 K/uL (4.8-10.8)
[2019-07-04 05:16] LABS: INR 1.5 (0.9-1.1); Prothrombin Time 15.1 Seconds (9.0-12.0)
[2019-07-04 05:20] LABS: Albumin Level 1.8 gm/dl (3.4-5.0); BUN Creatinine Ratio 14.2 (10-20); Calcium 7.3 mg/dl (8.5-10.1); Creatinine Clr Calc Pharmacy 55.7 ml/min; Est GFR (African American) 54.8; Est GFR (Non-African American) 47.3; Magnesium 1.8 mg/dl (1.8-2.4); Potassium 3.9 mmol/L (3.5-5.1)
[2019-07-04 05:28] LABS: Albumin Globulin Ratio 0.5 (0.9-2); Bilirubin,Total 11.3 mg/dl (0.2-1); Globulin 3.6 gm/dl (2.5-4.0); Total Protein 5.4 gm/dl (6.4-8.2)
[2019-07-04 05:29] LABS: Giant Platelets 1+; Macrocytosis Present; Target Cells 1+
[2019-07-04] MEDS: HEPARIN SOD 5,000 UNIT/0.5 ML VIAL SQ SCH ×3 (05:31→21:06)
[2019-07-04] MEDS: FOLIC ACID 1 MG in SYRINGE 9.8 ML IV SCH (08:00)
[2019-07-04] MEDS: PENTOXIFYLLINE 400MG EXT REL TAB PO SCH ×2 (08:00→21:07)
[2019-07-04] MEDS: PANTOprazole 40 MG TAB PO SCH ×2 (08:00→21:07)
[2019-07-04] MEDS: BuPROPion XL 150 MG TABCR PO SCH (08:00)
[2019-07-04] MEDS: POLYETHYLENE (MIRALAX) 17 GM PACK PO SCH ×2 (08:01→20:59)
[2019-07-04] MEDS: DICLOFENAC SOD 1% GEL 100 GM TUBE EXT SCH ×4 (08:01→21:06)
[2019-07-04] MEDS: BACLOFEN 10 MG TAB PO SCH ×2 (08:01→21:07)
[2019-07-04] MEDS: GABAPENTIN 300 MG CAP PO SCH ×3 (08:01→21:06)
[2019-07-04] MEDS: THIAMINE HCL 200 MG in SODIUM CHLORIDE 0.9% 50 ML IV SCH ×2 (08:06→21:04)
--- NOTE | 2019-07-04 10:39 | History & Physical Report ---
Date of Service July 04, 2019 Assessment & Plan (1) Jaundice: (2) Cirrhosis: H/H dropped overnight, but no overt signs of bleeding. May be related to decreased production secondary to alcohol abuse and renal disease. Continue current therapy Continue supportive care History of Present Illness Chief Complaint: Patient sleeping but arousable. No overt GI bleeding. No abdominal pain, fevers or chills. Discussed with nursing, no issues at present. Primary Care Provider: Amaya Anand DO Allergies Allergy/AdvReac Type Severity Reaction Status Date / Time ibuprofen AdvReac Intermediate MAKES HIM Verified 07/01/19 16:48 PUKE Home Medications Home Medications Medication Instructions Recorded Confirmed Type hydrochlorothiazide 12.5 mg PO QAM 04/21/18 07/01/19 History lisinopril 40 mg PO QAM 04/21/18 07/01/19 History metoprolol succinate 100 mg PO QAM 04/21/18 07/01/19 History multivitamin [Daily-Mark] 1 tab PO QAM #1 tab 04/27/18 07/01/19 Rx bupropion HCl 150 mg PO QAM 07/18/18 07/01/19 History magnesium oxide 400 mg PO DAILY #30 cap 07/19/18 07/01/19 Rx pantoprazole 40 mg tablet,delayed 40 mg PO BID #60 tab 05/29/19 07/01/19 Rx release gabapentin 300 mg PO TID 07/01/19 07/01/19 History sucralfate 1 g PO ACHS 07/01/19 07/01/19 History Past Med/Surg History Medical History Alcoholism (Chronic) Anxiety Depression Esophagitis (Inactive) GERD (gastroesophageal reflux disease) Hypertension (Chronic) Kidney stones Surgical History History of esophagogastroduodenoscopy (EGD) Hx of vasectomy Family History Aunt Family history of diabetes mellitus Mother Family hx colonic polyps Other No family history of adverse response to anesthesia Denies family history of Crohn's disease Colorectal cancer Ulcerative colitis Social History Preferred Language: Kosovan Communication Ability: Effective Visual Impairment: No Limitations Milliner Helper Required: No Beliefs That Will Affect Care: None Current Living Situation: Alone Current Living Situation Comment: rents a house Other Information That Helps Us Care for You: No Feels Safe at Home: Yes Safety Concerns: Feels Safe At This Time Smoking Status: Former smoker Second Hand Exposure: No ; Hx Alcohol Use: Yes Alcohol type: hard liquor Alcohol Intake Frequency Comment: hx of heavy use, now at 3-4 x/week Hx Substance Use: No (Pt has med card for marijuana) Physical Exam Constitutional: WD/WN, vitals as above Gastrointestinal (Abdomen): Percussion/Palpation: abdomen soft; abdomen nontender Results & Data Vital Signs (Past 12 Hours) Vital Signs Temp Pulse Pulse Resp BP Pulse Ox 07/04/19 07:22 83 07/04/19 07:20 36.4 C L 81 19 97/67 L 96 07/04/19 04:20 36.4 C L 88 22 107/73 95 07/03/19 23:29 36.8 C 85 17 94/61 L 96 07/03/19 23:27 87 Code Status & VTE Plan VTE Prophylaxis Plan VTE Prophylaxis will be ordered: Yes Coding Level of Care Code 74824 OBS Care - Level 2 Diagnoses Jaundice R17 Cirrhosis K74.60
[2019-07-04 14:14] LABS: Hematocrit (blood only) 27.1 % (42-52); Hemoglobin 8.9 g/dL (14.0-18.0)
[2019-07-04] MEDS: LORazepam 1 MG/2 ML VIAL IV PRN (19:34)
--- NOTE | 2019-07-04 20:00 | Hospitalist Progress Note ---
Date of Service July 04, 2019 Assessment & Plan (1) Alcoholic hepatitis: ongoing abnormal LFTs but improving. t. bili largely unchanged. these will likely take an extended period of time to normalize discriminant function still <32 thus deferring on steroids cont daily labs, supportive care, and low threshold for transfer to tertiary care if any worsening of labs patient has had significant weight gain from fluids during this stay - d/c fluids (2) SUNG (acute kidney injury): labile creatinine was 1.3 yesterday, now increased overnight baseline is <1 stop IV fluids as weight is markedly up since admission was taking lisinopril and HCTZ pre-hospital - these have been d/c HRS not suspected but is in differential still likely ATN / pre-renal etiology repeat BMP in am (3) Acute hypotension: resolved s/p fluid resuscitation at admission cont to hold BP meds from home (4) GERD (gastroesophageal reflux disease): continue Protonix (5) Cirrhosis: compensated had an EGD in the past that did not show esophageal varices now with superimposed acute alcoholic hepatitis (6) Alcohol withdrawal: stable cont gabapentin cont thiamine/folic acid Ativan PRN (7) Back pain: heat prn Baclofen 10mg BID - currently scheduled; will make prn starting in am oxycodone prn voltaren gel qid (8) Lactic acidosis: resolved (9) Anemia: recheck of H/H this afternoon showed stability check fecal occult blood due to hemodilution? CBC in am if H/H trend down will ask Dr Hillman to see again - EGD? PT, OT evals DVT proph - heparin SC but low threshold to stop if any concern for GI bleeding Admission and Anticipated Discharge Date Admission Date: July 01, 2019 Subjective feels good today denies any complaints except mild back pain "all over" (paraspinal areas) voltaren gel helps tele stable overnight reports mild shortness of breath with eating but oddly nothing with activity Review of Systems Constitutional: no fever Respiratory: no cough Cardiovascular: no chest pain Gastrointestinal: + bloating and + heartburn Physical Exam Constitutional: no acute distress and no altered mental status Eyes: + scleral abnormality (icteric ) ENMT: external ear and nose normal, oropharynx normal Respiratory: normal respiratory effort, lungs clear to auscultation Auscultation: + diminished lung sounds (bases) Cardiovascular: Rate/Rhythm: regular rate and regular rhythm Heart Sounds: normal S1 and normal S2; no murmur Vessels: posterior tibial pulses present and dorsalis pedis pulses present; no JVD Extremities: no edema Gastrointestinal (Abdomen): Inspection/Auscultation: + abdomen distended and normal bowel sounds Percussion/Palpation: abdomen nontender and no hepatosplenomegaly Skin: + jaundice (to umbilicus ) Psychiatric: A+Ox3, euthymic affect Results & Data ([facility]) Vital Signs (Past 12 Hours) Vital Signs Temp Pulse Pulse Resp BP Pulse Ox 07/04/19 19:28 36.6 C 100 H 22 108/73 95 07/04/19 18:57 36.5 C 93 H 21 104/72 95 07/04/19 15:32 36.9 C 91 H 18 99/66 L 95 07/04/19 15:15 91 H 07/04/19 14:59 36.5 C 84 19 115/68 94 07/04/19 11:14 36.4 C L 80 19 100/66 96 Laboratory Results Laboratory Results - last 24 hr 07/04/19 07/04/19 07/04/19 04:51 04:51 04:51 WBC 9.66 RBC 2.32 L Hgb 8.8 L Hct 26.3 L MCV 113.4 H MCH 37.9 H MCHC 33.5 RDW Std Deviation 73.2 H RDW Coeff of Rashida 17.9 H Plt Count 190 MPV 11.1 H Immature Gran % (Auto) 0.4 Neut % (Auto) 68.0 Lymph % (Auto) 19.4 Travis % (Auto) 9.6 Eos % (Auto) 1.6 Baso % (Auto) 1.0 Immature Gran # (Auto) 0.04 H Neut # (Auto) 6.57 H Lymph # (Auto) 1.87 Travis # (Auto) 0.93 H Eos # (Auto) 0.15 Baso # (Auto) 0.10 Giant Platelets 1+ Macrocytosis Present Target Cells 1+ PT 15.1 H INR 1.5 H Sodium 140 Potassium 3.9 Chloride 113 H Carbon Dioxide 22 Anion Gap 5.0 BUN 24 H Creatinine 1.72 H D Est Cr Clr Drug Dosing 55.7 Est GFR ( Amer) 54.8 Est GFR (Non-Af Amer) 47.3 BUN/Creatinine Ratio 14.2 Glucose 93 Calcium 7.3 L Magnesium 1.8 Total Bilirubin 11.3 H AST 219 H ALT 66 Alkaline Phosphatase 274 H Total Protein 5.4 L Albumin 1.8 L Globulin 3.6 Albumin/Globulin Ratio 0.5 L Folate Stool Occult Bld Scrn 07/04/19 07/04/19 07/04/19 04:51 13:55 17:05 WBC RBC Hgb 8.9 L Hct 27.1 L MCV MCH MCHC RDW Std Deviation RDW Coeff of Rashida Plt Count MPV Immature Gran % (Auto) Neut % (Auto) Lymph % (Auto) Travis % (Auto) Eos % (Auto) Baso % (Auto) Immature Gran # (Auto) Neut # (Auto) Lymph # (Auto) Travis # (Auto) Eos # (Auto) Baso # (Auto) Giant Platelets Macrocytosis Target Cells PT INR Sodium Potassium Chloride Carbon Dioxide Anion Gap BUN Creatinine Est Cr Clr Drug Dosing Est GFR ( Amer) Est GFR (Non-Af Amer) BUN/Creatinine Ratio Glucose Calcium Magnesium Total Bilirubin AST ALT Alkaline Phosphatase Total Protein Albumin Globulin Albumin/Globulin Ratio Folate 7.66 Stool Occult Bld Scrn Positive A PG Care Time/CCT Total # of Minutes Spent Total Time Spent with Patient: Total time spent is greater than 50% in coordinat ion of care (as documented) at patient's floor/unit and/or counseling patient: Coding Level of Care Code 76115 Subseq Hosp Care Lvl 2 Diagnoses Alcoholic hepatitis K70.10 SUNG (acute kidney injury) N17.9 Acute hypotension I95.9 GERD (gastroesophageal reflux disease) K21.9 Cirrhosis K74.60 Alcohol withdrawal F10.230 Complication of substance-induced condition: uncomplicated Back pain M54.9 Lactic acidosis E87.2 Anemia D64.9 (1) Alcohol withdrawal Complication of substance-induced condition: uncomplicated Qualified Code(s): F10.230 - Alcohol dependence with withdrawal, uncomplicated
[2019-07-05] MEDS ORDERED: LORazepam 1 MG/2 ML VIAL IV STA (00:12)
[2019-07-05] MEDS: HEPARIN SOD 5,000 UNIT/0.5 ML VIAL SQ SCH (05:28)
[2019-07-05 05:42] LABS: Hematocrit (blood only) 26.5 % (42-52); Hemoglobin 8.7 g/dL (14.0-18.0); Mean Corpuscular Hgb Conc 32.8 g/dL (32-36); Mean Corpuscular Volume 112.8 fL (80-100); Mean Platelet Volume 11.5 fL (7.4-10.4); Platelet Count 192 K/uL (130-400); RDW Standard Deviation 73.1 fL (36.4-46.3); Red Blood Count 2.35 M/uL (4.7-6.1); White Blood Count 10.15 K/uL (4.8-10.8)
[2019-07-05 06:08] LABS: INR 1.4 (0.9-1.1); Prothrombin Time 14.8 Seconds (9.0-12.0)
[2019-07-05 06:17] LABS: Albumin Globulin Ratio 0.5 (0.9-2); Albumin Level 1.8 gm/dl (3.4-5.0); BUN Creatinine Ratio 13.3 (10-20); Bilirubin,Total 11.5 mg/dl (0.2-1); Calcium 7.9 mg/dl (8.5-10.1); Creatinine Clr Calc Pharmacy 40.9 ml/min; Est GFR (African American) 37.4; Est GFR (Non-African American) 32.3; Globulin 3.5 gm/dl (2.5-4.0); Potassium 3.9 mmol/L (3.5-5.1); Total Protein 5.3 gm/dl (6.4-8.2)
[2019-07-05] MEDS: FOLIC ACID 1 MG in SYRINGE 9.8 ML IV SCH (07:41)
[2019-07-05] MEDS: BuPROPion XL 150 MG TABCR PO SCH (07:42)
[2019-07-05] MEDS: DICLOFENAC SOD 1% GEL 100 GM TUBE EXT SCH ×4 (07:42→20:16)
[2019-07-05] MEDS: PANTOprazole 40 MG TAB PO SCH ×2 (07:42→20:16)
[2019-07-05] MEDS: PENTOXIFYLLINE 400MG EXT REL TAB PO SCH ×2 (07:43→20:16)
[2019-07-05] MEDS: BACLOFEN 10 MG TAB PO SCH (07:43)
[2019-07-05] MEDS: GABAPENTIN 300 MG CAP PO SCH ×3 (07:43→20:16)
[2019-07-05] MEDS: POLYETHYLENE (MIRALAX) 17 GM PACK PO SCH ×2 (07:43→20:19)
[2019-07-05] MEDS: THIAMINE HCL 200 MG in SODIUM CHLORIDE 0.9% 50 ML IV SCH ×2 (07:48→20:16)
[2019-07-05] MEDS ORDERED: BACLOFEN 10 MG TAB PO PRN (08:18)
[2019-07-05] MEDS: MIDODRINE HCL 2.5 MG TAB PO SCH ×3 (09:04→17:16)
[2019-07-05] MEDS: OCTREOTIDE ACETATE 100 MCG/ML VIAL SQ SCH ×2 (09:43→17:13)
[2019-07-05] MEDS: ALBUMIN 25% 50 ML IV SCH ×4 (09:46→17:57)
--- NOTE | 2019-07-05 11:37 | Nephrology Consultation ---
Date of Consultation July 05, 2019 Assessment & Plan (1) Alcoholic hepatitis: ETOH use up until day of admission. Current MELD 23. Mild ascites noted on US. Albumin 1.9. (2) SUNG (acute kidney injury): -- Recurrent SUNG in the setting of alcoholic cirrhosis -- Recheck urine sodium, FeNa -- Will order urine microscopy to check sediment -- Will order renal US to assess for obstruction -- Although initial presentation was suggestive of intravascular volume contraction, kidney function is worsening despite IVF. Agree w/ concern that this is transitioning to type I HRS. Recommend starting SPA 25g IV q 8hrs, midodrine and octreotide. GI has been consulted and has started Trental therapy -- Avoid STACEY/ARB, NSAIDS -- Monitor serial CMP (3) Acute hypotension: -- Corrected w/ IVF, midodrine therapy (4) Cirrhosis: -- Monitor LFT, question need for paracentesis. Await further GI input History of Present Illness Reason for Consultation: SUNG Attending Physician: Akbar Peck History of Present Illness Mr. Willett is a 43 year old white male who is seen at the request of Dr. Peck for evaluation of SUNG. Medical records in the EMR were reviewed today and are summarized as follows: Mr. Willett has a known h/o HTN, kidney stones, depression, GERD and alcoholism. He was brought to the ED approximately four days ago for evaluation of jaundice and fatigue. He acknowledged heavy alcohol use (4 glasses of Vodka/day). In the ED SBP was ~ 60 mmHg, Cr 1.8, AST 400, ALT 100, Bili 12 and INR 1.2. He was admitted and given IV hydration. Mr. Willett was seen by Dr. Butcher. Creatinine improved to 1.3 w/ IV hydration. SUNG was attributed to intravascular volume contraction. Nephrology signed off. Over the last 48 hours, creatinine has risen to 2.4 and patient has become oliguric. Nephrology has now been asked to reevaluate patient for possible HRS. Mr. Willett c/o progressive abdominal distention. He denies fever, diarrhea or emesis. He is not currently on STACEY/ARB or NSAID. Allergies Allergy/AdvReac Type Severity Reaction Status Date / Time ibuprofen AdvReac Intermediate MAKES HIM Verified 07/01/19 16:48 PUKE Home Medications Home Medications Medication Instructions Recorded Confirmed Type hydrochlorothiazide 12.5 mg PO QAM 04/21/18 07/01/19 History lisinopril 40 mg PO QAM 04/21/18 07/01/19 History metoprolol succinate 100 mg PO QAM 04/21/18 07/01/19 History multivitamin [Daily-Mark] 1 tab PO QAM #1 tab 04/27/18 07/01/19 Rx bupropion HCl 150 mg PO QAM 07/18/18 07/01/19 History magnesium oxide 400 mg PO DAILY #30 cap 07/19/18 07/01/19 Rx pantoprazole 40 mg tablet,delayed 40 mg PO BID #60 tab 05/29/19 07/01/19 Rx release gabapentin 300 mg PO TID 07/01/19 07/01/19 History sucralfate 1 g PO ACHS 07/01/19 07/01/19 History Patient History Medical History Alcoholism (Chronic) Anxiety Depression Esophagitis (Inactive) GERD (gastroesophageal reflux disease) Hypertension (Chronic) Kidney stones Surgical History History of esophagogastroduodenoscopy (EGD) Hx of vasectomy Family History Aunt Family history of diabetes mellitus Mother Family hx colonic polyps Other No family history of adverse response to anesthesia Denies family history of Crohn's disease Colorectal cancer Ulcerative colitis Social History Preferred Language: Beninese Communication Ability: Effective Visual Impairment: No Limitations Wildlife 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 Required: No Beliefs That Will Affect Care: None Current Living Situation: Alone Current Living Situation Comment: rents a house Other Information That Helps Us Care for You: No Feels Safe at Home: Yes Safety Concerns: Feels Safe At This Time Smoking Status: Former smoker Second Hand Exposure: No ; Hx Alcohol Use: Yes Alcohol type: hard liquor Alcohol Intake Frequency Comment: hx of heavy use, now at 3-4 x/week Hx Substance Use: No (Pt has med card for marijuana) Review of Systems Constitutional: no fever Eyes: no worsening vision and no problem reported Ear, Nose, Mouth, Throat: no problem reported Respiratory: no cough and no dyspnea Cardiovascular: no chest pain, no palpitations and no edema Gastrointestinal: + bloating; no nausea and no diarrhea/loose stools Genitourinary: no dysuria, no urinary hesitancy and no hematuria Musculoskeletal: no back pain Integumentary: + change in skin color Neurologic: no falls, no dizziness and no confusion Physical Exam Constitutional: jaundiced Eyes: PERRL + scleral icterus ENMT: external ear and nose normal, oropharynx normal Neck: trachea midline, no thyromegaly Respiratory: normal respiratory effort, lungs clear to auscultation Cardiovascular: RRR, no murmur, no edema Gastrointestinal (Abdomen): Inspection/Auscultation: + abdomen distended and + hypoactive bowel sounds Percussion/Palpation: abdomen nontender and no guarding Musculoskeletal: Extremities: no cyanosis Skin: no rashes, warm and dry Neurologic: awake; not confused Results & Data Vital Signs (Past 12 Hours) Vital Signs Temp Pulse Pulse Resp BP Pulse Ox 07/05/19 07:16 87 07/05/19 07:12 36.4 C L 87 18 101/73 97 07/05/19 05:14 36.5 C 103 H 19 107/72 95 07/04/19 23:46 36.5 C 91 H 20 107/70 98 Laboratory Results Laboratory Results WBC 10.15 K/uL (4.8-10.8) 07/05/19 05:08 RBC 2.35 M/uL (4.7-6.1) L 07/05/19 05:08 Hgb 8.7 g/dL (14.0-18.0) L 07/05/19 05:08 Hct 26.5 % (42-52) L 07/05/19 05:08 MCV 112.8 fL (80-100) H 07/05/19 05:08 MCH 37.0 pg (25-34) H 07/05/19 05:08 MCHC 32.8 g/dL (32-36) 07/05/19 05:08 RDW Std Deviation 73.1 fL (36.4-46.3) H 07/05/19 05:08 RDW Coeff of Rashida 18.0 % (11.5-14.5) H 07/05/19 05:08 Plt Count 192 K/uL (130-400) 07/05/19 05:08 MPV 11.5 fL (7.4-10.4) H 07/05/19 05:08 Immature Gran % (Auto) 0.4 % 07/04/19 04:51 Neut % (Auto) 68.0 % 07/04/19 04:51 Lymph % (Auto) 19.4 % 07/04/19 04:51 Charlton % (Auto) 9.6 % 07/04/19 04:51 Eos % (Auto) 1.6 % 07/04/19 04:51 Baso % (Auto) 1.0 % 07/04/19 04:51 Immature Gran # (Auto) 0.04 K/uL (0.00-0.02) H 07/04/19 04:51 Neut # (Auto) 6.57 K/uL (1.4-6.5) H 07/04/19 04:51 Lymph # (Auto) 1.87 K/uL (1.2-3.4) 07/04/19 04:51 Charlton # (Auto) 0.93 K/uL (0.11-0.59) H 07/04/19 04:51 Eos # (Auto) 0.15 K/uL (0-0.5) 07/04/19 04:51 Baso # (Auto) 0.10 K/uL (0-0.2) 07/04/19 04:51 Giant Platelets 1+ 07/04/19 04:51 Macrocytosis Present 07/04/19 04:51 Target Cells 1+ 07/04/19 04:51 PT 14.8 Seconds (9.0-12.0) H 07/05/19 05:08 INR 1.4 (0.9-1.1) H 07/05/19 05:08 Sodium 139 mmol/L (136-145) 07/05/19 05:08 Potassium 3.9 mmol/L (3.5-5.1) 07/05/19 05:08 Chloride 111 mmol/L (98-107) H 07/05/19 05:08 Carbon Dioxide 22 mmol/L (21-32) 07/05/19 05:08 Anion Gap 6.0 (3-11) 07/05/19 05:08 BUN 31 mg/dl (7-18) H 07/05/19 05:08 Creatinine 2.36 mg/dl (0.6-1.4) H D 07/05/19 05:08 Est Cr Clr Drug Dosing 40.9 ml/min 07/05/19 05:08 Est GFR ( Amer) 37.4 07/05/19 05:08 Est GFR (Non-Af Amer) 32.3 07/05/19 05:08 BUN/Creatinine Ratio 13.3 (10-20) 07/05/19 05:08 Glucose 103 mg/dl (70-99) H 07/05/19 05:08 Lactate 2.9 mmol/L (0.4-2.0) H* 07/03/19 06:16 Calcium 7.9 mg/dl (8.5-10.1) L 07/05/19 05:08 Magnesium 1.8 mg/dl (1.8-2.4) 07/04/19 04:51 Total Bilirubin 11.5 mg/dl (0.2-1) H 07/05/19 05:08 AST 239 U/L (15-37) H 07/05/19 05:08 ALT 70 U/L (12-78) 07/05/19 05:08 Alkaline Phosphatase 278 U/L (45-117) H 07/05/19 05:08 Ammonia < 10.0 umol/L (11-32) L 07/01/19 15:36 Troponin I < 0.015 ng/ml (0-0.045) 07/01/19 15:36 Total Protein 5.3 gm/dl (6.4-8.2) L 07/05/19 05:08 Albumin 1.8 gm/dl (3.4-5.0) L 07/05/19 05:08 Globulin 3.5 gm/dl (2.5-4.0) 07/05/19 05:08 Albumin/Globulin Ratio 0.5 (0.9-2) L 07/05/19 05:08 Folate 7.66 ng/ml (>5.38) 07/04/19 04:51 TSH 3.760 uIu/ml (0.300-4.500) 07/01/19 15:36 Urine Color Erika 07/01/19 22:00 Urine Appearance Slightly Cloudy (Clear) A 07/01/19 22:00 Urine pH (4.5-7.5) 07/01/19 22:00 Ur Specific Spring 1.044 (1.000-1.030) H 07/01/19 22:00 Urine Protein (Negative) 07/01/19 22:00 Urine Glucose (UA) (Negative) 07/01/19 22:00 Urine Ketones (Negative) 07/01/19 22:00 Urine Blood (Negative) 07/01/19 22:00 Urine Nitrite (Negative) 07/01/19 22:00 Urine Bilirubin (Negative) 07/01/19 22:00 Urine Urobilinogen (Negative) 07/01/19 22:00 Ur Leukocyte Esterase (Negative) 07/01/19 22:00 Urine WBC (Auto) 1-5 /hpf (0-5) 07/01/19 22:00 Urine RBC (Auto) 0-4 /hpf (0-4) 07/01/19 22:00 U Hyaline Cast (Auto) 1-5 /lpf (0-5) 07/01/19 22:00 U Epithel Cells (Auto) 5-10 /lpf (0-5) H 07/01/19 22:00 Urine Bacteria (Auto) Negative (Negative) 07/01/19 22:00 Ur Random Sodium 28 mmol/L 07/02/19 12:25 Stool Occult Bld Scrn Positive (Negative) A 07/04/19 17:05 Acetaminophen Cancelled 07/01/19 15:46 Ethyl Alcohol mg/dL 199.0 mg/dl (0-3) H 07/01/19 15:36 Miscellaneous Test REPORT 07/01/19 15:46 PG Care Time/CCT Total # of Minutes Spent Total Time Spent with Patient: Total time spent is greater than 50% in coordination of care (as documented) at patient's floor/unit and/or counseling patient: Coding Level of Care Code 23504 Inpt Consult Level 5 Diagnoses Alcoholic hepatitis K70.10 SUNG (acute kidney injury) N17.9 Acute hypotension I95.9 Cirrhosis K74.60
--- NOTE | 2019-07-05 12:50 | XRay Report ---
XR chest 2V PA/lateral HISTORY: dyspnea; eval pulm edema COMPARISON: Chest 07/01/2019. FINDINGS: Mild elevation the right hemidiaphragm with right basilar linear densities suggesting subse gmental atelectasis. Otherwise, lungs are clear. The heart is normal in size. No pleural effusions. N o pneumothorax. No evidence for pulmonary edema. IMPRESSION: Right basilar linear densities suggesting subsegmental atelectasis. Otherwise, no acute process withi n the chest. ACT 112: Negative or not required by law. Electronically signed by: Dl Quiñones M.D. 07/05/2019 12:48 PM
--- NOTE | 2019-07-05 13:35 | Ultrasound Report ---
RIGHT LOWER EXTREMITY VENOUS DOPPLER HISTORY: cirrhosis, edema, eval RLE DVT COMPARISON STUDY: None. FINDINGS: There is normal compressibility, flow, and augmentation within the right lower extremity de ep venous system. IMPRESSION: No DVT within the right lower extremity ACT 112: Negative or not required by law. Electronically signed by: Dl Quiñones M.D. 07/05/2019 1:34 PM
--- NOTE | 2019-07-05 13:38 | Ultrasound Report ---
ULTRASOUND KIDNEYS AND BLADDER CLINICAL HISTORY: Acute renal insufficiency. COMPARISON STUDY: Abdominal CT dated 07/01/2019. TECHNIQUE: Real-time, grayscale, and color flow sonography of the kidneys and bladder is performed. I mages are reviewed in the transverse and longitudinal planes. FINDINGS: Kidneys: The kidneys are normal in size and echotexture. The right kidney measures 11.9 cm inlet and the left kidney measures 12.2 cm in length. There is no hydronephrosis. No shadowing renal calculi ar e identified. There is no sonographic evidence of contour deforming renal mass lesion. No perinephric fluid is identified. Bladder: The bladder wall appears thickened and trabeculated suggesting chronic outlet obstruction. I ntraluminal debris is noted. Ureteral jets were not seen. Upper abdomen: Survey images of the liver show evidence of steatosis. Nodularity of the surface conto ur indicates early change of cirrhosis. Abdominal ascites is noted. The spleen is enlarged measuring 14.2 cm in length. IMPRESSION: 1. The kidneys are normal in size and without hydronephrosis. 2. The appearance of the bladder suggests chronic outlet obstruction. 3. Intraluminal debris is noted in the bladder. Correlation with urinalysis will be required. 4. The liver is steatotic and shows early changes of cirrhosis. 5. Abdominal ascites and splenomegaly indicate portal hypertension. ACT 112: Negative or not required by law. Electronically signed by: Sabas Muñiz M.D. 07/05/2019 1:37 PM
[2019-07-05 14:17] LABS: Appearance Urine Slightly Cloudy (Clear); Color Urine Orange; Specific Gravity Urine 1.025 (1.000-1.030)
[2019-07-05 14:33] LABS: Protein Urine Negative (Negative); Sulfosalicylic Acid Urine Negative (Negative)
[2019-07-05 14:42] LABS: Bacteria Urine 2+ (Negative); Epithelial Cell Urine >30 /lpf (0-5); Hyaline Casts Urine >30 /lpf (0-5); WBC Urine >30 /hpf (0-5)
[2019-07-05 14:43] LABS: Renal Epithelial Cells Urine 0-5 /lpf (0-5)
[2019-07-05] MEDS ORDERED: LORazepam 0.5 MG TAB PO STA (17:43)
--- NOTE | 2019-07-05 18:50 | Hospitalist Progress Note ---
Date of Service July 05, 2019 Assessment & Plan (1) Alcoholic hepatitis: ongoing abnormal LFTs - no significant change overnight (modest improvement ast, t.bili unchanged) these will likely take an extended period of time to normalize discriminant function still <32 thus deferring on steroids cont daily labs, supportive care, and low threshold for transfer to tertiary care if any worsening of labs spoke with Dr Hillman today - no change in care plan (2) SUNG (acute kidney injury): labile creatinine presented with acute kidney injury -- initially there was improvement with IV fluids, then has worsened to >2 overnight at admission he appeared volume depleted with worsening renal function -- developing hepatorenal syndrome?? start octreotide SC q8h; start midodrine 5mg TID; ordered albumin 25%, 25gm IV q8h x 48 hours send u/a send urine Na recheck BMP am nephrology consult appreciated (3) Acute hypotension: resolved s/p fluid resuscitation at admission cont to hold BP meds from home 7kg+ of weight gain since admission -- fluids d/c (4) GERD (gastroesophageal reflux disease): continue Protonix (5) Cirrhosis: had an EGD in the past that did not show esophageal varices now with superimposed acute alcoholic hepatitis has ascites on exam but no abd pain/other symptoms to suggest SBP low threshold for diagnostic paracentesis discriminant function <32; defer on steroids appreciate Dr Hillman's consult (6) Alcohol withdrawal: stable likely mild withdrawal cont gabapentin cont thiamine/folic acid Ativan PRN (7) Back pain: heat prn Baclofen 10mg BID prn oxycodone prn voltaren gel qid (8) Lactic acidosis: resolved (9) Anemia: H/H had dropped since admission -- stool is heme+ placed SC heparin on hold spoke with Dr Hillman - cont PPI bid; hold on EGD; add carafate serial CBC (10) Dyspnea: start with 2-view cxr, r/p pulmonary edema o2 sats wnl however right leg is larger than left leg -- obtain doppler u/s RLE, r/o DVT (11) Confusion: check ammonia, r/o hepatic encephalopathy if negative -- 2nd to mild alcohol withdrawal? meds (narcotics, etc)? follow carefully (12) DVT prophylaxis: hold SC heparin due to heme+ stool and drop in H/H PT/OT evals ordered appreciate nephrology consult and GI consult Admission and Anticipated Discharge Date Admission Date: July 01, 2019 Subjective upon entering the room the blinds were drawn and the lights were off - it was mid-morning. I commented to the patient that over the last few days the room was similar. I asked him if he felt depressed and he replied no. He said "I'm just sick of being in the bed." However, a short time later when i encouraged him to sit in the chair he stated he didn't want to. again complained of mild dyspnea - with eating, and occasionally just watching TV. no cough. no abdominal pain. no nausea or vomiting. appetite fair. Review of Systems Constitutional: + fatigue; no fever and no chills Respiratory: + dyspnea; no cough and no wheezing Cardiovascular: + dyspnea at rest; no chest pain, no orthopnea and no paroxysmal nocturnal dyspnea Gastrointestinal: no abdominal pain, no nausea, no vomiting and no diarrhea/loose stools Physical Exam Constitutional: no acute distress and no altered mental status anxious Eyes: + scleral abnormality (icteric ) ENMT: external ear and nose normal, oropharynx normal Respiratory: normal respiratory effort, lungs clear to auscultation Auscultation: + diminished lung sounds (bases) Cardiovascular: Rate/Rhythm: regular rate and regular rhythm Heart Sounds: normal S1 and normal S2; no murmur Vessels: posterior tibial pulses present and dorsalis pedis pulses present; no JVD Extremities: no edema Gastrointestinal (Abdomen): Inspection/Auscultation: + abdomen distended and normal bowel sounds Percussion/Palpation: abdomen nontender and no hepatosplenomegaly Musculoskeletal: right leg markedly larger than left leg Skin: + jaundice (to umbilicus ) Neurologic: Motor/Sensory: + tremor (mild ); no asterixis Psychiatric: Orientation: alert, oriented to person and oriented to time; + not oriented to place (he couldn't tell me where he was??) Results & Data Results & Data ([facility]) Vital Signs (Past 12 Hours) Vital Signs Temp Pulse Pulse Resp BP Pulse Ox 07/05/19 15:53 36.3 C L 89 18 99/67 L 96 07/05/19 14:46 91 H 07/05/19 11:53 36.5 C 86 18 109/64 98 07/05/19 07:16 87 07/05/19 07:12 36.4 C L 87 18 101/73 97 Laboratory Results Laboratory Results - last 24 hr 07/01/19 07/05/19 07/05/19 15:46 05:08 05:08 WBC 10.15 RBC 2.35 L Hgb 8.7 L Hct 26.5 L MCV 112.8 H MCH 37.0 H MCHC 32.8 RDW Std Deviation 73.1 H RDW Coeff of Rashida 18.0 H Plt Count 192 MPV 11.5 H PT 14.8 H INR 1.4 H Sodium Potassium Chloride Carbon Dioxide Anion Gap BUN Creatinine Est Cr Clr Drug Dosing Est GFR ( Amer) Est GFR (Non-Af Amer) BUN/Creatinine Ratio Glucose Calcium Total Bilirubin AST ALT Alkaline Phosphatase Ammonia Total Protein Albumin Globulin Albumin/Globulin Ratio Urine Color Urine Appearance Urine pH Ur Specific [place] Urine Protein Urine Glucose (UA) Urine Ketones Urine Blood Urine Nitrite Urine Bilirubin Urine Urobilinogen Ur Leukocyte Esterase Urine RBC Urine WBC Ur Epithelial Cells Ur Renal Epithelial Cell Urine Bacteria Hyaline Casts Granular Casts Ur Random Creatinine Ur Random Sodium Miscellaneous Test REPORT 07/05/19 07/05/19 07/05/19 05:08 11:48 13:52 WBC RBC Hgb Hct MCV MCH MCHC RDW Std Deviation RDW Coeff of Rashida Plt Count MPV PT INR Sodium 139 Potassium 3.9 Chloride 111 H Carbon Dioxide 22 Anion Gap 6.0 BUN 31 H Creatinine 2.36 H D Est Cr Clr Drug Dosing 40.9 Est GFR ( Amer) 37.4 Est GFR (Non-Af Amer) 32.3 BUN/Creatinine Ratio 13.3 Glucose 103 H Calcium 7.9 L Total Bilirubin 11.5 H AST 239 H ALT 70 Alkaline Phosphatase 278 H Ammonia < 10.0 L Total Protein 5.3 L Albumin 1.8 L Globulin 3.5 Albumin/Globulin Ratio 0.5 L Urine Color Urine Appearance Urine pH Ur Specific [place] Urine Protein Urine Glucose (UA) Urine Ketones Urine Blood Urine Nitrite Urine Bilirubin Urine Urobilinogen Ur Leukocyte Esterase Urine RBC Urine WBC Ur Epithelial Cells Ur Renal Epithelial Cell Urine Bacteria Hyaline Casts Granular Casts Ur Random Creatinine 244.0 Ur Random Sodium 44 Miscellaneous Test 07/05/19 07/05/19 13:52 13:52 WBC RBC Hgb Hct MCV MCH MCHC RDW Std Deviation RDW Coeff of Rashida Plt Count MPV PT INR Sodium Potassium Chloride Carbon Dioxide Anion Gap BUN Creatinine Est Cr Clr Drug Dosing Est GFR ( Amer) Est GFR (Non-Af Amer) BUN/Creatinine Ratio Glucose Calcium Total Bilirubin AST ALT Alkaline Phosphatase Ammonia Total Protein Albumin Globulin Albumin/Globulin Ratio Urine Color [place] Urine Appearance Slightly Cloudy A Urine pH Ur Specific [place] 1.025 Urine Protein Negative Urine Glucose (UA) Urine Ketones Urine Blood Urine Nitrite Urine Bilirubin Urine Urobilinogen Ur Leukocyte Esterase Urine RBC 5-10 H Urine WBC >30 H Ur Epithelial Cells >30 H Ur Renal Epithelial Cell 0-5 Urine Bacteria 2+ H Hyaline Casts >30 H Granular Casts 1-5 H Ur Random Creatinine Ur Random Sodium Cancelled Miscellaneous Test PG Care Time/CCT Total # of Minutes Spent Total Time Spent with Patient: Total time spent is greater than 50% in coordination of care (as documented) at patient's floor/unit and/or counseling patient: Coding Level of Care Code 71670 Subseq Hosp Care Lvl 3 Diagnoses Alcoholic hepatitis K70.10 SUNG (acute kidney injury) N17.9 Acute hypotension I95.9 GERD (gastroesophageal reflux disease) K21.9 Cirrhosis K74.60 Alcohol withdrawal F10.230 Complication of substance-induced condition: uncomplicated Back pain M54.9 Lactic acidosis E87.2 Anemia D64.9 Dyspnea R06.00 Confusion R41.0 DVT prophylaxis Z29.9 (1) Alcohol withdrawal Complication of substance-induced condition: uncomplicated Qualified Code(s): F10.230 - Alcohol dependence with withdrawal, uncomplicated
[2019-07-05] MEDS: SUCRALFATE 1 GM/10 ML UDC PO SCH (20:15)
[2019-07-05] MEDS: LORazepam 1 MG/2 ML VIAL IV PRN (20:17)
[2019-07-06] MEDS: OCTREOTIDE ACETATE 100 MCG/ML VIAL SQ SCH ×3 (00:10→17:04)
[2019-07-06] MEDS: ALBUMIN 25% 50 ML IV SCH ×6 (00:11→17:47)
[2019-07-06] MEDS: LORazepam 1 MG/2 ML VIAL IV PRN (03:35)
[2019-07-06] MEDS ORDERED: SODIUM CHLORIDE 0.9% 1000ML 500 ML IV ONE (05:56)
[2019-07-06 06:34] LABS: Albumin Level 2.5 gm/dl (3.4-5.0); BUN Creatinine Ratio 17.4 (10-20); Calcium 8.4 mg/dl (8.5-10.1); Creatinine Clr Calc Pharmacy 54.5 ml/min; Est GFR (African American) 52.6; Est GFR (Non-African American) 45.4; Potassium 4.2 mmol/L (3.5-5.1)
[2019-07-06 06:38] LABS: Albumin Globulin Ratio 0.8 (0.9-2); Bilirubin,Total 11.7 mg/dl (0.2-1); Globulin 3.1 gm/dl (2.5-4.0); Total Protein 5.6 gm/dl (6.4-8.2)
[2019-07-06] MEDS: DICLOFENAC SOD 1% GEL 100 GM TUBE EXT SCH ×4 (07:34→22:01)
[2019-07-06] MEDS: PENTOXIFYLLINE 400MG EXT REL TAB PO SCH ×2 (07:35→21:59)
[2019-07-06] MEDS: BuPROPion XL 150 MG TABCR PO SCH (07:35)
[2019-07-06] MEDS: PANTOprazole 40 MG TAB PO SCH ×2 (07:35→21:58)
[2019-07-06] MEDS: FOLIC ACID 1 MG in SYRINGE 9.8 ML IV SCH (07:35)
[2019-07-06] MEDS: MIDODRINE HCL 2.5 MG TAB PO SCH ×3 (07:35→16:50)
[2019-07-06] MEDS: GABAPENTIN 300 MG CAP PO SCH ×2 (07:35→21:58)
[2019-07-06] MEDS: POLYETHYLENE (MIRALAX) 17 GM PACK PO SCH ×2 (07:36→21:59)
[2019-07-06] MEDS: SUCRALFATE 1 GM/10 ML UDC PO SCH ×4 (07:36→21:59)
[2019-07-06] MEDS: THIAMINE HCL 200 MG in SODIUM CHLORIDE 0.9% 50 ML IV SCH ×2 (08:02→22:02)
[2019-07-06] MEDS ORDERED: BACLOFEN 10 MG TAB PO PRN (11:10)
--- NOTE | 2019-07-06 11:15 | Nephrology Progress Note ---
Date of Service July 06, 2019 Assessment & Plan (1) SUNG (acute kidney injury): -- Recurrent SUNG in the setting of alcoholic cirrhosis. Creatinine has improved from 2.3 to 1.7. Patient remains oliguric -- Urine sediment w/ granular casts suggestive of ATN possibly related to hypotension on admission -- Renal US is negative for obstruction -- FeNa 0.1% -- Continue SPA 25g IV q 8hrs, midodrine and octreotide. GI has been consulted and is providing Trental therapy -- Avoid STACEY/ARB, NSAIDS. Recommend reducing Gabapentin dose due to SUNG -- Monitor serial CMP (2) Acute hypotension: -- Will increase midodrine to 7.5 mg po TID (3) Cirrhosis: -- Monitor LFT, question need for paracentesis. Await further GI input Subjective Mr. Willett was seen & examined in his hospital room this morning. He c/o abdominal distention but denies fever, abdominal pain, N/V/D. Review of Systems Constitutional: no fever Eyes: no problem reported Ear, Nose, Mouth, Throat: no problem reported Respiratory: no cough and no dyspnea Cardiovascular: + edema; no chest pain and no palpitations Gastrointestinal: + bloating; no nausea and no diarrhea/loose stools Genitourinary: no dysuria, no urinary hesitancy and no hematuria Musculoskeletal: no back pain Integumentary: + change in skin color Neurologic: no falls, no dizziness and no confusion Physical Exam Constitutional: + ill appearing; not in distress Eyes: PERRL + icterus ENMT: external ear and nose normal, oropharynx normal Neck: trachea midline, no thyromegaly Respiratory: normal respiratory effort, lungs clear to auscultation Cardiovascular: Rate/Rhythm: regular rate and regular rhythm Heart Sounds: no murmur Extremities: + pedal edema (1+ pretibial edema) Gastrointestinal (Abdomen): Inspection/Auscultation: + abdomen distended and + hypoactive bowel sounds Percussion/Palpation: abdomen nontender and no guarding Musculoskeletal: Extremities: no cyanosis Skin: no rashes, warm and dry Neurologic: awake; not confused Results & Data Vital Signs (Past 12 Hours) Vital Signs Temp Pulse Pulse Resp BP Pulse Ox 07/06/19 10:44 36.6 C 74 19 93/61 L 97 07/06/19 07:39 36.4 C L 84 18 104/71 95 07/06/19 03:29 36.4 C L 78 20 107/75 95 07/05/19 23:34 91 H 07/05/19 23:12 36.5 C 79 16 106/73 96 Laboratory Results Laboratory Results WBC 10.15 K/uL (4.8-10.8) 07/05/19 05:08 RBC 2.35 M/uL (4.7-6.1) L 07/05/19 05:08 Hgb 8.7 g/dL (14.0-18.0) L 07/05/19 05:08 Hct 26.5 % (42-52) L 07/05/19 05:08 MCV 112.8 fL (80-100) H 07/05/19 05:08 MCH 37.0 pg (25-34) H 07/05/19 05:08 MCHC 32.8 g/dL (32-36) 07/05/19 05:08 RDW Std Deviation 73.1 fL (36.4-46.3) H 07/05/19 05:08 RDW Coeff of Rashida 18.0 % (11.5-14.5) H 07/05/19 05:08 Plt Count 192 K/uL (130-400) 07/05/19 05:08 MPV 11.5 fL (7.4-10.4) H 07/05/19 05:08 Immature Gran % (Auto) 0.4 % 07/04/19 04:51 Neut % (Auto) 68.0 % 07/04/19 04:51 Lymph % (Auto) 19.4 % 07/04/19 04:51 [place] % (Auto) 9.6 % 07/04/19 04:51 Eos % (Auto) 1.6 % 07/04/19 04:51 Baso % (Auto) 1.0 % 07/04/19 04:51 Immature Gran # (Auto) 0.04 K/uL (0.00-0.02) H 07/04/19 04:51 Neut # (Auto) 6.57 K/uL (1.4-6.5) H 07/04/19 04:51 Lymph # (Auto) 1.87 K/uL (1.2-3.4) 07/04/19 04:51 [place] # (Auto) 0.93 K/uL (0.11-0.59) H 07/04/19 04:51 Eos # (Auto) 0.15 K/uL (0-0.5) 07/04/19 04:51 Baso # (Auto) 0.10 K/uL (0-0.2) 07/04/19 04:51 Giant Platelets 1+ 07/04/19 04:51 Macrocytosis Present 07/04/19 04:51 Target Cells 1+ 07/04/19 04:51 PT 14.8 Seconds (9.0-12.0) H 07/05/19 05:08 INR 1.4 (0.9-1.1) H 07/05/19 05:08 Sodium 140 mmol/L (136-145) 07/06/19 05:42 Potassium 4.2 mmol/L (3.5-5.1) 07/06/19 05:42 Chloride 113 mmol/L (98-107) H 07/06/19 05:42 Carbon Dioxide 21 mmol/L (21-32) 07/06/19 05:42 Anion Gap 6.0 (3-11) 07/06/19 05:42 BUN 31 mg/dl (7-18) H 07/06/19 05:42 Creatinine 1.78 mg/dl (0.6-1.4) H D 07/06/19 05:42 Est Cr Clr Drug Dosing 54.5 ml/min 07/06/19 05:42 Est GFR ( Amer) 52.6 07/06/19 05:42 Est GFR (Non-Af Amer) 45.4 07/06/19 05:42 BUN/Creatinine Ratio 17.4 (10-20) 07/06/19 05:42 Glucose 100 mg/dl (70-99) H 07/06/19 05:42 POC Glucose 101 mg/dl (70-99) H 07/05/19 19:32 Lactate 2.9 mmol/L (0.4-2.0) H* 07/03/19 06:16 Calcium 8.4 mg/dl (8.5-10.1) L 07/06/19 05:42 Magnesium 1.8 mg/dl (1.8-2.4) 07/04/19 04:51 Total Bilirubin 11.7 mg/dl (0.2-1) H 07/06/19 05:42 AST 226 U/L (15-37) H 07/06/19 05:42 ALT 64 U/L (12-78) 07/06/19 05:42 Alkaline Phosphatase 213 U/L (45-117) H 07/06/19 05:42 Ammonia < 10.0 umol/L (11-32) L 07/05/19 11:48 Troponin I < 0.015 ng/ml (0-0.045) 07/01/19 15:36 Total Protein 5.6 gm/dl (6.4-8.2) L 07/06/19 05:42 Albumin 2.5 gm/dl (3.4-5.0) L 07/06/19 05:42 Globulin 3.1 gm/dl (2.5-4.0) 07/06/19 05:42 Albumin/Globulin Ratio 0.8 (0.9-2) L 07/06/19 05:42 Folate 7.66 ng/ml (>5.38) 07/04/19 04:51 TSH 3.760 uIu/ml (0.300-4.500) 07/01/19 15:36 Urine Color [place] 07/05/19 13:52 Urine Appearance Slightly Cloudy (Clear) A 07/05/19 13:52 Urine pH (4.5-7.5) 07/05/19 13:52 Ur Specific [place] 1.025 (1.000-1.030) 07/05/19 13:52 Urine Protein Negative (Negative) 07/05/19 13:52 Urine Glucose (UA) (Negative) 07/05/19 13:52 Urine Ketones (Negative) 07/05/19 13:52 Urine Blood (Negative) 07/05/19 13:52 Urine Nitrite (Negative) 07/05/19 13:52 Urine Bilirubin (Negative) 07/05/19 13:52 Urine Urobilinogen (Negative) 07/05/19 13:52 Ur Leukocyte Esterase (Negative) 07/05/19 13:52 Urine WBC (Auto) 1-5 /hpf (0-5) 07/01/19 22:00 Urine RBC (Auto) 0-4 /hpf (0-4) 07/01/19 22:00 U Hyaline Cast (Auto) 1-5 /lpf (0-5) 07/01/19 22:00 U Epithel Cells (Auto) 5-10 /lpf (0-5) H 07/01/19 22:00 Urine Bacteria (Auto) Negative (Negative) 07/01/19 22:00 Urine RBC 5-10 /hpf (0-4) H 07/05/19 13:52 Urine WBC >30 /hpf (0-5) H 07/05/19 13:52 Ur Epithelial Cells >30 /lpf (0-5) H 07/05/19 13:52 Ur Renal Epithelial Cell 0-5 /lpf (0-5) 07/05/19 13:52 Urine Bacteria 2+ (Negative) H 07/05/19 13:52 Hyaline Casts >30 /lpf (0-5) H 07/05/19 13:52 Granular Casts 1-5 /lpf (0) H 07/05/19 13:52 Ur Random Creatinine 244.0 mg/dl 07/05/19 13:52 Ur Random Sodium 44 mmol/L 07/05/19 13:52 Ur Random Sodium Cancelled 07/05/19 13:52 Stool Occult Bld Scrn Positive (Negative) A 07/04/19 17:05 Acetaminophen Cancelled 07/01/19 15:46 Ethyl Alcohol mg/dL 199.0 mg/dl (0-3) H 07/01/19 15:36 Miscellaneous Test REPORT 07/01/19 15:46 PG Care Time/CCT Total # of Minutes Spent Total Time Spent with Patient: Total time spent is greater than 50% in coordination of care (as documented) at patient's floor/unit and/or counseling patient: Coding Level of Care Code 10037 Subseq Hosp Care Lvl 3 Diagnoses SUNG (acute kidney injury) N17.9 Acute hypotension I95.9 Cirrhosis K74.60
--- NOTE | 2019-07-06 11:19 | Family Medicine Progress Note ---
Date of Service July 06, 2019 Assessment & Plan (1) Anemia: Alcoholic hepatitis in the setting of chronic cirrhosis Continues to have abnormal LFTs without significant change. Bili continues to be elevated as well. Discriminant function < 32-->no indication for steroids yet Daily labs, supportive care (see below) with low threshold to transfer to a tertiary care center if there is any worsening Did have an EGD in the past that was negative for esophageal varices. Some ascites on exam, but low suspicion for SBP at this time Appreciate continued GI recommendations SUNG (acute kidney injury): Suspect ATN possibly from acute hypotension on admission, possibly HRS Cr is a bit labile Continue with octreotide SC q8h albumin 25%, 25g IV q8h x 48 hours (will finish early tomorrow AM) increased midodrine to 7.5mg TID Appreciate nephrology recommendations Acute hypotension: Resolved However, BPs still on the lower end Has gained 7kg+ since admission so will try to avoid additional IVFs. Anemia: Admission hgb 11.7 and has been stable in 8's (today 8.7) for the last 3 days heme + stool. Holding SC heparin PPI BID + carafate QID GERD (gastroesophageal reflux disease): stable continue Protonix BID Alcohol withdrawal: stable with mild symptoms has received gabapentin 300mg TID now for 4 days, will decrease down to 300mg BID x 2 doses then stop. continue with thiamine and folic acid, ativan PRN Back pain: Muscular in nature continue with heating pad (20 minutes at a time PRN) Increased baclofen to 10mg TID PRN--will need to watch for too much sedation/confusion continue oxycodone 5mg q8h PRN and voltaren gel QID Discussed with patient that he should get out of bed with assistance--to the chair for meals and avoid lying in bed for long periods of time PT following, DC'ed from OT Dyspnea: While sleeping appearing to be breathing comfortably, but starts to become visible tachypneic and distressed when talking about his pain and ongoing medical issues CXR on 07/04 with atelectasis Low suspicion for PE, Doppler study of the right leg (some increased size on prior exam) was negative for DVT. Encouraged patient to use incentive spirometer, deep breathing and getting out of bed Wondering if the increased abdominal girth may be contributing to his dyspnea...may be a candidate for therapeutic para Intermittent confusion Ammonia level under detectable limit of lab ?whether this is due to withdrawal vs sedating meds (decreased gabapentin dose). Will follow carefully Lactic acidosis: resolved FEN: low Na diet DVT prophylaxis: holding SC heparin, start SCDs now that DVT in leg is ruled out CODE: FULL Dispo: pending clinical improvement (2) Back pain: (3) SUNG (acute kidney injury): (4) Cirrhosis: (5) Acute hepatic failure: (6) Alcoholic hepatitis: (7) Alcohol withdrawal: (8) GERD (gastroesophageal reflux disease): (9) HTN (hypertension): Admission and Anticipated Discharge Date Admission Date: July 01, 2019 Subjective Patient seen this morning. Reports that he was confused when he woke up in the hospital this morning. Feels that his back pain is the most bothersome issue for him right now. Back pain is located in the lower back on the right side. Reports that this started while he has been in the hospital. Denies having back pain prior to admission. Pain is localized to the right lower back and does not radiate into the buttock or the leg. Feels like someone punched him in the back, cramping and tight sensation. Pain is worse with being in bed and better with walking and move around as well as with the medications he has ordered. However, feels that the medication doesn't last. Still having some dyspnea, especially when his back is bothering him. He has an incentive spirometer in the room, but is not using it regularly. Reports that the ICS "doesn't work right" and makes him very tired. Denies dizziness, nausea, abdominal pain, diarrhea. Does not feel that his a bdomen is distended. Review of Systems Constitutional: + fatigue; no fever and no chills Respiratory: + dyspnea; no cough and no wheezing Cardiovascular: + dyspnea at rest; no chest pain, no orthopnea and no paroxysmal nocturnal dyspnea Musculoskeletal: + back pain Integumentary: + yellowing of the skin Physical Exam Constitutional: no acute distress, no altered mental status and not in distress Eyes: + scleral abnormality (icteric ), PERRL and EOM intact bilaterally ENMT: external ear and nose normal, oropharynx normal Neck: normal visual inspection and trachea midline Respiratory: normal respiratory effort, lungs clear to auscultation Auscultation: + diminished lung sounds (bases) Cardiovascular: RRR, no murmur, no edema (weak peripheral pulses) Rate/Rhythm: regular rate and regular rhythm Heart Sounds: normal S1 and normal S2; no murmur Vessels: posterior tibial pulses present and dorsalis pedis pulses present; no JVD Extremities: + edema (trace edema of the right lower leg) Gastrointestinal (Abdomen): Inspection/Auscultation: + abdomen distended and normal bowel sounds Percussion/Palpation: abdomen soft and + dullness to percussion; abdomen nontender, no guarding, abdomen not rigid, no hepatosplenomegaly and no ascites Abdomen is firm, but not tense. Musculoskeletal: no cyanosis or clubbing, extremities motor strength 5/5 Skin: no rashes, warm and dry + jaundice (to umbilicus ) Neurologic: PERRL, EOMI, accommodation nl, no face palsy, no dysarthria Motor/Sensory: + tremor (mild ); no asterixis Psychiatric: A+Ox3, euthymic affect Orientation: alert, oriented to person, oriented to place (he couldn't tell me where he was??) and oriented to time Results & Data ([facility]) Vital Signs (Past 12 Hours) Vital Signs Temp Pulse Pulse Resp BP Pulse Ox 07/06/19 10:44 36.6 C 74 19 93/61 L 97 07/06/19 07:39 36.4 C L 84 18 104/71 95 07/06/19 03:29 36.4 C L 78 20 107/75 95 07/05/19 23:34 91 H 07/05/19 23:12 36.5 C 79 16 106/73 96 (1) Alcohol withdrawal Complication of substance-induced condition: uncomplicated Qualified Code(s): F10.230 - Alcohol dependence with withdrawal, uncomplicated (2) Acute hepatic failure Hepatic coma status: without hepatic coma Qualified Code(s): K72.00 - Acute and subacute hepatic failure without coma
[2019-07-06] MEDS: OXYCODONE HCL IR 5 MG TAB (IMMEDIATE RELEASE) PO PRN (15:38)
--- NOTE | 2019-07-06 16:26 | Ultrasound Report ---
ABDOMINAL ULTRASOUND TO ASSESS FOR ASCITES HISTORY: evaluate for ascites. COMPARISON: CT of the abdomen and pelvis July 01, 2019. TECHNIQUE: Sonography of the 4 quadrants was performed to assess for ascites. FINDINGS: Liver is heterogeneous. There is slight nodularity of the liver surface indicative of cirrh osis. Please note that a dedicated liver ultrasound was not performed. A small to moderate amount of ascites is noted within the abdomen and pelvis. IMPRESSION: Small to moderate ascites. ACT 112: Negative or not required by law. Electronically signed by: Sachin Glover M.D. 07/06/2019 4:24 PM
[2019-07-07] MEDS: ALBUMIN 25% 50 ML IV SCH ×2 (01:05→02:01)
[2019-07-07] MEDS: OCTREOTIDE ACETATE 100 MCG/ML VIAL SQ SCH ×3 (01:57→17:49)
[2019-07-07 06:04] LABS: Hematocrit (blood only) 23.8 % (42-52); Hemoglobin 7.8 g/dL (14.0-18.0); Mean Corpuscular Hemoglobin 37.5 pg (25-34); Mean Corpuscular Hgb Conc 32.8 g/dL (32-36); Mean Corpuscular Volume 114.4 fL (80-100); Platelet Count 133 K/uL (130-400); RDW Coefficient of Variation 18.8 % (11.5-14.5); RDW Standard Deviation 77.3 fL (36.4-46.3); Red Blood Count 2.08 M/uL (4.7-6.1); White Blood Count 7.11 K/uL (4.8-10.8)
[2019-07-07 06:54] LABS: Albumin Level 2.9 gm/dl (3.4-5.0); BUN Creatinine Ratio 18.4 (10-20); Calcium 8.8 mg/dl (8.5-10.1); Creatinine Clr Calc Pharmacy 62.4 ml/min; Est GFR (African American) 62.2; Est GFR (Non-African American) 53.6; Globulin 2.8 gm/dl (2.5-4.0); Potassium 3.7 mmol/L (3.5-5.1); Total Protein 5.7 gm/dl (6.4-8.2)
[2019-07-07] MEDS: GABAPENTIN 300 MG CAP PO SCH ×2 (08:54→19:57)
[2019-07-07] MEDS: PANTOprazole 40 MG TAB PO SCH ×2 (08:54→19:57)
[2019-07-07] MEDS: MIDODRINE HCL 2.5 MG TAB PO SCH ×3 (08:54→17:45)
[2019-07-07] MEDS: BuPROPion XL 150 MG TABCR PO SCH (08:55)
[2019-07-07] MEDS: SUCRALFATE 1 GM/10 ML UDC PO SCH ×4 (08:55→19:59)
[2019-07-07] MEDS: FOLIC ACID 1 MG in SYRINGE 9.8 ML IV SCH (08:55)
[2019-07-07] MEDS: PENTOXIFYLLINE 400MG EXT REL TAB PO SCH ×2 (08:55→19:58)
[2019-07-07] MEDS: POLYETHYLENE (MIRALAX) 17 GM PACK PO SCH ×2 (08:56→20:02)
[2019-07-07] MEDS: DICLOFENAC SOD 1% GEL 100 GM TUBE EXT SCH ×4 (09:24→19:59)
--- NOTE | 2019-07-07 09:36 | Gastroenterology Progress Note ---
Date of Service July 07, 2019 Assessment & Plan (1) Cirrhosis: (2) Jaundice: (3) Elevated liver enzymes: (4) Anemia: Currently no Overt GI bleeding, occult positive, but anemia is most likely multifactorial Patient is on PPI and Carafate therapy Will need outpatient colonoscopy, but not at current time Continue current therapy Continue supportive care Admission and Anticipated Discharge Date Admission Date: July 01, 2019 Subjective Patient states he is "getting frustrated, and wants to leave." He denies any fevers, chills, nausea, vomiting, diarrhea, hematemesis, melena or hematochezia. He states that his last BM was "normal and brown." Nursing reports no issues overnight. Review of Systems Review of Systems: All systems reviewed & are unremarkable except as noted in HPI & below Physical Exam Constitutional: + ill appearing (Chronic) and + disheveled Jaundice Eyes: sclerae not anicteric Respiratory: normal respiratory effort, lungs clear to auscultation Cardiovascular: RRR, no murmur, no edema Gastrointestinal (Abdomen): normal bowel sounds, soft, nontender, no hepatosplenomegaly Skin: + jaundice Results & Data Results & Data ([facility]) Vital Signs (Past 12 Hours) Vital Signs Temp Pulse Pulse Resp BP Pulse Ox 07/07/19 07:00 36.6 C 92 H 16 110/76 97 07/07/19 04:39 84 07/07/19 04:00 36.6 C 87 18 104/71 96 07/07/19 00:00 36.4 C L 89 20 117/82 94 PG Care Time/CCT Total # of Minutes Spent Total Time Spent with Patient: Total time spent is greater than 50% in coordination of care (as documented) at patient's floor/unit and/or counseling patient: Coding Level of Care Code 58447 Subseq Hosp Care Lvl 3 Diagnoses Cirrhosis K74.60 Jaundice R17 Elevated liver enzymes R74.8 Anemia D64.9
--- NOTE | 2019-07-07 09:53 | Nephrology Progress Note ---
Date of Service July 07, 2019 Assessment & Plan (1) SUNG (acute kidney injury): -- Recurrent SUNG in the setting of alcoholic cirrhosis. Creatinine has improved from 2.3 to 1.5. Patient remains oliguric -- Urine sediment w/ granular casts suggestive of ATN possibly related to hypotension on admission -- Renal US is negative for obstruction -- FeNa 0.1% -- Continue midodrine and octreotide. GI has been consulted and is providing Trental therapy -- Avoid STACEY/ARB, NSAIDS. Recommend reducing Gabapentin dose due to SUNG -- Monitor serial CMP (2) Acute hypotension: -- BP has improved. Continue midodrine 7.5 mg po TID (3) Anemia: -- Progressive decline in Hgb. Recommend transfusion to keep Hgb > 8.0 and check FOBT (4) Cirrhosis: -- Monitor LFT, question need for paracentesis. Await further GI input Subjective Mr. Willett was seen & examined in his hospital room this morning. He curren tly denies fever, dyspnea, angina, abdominal discomfort or diarrhea. He remains noticeably jaundiced Review of Systems Constitutional: no fever and no chills Eyes: no worsening vision and no problem reported Ear, Nose, Mouth, Throat: no problem reported Respiratory: no cough and no dyspnea Cardiovascular: + edema; no chest pain and no palpitations Gastrointestinal: + bloating; no nausea and no diarrhea/loose stools Genitourinary: no dysuria, no urinary hesitancy and no hematuria Musculoskeletal: no back pain Integumentary: + change in skin color Neurologic: no falls, no dizziness and no confusion Physical Exam Constitutional: + ill appearing; not in distress + icterus Eyes: PERRL ENMT: external ear and nose normal, oropharynx normal Neck: trachea midline, no thyromegaly Respiratory: normal respiratory effort, lungs clear to auscultation Cardiovascular: RRR, no murmur, no edema Rate/Rhythm: regular rate and regular rhythm Heart Sounds: no murmur Extremities: + pedal edema (1+ pretibial edema) Gastrointestinal (Abdomen): Inspection/Auscultation: + abdomen distended and + hypoactive bowel sounds Percussion/Palpation: abdomen nontender and no guarding Musculoskeletal: Extremities: no cyanosis Skin: no rashes, warm and dry Neurologic: awake; not confused Results & Data Vital Signs (Past 12 Hours) Vital Signs Temp Pulse Pulse Resp BP Pulse Ox 07/07/19 07:00 36.6 C 92 H 16 110/76 97 07/07/19 04:39 84 07/07/19 04:00 36.6 C 87 18 104/71 96 07/07/19 00:00 36.4 C L 89 20 117/82 94 Laboratory Results Laboratory Tests 07/07/19 07/07/19 05:36 05:36 WBC 7.11 Hgb 7.8 L Hct 23.8 L Plt Count 133 Sodium 141 Potassium 3.7 Chloride 114 H Carbon Dioxide 21 BUN 29 H Creatinine 1.55 H Glucose 106 H Calcium 8.8 PG Care Time/CCT Total # of Minutes Spent Total Time Spent with Patient: Total time spent is greater than 50% in coordination of care (as documented) at patient's floor/unit and/or counseling patient: Coding Level of Care Code 60715 Subseq Hosp Care Lvl 3 Diagnoses SUNG (acute kidney injury) N17.9 Acute hypotension I95.9 Anemia D64.9 Cirrhosis K74.60
[2019-07-07] MEDS: THIAMINE HCL 200 MG in SODIUM CHLORIDE 0.9% 50 ML IV SCH ×2 (11:11→19:57)
[2019-07-07 12:11] LABS: Hematocrit (blood only) 24.5 % (42-52); Mean Corpuscular Hemoglobin 37.4 pg (25-34); Mean Corpuscular Hgb Conc 32.7 g/dL (32-36); Mean Corpuscular Volume 114.5 fL (80-100); Mean Platelet Volume 11.2 fL (7.4-10.4); Platelet Count 124 K/uL (130-400); RDW Coefficient of Variation 18.9 % (11.5-14.5); RDW Standard Deviation 77.2 fL (36.4-46.3); Red Blood Count 2.14 M/uL (4.7-6.1); White Blood Count 7.56 K/uL (4.8-10.8)
--- NOTE | 2019-07-07 16:00 | Family Medicine Progress Note ---
Date of Service July 07, 2019 Assessment & Plan (1) Anemia: 43 y/o male h/o alcoholic hepatitis, chronic cirrhosis, GERD presents with acute anemia, transaminitis w/ alcoholic hepatitis Anemia, acute - gradual decline with most recent H/H of 8. would transfuse with any decrease. Continue PPI, carafate. GI consultation appreciated. Alcoholic hepatitis w/ chronic cirrhosis - Trend LFTs, supportive care. SUNG concerning for ATN 2/2 casts - continue midodrine, octreotide and trend BMP. Nephrology consultation appreciated. Back pain - continue oxycodone 5mg, voltaren, baclofen at present dose. Encourage PT. GERD - on PPI Hypotension - resolved. Avoid fluid overload. FEN: low Na diet DVT prophylaxis: holding SC heparin, start SCDs now that DVT in leg is ruled out CODE: FULL Dispo: pending clinical improvement Admission and Anticipated Discharge Date Admission Date: July 01, 2019 Subjective Resting comfortably in bed without acute complaint at present. Tolerating POI well, reports no black/tarry/bloody stools, n/v/coffee ground emesis. Review of Systems Constitutional: no fever, no chills and no fatigue Respiratory: no cough, no chest congestion and no wheezing Cardiovascular: no chest pain, no palpitations and no edema Gastrointestinal: no abdominal pain, no nausea, no vomiting, no change in stools and no constipation Genitourinary: no dysuria and no urinary frequency Integumentary: + yellowing of the skin Neurologic: no generalized weakness, no loss of sensation and no syncope Physical Exam Constitutional: WD/WN, vitals as above Respiratory: normal respiratory effort, lungs clear to auscultation Cardiovascular: RRR, no murmur, no edema Heart Sounds: normal S1 and normal S2 Gastrointestinal (Abdomen): normal bowel sounds, soft, nontender, no hepatosplenomegaly Skin: + jaundice Psychiatric: A+Ox3, euthymic affect Speech: normal rate/rhythm/volume of speech Results & Data ([facility]) Vital Signs (Past 12 Hours) Vital Signs Temp Pulse Pulse Resp BP Pulse Ox 07/07/19 11:59 36.4 C L 83 16 103/71 96 07/07/19 07:00 36.6 C 92 H 16 110/76 97 07/07/19 04:39 84 07/07/19 04:00 36.6 C 87 18 104/71 96
[2019-07-07 19:07] LABS: Hematocrit (blood only) 26.5 % (42-52); Hemoglobin 8.5 g/dL (14.0-18.0)
[2019-07-08] MEDS: OCTREOTIDE ACETATE 100 MCG/ML VIAL SQ SCH ×2 (00:59→08:16)
[2019-07-08] MEDS: OXYCODONE HCL IR 5 MG TAB (IMMEDIATE RELEASE) PO PRN (05:34)
[2019-07-08 07:26] LABS: Albumin Globulin Ratio 0.9 (0.9-2); Albumin Level 2.6 gm/dl (3.4-5.0); BUN Creatinine Ratio 20.3 (10-20); Bilirubin,Total 12.6 mg/dl (0.2-1); Creatinine Clr Calc Pharmacy 83.5 ml/min; Est GFR (African American) 88.3; Est GFR (Non-African American) 76.2; Globulin 2.9 gm/dl (2.5-4.0); Potassium 3.7 mmol/L (3.5-5.1); Total Protein 5.5 gm/dl (6.4-8.2)
[2019-07-08] MEDS: PENTOXIFYLLINE 400MG EXT REL TAB PO SCH (08:10)
[2019-07-08] MEDS: GABAPENTIN 300 MG CAP PO SCH (08:10)
[2019-07-08] MEDS: SUCRALFATE 1 GM/10 ML UDC PO SCH (08:10)
[2019-07-08] MEDS: BuPROPion XL 150 MG TABCR PO SCH (08:10)
[2019-07-08] MEDS: DICLOFENAC SOD 1% GEL 100 GM TUBE EXT SCH (08:10)
[2019-07-08] MEDS: MIDODRINE HCL 2.5 MG TAB PO SCH (08:11)
[2019-07-08] MEDS: POLYETHYLENE (MIRALAX) 17 GM PACK PO SCH (08:12)
[2019-07-08] MEDS: PANTOprazole 40 MG TAB PO SCH (08:12)
[2019-07-08 08:36] LABS: Basophils # (auto) 0.17 K/uL (0-0.2); Basophils % (auto) 2.1 %; Eosinophils # (auto) 0.21 K/uL (0-0.5); Eosinophils % (auto) 2.6 %; Hematocrit (blood only) 25.7 % (42-52); Hemoglobin 8.4 g/dL (14.0-18.0); Immature Granulocytes # (auto) 0.17 K/uL (0.00-0.02); Immature Granulocytes % (auto) 2.1 %; Lymphocytes # (auto) 1.37 K/uL (1.2-3.4); Lymphocytes % (auto) 16.7 %; Mean Corpuscular Hemoglobin 37.5 pg (25-34); Mean Corpuscular Hgb Conc 32.7 g/dL (32-36); Mean Corpuscular Volume 114.7 fL (80-100); Mean Platelet Volume 11.7 fL (7.4-10.4); Monocytes # (auto) 1.61 K/uL (0.11-0.59); Monocytes % (auto) 19.7 %; Neutrophils # (auto) 4.65 K/uL (1.4-6.5); Neutrophils % (auto) 56.8 %; Platelet Count 126 K/uL (130-400); RDW Standard Deviation 79.6 fL (36.4-46.3); Red Blood Count 2.24 M/uL (4.7-6.1); White Blood Count 8.18 K/uL (4.8-10.8)
[2019-07-08 09:06] LABS: Poikilocytosis Present; Polychromasia 1+; Target Cells 2+
--- NOTE | 2019-07-08 11:44 | Nephrology Progress Note ---
Date of Service July 08, 2019 Assessment & Plan (1) SUNG (acute kidney injury): 43-year-old gentlemen with recurrent SUNG in the setting of alcoholic cirrhosis and hypotension. Urinalysis negative for proteinuria hematuria, renal imaging was negative for postrenal obstruction. Although there was some concern for hepatorenal syndrome however SUNG was thought to be secondary to ATN with hypotension. Acute kidney injury resolved and creatinine down to 1.2, electrolyte acceptable. Remained nonoliguric. Blood pressure has been stable. -- discontinue midodrine and octreotide. --avoid nephrotoxic medications, keep well hydrated. Nephrology will sign off, please do not hesitate to contact if any further assistance needed. Thank you for the consult. Subjective Liborio Was seen and examined in his room this morning. Has been having some back pain however denies any chest pain, shortness of breath, dysuria or difficulty voiding. Blood pressure has been well controlled. Has been having decent urine output. Acute kidney injury resolved, creatinine was 1.2, electrolyte acceptable. Review of Systems Review of Systems: All systems reviewed & are unremarkable except as noted in HPI & below Physical Exam Constitutional: WD/WN, vitals as above Respiratory: normal respiratory effort, lungs clear to auscultation Cardiovascular: RRR, no murmur, no edema Skin: no rashes, warm and dry Neurologic: awake; no focal motor deficits and not confused Psychiatric: A+Ox3, euthymic affect Results & Data Vital Signs (Past 12 Hours) Vital Signs Temp Pulse Pulse Resp BP Pulse Ox 07/08/19 07:12 36.6 C 109 H 21 114/77 96 07/08/19 04:04 36.8 C 93 H 19 106/75 95 07/07/19 23:59 84 PG Care Time/CCT Total # of Minutes Spent Total Time Spent with Patient: Total time spent is greater than 50% in coordination of care (as documented) at patient's floor/unit and/or counseling patient: Coding Level of Care Code 14993 Subseq Hosp Care Lvl 2 Diagnoses SUNG (acute kidney injury) N17.9
--- NOTE | 2019-07-08 12:27 | Discharge Summary ---
Date of Service July 08, 2019 Admission HPI Per Admitting Provider 43 yo male with history of cirrhosis, alcohol abuse, GERD, hypertension who presents to the ED complaining of feeling fatigued, short of breath and yellowing skin. He says that he symptoms have been going on for a few days. He has not noticed any fever or chills, no abdominal pain. He has some nausea but he always has nausea. He has not been drinking fluids other than alcohol, drinking at least 6 hard drinks a day, but likely more. He has only had a DrThien Pepper today and a glass of tea yesterday. Minimal food intake. He admits that this has been going on for the past week. On Wednesday he met with his ex and staff attorney and they were concerned that he was yellow. He had not noticed being yellow before. His father says that last weekend, 7 days ago, he was not yellow so this is new issue. He does not have a cough, does not have any dysuria but admits that he is not making much urine and it is dark. He had a normal bowel movement today, no melena or bright red blood. He was having some neck and back pain for which he took 2000mg of Tylenol yesterday and 1000 or 2000mg of Tylenol today, he could not remember if it was one or two pills. He admits that he has been taking his Metoprolol 100mg, Lisinopril 40mg and HCTZ 25mg every day, he took them this morning. He had alcohol today. In the ED he was profoundly hypotensive but was still mentating normally with recorded systolic BP in the 60's. He received two liters of fluid and BP up to high 80's systolic and he felt great, felt a lot better. His only complaint for me was that he was laying too flat and his neck hurt. Labs showed WBC of 14k, he had no recorded fever. INR 1.2. Cr elevated at 1.8 which is markedly up from a baseline of < 1. Bilirubin up to 12 which is the highest it has ever been. AST and Alk phos in the 400's and ALT in the 100's. Lactic acid elevated at 4. CXR did not show an infiltrate. CT abdomen pelvis with cirrhotic liver, mild ascites, distended gall bladder with some surrounding fluid but no clear signs of cholecystitis. Given the lack of abdominal pain, no fever and heavy alcohol intake acute alcohol hepatitis was felt more likely than cholecystitis. Admission Exam Per Admitting Provider Constitutional: + ill appearing; no altered mental status and not in distress Eyes: PERRL and EOM intact bilaterally; sclerae not anicteric (icterus) ENMT: external ear and nose normal, oropharynx normal (dry oral mucous membranes) Neck: trachea midline, no thyromegaly Respiratory: normal respiratory effort, lungs clear to auscultation Cardiovascular: RRR, no murmur, no edema (weak peripheral pulses) Gastrointestinal (Abdomen): Inspection/Auscultation: + abdomen distended and normal bowel sounds Percussion/Palpation: abdomen soft and + dullness to percussion; abdomen nontender, no guarding, abdomen not rigid, no hepatosplenomegaly and no ascites Musculoskeletal: no cyanosis or clubbing, extremities motor strength 5/5 Skin: no rashes, warm and dry + jaundice Neurologic: patellar DTR's 2+ bilat, sensation intact and PERRL, EOMI, accommodation nl, no face palsy, no dysarthria Psychiatric: A+Ox3, euthymic affect Lymphatic: no cervical or axillary lymphadenopathy Principal Diagnosis acute alcohol hepatitis in the setting of chronic cirrhosis Discharge Exam Constitutional well developed and well nourished Respiratory normal respiratory effort, lungs clear to auscultation Cardiovascular RRR, no murmur, no edema Gastrointestinal (Abdomen) Inspection/Auscultation: normal bowel sounds Percussion/Palpation: abdomen soft; abdomen nontender unable to appreciate hepatosplenomegaly due to body habitus Skin + jaundice Psychiatric A+Ox3, euthymic affect Discharge Data Allergies Allergy/AdvReac Type Severity Reaction Status Date / Time ibuprofen AdvReac Intermediate MAKES HIM Verified 07/01/19 16:48 PUKE Consultations 07/01/19 16:55 ED Decision to Admit Stat 07/01/19 19:40 Consult Case Management - Discharge Planning Routine Consult Gastroenterology Routine 07/02/19 15:55 Consult Nephrology Routine 07/08/19 12:21 Consult [facility] director patient financial services Routine Ordered Studies 07/01/19 15:31 CT abd pelvis IV con only Stat 07/05/19 13:00 US venous doppler LE RT Urgent 07/05/19 13:30 US renal/blad retro comp Routine 07/06/19 15:18 US abdomen limited Routine Hospital Course (1) Alcoholic hepatitis: 43 y/o male h/o alcoholic hepatitis, chronic cirrhosis, GERD presents with acute anemia, transaminitis w/ alcoholic hepatitis Alcoholic hepatitis in the setting of chronic cirrhosis: - On admission had elevated LFTS which have stabilized on discharge close to baseline of AST ~200, AlkPhos ~200, ALT 60s. - MDF <32 - no indication for steroids this admission. - Did have an EGD in the past that was negative for esophageal varices. - Some ascites on exam, but low suspicion for SBP at this time. - Octreotide and midodrine given briefly this admission for concern for HRS but SUNG likely 2/2 ATN and both medications d/c'ed for discharge. - Pt doing well symptomatically at time of discharge. SUNG (acute kidney injury): - Likely 2/2 ATN from hypotension and dehydration on arrival; improved to baseline 1.16 at discharge with IV hydration. - Midodrine and octreotide briefly as above, d/c'ed for discharge. - Appreciate nephrology recommendations throughout his admission. Hx hypertension: - Pt's BPs entire admission have been soft to low normal. - Have d/c'ed home antihypertensives at this time. Anemia: Admission hgb 11.7 and has been stable in 8's (today 8.4) for the last 2 days. Heme + stool this admission. - GI rec's to continue carafate QID and PPI BID. - F/u with Dr. Hillman outpatient; will require colonoscopy in the future. GERD (gastroesophageal reflux disease): stable: - continue Protonix BID. Back/Shoulder pain: - Muscular in nature. - continue with heating and ice pad (20 minutes at a time PRN) in outpatient. - Increased baclofen to 10mg TID PRN--will need to watch for too much sedation/confusion. FEN: low Na diet CODE: FULL (2) GERD (gastroesophageal reflux disease): (3) HTN (hypertension): (4) Cirrhosis: (5) SUNG (acute kidney injury): (6) Anemia: Total Time Total Time Spent Total Time Spent (In Minutes): please see attending attestation Discharge Plan Discharge Items Patient Disposition: Home - Self-Care Reason For Visit: ACUTE HEPATITIS, CIRRHOSIS Discharge Diagnosis: acute hepatitis, anemia Activity: Per Instructions section Non-emergency contact: Primary Care Provider and Hospitalist Call non-emergency contact if: your symptoms worsen and your temperature is above 101 Follow-up/Referrals: Yusef Hillman DO [Physician] - Amaya Anand DO [Primary Care Provider] - Diet: Low Sodium (2gm) Addtl Attending Provider Instructions: - You were admitted to the hospital after being evaluated in the emergency room for your fatigue and yellow skin. It was determined that your jaundice was likely due to your alcohol consumption. You liver has some chronic damage on imaging that was likely made worse by your alcohol drinking. With fluids and medications to help filter toxins from your system your labwork started to improve and you began to feel better. You were followed by GI doctors for your cirrhosis and low blood count and by the kidney doctors for your kidney injury. It was determined that your kidney injury was likely due to not drinking enough fluids in the form of water at home. this also made your blood pressure low which can also hurt your kidneys. Your kidneys began to get better after lots of hydration. Your blood count began to improve on its own after several days in the hospital. An element of this is likely due to your liver disease. You also appeared to have a small amount of blood in your stool for which you should continue your Carafate and Pantoprazole to treat it. - GI, Nephrology, and the primary team determined that you were safe for discharge home. It is important that you have follow up in the outpatient setting with Dr. Hillman regarding your cirrhosis. Someone from the hospital will call you to schedule that appointment. If you do not hear from anyone by next Wednesday please call Dr. Hillman's office. At a later date you will require a colonoscopy to follow up on this small amount of bleeding however this was not acutely necessary in the hospital. You should discuss this with Dr. Hillman at your appointment. - It is important that you do not drink alcohol upon returning home. Any amount of alcohol could further damage your liver causing worsening of your symptoms and even, when severe, coma and . Please reach out to your social supports, friends and family, in order to get some help with regard to your mood changes and coping strategies to help you when you are feeling down. - Please be sure to watch your weight at home. If you start having shortness of breath, increase in the size of your belly, please call your family doctor and Dr. Hillman and if needed come back to the emergency room for acute care. Pending Studies at Discharge: No Stand-Alone Forms: My [facility], Smoking Cessation Medications and DC Order Prescriptions: Continued pantoprazole 40 mg tablet,delayed release (DR/EC) 40 mg PO BID Qty: 60 RF: 0 multivitamin [Daily-Mark] Tablet 1 tab PO QAM Qty: 1 RF: 0 bupropion HCl 150 mg tablet extended release 24 hr 150 mg PO QAM RF: 0 magnesium oxide 400 mg capsule 400 mg PO DAILY Qty: 30 RF: 2 sucralfate 1 gram tablet 1 g PO ACHS RF: 0 gabapentin 300 mg capsule 300 mg PO TID RF: 0 Discontinued metoprolol succinate 100 mg Tablet Extended Release 24 Hr 100 mg PO QAM RF: 0 hydrochlorothiazide 12.5 mg Capsule 12.5 mg PO QAM RF: 0 lisinopril 40 mg Tablet 40 mg PO QAM RF: 0 Discharge Orders: Discharge Order (Routine); Ordered 07/08/19 Ordered By: Lisa He/Other Patient Handouts: Anemia, Addiction Recovery, Discharge Instructions for Cirrhosis of the Liver Admission Data Admit Date/Time: 07/01/19 17:30 Attending Provider: Chencho Bashir Admit Provider: Alexander Young Primary Care Provider: Amaya Anand Other Providers: Alexander Young ; Yusef Hillman ; Domingo Fernandez Other Interventions: Discharge Summary Assessment (RN) Last Done: 07/08/19 13:23 DC Date/Time DO NOT enter until pt leaves facility: 07/08/19 13:45 Supervising Physician Co-Signing Physician Notes Attending attestation Pt seen and examined in concert with Dr. Quintana. In agreement with the documented findings as noted in the resident documentation with any exceptions or additions as noted here. Complaining today of mild right shoulder pain which is not limiting ROM but is relieved with ice pack, common for patient from sleeping in atypical position. On examination, jaundiced, S1/S2 nl RRR no MCG. CTAB. Abd NT, mildly distended, BS+ve Alcoholic hepatitis in the setting of chronic cirrhosis - approaching baseline. Will need follow up with gastroenterology for further evaluation post discharge. SUNG, likely ATN - gradually improved to 1.16 with baseline ~1 in 03/30. would warrant rechecking at follow up HTN - low normal BP throughout admission with anemia and hypovolemia - holding BP medications for re-assess at follow up with primary care. Else see resident documentation as noted. Resident Activity Tracking Resident Involvement: Resident Care Provided Care Provided: Adult Hospital Medicine
== END 2019-07-08 13:45 | disposition home or self-care (01) | DRG 433 ==
LOC: ED 15:13 → SUATTDRO 17:30 → 2S 17:30

== ENCOUNTER 2019-07-13 11:15 | Inpatient (IN) ==
[2019-07-13] MEDS ORDERED: SODIUM CHLORIDE 0.9% 1000ML 1,000 ML IV ONE (11:46)
--- NOTE | 2019-07-13 11:47 | Emergency Department Note ---
History of Present Illness General Chief complaint: Abnormal Labs/Diagnostic Testing Stated complaint: LIVER PROBLEMS Time Seen by Provider: 07/13/19 11:28 Source: patient Mode of arrival: ambulatory Limitations: no limitations History of Present Illness Maximum Pain Intensity: 7 This patient is a 43-year-old male who presents to the emergency department for evaluation of abdominal bloating/pain. Patient was recently seen here and admitted for "liver issues." Patient states that he was discharged 5 days ago and has been progressively worsening since discharge. He was feeling better at the time of discharge, but states that throughout the week he has had abdominal pain and increasing abdominal bloating. He is short of breath and states it feels like he is unable to take a deep breath. His mother has expressed concern that he has been increasingly jaundiced. Patient does report a history of alcohol abuse, but states that his last drink was 1 week prior to his hospitalization. He rates his overall discomfort a 7/10. He has not been eating much due to the abdominal pain and decreased appetite, but states that he has been trying to push fluids. He denies fever/chills, urinary symptoms or vomiting. He denies recent travel or recent sick contacts. Home Medications Home Medications Medication Instructions Recorded Confirmed Type multivitamin [Daily-Mark] 1 tab PO QAM #1 tab 04/27/18 07/13/19 Rx bupropion HCl 150 mg PO QAM 07/18/18 07/13/19 History magnesium oxide 400 mg PO DAILY #30 cap 07/19/18 07/13/19 Rx pantoprazole 40 mg tablet,delayed 40 mg PO BID #60 tab 05/29/19 07/13/19 Rx release gabapentin 300 mg PO TID 07/01/19 07/13/19 History sucralfate 1 g PO ACHS 07/01/19 07/13/19 History furosemide [Lasix] 20 mg PO DAILY #30 tab 07/14/19 Rx spironolactone 25 mg PO DAILY #30 tab 07/14/19 Rx Allergies Allergy/AdvReac Type Severity Reaction Status Date / Time ibuprofen AdvReac Intermediate MAKES HIM Verified 07/13/19 11:34 PUKE Past Med/Surg History Social History Preferred Language: Arabic Communication Ability: Effective Visual Impairment: No Limitations 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 Beliefs That Will Affect Care: None Current Living Situation: Family Current Living Situation Comment: rents a house Other Information That Helps Us Care for You: No Feels Safe at Home: Yes Smoking Status: Never smoker Second Hand Exposure: No ; Hx Alcohol Use: Yes Alcohol type: hard liquor Alcohol Intake Frequency Comment: hx of heavy use, now at 3-4 x/week Hx Substance Use: No Review of Systems A total of 10 systems reviewed and were otherwise negative Physical Exam Vital Signs Vital Signs - 24 hr 07/13/19 11:19 07/13/19 12:12 07/13/19 12:30 Temperature 36.9 C Temperature Source Oral Pulse Rate 117 H 110 H Pulse Rate [Apical] 104 H Pulse Rate from SpO2 Sensor 109 H Respiratory Rate 18 15 27 H Respiratory Effort / Characteristics Non-Labored Respiratory Depth Normal Blood Pressure 121/80 126/85 Blood Pressure [Right Arm] 121/91 Blood Pressure Mean 93 91 Blood Pressure Mean [Right Arm] 101 Pulse Oximetry 96 97 98 Oxygen Delivery Method Room Air Room Air Room Air Sepsis Recent Fever Within 48 Hours No Sepsis New/Unexplained Change in Mental Status No Sepsis Action Taken by Nursing No Action Required 07/13/19 13:30 07/13/19 14:00 Temperature Temperature Source Pulse Rate 104 H 100 H Pulse Rate [Apical] Pulse Rate from SpO2 Sensor 104 H 99 H Respiratory Rate 15 13 Respiratory Effort / Characteristics Respiratory Depth Blood Pressure 130/94 118/91 Blood Pressure [Right Arm] Blood Pressure Mean 111 108 Blood Pressure Mean [Right Arm] Pulse Oximetry 97 98 Oxygen Delivery Method Room Air Room Air Sepsis Recent Fever Within 48 Hours Sepsis New/Unexplained Change in Mental Status Sepsis Action Taken by Nursing VITALS: Vitals are noted on the nurse's note and reviewed by myself. GENERAL: This is a 43-year-old male, in no significant distress, chronically unwell appearing. SKIN: Skin is jaundiced. HEAD: Normocephalic atraumatic. EARS: Moderate amount of cerumen in bilateral auditory canals. EYES: Pupils equal round and reactive to light and accommodation. Conjunctivae without injection, sclerae without icterus. Extraocular movements intact. MOUTH: Mucous membranes dry, lips cracked. Tonsils are not enlarged. Pharynx without erythema or exudate. NECK: Supple without nuchal rigidity. No lymphadenopathy. HEART: Regular rate and rhythm without murmurs gallops or rubs. LUNGS: Clear to auscultation bilaterally without wheezes, rales or rhonchi. No retractions or accessory muscle use. ABDOMEN: Positive bowel sounds x 4. Abdomen is distended, moderate tenderness to palpation across the upper abdomen. No guarding or rebound tenderness. EXTREMITIES: No pitting edema. NEURO: Patient was alert and oriented to person place and time. Procedures Paracentesis Time Out Performed: Yes Indication: possible spontaneous bacterial peritonitis Procedure: diagnostic paracentesis Location: RLQ Local Anesthetic: lidocaine 1% Amount of anesthesia used (mL): 10 Bedside Ultrasound Used: yes, Ascites confirmed and location marked Preparation: 11 blade used to make cece in skin Fluid: clear and sent to lab for analysis Size of Needle Used: 18 Post Procedure Exam: awake, alert Patient Tolerated Procedure: well Complications: none Additional Comments: peformed by Dr. Sandra Course Consultations Consultation #1: Dr. Young - [facility] hospitalist Administered Medications Discontinued Medications Bupropion HCl (Wellbutrin-Xl) 150 mg PO QAM ALVERTO Stop: 08/13/19 08:59 Last Admin: 07/14/19 08:06 Dose: 150 mg Documented by: [id number] Gabapentin (Neurontin) 300 mg PO TID ALVERTO Stop: 08/12/19 20:59 Last Admin: 07/14/19 08:06 Dose: 300 mg Documented by: [id number] Admin: 07/13/19 20:46 Dose: 300 mg Documented by: [id number] Sodium Chloride (Nss 1000ml) 1,000 mls @ 999 mls/hr IV .Q1H1M ONE Stop: 07/13/19 12:46 Last Infusion: 07/13/19 14:18 Dose: 0 mls/hr Documented by: [id number] Admin: 07/13/19 12:36 Dose: 999 mls/hr Documented by: [id number] Albumin Human (Albumin 25%) 50 mls @ 50 mls/hr IV Q1H ALVERTO Stop: 07/13/19 17:44 Last Infusion: 07/13/19 17:30 Dose: 0 mls/hr Documented by: [id number] Admin: 07/13/19 16:42 Dose: 50 mls/hr Documented by: [id number] Infusion: 07/13/19 16:42 Dose: 50 mls/hr Documented by: [id number] Admin: 07/13/19 15:48 Dose: 50 mls/hr Documented by: [id number] Infusion: 07/13/19 15:46 Dose: 0 mls/hr Documented by: [id number] Admin: 07/13/19 14:56 Dose: 50 mls/hr Documented by: [id number] Ceftriaxone Sodium (Rocephin) 1,000 mg in 50 mls @ 100 mls/hr IV Q24H ALVERTO Stop: 07/20/19 17:59 Last Infusion: 07/13/19 19:02 Dose: 0 mls/hr Documented by: [id number] Admin: 07/13/19 18:28 Dose: 100 mls/hr Documented by: [id number] Magnesium Oxide (Mag-Ox) 400 mg PO DAILY ALVERTO Stop: 08/13/19 08:59 Last Admin: 07/14/19 08:06 Dose: 400 mg Documented by: [id number] Multivitamins (Multivitamin Tab) 1 tab PO QAM ALVERTO Stop: 08/13/19 08:59 Last Admin: 07/14/19 08:06 Dose: 1 tab Documented by: [id number] Pantoprazole Sodium (Protonix) 40 mg PO BID ALVERTO Stop: 08/12/19 20:59 Last Admin: 07/14/19 08:06 Dose: 40 mg Documented by: [id number] Admin: 07/13/19 20:46 Dose: 40 mg Documented by: [id number] Sucralfate (Carafate Tab) 1 gm PO ACHS ALVERTO Stop: 08/12/19 17:31 Last Admin: 07/14/19 11:12 Dose: 1 gm Documented by: [id number] Admin: 07/14/19 08:06 Dose: 1 gm Documented by: [id number] Admin: 07/13/19 20:46 Dose: 1 gm Documented by: [id number] Admin: 07/13/19 18:23 Dose: 1 gm Documented by: [id number] Medical Decision Making Differential Diagnosis Differential diagnosis includes acute hepatitis, SBP, hepatorenal syndrome, cirrhosis, cholecystitis, among others. Medical Records Attestation: I reviewed the patient's medical records. Home Medications Current Medication List: was personally reviewed by me Laboratory Data Attestation: I reviewed the patient's lab results. Result diagrams: 07/14/19 08:44 07/14/19 08:44 Lab Results 07/13/19 07/13/19 07/13/19 Range/Units 12:32 12:32 12:32 WBC 15.90 H (4.8-10.8) K/uL RBC 2.54 L (4.7-6.1) M/uL Hgb 9.6 L (14.0-18.0) g/dL Hct 28.3 L (42-52) % MCV 111.4 H (80-100) fL MCH 37.8 H (25-34) pg MCHC 33.9 (32-36) g/dL RDW Std Deviation 66.3 H (36.4-46.3) fL RDW Coeff of Rashida 16.7 H (11.5-14.5) % Plt Count 144 (130-400) K/uL MPV 11.5 H (7.4-10.4) fL Immature Gran % (Auto) 0.7 % Neut % (Auto) 76.8 % Lymph % (Auto) 9.1 % [place] % (Auto) 11.4 % Eos % (Auto) 1.4 % Baso % (Auto) 0.6 % Immature Gran # (Auto) 0.11 H (0.00-0.02) K/uL Neut # (Auto) 12.21 H (1.4-6.5) K/uL Lymph # (Auto) 1.45 (1.2-3.4) K/uL [place] # (Auto) 1.81 H (0.11-0.59) K/uL Eos # (Auto) 0.23 (0-0.5) K/uL Baso # (Auto) 0.09 (0-0.2) K/uL Macrocytosis Present Target Cells 1+ Echinocytes 1+ PT 18.1 H (9.0-12.0) Seconds INR 1.8 H (0.9-1.1) APTT 30.3 (21.0-31.0) Seconds PTT Ratio 1.1 Sodium 137 (136-145) mmol/L Potassium 4.0 (3.5-5.1) mmol/L Chloride 108 H (98-107) mmol/L Carbon Dioxide 20 L (21-32) mmol/L Anion Gap 9.0 (3-11) BUN 22 H (7-18) mg/dl Creatinine 1.54 H (0.6-1.4) mg/dl Est Cr Clr Drug Dosing 57.2 ml/min Est GFR ( Amer) 62.7 Est GFR (Non-Af Amer) 54.1 BUN/Creatinine Ratio 14.2 (10-20) Glucose 93 (70-99) mg/dl Calcium 8.6 (8.5-10.1) mg/dl Total Bilirubin 15.2 H (0.2-1) mg/dl Direct Bilirubin 10.9 H (0-0.2) mg/dl AST 183 H (15-37) U/L ALT 63 (12-78) U/L Alkaline Phosphatase 195 H (45-117) U/L Troponin I < 0.015 (0-0.045) ng/ml Total Protein 5.8 L (6.4-8.2) gm/dl Albumin 2.4 L (3.4-5.0) gm/dl Fluid Neutrophils % % Fluid Lymphocytes % % Fluid Eosinophils % % Fluid Basophils % % Fluid Meso/Macro/[place] % % Peritoneal Color Peritoneal Appearance Peritoneal WBC (0-300) /ul Peritoneal RBC /uL Peritoneal Tot Protein g/dl Peritoneal Albumin g/dl Ethyl Alcohol mg/dL (0-3) mg/dl 07/13/19 07/13/19 07/13/19 Range/Units 12:32 13:47 13:47 WBC (4.8-10.8) K/uL RBC (4.7-6.1) M/uL Hgb (14.0-18.0) g/dL Hct (42-52) % MCV (80-100) fL MCH (25-34) pg MCHC (32-36) g/dL RDW Std Deviation (36.4-46.3) fL RDW Coeff of Rashida (11.5-14.5) % Plt Count (130-400) K/uL MPV (7.4-10.4) fL Immature Gran % (Auto) % Neut % (Auto) % Lymph % (Auto) % [place] % (Auto) % Eos % (Auto) % Baso % (Auto) % Immature Gran # (Auto) (0.00-0.02) K/uL Neut # (Auto) (1.4-6.5) K/uL Lymph # (Auto) (1.2-3.4) K/uL [place] # (Auto) (0.11-0.59) K/uL Eos # (Auto) (0-0.5) K/uL Baso # (Auto) (0-0.2) K/uL Macrocytosis Target Cells Echinocytes PT (9.0-12.0) Seconds INR (0.9-1.1) APTT (21.0-31.0) Seconds PTT Ratio Sodium (136-145) mmol/L Potassium (3.5-5.1) mmol/L Chloride (98-107) mmol/L Carbon Dioxide (21-32) mmol/L Anion Gap (3-11) BUN (7-18) mg/dl Creatinine (0.6-1.4) mg/dl Est Cr Clr Drug Dosing ml/min Est GFR ( Amer) Est GFR (Non-Af Amer) BUN/Creatinine Ratio (10-20) Glucose (70-99) mg/dl Calcium (8.5-10.1) mg/dl Total Bilirubin (0.2-1) mg/dl Direct Bilirubin (0-0.2) mg/dl AST (15-37) U/L ALT (12-78) U/L Alkaline Phosphatase (45-117) U/L Troponin I (0-0.045) ng/ml Total Protein (6.4-8.2) gm/dl Albumin (3.4-5.0) gm/dl Fluid Neutrophils % 38 % Fluid Lymphocytes % 11 % Fluid Eosinophils % 0 % Fluid Basophils % 0 % Fluid Meso/Macro/[place] % 51 % Peritoneal Color YELLOW Peritoneal Appearance CLEAR Peritoneal WBC 58 (0-300) /ul Peritoneal RBC < 3000 /uL Peritoneal Tot Protein 1.0 g/dl Peritoneal Albumin < 0.6 g/dl Ethyl Alcohol mg/dL < 3.0 (0-3) mg/dl 07/13/19 Range/Units 13:47 WBC (4.8-10.8) K/uL RBC (4.7-6.1) M/uL Hgb (14.0-18.0) g/dL Hct (42-52) % MCV (80-100) fL MCH (25-34) pg MCHC (32-36) g/dL RDW Std Deviation (36.4-46.3) fL RDW Coeff of Rashida (11.5-14.5) % Plt Count (130-400) K/uL MPV (7.4-10.4) fL Immature Gran % (Auto) % Neut % (Auto) % Lymph % (Auto) % [place] % (Auto) % Eos % (Auto) % Baso % (Auto) % Immature Gran # (Auto) (0.00-0.02) K/uL Neut # (Auto) (1.4-6.5) K/uL Lymph # (Auto) (1.2-3.4) K/uL [place] # (Auto) (0.11-0.59) K/uL Eos # (Auto) (0-0.5) K/uL Baso # (Auto) (0-0.2) K/uL Macrocytosis Target Cells Echinocytes PT (9.0-12.0) Seconds INR (0.9-1.1) APTT (21.0-31.0) Seconds PTT Ratio Sodium (136-145) mmol/L Potassium (3.5-5.1) mmol/L Chloride (98-107) mmol/L Carbon Dioxide (21-32) mmol/L Anion Gap (3-11) BUN (7-18) mg/dl Creatinine (0.6-1.4) mg/dl Est Cr Clr Drug Dosing ml/min Est GFR ( Amer) Est GFR (Non-Af Amer) BUN/Creatinine Ratio (10-20) Glucose (70-99) mg/dl Calcium (8.5-10.1) mg/dl Total Bilirubin (0.2-1) mg/dl Direct Bilirubin (0-0.2) mg/dl AST (15-37) U/L ALT (12-78) U/L Alkaline Phosphatase (45-117) U/L Troponin I (0-0.045) ng/ml Total Protein (6.4-8.2) gm/dl Albumin (3.4-5.0) gm/dl Fluid Neutrophils % % Fluid Lymphocytes % % Fluid Eosinophils % % Fluid Basophils % % Fluid Meso/Macro/[place] % % Peritoneal Color Peritoneal Appearance Peritoneal WBC (0-300) /ul Peritoneal RBC /uL Peritoneal Tot Protein Cancelled g/dl Peritoneal Albumin g/dl Ethyl Alcohol mg/dL (0-3) mg/dl Imaging Data Attestation: I personally reviewed and interpreted this imaging study as follows: Radiologist's Impression: XR abdomen 2V w PA chest FINDINGS: Cardiomediastinal silhouette normal. Persistent elevation of the right hemidiaphragm. Mildly low lung volumes. Bandlike opacities at the right lung base and left suprahilar region. This is unchanged at the right lung base. No large effusion or pneumothorax. Questionable bowel wall thickening in the right mid abdomen, likely small bowel. Nonobstructive bowel gas pattern. No gross pneumoperitoneum. No calcifications project over the renal shadows or along the courses of the ureters to suggest nephrolithiasis. Osseous structures normal. IMPRESSION: 1. Persistent right basilar atelectasis and suspected left suprahilar atelectasis in the setting of low lung volumes. 2. Questionable bowel wall thickening in the right mid abdomen. Enteritis or nonspecific bowel wall edema to be considered. US abdomen ltd ascites FINDINGS: Nodular appearance of the liver. Moderate volume simple appearing ascites in the 4 quadrants. Ascites volume appears increased from prior. IMPRESSION: 1. Increase in now moderate volume simple appearing ascites. ECG Data Attestation: I personally reviewed and interpreted this ECG as follows: Indication: + SOB/dyspnea Rate (beats per minute): 107 Rhythm: + sinus tachycardia ECG ST segments: + T-wave inversions Change: the following changes noted (worsening T wave inversions) Blood Pressure Blood Pressure Findings: Normal blood pressure Blood Pressure Disposition: did not require urgent referral MDM Narrative The patient is a 43-year-old male who presents today complaining of worsening abdominal bloating/pain. Patient's abdomen does appear to be distended and somewhat intense. He has some generalized tenderness to palpation. Lungs are clear and I suspect that his shortness of breath is due to the ascites. Labs revealed leukocytosis of 15,000, stable anemia. Patient's INR is elevated at 1.8, bilirubin elevated at 15, increased from prior hospitalization. Creatinine is mildly elevated at 1.54. Patient is afebrile, however given worsening ascites and leukocytosis, paracentesis was performed to rule out SBP. Patient felt much better after this was performed. Patient even albumin as greater than 4 L were drained. Given worsening symptoms/labs, [facility] the patient for further care. Impression & Plan Alcoholic cirrhosis of liver, Ascites, Hyperbilirubinemia Discharge Plan Visit Data *Final* Discharge Date/Time: 07/13/19 17:05 Chief Complaint: Abnormal Labs/Diagnostic Testing Stated Complaint: LIVER PROBLEMS ED Provider: Emmett Sandra ED Midlevel Provider: Alva Chapman Discharge Problem: Alcoholic cirrhosis of liver, Ascites, Hyperbilirubinemia Patient Disposition: Admitted As Inpatient Condition: Fair Discharge Instructions Interventions: ED Discharge Assessment Last Done: 07/13/19 17:05 Discharge Problem: Alcoholic cirrhosis of liver Qualifiers: Ascites presence: with ascites Qualified Code(s): K70.31 - Alcoholic cirrhosis of liver with ascites Ascites Qualifiers: Ascites type: due to alcoholic cirrhosis Qualified Code(s): K70.31 - Alcoholic cirrhosis of liver with ascites
[2019-07-13 12:45] LABS: Basophils # (auto) 0.09 K/uL (0-0.2); Basophils % (auto) 0.6 %; Eosinophils # (auto) 0.23 K/uL (0-0.5); Eosinophils % (auto) 1.4 %; Hematocrit (blood only) 28.3 % (42-52); Hemoglobin 9.6 g/dL (14.0-18.0); Immature Granulocytes # (auto) 0.11 K/uL (0.00-0.02); Immature Granulocytes % (auto) 0.7 %; Lymphocytes # (auto) 1.45 K/uL (1.2-3.4); Lymphocytes % (auto) 9.1 %; Mean Corpuscular Hemoglobin 37.8 pg (25-34); Mean Corpuscular Hgb Conc 33.9 g/dL (32-36); Mean Corpuscular Volume 111.4 fL (80-100); Mean Platelet Volume 11.5 fL (7.4-10.4); Monocytes # (auto) 1.81 K/uL (0.11-0.59); Monocytes % (auto) 11.4 %; Neutrophils # (auto) 12.21 K/uL (1.4-6.5); Neutrophils % (auto) 76.8 %; Platelet Count 144 K/uL (130-400); RDW Coefficient of Variation 16.7 % (11.5-14.5); RDW Standard Deviation 66.3 fL (36.4-46.3); Red Blood Count 2.54 M/uL (4.7-6.1)
[2019-07-13 12:56] LABS: INR 1.8 (0.9-1.1); Partial Thromboplastin Ratio 1.1; Partial Thromboplastin Time 30.3 Seconds (21.0-31.0); Prothrombin Time 18.1 Seconds (9.0-12.0)
[2019-07-13 13:07] LABS: Alanine Aminotransferase 63 U/L (12-78); Albumin Level 2.4 gm/dl (3.4-5.0); Alkaline Phosphatase 195 U/L (45-117); Aspartate Aminotransferase 183 U/L (15-37); BUN Creatinine Ratio 14.2 (10-20); Bilirubin,Total 15.2 mg/dl (0.2-1); Blood Urea Nitrogen 22 mg/dl (7-18); Calcium 8.6 mg/dl (8.5-10.1); Carbon Dioxide 20 mmol/L (21-32); Chloride 108 mmol/L (98-107); Creatinine Clr Calc Pharmacy 57.2 ml/min; Echinocytes 1+; Est GFR (African American) 62.7; Est GFR (Non-African American) 54.1; Glucose 93 mg/dl (70-99); Macrocytosis Present; Sodium 137 mmol/L (136-145); Target Cells 1+; Total Protein 5.8 gm/dl (6.4-8.2); Troponin I < 0.015 ng/ml (0-0.045)
[2019-07-13 13:10] LABS: Bilirubin Direct 10.9 mg/dl (0-0.2)
--- NOTE | 2019-07-13 13:10 | Ultrasound Report ---
US abdomen ltd ascites CLINICAL HISTORY: 43 years-old Male presenting with abdominal bloating, jaundice. TECHNIQUE: Real-time grayscale ultrasound imaging of the abdomen was performed for a focused evaluati on for ascites. COMPARISON: 07/06/2019. FINDINGS: Nodular appearance of the liver. Moderate volume simple appearing ascites in the 4 quadrants. Ascites volume appears increased from prior. IMPRESSION: 1. Increase in now moderate volume simple appearing ascites. ACT 112: Negative or not required by law. Electronically signed by: Efren Johnson M.D. 07/13/2019 1:09 PM
--- NOTE | 2019-07-13 13:16 | Electrocardiogram Report ---
Test Reason : Blood Pressure : / mmHG Vent. Rate : 107 BPM Atrial Rate : 107 BPM P-R Int : 150 ms QRS Dur : 078 ms QT Int : 352 ms P-R-T Axes : 043 006 063 degrees QTc Int : 469 ms Poor data quality, interpretation may be adversely affected Sinus tachycardia Low voltage QRS Abnormal ECG When compared with ECG of 01-JUL-2019 15:26, T wave inversion more evident in Lateral leads QT has shortened Confirmed by Ernie Vaughan ([id number]) on 07/13/2019 1:15:35 PM Referred By: REFERRED SELF Confirmed By:Ernie Vaughan
--- NOTE | 2019-07-13 13:23 | XRay Report ---
XR abdomen 2V w PA chest CLINICAL HISTORY: 43 years-old Male presenting with sob, abdominal pain, jaundice. TECHNIQUE: PA view of the chest and supine and upright views of the abdomen were obtained. COMPARISON: 07/05/2019. FINDINGS: Cardiomediastinal silhouette normal. Persistent elevation of the right hemidiaphragm. Mildly low lung volumes. Bandlike opacities at the right lung base and left suprahilar region. This is unchanged at the right lung base. No large effusion or pneumothorax. Questionable bowel wall thickening in the right mid abdomen, likely small bowel. Nonobstructive bowel gas pattern. No gross pneumoperitoneum. No calcifications project over the renal shadows or along the courses of the ureters to suggest nephr olithiasis. Osseous structures normal. IMPRESSION: 1. Persistent right basilar atelectasis and suspected left suprahilar atelectasis in the setting of low lung volumes. 2. Questionable bowel wall thickening in the right mid abdomen. Enteritis or nonspecific bowel wall edema to be considered. ACT 112: Negative or not required by law. Electronically signed by: Efren Johnson M.D. 07/13/2019 1:22 PM
--- NOTE | 2019-07-13 14:05 | Emergency Department Note ---
ED Visit Note Procedure note: Procedure: Paracentesis Reason: Abdominal pain, liver cirrhosis, ascites, dyspnea I did review the laboratory studies of the patient. I did examine the patient. He has abdominal tenderness as well as appears to be short of breath only able to speak a few words at a time. The paracentesis was performed under sterile procedures. Sterile gloves, mask and drapes. 1% lidocaine 10 mL was used for local anesthesia. A bedside ultrasound was used to identify the location for the paracentesis. The right lower quadrant was used. Initially an 18-gauge needle was used to confirm the ascites. The paracentesis kit was used and the catheter over needle system was utilized. Catheter was inserted without difficulty. Ascites fluid was drained. A sample was sent to the lab. There were no complications. See the H&P note for the total amount of fluid drained. .
[2019-07-13 14:28] LABS: Albumin Peritoneal Fluid < 0.6 g/dl
[2019-07-13] MEDS: ALBUMIN 25% 50 ML IV SCH ×3 (14:56→16:42)
--- NOTE | 2019-07-13 15:29 | History & Physical Report ---
Date of Service July 13, 2019 Assessment & Plan (1) Ascites: Admit med surg Paracentesis in the ED drained fro 4750 mls. Albumin replacement provided. Cultures and cytology sent Will give Rocephin for SBP prophylaxis Right leg edema improving now that ascites has been removed, no pain in the that leg, if swelling doesn't continue to improve could consider a doppler, but with INR of 1.8 clot is less likely (2) Hyperbilirubinemia: Biliruben has increased since last admission to 15.2, 10.9 direct bili, no ruq pain. Likely secondary to alcoholic liver diasease Will consult GI (3) Anemia: Investigated last admission. Now slightly improved at 9.6. He did have a positive heme occult stool last admission. Continue home sucralfate and PPI Past EGD without esophageal varices GI consulted - had been recommended to have colonoscopy outpatient (4) Alcohol abuse: Patient reports he has not had a drink since before his last admission (5) Gastric reflux: Continue ppi and sucralfate (6) Dyspnea: Resolving with paracentesis. 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 GI consulted (8) Jaundice: (9) CKD (chronic kidney disease), stage III: Last admission with SUNG, creat 1.5 which is not far from baseline (10) DVT prophylaxis: No chemoprophylaxis for elevated INR, will order SCDs History of Present Illness Mr. Willett presents for complaints of abdominal fullness. He was recently discharged from [facility] for alcoholic hepatitis. on 07/08/2019. Primary Care Provider: Amaya Anand DO Mr. Willett presents for complaints of abdominal fullness. He was recently discharged from [facility] for alcoholic hepatitis on 07/08/2019. In the ED a paracentesis was performed and he drained 4750 mls of ascites. He feels much better now, no further abdominal discomfort. He does admit to a mild cough over the past couple of days. He felt sob but this was secondary to abdominal fullness and is relieved at this point. He is dizzy at times when he stands up. He denies aches, chills, fevers, chest pain, palpitations, nausea, vomiting, diarrhea or constipation, dysuria or hesitancy. He is jaundiced and reports this has been ongoing though today he is a bit worse than previously. He has not had a drink since four days before his last admission. Pmhx: htn, anxiety, GERD Social: lives alone, non smoker, no alcohol since 4 days prior to last admission but previous to that had been drinking much of the day Family: diabetes, alcoholism Allergies Allergy/AdvReac Type Severity Reaction Status Date / Time ibuprofen AdvReac Intermediate MAKES HIM Verified 07/13/19 11:34 PUKE Home Medications Home Medications Medication Instructions Recorded Confirmed Type multivitamin [Daily-Mark] 1 tab PO QAM #1 tab 04/27/18 07/13/19 Rx bupropion HCl 150 mg PO QAM 07/18/18 07/13/19 History magnesium oxide 400 mg PO DAILY #30 cap 07/19/18 07/13/19 Rx pantoprazole 40 mg tablet,delayed 40 mg PO BID #60 tab 05/29/19 07/13/19 Rx release gabapentin 300 mg PO TID 07/01/19 07/13/19 History sucralfate 1 g PO ACHS 07/01/19 07/13/19 History Past Med/Surg History Social History Preferred Language: Thai Communication Ability: Effective Visual Impairment: No 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 Beliefs That Will Affect Care: None Current Living Situation: Family Current Living Situation Comment: rents a house Other Information That Helps Us Care for You: No Feels Safe at Home: Yes Smoking Status: Never smoker Second Hand Exposure: No ; Hx Alcohol Use: Yes Alcohol type: hard liquor Alcohol Intake Frequency Comment: hx of heavy use, now at 3-4 x/week Hx Substance Use: No Review of Systems Review of Systems: All systems reviewed & are unremarkable except as noted in HPI & below Physical Exam Physical Exam: General: no distress Eyes: normal inspection, PERLL Respiratory: chest non tender, clear to auscultation, normal breath sounds, no respiratory distress, no accessory muscle use Cardiac: regular rate and rhythm, no rub or gallop, no murmur, no edema, no jvd GI/: active bowel sounds, no abd pain or tenderness, soft, non distended Extremities: normal range of motion, normal strength, non tender Neuro:oriented x 3, moves all extremities Psych: alert, normal mood and affect Skin:jaundiced, dry Results & Data Results & Data ([facility]) Vital Signs (Past 12 Hours) Vital Signs Temp Pulse Pulse Resp BP BP Pulse Ox 07/13/19 15:15 99 H 13 117/83 97 07/13/19 15:00 98 H 16 118/88 99 07/13/19 14:59 37.0 C 07/13/19 14:45 106 H 32 H 114/80 96 07/13/19 14:30 100 H 12 121/92 98 07/13/19 14:00 100 H 13 118/91 98 07/13/19 13:30 104 H 15 130/94 97 07/13/19 12:30 110 H 27 H 126/85 98 07/13/19 12:12 104 H 15 121/91 97 07/13/19 11:19 36.9 C 117 H 18 121/80 96 Supervising Physician Co-Signing Physician Notes Patient seen and examined with Janett GENAO. I agree with her exam find ings, review of systems, assessment and plan. I personally reviewed the lab work and imaging as well. patient feeling better after paracentesis reviewed analysis, no evidence for SBP however, he did not have ascites like this last week and his bilirubin is higher, INR higher, fear that his liver failure getting worse he denies any alcohol intake - Alcohol cirrhosis: decompensated with ascites, elevated bilirubin paracentesis for 4 liters in the ED, patient feels better will start on Lasix and Aldactone tomorrow no signs of SBP poor/guarded prognosis roasterman as he was drinking up until two weeks ago, would not be a candidate for liver transplant PG Care Time/CCT Total # of Minutes Spent Total Time Spent with Patient: Total time spent is greater than 50% in coordination of care (as documented) at patient's floor/unit and/or counseling patient: Coding Level of Care Code 10205 Initial Inpt Care Lvl 3 Diagnoses Ascites R18.8 Hyperbilirubinemia E80.6 Anemia D64.9 Alcohol abuse F10.10 Gastric reflux K21.9 Dyspnea R06.00 Cirrhosis K74.60 Jaundice R17 CKD (chronic kidney disease), stage III N18.3 DVT prophylaxis Z29.9
[2019-07-13 15:46] LABS: Appearance Peritoneal Fluid CLEAR; Basophils, Fluid 0 %; Color Peritoneal Fluid YELLOW; Eosinophils, Fluid 0 %; Lymphocytes, Fluid 11 %; Mono,Macrophage,Mesothelial 51 %; Neutrophils, Fluid 38 %; RBC Peritoneal Fluid (A) < 3000 /uL; WBC Peritoneal Fluid (A) 58 /ul (0-300)
--- NOTE | 2019-07-13 16:55 | Communication Note ---
Date of Service: July 13, 2019 GI brief note: 43 yo male with hx alcohol abuse and alcoholic hepatitis recently discharged for this from [facility] last week who is here with worsening abdominal distention and dyspnea. In the ER he underwent paracentesis with removal of over 4L ascites, albumin given, fluid analysis and culture currently processing. Also given abx after paracentesis. Afebrile, but noted to have dry cough. Was not placed on steroids for his ETOH hepatitis last week as DF was less than 32, and no new ETOH use since then as far as we know. Labs reviewed. Recs: --c/w abx (ceftriaxone is fine) --f/u cell count and culture from paracentesis to rule out SBP --supportive care --recommend panculture if febrile including blood and urine cx's. rest as per primary team my recommendations and the case were discussed with Kaykay Thomas MD Gastroenterology
[2019-07-13] MEDS ORDERED: POLYETHYLENE (MIRALAX) 17 GM PACK PO PRN (17:32)
[2019-07-13] MEDS ORDERED: ONDANSETRON INJ 2 MG/ML 2 ML VIAL IV PRN (17:32)
[2019-07-13] MEDS ORDERED: ACETAMINOPHEN 325 MG TAB PO PRN (17:32)
[2019-07-13] MEDS ORDERED: cefTRIAXone SODIUM 1,000 MG/50 ML BAG IV SCH (18:00)
[2019-07-13 18:19] LABS: Appearance Urine Clear (Clear); Bacteria Urine Automated Negative (Negative); Blood Urine Negative (Negative); Color Urine Dark Yellow; Epithelial Cell Urine Auto 0-5 /lpf (0-5); Glucose Urine UA Negative (Negative); Ketones Urine Negative (Negative); Leukocyte Esterase Urine 1+ (Negative); Nitrite Urine Positive (Negative); Protein Urine Negative (Negative); RBC Urine Automated 0-4 /hpf (0-4); Urobilinogen Urine Negative (Negative); pH Urine 5.5 (4.5-7.5)
[2019-07-13 18:21] LABS: Bilirubin Urine 3+ (Negative)
[2019-07-13 18:22] LABS: Ictotest Urine Positive (Negative)
[2019-07-13] MEDS: SUCRALFATE 1 GM TAB PO SCH ×2 (18:23→20:46)
[2019-07-13] MEDS: GABAPENTIN 300 MG CAP PO SCH (20:46)
[2019-07-13] MEDS: PANTOprazole 40 MG TAB PO SCH (20:46)
[2019-07-14] MEDS: PANTOprazole 40 MG TAB PO SCH (08:06)
[2019-07-14] MEDS: SUCRALFATE 1 GM TAB PO SCH ×2 (08:06→11:12)
[2019-07-14] MEDS: GABAPENTIN 300 MG CAP PO SCH (08:06)
[2019-07-14] MEDS ORDERED: MULTIVITAMIN TAB PO SCH (09:00)
[2019-07-14] MEDS ORDERED: MAGNESIUM OXIDE 400 MG TAB PO SCH (09:00)
[2019-07-14] MEDS ORDERED: BuPROPion XL 150 MG TABCR PO SCH (09:00)
[2019-07-14 09:32] LABS: INR 1.7 (0.9-1.1); Prothrombin Time 17.4 Seconds (9.0-12.0)
[2019-07-14 09:35] LABS: Albumin Globulin Ratio 0.8 (0.9-2); Albumin Level 2.6 gm/dl (3.4-5.0); BUN Creatinine Ratio 12.5 (10-20); Bilirubin,Total 15.3 mg/dl (0.2-1); Calcium 8.4 mg/dl (8.5-10.1); Creatinine Clr Calc Pharmacy 63.2 ml/min; Est GFR (African American) 63.7; Est GFR (Non-African American) 54.9; Globulin 3.1 gm/dl (2.5-4.0); Hematocrit (blood only) 28.3 % (42-52); Hemoglobin 9.4 g/dL (14.0-18.0); Mean Corpuscular Hemoglobin 37.5 pg (25-34); Mean Corpuscular Hgb Conc 33.2 g/dL (32-36); Mean Corpuscular Volume 112.7 fL (80-100); Mean Platelet Volume 11.4 fL (7.4-10.4); Platelet Count 135 K/uL (130-400); Potassium 3.7 mmol/L (3.5-5.1); RDW Coefficient of Variation 16.2 % (11.5-14.5); RDW Standard Deviation 66.1 fL (36.4-46.3); Red Blood Count 2.51 M/uL (4.7-6.1); Total Protein 5.7 gm/dl (6.4-8.2); White Blood Count 11.82 K/uL (4.8-10.8)
--- NOTE | 2019-07-20 07:50 | Discharge Summary ---
Date of Service July 14, 2019 Admission HPI Per Admitting Provider Mr. Willett presents for complaints of abdominal fullness. He was recently discharged from [facility] for alcoholic hepatitis on 07/08/2019. In the ED a paracentesis was performed and he drained 4750 mls of ascites. He feels much better now, no further abdominal discomfort. He does admit to a mild cough over the past couple of days. He felt sob but this was secondary to abdominal fullness and is relieved at this point. He is dizzy at times when he stands up. He denies aches, chills, fevers, chest pain, palpitations, nausea, vomiting, diarrhea or constipation, dysuria or hesitancy. He is jaundiced and reports this has been ongoing though today he is a bit worse than previously. He has not had a drink since four days before his last admission. Pmhx: htn, anxiety, GERD Social: lives alone, non smoker, no alcohol since 4 days prior to last admission but previous to that had been drinking much of the day Family: diabetes, alcoholism Principal Diagnosis Alcoholic cirrhosis with ascites Discharge Exam Constitutional well developed and + disheveled; no acute distress Eyes normal visual lopez by confrontation, PERRL and EOM intact bilaterally; no conjunctival abnormality, sclerae not anicteric and no nystagmus ENMT external ear and nose normal, oropharynx normal Neck trachea midline, no thyromegaly Respiratory normal respiratory effort, lungs clear to auscultation Cardiovascular RRR, no murmur, no edema Gastrointestinal (Abdomen) Inspection/Auscultation: + abdomen distended and normal bowel sounds Percussion/Palpation: abdomen soft and + ascites; abdomen nontender Musculoskeletal no cyanosis or clubbing, extremities motor strength 5/5 Skin normal turgor and + jaundice; no rashes and no wound Neurologic patellar DTR's 2+ bilat, sensation intact and PERRL, EOMI, accommodation nl, no face palsy, no dysarthria Psychiatric A+Ox3, euthymic affect Lymphatic no cervical or axillary lymphadenopathy Discharge Data Allergies Allergy/AdvReac Type Severity Reaction Status Date / Time ibuprofen AdvReac Intermediate MAKES HIM Verified 07/13/19 11:34 PUKE Consultations 07/13/19 17:32 Consult Gastroenterology Stat Ordered Studies 07/13/19 11:44 US abdomen ltd ascites Stat Hospital Course (1) Ascites: Paracentesis in the ED drained fro 4750 mls. Albumin replacement provided. Cultures and cytology sent no signs of SBP, cell count low Right leg edema improving now that ascites has been removed, no pain in the that leg will start on low dose Lasix and Spironolactone to try to limit ascites we discussed following a fluid restriction of <2L a day and salt restriction of < 2gm sodium a day overall patient feeling much better, eating well will follow up with PCP and / or GI again, instructed to abstain from all alcohol (2) Hyperbilirubinemia: Biliruben has increased since last admission to 15.2. Likely secondary to alcoholic liver disease concerned that despite abstaining from alcohol, he has done irreversible damage to his liver suspect that this will only get worse may need to consider palliative approach in near future as he will not be candidate for liver transplant as he was still drinking within the past month (3) Anemia: Investigated last admission. Now slightly improved at 9.6. He did have a positive heme occult stool last admission. Continue home sucralfate and PPI Past EGD without esophageal varices GI consulted - had been recommended to have colonoscopy outpatient (4) Alcohol abuse: Patient reports he has not had a drink since before his last admission (5) Gastric reflux: Continue ppi and sucralfate (6) Dyspnea: Resolving with paracentesis. 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 GI consulted see above, bilirubin and INR going up compared to last admission concerned that his disease is getting worse (8) Jaundice: (9) CKD (chronic kidney disease), stage III: Last admission with SUNG, creat 1.5 which is not far from baseline will start low dose Lasix and Spironolactone to try to help with ascites this may strain renal function, time will tell (10) DVT prophylaxis: No chemoprophylaxis for elevated INR, will order SCDs Total Time Total Time Spent Total Time Spent (In Minutes): 33 minutes Total Time Includes: Examination of the Patient, Discharge Planning, Medication Reconciliation, Communication With Other Providers (GI) and Other (long counseling session with patient about alcohol, low fluid and salt diet) Discharge Plan Discharge Items Patient Disposition: Home - Self-Care Reason For Visit: ASCITES Discharge Diagnosis: Ascites Cirrhosis Condition on Discharge: Fair Goals: manage fluid volume with Lasix and Aldactone remain sober follow fluid and salt restriction stay well nourished, get rest Activity: Resume your previous activity Driving/Machine Use: Resume 3 days after discharge Weightbearing: Full weightbearing Non-emergency contact: Primary Care Provider and [employer] Machine Corder Call non-emergency contact if: you have any medication questions and your symptoms worsen Follow-up/Referrals: Yusef Hillman DO [Physician] - 08/21/19 11:20 am (follow up in one month) Amaya Anand DO [Primary Care Provider] - (no need for office follow up) Diet: Low Sodium (2gm) Fluids: 2000ml (8 cups) Addtl Attending Provider Instructions: Medications: - FUROSEMIDE: 20mg daily, this is diuretic to help prevent ascites (fluid in the belly) - SPIRONOLACTONE: 25mg daily, this is diuretic to help prevent asites Alcohol cirrhosis complications of ascites (fluid in the abdomen from increased portal pressure), elevated bilirubin, elevated PT/INR (decrease in clotting factors) cannot stress enough the importance to stay sober, you liver is exhibiting signs of decompensation in order to treat the ascites, I will place you on a low dose diuretic regimen of Lasix and Spironolactone take these every morning while it is important for you to stay hydrated, there needs to be a balance as too much fluid will cause increased ascites and swelling in legs limit fluid intake to less than 2 liters a day, limit salt intake to less than 2gm a day as too much salt causes you to retain fluid please contact either Dr. Anand or Dr. Hillman/Martha (gastroenterology) if you have further concerns Pending Studies at Discharge: No Stand-Alone Forms: My [facility] [place], Smoking Cessation Medications and DC Order Prescriptions: New furosemide [Lasix] 20 mg tablet 20 mg PO DAILY Qty: 30 RF: 3 spironolactone 25 mg tablet 25 mg PO DAILY Qty: 30 RF: 3 Continued pantoprazole 40 mg tablet,delayed release (DR/EC) 40 mg PO BID Qty: 60 RF: 0 multivitamin [Daily-Mark] Tablet 1 tab PO QAM Qty: 1 RF: 0 bupropion HCl 150 mg tablet extended release 24 hr 150 mg PO QAM RF: 0 magnesium oxide 400 mg capsule 400 mg PO DAILY Qty: 30 RF: 2 sucralfate 1 gram tablet 1 g PO ACHS RF: 0 gabapentin 300 mg capsule 300 mg PO TID RF: 0 Discharge Orders: Discharge Order (Routine); Ordered 07/14/19 Ordered By: Alexander He/Other Patient Handouts: DVT, Low-Salt Choices Admission Data Admit Date/Time: 07/13/19 15:33 Attending Provider: Alexander Young Admit Provider: Michael Garner Primary Care Provider: Amaya Anand Other Providers: Law Thomas Other Interventions: Discharge Summary Assessment (RN) Last Done: 07/14/19 11:19 DC Date/Time DO NOT enter until pt leaves facility: 07/14/19 12:30 Coding Level of Care Code D/C Day Management >30 mins Diagnoses Ascites K70.31 Ascites type: due to alcoholic cirrhosis Hyperbilirubinemia E80.6 Anemia D64.9 Alcohol abuse F10.10 Gastric reflux K21.9 Dyspnea R06.00 Cirrhosis K74.60 Jaundice R17 CKD (chronic kidney disease), stage III N18.3 DVT prophylaxis Z29.9
== END 2019-07-14 12:30 | disposition home or self-care (01) | DRG 434 ==
LOC: ED 11:15 → 3E 15:33

== ENCOUNTER 2019-07-18 13:13 | Inpatient (IN) ==
--- NOTE | 2019-07-18 13:41 | Emergency Department Note ---
Impression & Plan SOB (shortness of breath), Ascites, Chronic liver failure, Diffuse abdominal pain, Leukocytosis ED Provider Note NAME: EL ZARAGOZA AGE: 43 SEX: M : 1975 ARRIVES VIA: Walk-In INFORMANT: [Patient][nurses] ED PROVIDER(S): [Sabas Gabriel MD] CHIEF COMPLAINT: Shortness of breath and cough HISTORY OF PRESENT ILLNESS: The patient is a 43-year-old male who presents the ER with 3 days of cough and shortness of breath. There has been no fever. No known coronavirus exposures. Patient states the cough is dry. He has felt weak and exhausted. Exertion m akes his shortness of breath worse. Sitting still makes things better. He also has some diffuse abdominal pain but he carries a history of ascites so this is not too unusual. The pain is moderate in severity and constant. The patient was in our hospital and discharged 5 days ago. He had 4.7 L of fluid removed from the abdomen. Cultures so far have returned unremarkable. There was concern today that the patient had some mottling of his extremities. There was concern for the possibility of coronavirus as he has cough and shortness of breath. He was sent in for further evaluation at our ED. REVIEW OF SYSTEMS: See HPI for pertinent positives and negatives. A total of ten systems were reviewed and were otherwise negative. PMHx/PSHx: See Below SOCIAL HISTORY: See Below. PHYSICAL EXAM: GENERAL: Patient is in no acute distress. HEENT: No acute trauma, normocephalic atraumatic, mucous membranes moist, no nasal congestion. NECK: No stridor, no adenopathy, no meningismus, trachea is midline. LUNGS: Clear to auscultation bilaterally, no wheeze, no rhonchi, breath sounds equal. HEART: Mildly tachycardic, regular rhythm, no murmurs. ABDOMEN: Soft, distended and somewhat firm, diffusely mildly tender, bowel sounds positive, no hernias, no peritonitis. EXTREMITIES: No cyanosis or edema, full range of motion of all the joints without pain or difficulty, no signs for acute trauma. NEUROLOGIC: Oriented x 3, no acute motor or sensory deficits, no focal weakness. SKIN: No rash, moderate jaundice, no diaphoresis. DIFFERENTIAL DIAGNOSIS: Reactive airway disease, pneumonia, pneumothorax, COPD, CHF, infections, cardiac ischemia, pulmonary embolism, musculoskeletal, gastrointestinal, ascites, coronavirus, as well as other pathologies. EMERGENCY DEPARTMENT COURSE/PROCEDURES: ECG: Indication was shortness of breath. There is a sinus tachycardia with a rate of 105. There is some baseline artifact. There is no ST elevation, there are no PVCs. The QTc is 436. Today's EKG appears generally improved compared to an EKG from 13 July 2019. Continuous Cardiac Monitoring: An order was placed for continuous cardiac monitoring. The monitor shows a rate of 116 with sinus tachycardia. MEDICAL DECISION MAKING: There is a significant leukocytosis at 23,000, this could be consistent with infection. The patient is somewhat anemic with a hemoglobin of 11. His hem oglobin value is actually better than his previous testing. Platelet count was normal. INR is 1.6, this is baseline for the patient because of his liver disease. Creatinine slightly elevated, likely consistent with some dehydration. Liver enzymes were elevated, his bilirubin was actually above his normal by 4 points. Today's value was 19, he has been running at 15 lately. Ammonia level was not elevated. Lactic acid level was elevated consistent with dehydration and/or infection. Influenza testing was negative. Chest film did not show pneumonia or CHF, there was minimal inspiration secondary to presumed ascites. On exam, the patient did not appear toxic. He was not febrile. There was no peritonitis. His abdomen was distended. A dry cough was noted. The patient received IV Zosyn as empiric antibiotic coverage. He was given IV saline for hydration. I spoke to the patient about his findings, I do think he requires a hospitalization. He is dehydrated, his bilirubin is above his baseline value, his white count is quite high. I am concerned about the possibility of a spon taneous bacterial peritonitis. Viral illness is possible. I did consider the possibility of coronavirus although he has had no known exposures. The patient's case was discussed with case management. I spoke to the patient about his findings. The on-call hospitalist has been consulted. 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 Beliefs That Will Affect Care: None Current Living Situation: Family Current Living Situation Comment: rents a house Feels Safe at Home: Yes Smoking Status: Former smoker Second Hand Exposure: No ; Hx Alcohol Use: Yes Alcohol type: hard liquor Alcohol Intake Frequency Comment: hx of heavy use, now at 3-4 x/week Hx Substance Use: No Allergies Allergies Allergy/AdvReac Type Severity Reaction Status Date / Time ibuprofen AdvReac Intermediate MAKES HIM Verified 07/13/19 11:34 PUKE Home Meds Home Medications Medication Instructions Recorded Confirmed bupropion HCl 150 mg PO QAM 07/18/18 07/13/19 gabapentin 300 mg PO TID 07/01/19 07/13/19 sucralfate 1 g PO ACHS 07/01/19 07/13/19 Previous Rx's Medication Instructions Recorded multivitamin [Daily-Mark] 1 tab PO QAM #1 tab 04/27/18 magnesium oxide 400 mg PO DAILY #30 cap 07/19/18 pantoprazole 40 mg tablet,delayed 40 mg PO BID #60 tab 05/29/19 release furosemide [Lasix] 20 mg PO DAILY #30 tab 07/14/19 spironolactone 25 mg PO DAILY #30 tab 07/14/19 Results & Data (ED) Vital Signs Vital Signs - 24 hr 07/18/19 13:13 07/18/19 13:25 07/18/19 13:27 Temperature 36.9 C Temperature Source Oral Pulse Rate 110 H 110 H Pulse Rate from SpO2 Sensor 110 H Pulse Rhythm Regular Pulse Strength Normal Respiratory Rate 22 19 Respiratory Effort / Characteristics Non-Labored Spontaneous Spontaneous Respiratory Depth Normal Normal Respiratory Pattern Regular Regular Blood Pressure 134/99 134/99 Blood Pressure Mean 110 114 Blood Pressure Position Sitting Pulse Oximetry 95 97 97 Oxygen Delivery Method Room Air Room Air Room Air Sepsis Recent Fever Within 48 Hours No Sepsis New/Unexplained Change in Mental Status No Sepsis Action Taken by Nursing No Action Required 07/18/19 13:46 07/18/19 14:00 07/18/19 14:06 Temperature Temperature Source Pulse Rate 111 H 105 H 105 H Pulse Rate from SpO2 Sensor 109 H 104 H Pulse Rhythm Regular Pulse Strength Respiratory Rate 18 17 20 Respiratory Effort / Characteristics Respiratory Depth Respiratory Pattern Blood Pressure Blood Pressure Mean Blood Pressure Position Pulse Oximetry 95 98 96 Oxygen Delivery Method Room Air Room Air Room Air Sepsis Recent Fever Within 48 Hours Sepsis New/Unexplained Change in Mental Status Sepsis Action Taken by Nursing 07/18/19 14:30 07/18/19 14:36 07/18/19 14:45 Temperature Temperature Source Pulse Rate 105 H 106 H Pulse Rate from SpO2 Sensor 105 H 109 H Pulse Rhythm Pulse Strength Respiratory Rate 18 14 Respiratory Effort / Characteristics Respiratory Depth Respiratory Pattern Blood Pressure 119/95 116/91 Blood Pressure Mean 106 107 Blood Pressure Position Pulse Oximetry 97 96 Oxygen Delivery Method Room Air Room Air Sepsis Recent Fever Within 48 Hours Sepsis New/Unexplained Change in Mental Status Sepsis Action Taken by Nursing 07/18/19 15:00 07/18/19 15:15 07/18/19 15:30 Temperature Temperature Source Pulse Rate 110 H 110 H 107 H Pulse Rate from SpO2 Sensor 110 H 111 H 107 H Pulse Rhythm Pulse Strength Respiratory Rate 25 H 16 28 H Respiratory Effort / Characteristics Respiratory Depth Respiratory Pattern Blood Pressure 121/97 119/90 104/92 Blood Pressure Mean 107 98 94 Blood Pressure Position Pulse Oximetry 99 96 98 Oxygen Delivery Method Sepsis Recent Fever Within 48 Hours Sepsis New/Unexplained Change in Mental Status Sepsis Action Taken by Nursing 07/18/19 15:45 07/18/19 16:00 07/18/19 16:15 Temperature Temperature Source Pulse Rate 112 H 112 H 116 H Pulse Rate from SpO2 Sensor 112 H 111 H 115 H Pulse Rhythm Pulse Strength Respiratory Rate 22 32 H 26 H Respiratory Effort / Characteristics Respiratory Depth Respiratory Pattern Blood Pressure 114/88 118/89 114/90 Blood Pressure Mean 97 92 96 Blood Pressure Position Pulse Oximetry 100 100 100 Oxygen Delivery Method Sepsis Recent Fever Within 48 Hours Sepsis New/Unexplained Change in Mental Status Sepsis Action Taken by Group Home Medications Current Medication List: was personally reviewed by me Laboratory Data Attestation: I reviewed the patient's lab results. Result diagrams: 07/18/19 14:40 07/18/19 14:40 Lab Results 07/18/19 07/18/19 07/18/19 Range/Units 13:45 14:40 14:40 WBC 23.10 H (4.8-10.8) K/uL RBC 2.92 L (4.7-6.1) M/uL Hgb 11.0 L (14.0-18.0) g/dL Hct 32.3 L (42-52) % MCV 110.6 H (80-100) fL MCH 37.7 H (25-34) pg MCHC 34.1 (32-36) g/dL RDW Std Deviation 60.8 H (36.4-46.3) fL RDW Coeff of Rashida 15.1 H (11.5-14.5) % Plt Count 329 (130-400) K/uL MPV 11.2 H (7.4-10.4) fL Immature Gran % (Auto) 0.6 % Neut % (Auto) 78.9 % Lymph % (Auto) 8.9 % Branch % (Auto) 10.0 % Eos % (Auto) 1.3 % Baso % (Auto) 0.3 % Immature Gran # (Auto) 0.13 H (0.00-0.02) K/uL Neut # (Auto) 18.23 H (1.4-6.5) K/uL Lymph # (Auto) 2.06 (1.2-3.4) K/uL Branch # (Auto) 2.32 H (0.11-0.59) K/uL Eos # (Auto) 0.30 (0-0.5) K/uL Baso # (Auto) 0.06 (0-0.2) K/uL Macrocytosis Present PT 16.5 H (9.0-12.0) Seconds INR 1.6 H (0.9-1.1) APTT 42.4 H (21.0-31.0) Seconds PTT Ratio 1.5 Sodium (136-145) mmol/L Potassium (3.5-5.1) mmol/L Chloride (98-107) mmol/L Carbon Dioxide (21-32) mmol/L Anion Gap (3-11) BUN (7-18) mg/dl Creatinine (0.6-1.4) mg/dl Est Cr Clr Drug Dosing ml/min Est GFR ( Amer) Est GFR (Non-Af Amer) BUN/Creatinine Ratio (10-20) Glucose (70-99) mg/dl Lactate (0.4-2.0) mmol/L Calcium (8.5-10.1) mg/dl Total Bilirubin (0.2-1) mg/dl AST (15-37) U/L ALT (12-78) U/L Alkaline Phosphatase (45-117) U/L Ammonia (11-32) umol/L Troponin I (0-0.045) ng/ml Total Protein (6.4-8.2) gm/dl Albumin (3.4-5.0) gm/dl Globulin (2.5-4.0) gm/dl Albumin/Globulin Ratio (0.9-2) Influenza Type A (PCR) Neg for Influ A (Neg) Influenza Type B (PCR) Neg for Influ B (Neg) 07/18/19 07/18/19 07/18/19 Range/Units 14:40 14:40 14:40 WBC (4.8-10.8) K/uL RBC (4.7-6.1) M/uL Hgb (14.0-18.0) g/dL Hct (42-52) % MCV (80-100) fL MCH (25-34) pg MCHC (32-36) g/dL RDW Std Deviation (36.4-46.3) fL RDW Coeff of Rashida (11.5-14.5) % Plt Count (130-400) K/uL MPV (7.4-10.4) fL Immature Gran % (Auto) % Neut % (Auto) % Lymph % (Auto) % Branch % (Auto) % Eos % (Auto) % Baso % (Auto) % Immature Gran # (Auto) (0.00-0.02) K/uL Neut # (Auto) (1.4-6.5) K/uL Lymph # (Auto) (1.2-3.4) K/uL Branch # (Auto) (0.11-0.59) K/uL Eos # (Auto) (0-0.5) K/uL Baso # (Auto) (0-0.2) K/uL Macrocytosis PT (9.0-12.0) Seconds INR (0.9-1.1) APTT (21.0-31.0) Seconds PTT Ratio Sodium 134 L (136-145) mmol/L Potassium 3.5 (3.5-5.1) mmol/L Chloride 102 (98-107) mmol/L Carbon Dioxide 24 (21-32) mmol/L Anion Gap 8.0 (3-11) BUN 21 H (7-18) mg/dl Creatinine 1.90 H (0.6-1.4) mg/dl Est Cr Clr Drug Dosing 46.4 ml/min Est GFR ( Amer) 48.6 Est GFR (Non-Af Amer) 41.9 BUN/Creatinine Ratio 11.2 (10-20) Glucose 86 (70-99) mg/dl Lactate 2.6 H* (0.4-2.0) mmol/L Calcium 8.7 (8.5-10.1) mg/dl Total Bilirubin 19.6 H (0.2-1) mg/dl AST 195 H (15-37) U/L ALT 69 (12-78) U/L Alkaline Phosphatase 201 H (45-117) U/L Ammonia < 10.0 L (11-32) umol/L Troponin I < 0.015 (0-0.045) ng/ml Total Protein 6.3 L (6.4-8.2) gm/dl Albumin 2.6 L (3.4-5.0) gm/dl Globulin 3.7 (2.5-4.0) gm/dl Albumin/Globulin Ratio 0.7 L (0.9-2) Influenza Type A (PCR) (Neg) Influenza Type B (PCR) (Neg) Administered Medications Discontinued Medications Piperacillin Sod/Tazobactam Sod (Zosyn) 4.5 gm in 120 mls @ 240 mls/hr IV NOW ONE Stop: 07/18/19 16:11 Last Admin: 07/18/19 16:21 Dose: 240 mls/hr Documented by: [id number] Sodium Chloride (Nss 1000ml) 1,000 mls @ 999 mls/hr IV .Q1H1M ONE Stop: 07/18/19 16:42 Last Admin: 07/18/19 16:21 Dose: 999 mls/hr Documented by: [id number] Imaging Data Radiologist's Impression: SINGLE VIEW CHEST CLINICAL HISTORY: Dyspnea. FINDINGS: 2 AP, portable, upright chest radiographs are compared to study dated 07/13/2019. The examination is degraded by portable technique and patient rotation. The cardiomediastinal silhouette is unremarkable. There are low lung volumes with elevation of the right hemidiaphragm and bibasilar atelectasis. Chronic interstitial thickening is similar to previous. Foci of parenchymal scarring are noted in the left upper lobe. No large pleural effusion or pneumothorax is seen. The skeletal structures are osteopenic. The bony thorax is grossly intact. IMPRESSION: Low lung volumes with no acute cardiopulmonary abnormality. Blood Pressure Blood Pressure Findings: Elevated blood pressure Blood Pressure Disposition: further management by hospitalist Discharge Plan Visit Data Chief Complaint: Shortness of Breath/Dyspnea Stated Complaint: fever, cough, sob ED Provider: Sabas Gabriel Discharge Problem: SOB (shortness of breath), Ascites, Chronic liver failure, Diffuse abdominal pain, Leukocytosis Patient Disposition: Being Evaluated by Hospitalist Condition: Fair Forms Stand Alone Forms: [facility] [place] [employer] Prescriptions Prescriptions: No Action pantoprazole 40 mg tablet,delayed release (DR/EC) 40 mg PO BID Qty: 60 RF: 0 multivitamin [Daily-Mark] Tablet 1 tab PO QAM Qty: 1 RF: 0 bupropion HCl 150 mg tablet extended release 24 hr 150 mg PO QAM RF: 0 magnesium oxide 400 mg capsule 400 mg PO DAILY Qty: 30 RF: 2 sucralfate 1 gram tablet 1 g PO ACHS RF: 0 gabapentin 300 mg capsule 300 mg PO TID RF: 0 furosemide [Lasix] 20 mg tablet 20 mg PO DAILY Qty: 30 RF: 3 spironolactone 25 mg tablet 25 mg PO DAILY Qty: 30 RF: 3 Referrals Referrals: Amaya Anand DO [Primary Care Provider] - Discharge Problem: Ascites Qualifiers: Ascites type: due to alcoholic hepatitis Qualified Code(s): K70.11 - Alcoholic hepatitis with ascites Chronic liver failure Qualifiers: Hepatic coma status: without hepatic coma Qualified Code(s): K72.10 - Chronic hepatic failure without coma Leukocytosis Qualifiers: Leukocytosis type: unspecified Qualified Code(s): D72.829 - Elevated white blood cell count, unspecified
--- NOTE | 2019-07-18 14:26 | XRay Report ---
SINGLE VIEW CHEST CLINICAL HISTORY: Dyspnea. FINDINGS: 2 AP, portable, upright chest radiographs are compared to study dated 07/13/2019. The examina tion is degraded by portable technique and patient rotation. The cardiomediastinal silhouette is un remarkable. There are low lung volumes with elevation of the right hemidiaphragm and bibasilar atelec tasis. Chronic interstitial thickening is similar to previous. Foci of parenchymal scarring are noted in the left upper lobe. No large pleural effusion or pneumothorax is seen. The skeletal structures a re osteopenic. The bony thorax is grossly intact. IMPRESSION: Low lung volumes with no acute cardiopulmonary abnormality. ACT 112: Negative or not required by law. Electronically signed by: Sabas Muñiz M.D. 07/18/2019 2:25 PM
[2019-07-18 14:56] LABS: Influenza A virus by PCR Neg for Influ A (Neg); Influenza B virus by PCR Neg for Influ B (Neg)
[2019-07-18 15:16] LABS: Alanine Aminotransferase 69 U/L (12-78); Albumin Level 2.6 gm/dl (3.4-5.0); Aspartate Aminotransferase 195 U/L (15-37); BUN Creatinine Ratio 11.2 (10-20); Blood Urea Nitrogen 21 mg/dl (7-18); Calcium 8.7 mg/dl (8.5-10.1); Carbon Dioxide 24 mmol/L (21-32); Chloride 102 mmol/L (98-107); Creatinine Clr Calc Pharmacy 46.4 ml/min; Est GFR (African American) 48.6; Est GFR (Non-African American) 41.9; Glucose 86 mg/dl (70-99); Potassium 3.5 mmol/L (3.5-5.1); Sodium 134 mmol/L (136-145)
[2019-07-18 15:19] LABS: INR 1.6 (0.9-1.1); Partial Thromboplastin Ratio 1.5; Partial Thromboplastin Time 42.4 Seconds (21.0-31.0); Prothrombin Time 16.5 Seconds (9.0-12.0)
[2019-07-18 15:21] LABS: Albumin Globulin Ratio 0.7 (0.9-2); Alkaline Phosphatase 201 U/L (45-117); Bilirubin,Total 19.6 mg/dl (0.2-1); Globulin 3.7 gm/dl (2.5-4.0); Total Protein 6.3 gm/dl (6.4-8.2); Troponin I < 0.015 ng/ml (0-0.045)
[2019-07-18 15:24] LABS: Basophils # (auto) 0.06 K/uL (0-0.2); Basophils % (auto) 0.3 %; Eosinophils % (auto) 1.3 %; Hematocrit (blood only) 32.3 % (42-52); Immature Granulocytes # (auto) 0.13 K/uL (0.00-0.02); Immature Granulocytes % (auto) 0.6 %; Lymphocytes # (auto) 2.06 K/uL (1.2-3.4); Lymphocytes % (auto) 8.9 %; Mean Corpuscular Hemoglobin 37.7 pg (25-34); Mean Corpuscular Hgb Conc 34.1 g/dL (32-36); Mean Corpuscular Volume 110.6 fL (80-100); Mean Platelet Volume 11.2 fL (7.4-10.4); Monocytes # (auto) 2.32 K/uL (0.11-0.59); Neutrophils # (auto) 18.23 K/uL (1.4-6.5); Neutrophils % (auto) 78.9 %; Platelet Count 329 K/uL (130-400); RDW Coefficient of Variation 15.1 % (11.5-14.5); RDW Standard Deviation 60.8 fL (36.4-46.3); Red Blood Count 2.92 M/uL (4.7-6.1)
[2019-07-18] MEDS ORDERED: SODIUM CHLORIDE 0.9% 1000ML 1,000 ML IV ONE (15:42)
[2019-07-18] MEDS ORDERED: PIPERACILLIN/TAZOBACTAM 4.5 GM/120 ML BAG IV ONE (15:42)
[2019-07-18] MEDS ORDERED: PIPERACILL/TAZOBAC CONSULT ACTIVE PRN (15:42)
[2019-07-18 15:48] LABS: Macrocytosis Present
--- NOTE | 2019-07-18 18:12 | History & Physical Report ---
Date of Service July 18, 2019 Assessment & Plan (1) Alcoholic cirrhosis of liver: (1) Ascites: Admit PCU Initally concerned over possible COVID infection, however cough likely from ascities. Patient had similar presentation from last admission and improved after paracenthesis. D/W pulmonary, seems unlikely as patient denies any sick contacts. His family who visits him has not had any sick contacts or travel to endemic region. Patient also reports having a cough in previous stay. Concern over possible source of infection: SBP. Patient will continue on antibiotics for now. Placed on zosyn will recheck cbc in AM. Right leg edema improving now that ascites has been removed, no pain in the that leg, if swelling doesn't continue to improve could consider a doppler, but with INR of 1.8 clot is less likely (2) Hyperbilirubinemia: Biliruben has increased since last admission to 19.2, no ruq pain. Likely secondary to alcoholic liver diasease Will consult GI (3) Anemia: Investigated last admission. Now slightly improved at 1. He did have a positive heme occult stool last admission. Continue home sucralfate and PPI Past EGD without esophageal varices GI consulted - had been recommended to have colonoscopy outpatient (4) Alcohol abuse: Patient reports he has not had a drink since before his last admission (5) Gastric reflux: Continue ppi and sucralfate (6) Dyspnea: Awaiting paracenthesis. 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 GI consulted (8) Jaundice: (9) CKD (chronic kidney disease), stage III: Last admission with SUNG, creat 1.6 which is not far from baseline (10) LACTIC ACIDOSIS: Severe sepsis likely secondary to SBP Will continue with antibiotics for now. (11) DVT prophylaxis: No chemoprophylaxis for elevated INR, will order SCDs (2) Ascites: (3) Leukocytosis: (4) Jaundice: Admission and Anticipated Discharge Date Admission Date: History of Present Illness Primary Care Provider: Amaya Anand DO 43 yo male who returns to the hospital with the same complaint of abdominal fullness, SOB and cough. He had recent hospital stays at [facility] For ascities and alcoholic hepatitis. on 07/14/2019 and 07/08/2019 respectively. Primary Care Provider: Amaya Anand DO Mr. Willett presents for complaints of abdominal fullness. He was recently discharged from [facility] for ascities from alcholic hepatitis on 07/14/19 and had a large volume paracenthesis completed where they drained 4750 mls of ascites. He again presents with a cough and generalized weakness He states he is no longer SOB at time of exam. Patient denies any recent travel, sick contacts, palpitations, nausea, vomiting, diarrhea or constipation, dysuria. Patient remains jaundiced. Pmhx: htn, anxiety, GERD Social: lives alone, non smoker, no alcohol since 4 days prior to last admission but previous to that had been drinking much of the day Family: diabetes, alcoholism Allergies Allergy/AdvReac Type Severity Reaction Status Date / Time ibuprofen AdvReac Intermediate MAKES HIM Verified 07/13/19 11:34 PUKE Home Medications Home Medications Medication Instructions Recorded Confirmed Type multivitamin [Daily-Mark] 1 tab PO QAM #1 tab 04/27/18 07/13/19 Rx bupropion HCl 150 mg PO QAM 07/18/18 07/13/19 History magnesium oxide 400 mg PO DAILY #30 cap 07/19/18 07/13/19 Rx pantoprazole 40 mg tablet,delayed 40 mg PO BID #60 tab 05/29/19 07/13/19 Rx release gabapentin 300 mg PO TID 07/01/19 07/13/19 History sucralfate 1 g PO ACHS 07/01/19 07/13/19 History furosemide [Lasix] 20 mg PO DAILY #30 tab 07/14/19 Rx spironolactone 25 mg PO DAILY #30 tab 07/14/19 Rx Past Med/Surg History Medical History Alcoholism (Chronic) Anxiety Depression Esophagitis (Inactive) GERD (gastroesophageal reflux disease) Hypertension (Chronic) Kidney stones Surgical History History of esophagogastroduodenoscopy (EGD) Hx of vasectomy Family History Aunt Family history of diabetes mellitus Mother Family hx colonic polyps Other No family history of adverse response to anesthesia Denies family history of Crohn's disease Colorectal cancer Ulcerative colitis Social History Preferred Language: Wolof Communication Ability: Effective Visual Impairment: No Limitations [employer] Carpets Required: No Beliefs That Will Affect Care: None Current Living Situation: Family Current Living Situation Comment: rents a house Other Information That Helps Us Care for You: No Feels Safe at Home: Yes Safety Concerns: Feels Safe At This Time Smoking Status: Never smoker Second Hand Exposure: No ; Hx Alcohol Use: Yes Alcohol type: hard liquor Alcohol Intake Frequency Comment: hx of heavy use, now at 3-4 x/week Hx Substance Use: No Review of Systems Constitutional: + fatigue and + malaise; no sweats, no anorexia and no weight loss Eyes: no diplopia Ear, Nose, Mouth, Throat: no nasal discharge and no facial pain Respiratory: + cough and + dyspnea Cardiovascular: no chest pain and no dyspnea on exertion Gastrointestinal: no abdominal pain Genitourinary: no nocturia and no flank pain Musculoskeletal: no back pain and no loss of height Integumentary: JAUNDICED Neurologic: no falls Psychiatric: no hopelessness Endocrine: no polydipsia Hematologic / Lymphatic: no coagulopathy Allergy / Immunological: no lip swelling and no tongue swelling Physical Exam Physical Exam: General: no distress Eyes: normal inspection, PERLL Respiratory: chest non tender, decreased breath sounds in the lower third. Cardiac: tachycardia and rhythm, no rub or gallop, no murmur, no edema, no jvd GI/: active bowel sounds, DISTENDED, FULL of fluid Extremities: normal range of motion, normal strength, non tender Neuro:oriented x 3, moves all extremities Psych: alert, normal mood and affect Skin:jaundiced, dry Results & Data Results & Data ([facility]) Vital Signs (Past 12 Hours) Vital Signs Temp Pulse Resp BP Pulse Ox 07/18/19 17:30 110 H 19 113/83 07/18/19 17:15 111 H 19 118/81 07/18/19 17:00 117 H 20 118/86 99 07/18/19 16:45 112 H 19 111/83 100 07/18/19 16:31 111 H 20 108/84 99 07/18/19 16:30 114 H 26 H 100 07/18/19 16:15 116 H 26 H 114/90 100 07/18/19 16:00 112 H 32 H 118/89 100 07/18/19 15:45 112 H 22 114/88 100 07/18/19 15:30 107 H 28 H 104/92 98 07/18/19 15:15 110 H 16 119/90 96 07/18/19 15:00 110 H 25 H 121/97 99 07/18/19 14:45 106 H 14 116/91 07/18/19 14:36 119/95 96 07/18/19 14:30 105 H 18 97 07/18/19 14:06 105 H 20 96 07/18/19 14:00 105 H 17 98 07/18/19 13:46 111 H 18 95 07/18/19 13:27 97 07/18/19 13:25 110 H 19 134/99 97 07/18/19 13:13 36.9 C 110 H 22 134/99 95 PG Care Time/CCT Total # of Minutes Spent Total Time Spent with Patient: Total time spent is greater than 50% in coordination of care (as documented) at patient's floor/unit and/or counseling patient: Coding Level of Care Code 29729 Initial Inpt Care Lvl 3 Diagnoses Alcoholic cirrhosis of liver K70.31 Ascites presence: with ascites Ascites K70.11 Ascites type: due to alcoholic hepatitis Leukocytosis D72.829 Leukocytosis type: unspecified Jaundice R17 Time Spent (min) 55 (1) Ascites Ascites type: due to alcoholic hepatitis Qualified Code(s): K70.11 - Alcoholic hepatitis with ascites (2) Leukocytosis Leukocytosis type: unspecified Qualified Code(s): D72.829 - Elevated white blood cell count, unspecified (3) Alcoholic cirrhosis of liver Ascites presence: with ascites Qualified Code(s): K70.31 - Alcoholic cirrhosis of liver with ascites
[2019-07-18 20:33] LABS: Adenovirus PCR Not Detected (NotDetected); Coronavirus 229E PCR Not Detected (NotDetected); Coronavirus HKU1 PCR Not Detected (NotDetected); Coronavirus NL63 PCR Not Detected (NotDetected); Coronavirus OC43PCR Not Detected (NotDetected); Human Metapneumovirus PCR Not Detected (NotDetected); Influenza A PCR Not Detected (NotDetected); Influenza B PCR Not Detected (NotDetected); Rhinovirus/Enterovirus PCR Not Detected (NotDetected)
[2019-07-18 20:34] LABS: Bordetella parapertussis PCR Not Detected (NotDetected); Bordetella pertussis PCR Not Detected (NotDetected); Chlamydia pneumoniae PCR Not Detected (NotDetected); Mycoplasma pneumoniae PCR Not Detected (NotDetected); Parainfluenza Virus 1 PCR Not Detected (NotDetected); Parainfluenza Virus 2 PCR Not Detected (NotDetected); Parainfluenza Virus 3 PCR Not Detected (NotDetected); Parainfluenza Virus 4 PCR Not Detected (NotDetected); Respiratory Syncytial VirusPCR Not Detected (NotDetected)
--- NOTE | 2019-07-18 20:46 | Communication Note ---
Date of Service: July 18, 2019 Was notified that only portable xrays can be done on pts who are on airborne precautions. Therefore, 2 view XR was canceled given that ED had already done a 1V xr. Also diet order put in.
[2019-07-18] MEDS: PIPERACILLIN/TAZOBACTAM 3.375 GM in DEXTROSE 5% 100 ML IV SCH (21:47)
[2019-07-18] MEDS: SUCRALFATE 1 GM TAB PO SCH (21:48)
[2019-07-18] MEDS: GABAPENTIN 300 MG CAP PO SCH (21:48)
[2019-07-18] MEDS: PANTOprazole 40 MG TAB PO SCH (21:49)
[2019-07-19] MEDS: PIPERACILLIN/TAZOBACTAM 3.375 GM in DEXTROSE 5% 100 ML IV SCH ×3 (05:54→20:54)
[2019-07-19] MEDS: BuPROPion XL 150 MG TABCR PO SCH (08:14)
[2019-07-19] MEDS: MAGNESIUM OXIDE 400 MG TAB PO SCH (08:14)
[2019-07-19] MEDS: GABAPENTIN 300 MG CAP PO SCH ×3 (08:14→20:55)
[2019-07-19] MEDS: SPIRONOLACTONE 25 MG TAB PO SCH (08:14)
[2019-07-19] MEDS: PANTOprazole 40 MG TAB PO SCH ×2 (08:15→20:55)
[2019-07-19] MEDS: MULTIVITAMIN TAB PO SCH (08:15)
[2019-07-19] MEDS: SUCRALFATE 1 GM TAB PO SCH ×4 (08:15→20:55)
[2019-07-19] MEDS: FUROSEMIDE 20 MG TAB PO SCH (08:15)
[2019-07-19 09:51] LABS: Basophils # (auto) 0.05 K/uL (0-0.2); Basophils % (auto) 0.2 %; Eosinophils # (auto) 0.23 K/uL (0-0.5); Hematocrit (blood only) 30.8 % (42-52); Hemoglobin 10.4 g/dL (14.0-18.0); Immature Granulocytes # (auto) 0.11 K/uL (0.00-0.02); Immature Granulocytes % (auto) 0.5 %; Lymphocytes # (auto) 1.71 K/uL (1.2-3.4); Lymphocytes % (auto) 7.1 %; Mean Corpuscular Hemoglobin 36.7 pg (25-34); Mean Corpuscular Hgb Conc 33.8 g/dL (32-36); Mean Corpuscular Volume 108.8 fL (80-100); Mean Platelet Volume 10.7 fL (7.4-10.4); Monocytes # (auto) 2.17 K/uL (0.11-0.59); Neutrophils % (auto) 82.2 %; Platelet Count 351 K/uL (130-400); RDW Coefficient of Variation 14.9 % (11.5-14.5); RDW Standard Deviation 58.6 fL (36.4-46.3); Red Blood Count 2.83 M/uL (4.7-6.1); White Blood Count 24.07 K/uL (4.8-10.8)
--- NOTE | 2019-07-19 10:02 | Communication Note ---
Date of Service: July 19, 2019 I reviewed the patient's medical record, and discussed the case in detail with Dr. Pittman. David Willett is a 43 yo CM with a PMHx of Laennec's cirrhosis complicated by ascites. He has had
[2019-07-19 10:06] LABS: INR 1.6 (0.9-1.1); Prothrombin Time 16.9 Seconds (9.0-12.0)
--- NOTE | 2019-07-19 10:09 | Gastrointestinal Consultation ---
Date of Consultation July 19, 2019 Assessment & Plan (1) Alcoholic cirrhosis of liver: (2) Ascites: (3) SOB (shortness of breath): (4) Leukocytosis: I think it is unlikely that this patient has SBP, as he did have negative ascitic fluid studies within the past week. I discussed the case in detail with Dr. Guerra and Dr. Pittman, and they do not feel COVID-19 testing is necessary due to low probability of positivity. Patient is currently in room with airborne precautions, and I asked nursing to clarify, as patient should not be in this level of precaution if not PUI, COVID +, or another underlying reason He will undergo a Paracentesis today, and I would request fluid studies which include a CBC with diff as well as C+S I would recommend removal of as much Ascitic fluid as possible. If greater than 5 liters of Ascitic fluid is removed, he will need Albumin (25 g for the first 5 liters, and 5-8g for each additional liter removed) Continue Zosyn at present per the primary team Recommend Renal consult secondary to SUNG Clearly the patient will need to continue to abstain from alcohol and need evaluation at a transplant center, however, he has drank within the past 2 weeks, and due to current Coronavirus pandemic availability is limited at this time. History of Present Illness Reason for Consultation: Cirrhosis, Ascites, Sepsis Attending Physician: Marc Pittman History of Present Illness David Willett is a 43 yo CM with a PMHx of Laennec's cirrhosis, ascites and 2 recent hospitalizations from 06/30-07/07, and from 07/12-07/13. During his most recent hospitalization he underwent a paracentesis and ascitic fluid studies were performed and showed NO evidence of SBP. He contacted our office on 07/17/2019, and complained of cough and intermittent abdominal pain. I spoke with him on the phone, and at that time, he stated that his abdominal pain was positional and he felt that it was secondary to the site of his prior paracentesis. He denied fevers or chills at that time, and was told to followup with his PCP if his cough worsened, or he had any fevers. He subsequently presented to the ER on 07/17 with cough, SOB, ascites, and was found to have leukocytosis. He was also noted to have SUNG. Ammonia level was normal. A Biofire in the ER was negative. Covid testing was not performed. I discussed this with both Dr. Pittman and Dr. Guerra, who felt COVID-19 testing was not needed at this time. It was felt that the patient's symptoms were related to his liver disease. He was subsequently admitted, and placed on Zosyn therapy. At the time I saw the patient he continued to have persistent cough. He describes it as dry. He denies fevers and chills. He does complain of pe rsistent abdominal pain which he describes as an ache. He denies alleviating or exacerbating factors. He states he has not had any alcohol in 2 weeks. He has no further complaints. Allergies Allergy/AdvReac Type Severity Reaction Status Date / Time ibuprofen AdvReac Intermediate MAKES HIM Verified 07/13/19 11:34 PUKE Home Medications Home Medications Medication Instructions Recorded Confirmed Type multivitamin [Daily-Mark] 1 tab PO QAM #1 tab 04/27/18 07/13/19 Rx bupropion HCl 150 mg PO QAM 07/18/18 07/13/19 History magnesium oxide 400 mg PO DAILY #30 cap 07/19/18 07/13/19 Rx pantoprazole 40 mg tablet,delayed 40 mg PO BID #60 tab 05/29/19 07/13/19 Rx release gabapentin 300 mg PO TID 07/01/19 07/13/19 History sucralfate 1 g PO ACHS 07/01/19 07/13/19 History furosemide [Lasix] 20 mg PO DAILY #30 tab 07/14/19 Rx spironolactone 25 mg PO DAILY #30 tab 07/14/19 Rx Patient History Medical History Alcoholism (Chronic) Anxiety Depression Esophagitis (Inactive) GERD (gastroesophageal reflux disease) Hypertension (Chronic) Kidney stones Surgical History History of esophagogastroduodenoscopy (EGD) Hx of vasectomy Family History Aunt Family history of diabetes mellitus Mother Family hx colonic polyps Other No family history of adverse response to anesthesia Denies family history of Crohn's disease Colorectal cancer Ulcerative colitis Social History Preferred Language: Maltese Communication Ability: Effective Visual Impairment: No Limitations [employer] Required: No Beliefs That Will Affect Care: None Current Living Situation: Family Current Living Situation Comment: rents a house Other Information That Helps Us Care for You: No Feels Safe at Home: Yes Safety Concerns: Feels Safe At This Time Smoking Status: Never smoker Second Hand Exposure: No ; Hx Alcohol Use: Yes Alcohol type: hard liquor Alcohol Intake Frequency Comment: hx of heavy use, now at 3-4 x/week Hx Substance Use: No Review of Systems Review of Systems: All systems reviewed & are unremarkable except as noted in HPI & below Physical Exam Constitutional: + ill appearing Juandiced, Vital signs as above Eyes: sclerae not anicteric ENMT: external ear and nose normal, oropharynx normal Respiratory: normal respiratory effort, lungs clear to auscultation Cardiovascular: RRR, no murmur, no edema Gastrointestinal (Abdomen): Inspection/Auscultation: + abdomen distended and normal bowel sounds Percussion/Palpation: + abdomen tender, abdomen soft and + fluid wave No appreciable HSM Skin: no rashes, warm and dry Psychiatric: A+Ox3, euthymic affect Results & Data ([facility]) Vital Signs (Past 12 Hours) Vital Signs Temp Pulse Resp BP BP Pulse Ox 07/19/19 08:00 37.2 C 110 H 20 111/68 95 07/19/19 03:08 36.5 C 110 H 24 131/93 96 07/18/19 23:42 36.5 C 110 H 24 126/88 96 PG Care Time/CCT Total # of Minutes Spent Total Time Spent with Patient: Total time spent is greater than 50% in coordination of care (as documented) at patient's floor/unit and/or counseling patient: Coding Level of Care Code 00148 Inpt Consult Level 3 Diagnoses Alcoholic cirrhosis of liver K70.31 Ascites presence: with ascites Ascites K70.11 Ascites type: due to alcoholic hepatitis SOB (shortness of breath) R06.02 Leukocytosis D72.829 Leukocytosis type: unspecified (1) Ascites Ascites type: due to alcoholic hepatitis Qualified Code(s): K70.11 - Alcoholic hepatitis with ascites (2) Leukocytosis Leukocytosis type: unspecified Qualified Code(s): D72.829 - Elevated white blood cell count, unspecified (3) Alcoholic cirrhosis of liver Ascites presence: with ascites Qualified Code(s): K70.31 - Alcoholic cirrhosis of liver with ascites
[2019-07-19 10:12] LABS: Albumin Level 2.2 gm/dl (3.4-5.0); Calcium 8.3 mg/dl (8.5-10.1); Creatinine Clr Calc Pharmacy 35.7 ml/min; Est GFR (African American) 35.4; Est GFR (Non-African American) 30.5; Potassium 3.8 mmol/L (3.5-5.1)
[2019-07-19 10:17] LABS: Albumin Globulin Ratio 0.6 (0.9-2); Bilirubin,Total 16.5 mg/dl (0.2-1); Globulin 3.4 gm/dl (2.5-4.0); Total Protein 5.6 gm/dl (6.4-8.2)
[2019-07-19] MEDS: ONDANSETRON INJ 2 MG/ML 2 ML VIAL IV PRN ×2 (13:46→21:25)
--- NOTE | 2019-07-19 15:28 | Ultrasound Report ---
US paracentesis abd w/image CLINICAL HISTORY: 43 years-old Male presenting with ascites. COMPARISON: 07/06/2019. PROCEDURE: The procedure and its risks, benefits, and alternatives were discussed with the patient, and written informed consent was obtained. A timeout was performed to confirm patient identity. Limited ultrasound of the abdomen was performed to determine a safe needle entry site, and the site w as marker for paracentesis. The right lower quadrant was prepped and draped in the usual aseptic fashion. 1% Lidocaine was used f or local anesthesia. A paracentesis needle-sheath was inserted into the peritoneal space using ultrasound guidance. The ne edle was removed and the sheath was connected to tubing and a vacuum suction device. A total of 4.1 L of clear yellow ascites was aspirated. The sheath was removed, and a dressing applied. The patient tolerated the procedure well. No immediate complications. IMPRESSION: Ultrasound-guided diagnostic and therapeutic paracentesis with aspiration of 4.1 L of ascites. ACT 112: Negative or not required by law. Electronically signed by: Efren Johnson M.D. 07/19/2019 3:27 PM
[2019-07-19 15:44] LABS: Albumin Peritoneal Fluid 0.6 g/dl
[2019-07-19 15:52] LABS: Total Protein Peritoneal Fluid 1.3 g/dl
[2019-07-19 16:30] LABS: Appearance Peritoneal Fluid CLEAR; Basophils, Fluid 0 %; Color Peritoneal Fluid YELLOW; Eosinophils, Fluid 0 %; Lymphocytes, Fluid 13 %; Mono,Macrophage,Mesothelial 65 %; Neutrophils, Fluid 22 %; RBC Peritoneal Fluid (A) < 3000 /uL; WBC Peritoneal Fluid (A) 115 /ul (0-300)
--- NOTE | 2019-07-19 22:08 | Hospitalist Progress Note ---
Date of Service July 19, 2019 Assessment & Plan (1) Alcoholic cirrhosis of liver: (1) Ascites: Admit PCU Initally concerned over possible COVID infection, however cough likely from ascities. Patient had similar presentation from last admission and improved after paracenthesis. D/W pulmonary, COVID infection seems unlikely as patient denies any sick contacts. His family who visits him has not had any sick contacts or travel to endemic region. Patient also reports having a cough in previous stay. 4 liters of ascitic fluid was removed, his cough and breathing has improved. D/W GI. Concern over possible source of infection: SBP. Patient will continue on antibiotics for now. Placed on zosyn will recheck cbc in AM. Right leg edema improving now that ascites has been removed, no pain in the that leg, if swelling doesn't continue to improve could consider a doppler, but with INR of 1.8 clot is less likely (2) Hyperbilirubinemia: Biliruben has increased since last admission to 19.2, no ruq pain. Likely secondary to alcoholic liver diasease Will consult GI (3) Anemia: Investigated last admission. Now slightly improved at 11. He did have a positive heme occult stool last admission. Continue home sucralfate and PPI Past EGD without esophageal varices GI consulted - had been recommended to have colonoscopy outpatient (4) Alcohol abuse: Patient reports he has not had a drink since before his last admission in mid June. (5) Gastric reflux: Continue ppi and sucralfate (6) Dyspnea: improved. 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 GI consulted (8) Jaundice: (9) CKD (chronic kidney disease), stage III: Last admission with SUNG, creat 1.6 which is not far from baseline (10) LACTIC ACIDOSIS: Severe sepsis likely secondary to SBP Will continue with antibiotics for now. (11) DVT prophylaxis: No chemoprophylaxis for elevated INR, will order SCDs (2) Ascites: (3) Leukocytosis: (4) Jaundice: Admission and Anticipated Discharge Date Admission Date: July 18, 2019 Subjective Patient reports that his breathing has improved after the paracenthesis. Review of Systems Review of Systems: All systems reviewed & are unremarkable except as noted in HPI & below Physical Exam Physical Exam: General: no distress Eyes: normal inspection, PERLL Respiratory: chest non tender, decreased breath sounds in the lower third. Cardiac: tachycardia and rhythm, no rub or gallop, no murmur, no edema, no jvd GI/: active bowel sounds, DISTENDED, FULL of fluid Extremities: normal range of motion, normal strength, non tender Neuro:oriented x 3, moves all extremities Psych: alert, normal mood and affect Skin:jaundiced, dry Results & Data Results & Data ([facility]) Vital Signs (Past 12 Hours) Vital Signs Temp Pulse Resp BP BP Pulse Ox 07/19/19 19:22 36.8 C 104 H 19 101/68 91 07/19/19 16:05 36.5 C 109 H 19 113/68 93 07/19/19 11:00 36.7 C 111 H 21 125/90 97 PG Care Time/CCT Total # of Minutes Spent Total Time Spent with Patient: Total time spent is greater than 50% in coordination of care (as documented) at patient's floor/unit and/or counseling patient: Coding Level of Care Code 49160 Subseq Hosp Care Lvl 3 Diagnoses Alcoholic cirrhosis of liver K70.31 Ascites presence: with ascites Ascites K70.11 Ascites type: due to alcoholic hepatitis Leukocytosis D72.829 Leukocytosis type: unspecified Jaundice R17 Time Spent (min) 35 (1) Ascites Ascites type: due to alcoholic hepatitis Qualified Code(s): K70.11 - Alcoholic hepatitis with ascites (2) Leukocytosis Leukocytosis type: unspecified Qualified Code(s): D72.829 - Elevated white blood cell count, unspecified (3) Alcoholic cirrhosis of liver Ascites presence: with ascites Qualified Code(s): K70.31 - Alcoholic cirrhosis of liver with ascites
[2019-07-20 03:22] LABS: Appearance Urine Cloudy (Clear); Bacteria Urine Automated Negative (Negative); Blood Urine Trace (Negative); Color Urine Dark Yellow; Glucose Urine UA Negative (Negative); Ketones Urine Trace (Negative); Leukocyte Esterase Urine 1+ (Negative); Nitrite Urine Positive (Negative); Protein Urine Negative (Negative); Specific Gravity Urine 1.028 (1.000-1.030); Urobilinogen Urine Negative (Negative)
[2019-07-20 03:26] LABS: Bilirubin Urine 2+ (Negative)
[2019-07-20 03:27] LABS: Ictotest Urine Positive (Negative)
[2019-07-20] MEDS: PIPERACILLIN/TAZOBACTAM 3.375 GM in DEXTROSE 5% 100 ML IV SCH ×3 (06:02→21:23)
[2019-07-20] MEDS: ONDANSETRON INJ 2 MG/ML 2 ML VIAL IV PRN ×2 (06:07→21:15)
[2019-07-20] MEDS ORDERED: PROPRANOLOL HCL 10 MG TAB PO STA (06:22)
--- NOTE | 2019-07-20 06:30 | Communication Note ---
Date of Service: July 20, 2019 Received report at 0620, that when attempting to get patient up to bedside urinal patient had a large dark colored emesis with a metallic smell; no epigast marii tenderness, abdominal pain, subsequent nausea after this episode. Based off patient's cirrhosis and previous varices, will give 10mg of Propanolol. Patient's VS prior to this episode; HR 106, BP 112/62, Sats 96% on RA
[2019-07-20] MEDS: PANTOprazole 40 MG TAB PO SCH ×2 (07:47→21:15)
[2019-07-20] MEDS: SUCRALFATE 1 GM TAB PO SCH ×4 (07:47→21:15)
[2019-07-20] MEDS: MULTIVITAMIN TAB PO SCH (07:47)
[2019-07-20] MEDS: GABAPENTIN 300 MG CAP PO SCH (07:47)
[2019-07-20] MEDS: FUROSEMIDE 20 MG TAB PO SCH (07:47)
[2019-07-20] MEDS: MAGNESIUM OXIDE 400 MG TAB PO SCH (07:47)
[2019-07-20] MEDS: BuPROPion XL 150 MG TABCR PO SCH (07:48)
[2019-07-20] MEDS: SPIRONOLACTONE 25 MG TAB PO SCH (07:48)
[2019-07-20 08:52] LABS: Hematocrit (blood only) 29.9 % (42-52); Hemoglobin 10.2 g/dL (14.0-18.0); Mean Corpuscular Hgb Conc 34.1 g/dL (32-36); Mean Corpuscular Volume 108.3 fL (80-100); Mean Platelet Volume 10.6 fL (7.4-10.4); Platelet Count 331 K/uL (130-400); RDW Coefficient of Variation 14.9 % (11.5-14.5); RDW Standard Deviation 58.2 fL (36.4-46.3); Red Blood Count 2.76 M/uL (4.7-6.1); White Blood Count 29.08 K/uL (4.8-10.8)
[2019-07-20 09:05] LABS: INR 1.7 (0.9-1.1); Prothrombin Time 17.9 Seconds (9.0-12.0)
[2019-07-20 09:25] LABS: Basophils # (auto) 0.03 K/uL (0-0.2); Basophils % (auto) 0.1 %; Echinocytes 1+; Eosinophils # (auto) 0.09 K/uL (0-0.5); Eosinophils % (auto) 0.3 %; Immature Granulocytes # (auto) 0.15 K/uL (0.00-0.02); Immature Granulocytes % (auto) 0.5 %; Lymphocytes # (auto) 1.85 K/uL (1.2-3.4); Lymphocytes % (auto) 6.4 %; Monocytes # (auto) 2.38 K/uL (0.11-0.59); Monocytes % (auto) 8.2 %; Neutrophils # (auto) 24.58 K/uL (1.4-6.5); Neutrophils % (auto) 84.5 %
[2019-07-20 09:35] LABS: Albumin Globulin Ratio 0.6 (0.9-2); Albumin Level 2.1 gm/dl (3.4-5.0); BUN Creatinine Ratio 14.2 (10-20); Bilirubin,Total 14.9 mg/dl (0.2-1); Calcium 8.4 mg/dl (8.5-10.1); Creatinine Clr Calc Pharmacy 34.8 ml/min; Est GFR (African American) 34.4; Est GFR (Non-African American) 29.7; Globulin 3.4 gm/dl (2.5-4.0); Potassium 3.5 mmol/L (3.5-5.1); Total Protein 5.5 gm/dl (6.4-8.2)
--- NOTE | 2019-07-20 10:16 | Electrocardiogram Report ---
Test Reason : Blood Pressure : / mmHG Vent. Rate : 105 BPM Atrial Rate : 105 BPM P-R Int : 246 ms QRS Dur : 154 ms QT Int : 330 ms P-R-T Axes : 000 016 -03 degrees QTc Int : 436 ms Poor data quality, interpretation may be adversely affected Sinus tachycardia with 1st degree A-V block Inferior and anterior T wave abnormality Abnormal ECG When compared with ECG of 13-JUL-2019 11:59, No significant change Confirmed by Thomas Ragland ([id number]) on 07/20/2019 10:15:53 AM Referred By: REFERRED SELF Confirmed By:Thomas Ragland
--- NOTE | 2019-07-20 10:19 | Gastroenterology Progress Note ---
Date of Service July 20, 2019 Assessment & Plan (1) Alcoholic cirrhosis of liver: (2) Hematemesis: I discussed case with Dr. Boyd of Anesthesia. Due to questionable COVID status, with workup in the ER with [facility] which was negative, though no COVID testing, we will proceed with emergent EGD with COVID precautions. Continue current therapy Admission and Anticipated Discharge Date Admission Date: July 18, 2019 Subjective I was contacted by Dr. Butcher of Nephrology this AM to inform me that David Willett had witnessed hematemesis of 150 cc. The patient has remained HD stable, however, he does have a history of cirrhosis and questionable history of esophageal varices, though not seen on EGD in May 2018. Results & Data Results & Data ([facility]) Vital Signs (Past 12 Hours) Vital Signs Temp Pulse Pulse Resp BP BP Pulse Ox 07/20/19 06:33 102 H 20 106/68 07/20/19 04:18 36.7 C 106 H 20 112/62 96 07/20/19 02:24 105 H 07/19/19 23:09 36.4 C L 106 H 20 106/73 96 PG Care Time/CCT Total # of Minutes Spent Total Time Spent with Patient: Total time spent is greater than 50% in coordination of care (as documented) at patient's floor/unit and/or counseling patient: Coding Level of Care Code None Diagnoses Alcoholic cirrhosis of liver K70.31 Ascites presence: with ascites Hematemesis K92.0 (1) Alcoholic cirrhosis of liver Ascites presence: with ascites Qualified Code(s): K70.31 - Alcoholic cirrhosis of liver with ascites
--- NOTE | 2019-07-20 12:19 | Anesthesiology Consultation ---
Date of Service July 20, 2019 The patient was admitted one week ago with cough which improved once his ascites drained. He again presented with the same clinical picture two days ago. Since then his cough has subsided, but he vomited blood this morning. I spoke with Dr. Pittman who does not think the patient has COVID 19 at this time. The patient has been afebrile and his cough has improved. His elevated WBC count is thought to be due to spontaneous bacterial peritonitis. Assessment & Plan (1) Encounter for pre-operative examination: Chart Review Chart Review: Acceptable Risk for Surgery (patient is elevated risk but surgery is necessary) and Patient NOT seen in Pre Admission Testing Consults Requested none History Surgery Operation Date: 07/20/19 08:50 Proposed Procedures p Esophagogastroduodenoscopy - Yusef GThien Case, DO Height/Weight Height: 5 ft 7 in Weight: 73.3 kg Allergies Allergy/AdvReac Type Severity Reaction Status Date / Time ibuprofen AdvReac Intermediate MAKES HIM Verified 07/13/19 11:34 PUKE Medications Home Medications Medication Instructions Recorded Confirmed Last Taken multivitamin [Daily-Mark] 1 tab PO QAM #1 tab 04/27/18 07/13/19 07/13/19 bupropion HCl 150 mg PO QAM 07/18/18 07/13/19 07/13/19 magnesium oxide 400 mg PO DAILY #30 cap 07/19/18 07/13/19 07/13/19 pantoprazole 40 mg tablet,delayed 40 mg PO BID #60 tab 05/29/19 07/13/19 07/13/19 release gabapentin 300 mg PO TID 07/01/19 07/13/19 07/13/19 sucralfate 1 g PO ACHS 07/01/19 07/13/19 07/12/19 furosemide [Lasix] 20 mg PO DAILY #30 tab 07/14/19 Unknown spironolactone 25 mg PO DAILY #30 tab 07/14/19 Unknown Active Medications Generic Name Dose Route Start Last Admin Trade Name Freq PRN Reason Stop Dose Admin Bupropion HCl 150 mg 07/19/19 09:00 07/20/19 07:48 Wellbutrin-Xl PO 08/18/19 08:59 150 mg QAM ALVERTO Administration Furosemide 20 mg 07/19/19 09:00 07/20/19 07:47 Lasix PO 08/18/19 08:59 20 mg DAILY ALVERTO Administration Gabapentin 300 mg 07/18/19 21:00 07/20/19 07:47 Neurontin PO 08/17/19 20:59 300 mg TID ALVERTO Administration Piperacillin Sod/Tazobactam 115 mls @ 28.75 mls/hr 07/18/19 22:00 07/20/19 10:12 Sod 3.375 gm/ Dextrose IV 07/28/19 21:59 Infused Q8H ALVERTO Infusion Protocol Magnesium Oxide 400 mg 07/19/19 09:00 07/20/19 07:47 Mag-Ox PO 08/18/19 08:59 400 mg DAILY ALVERTO Administration Multivitamins 1 tab 07/19/19 09:00 07/20/19 07:47 Multivitamin Tab PO 08/18/19 08:59 1 tab QAM ALVERTO Administration Ondansetron HCl 4 mg 07/19/19 13:29 07/20/19 06:07 Zofran IV 08/18/19 13:28 4 mg Q6H PRN Administration Nausea Pantoprazole Sodium 40 mg 07/18/19 21:00 07/20/19 07:47 Protonix PO 08/17/19 20:59 40 mg BID ALVERTO Administration Spironolactone 25 mg 07/19/19 09:00 07/20/19 07:48 Aldactone PO 08/18/19 08:59 25 mg DAILY ALVERTO Administration Sucralfate 1 gm 07/18/19 21:00 07/20/19 11:04 Carafate Tab PO 08/17/19 20:59 Not Given ACHS ALVERTO NPO Date Last Intake of Fluids: 07/19/19 Time Last Intake of Fluids: 08:00 Date Last Intake of Solids: 07/19/19 Time Last Intake of Solids: 10:00 Past Medical History Medical History Alcoholism (Chronic) Anxiety Depression Esophagitis (Inactive) GERD (gastroesophageal reflux disease) Hypertension (Chronic) Kidney stones Past Family History Family History Aunt Family history of diabetes mellitus Mother Family hx colonic polyps Other No family history of adverse response to anesthesia Denies family history of Crohn's disease Colorectal cancer Ulcerative colitis Past Surgical History Surgical History History of esophagogastroduodenoscopy (EGD) Hx of vasectomy Social History Smoking Status: Never smoker Hx Alcohol Use: Yes Alcohol type: hard liquor alcohol intake frequency: 3 or more drinks per day Alcohol Intake Frequency Comment: quit drinking 20 days ago Hx Substance Use: No substance use type: marijuana Substance Use Type Other:: history Physical Exam Vital Signs Last Vital Signs Temp 36.8 C 07/20/19 12:18 Pulse 76 07/20/19 12:18 Resp 18 07/20/19 12:18 BP 124/69 07/20/19 12:18 Pulse Ox 98 07/20/19 12:18 Testing Laboratory Results 07/20/19 08:36 07/20/19 08:36 PT 17.9 Seconds (9.0-12.0) H 07/20/19 08:36 INR 1.7 (0.9-1.1) H 07/20/19 08:36 APTT 42.4 Seconds (21.0-31.0) H 07/18/19 14:40 Urine Color Dark Yellow 07/20/19 03:10 Urine Appearance Cloudy (Clear) A 07/20/19 03:10 Urine pH 5.0 (4.5-7.5) 07/20/19 03:10 Ur Specific [place] 1.028 (1.000-1.030) 07/20/19 03:10 Urine Protein Negative (Negative) 07/20/19 03:10 Urine Glucose (UA) Negative (Negative) 07/20/19 03:10 Urine Ketones Trace (Negative) H 07/20/19 03:10 Urine Nitrite Positive (Negative) A 07/20/19 03:10 Ur Leukocyte Esterase 1+ (Negative) H 07/20/19 03:10 Urine WBC (Auto) 5-10 /hpf (0-5) H 07/20/19 03:10 Urine RBC (Auto) 5-10 /hpf (0-4) H 07/20/19 03:10 U Hyaline Cast (Auto) 1-5 /lpf (0-5) 07/20/19 03:10 U Epithel Cells (Auto) 5-10 /lpf (0-5) H 07/20/19 03:10 Urine Bacteria (Auto) Negative (Negative) 07/20/19 03:10 07/19/19 Unknown Gram Stain - Final Peritoneal Fluid 07/18/19 14:40 Aerobic Blood Culture - Preliminary Blood No growth in Aerobic bottle after 24 hours. Anaerobic Blood Culture - Preliminary No growth in Anaerobic bottle after 24 hours. 07/18/19 14:43 Aerobic Blood Culture - Preliminary Blood No growth in Aerobic bottle after 24 hours. Anaerobic Blood Culture - Preliminary No growth in Anaerobic bottle after 24 hours. Electrocardiogram Date: 07/18/19 Findings: + ST @ (105) 1st degree AV block, anterior and inferior T wave abnormality Chest X-Ray Date: 07/18/19 SINGLE VIEW CHEST CLINICAL HISTORY: Dyspnea. FINDINGS: 2 AP, portable, upright chest radiographs are compared to study dated 07/13/2019. The examination is degraded by portable technique and patient rotation. The cardiomediastinal silhouette is unremarkable. There are low lung volumes with elevation of the right hemidiaphragm and bibasilar atelectasis. Chronic interstitial thickening is similar to previous. Foci of parenchymal scarring are noted in the left upper lobe. No large pleural effusion or pneumothorax is seen. The skeletal structures are osteopenic. The bony thorax is grossly intact. IMPRESSION: Low lung volumes with no acute cardiopulmonary abnormality. ACT 112: Negative or not required by law. Electronically signed by: Sabas Muñiz M.D. 07/18/2019 2:25 PM Dictated: 07/18/19 1416 Transcribed: 07/18/19 1416
[2019-07-20] MEDS ORDERED: LIDOCAINE HCL 2% 2 ML VIAL/AMP(20MG/ML) INFIL ONE (12:26)
[2019-07-20] MEDS ORDERED: SUCCINYLCHOLINE 100MG/5ML SYR ONE (12:26)
[2019-07-20] MEDS ORDERED: PROPOFOL IV EMULSION 10 MG/ML 20 ML VIAL IV ONE (12:26)
[2019-07-20] MEDS ORDERED: MIDAZOLAM HCL 1 MG/ML 2ML VIAL ONE (13:00)
[2019-07-20] MEDS ORDERED: ONDANSETRON INJ 2 MG/ML 2 ML VIAL ONE (13:46)
[2019-07-20] MEDS ORDERED: PHENYLEPHRINE 100MCG/ML 5ML SYR IV PRN (14:03)
[2019-07-20] MEDS ORDERED: ATROPINE SULFATE 0.1 MG/ML 10ML SYR IV PRN (14:03)
[2019-07-20] MEDS ORDERED: ePHEDrine sulfate 50 MG/ML AMP IV PRN (14:03)
[2019-07-20] MEDS ORDERED: ONDANSETRON INJ 2 MG/ML 2 ML VIAL IV PRN (14:03)
--- NOTE | 2019-07-20 14:07 | GI REPORT ---
Patient Name: David Willett Procedure Date: 07/20/2019 12:41 PM Date of : 1975 Admit Type: Inpatient Age: 43 Gender: Male Attending MD: Yusef Hillman DO Procedure: Upper GI endoscopy Providers: Yusef Hillman DO Referring MD: Marc Pittman M.D. Indications: Hematemesis Medicines: General Anesthesia Complications: No immediate complications. Estimated Blood Loss: Estimated blood loss: none. Procedure: Pre-Anesthesia Assessment: - Prior to the procedure, a History and Physical was performed, and patient medications and allergies were reviewed. The patient's tolerance of previous anesthesia was also reviewed. The risks and benefits of the procedure and the sedation options and risks were discussed with the patient. All questions were answered, and informed consent was obtained. Prior Anticoagulants: The patient has taken no previous anticoagulant or antiplatelet agents. ASA Grade Assessment: IV - A patient with severe systemic disease that is a constant threat to life. After reviewing the risks and benefits, the patient was deemed in satisfactory condition to undergo the procedure. After obtaining informed consent, the endoscope was passed under direct vision. Throughout the procedure, the patient's blood pressure, pulse, and oxygen saturations were monitored continuously. The Endoscope was introduced through the mouth, and advanced to the second part of duodenum. The upper GI endoscopy was accomplished without difficulty. The patient tolerated the procedure well. Findings: Mildly severe esophagitis with no bleeding was found. Grade I varices were found in the distal esophagus. They were 5 mm in largest diameter. A small hiatal hernia was present. Diffuse moderate inflammation characterized by erythema and friability was found in the entire examined stomach. The examined duodenum was normal. Impression: - Mildly severe reflux esophagitis. - Grade I esophageal varices. - Small hiatal hernia. - Gastritis. - Normal examined duodenum. - No specimens collected. Recommendation: - Return patient to [facility] for ongoing care. - Low sodium diet. - Continue present medications. Yusef Hillman DO 07/20/2019 2:06:43 PM This report has been signed electronically. Note Initiated On: 07/20/2019 12:41 PM Number of Addenda: 0 I attest to the content of the Intraoperative Record and orders documented therein, exceptions below {[id number]}
--- NOTE | 2019-07-20 14:41 | Anesthesiology Progress Note ---
Date of Service July 20, 2019 Anesthesia Post Procedure Vital Signs Vital Signs: Temp Pulse Pulse Pulse Resp BP BP 07/20/19 14:35 102 H 16 91/58 L 07/20/19 14:27 36.0 C L 102 H 12 102/75 07/20/19 12:53 37 C 114 H 20 109/83 07/20/19 12:18 36.8 C 76 18 124/69 07/20/19 08:46 107 H 07/20/19 06:33 102 H 20 106/68 07/20/19 04:18 36.7 C 106 H 20 112/62 07/20/19 02:24 105 H 07/19/19 23:09 36.4 C L 106 H 20 106/73 07/19/19 19:22 36.8 C 104 H 19 101/68 07/19/19 16:05 36.5 C 109 H 19 113/68 Pulse Ox 07/20/19 14:35 96 07/20/19 14:27 100 07/20/19 12:53 96 07/20/19 12:18 98 07/20/19 08:46 07/20/19 06:33 07/20/19 04:18 96 07/20/19 02:24 07/19/19 23:09 96 07/19/19 19:22 91 07/19/19 16:05 93 Transfer of Care Handoff Completed per policy Notes Mental Status: alert / awake / arousable and participated in evaluation Patient Amnestic to Procedure: Yes Nausea / Vomiting: adequately controlled Pain: adequately controlled Airway Patency, RR, SpO2: stable & adequate BP & HR: stable & adequate Hydration State: stable & adequate Anesthetic Complications: no major complications apparent and Pt Satisfied with anesthetic care
--- NOTE | 2019-07-20 14:52 | Anesthesiology Progress Note ---
Date of Service July 20, 2019 Anesthesia Post Procedure Vital Signs Vital Signs: Temp Pulse Pulse Pulse Resp BP BP 07/20/19 14:35 102 H 16 91/58 L 07/20/19 14:27 36.0 C L 102 H 12 102/75 07/20/19 12:53 37 C 114 H 20 109/83 07/20/19 12:18 36.8 C 76 18 124/69 07/20/19 08:46 107 H 07/20/19 06:33 102 H 20 106/68 07/20/19 04:18 36.7 C 106 H 20 112/62 07/20/19 02:24 105 H 07/19/19 23:09 36.4 C L 106 H 20 106/73 07/19/19 19:22 36.8 C 104 H 19 101/68 07/19/19 16:05 36.5 C 109 H 19 113/68 Pulse Ox 07/20/19 14:35 96 07/20/19 14:27 100 07/20/19 12:53 96 07/20/19 12:18 98 07/20/19 08:46 07/20/19 06:33 07/20/19 04:18 96 07/20/19 02:24 07/19/19 23:09 96 07/19/19 19:22 91 07/19/19 16:05 93 Transfer of Care Handoff Completed per policy Notes Mental Status: alert / awake / arousable Patient Amnestic to Procedure: Yes Nausea / Vomiting: adequately controlled Pain: adequately controlled Airway Patency, RR, SpO2: stable & adequate BP & HR: stable & adequate Hydration State: stable & adequate Anesthetic Complications: no major complications apparent and Pt Satisfied with anesthetic care
[2019-07-20] MEDS: NORMOSOL-R 1,000 ML IV SCH ×2 (15:27→23:14)
[2019-07-20] MEDS ORDERED: SPIRONOLACTONE 25 MG TAB PO ONE (16:43)
--- NOTE | 2019-07-20 17:50 | Nephrology Consultation ---
Date of Consultation July 20, 2019 Assessment & Plan (1) Alcoholic cirrhosis of liver: (2) SUNG (acute kidney injury): David is a 43 year-old male with alcoholic cirrhosis complicated by ascites and grade 1 varices without bleed. Current MELD 31. Unfortunately, David continued to drink alcohol up until admission. He presented with abdominal pain and cough. David developed hematemesis. EGD demonstrated esophagitis. 4 L of ascitic fluid were drained yesterday. He has been on empiric antibiotics for SBP with Zosyn. Cultures and cell counts not diagnostic. Baseline creatinine has been approximately 1.5 mg/dL. Creatinine was 2.5 mg/dL on admission. It was stable at 2.5 mg/dL this morning. Repeat labs are pending. SUNG is non-oliguric. Urine sodium is 48. These findings do not support HRS1. David certainly has severe portal hypertension and systemic hypotension. His liver dysfunction is worsening and close monitoring will be necessary. Renal US was completed at the end of June which demonstrated normal appearing kidneys. Bladder demonstrated suggestion of chronic RAMOS. This is being monitored clinically for now. I started IV normosol this morning. I had held furosemide and Aldactone. Carafate has been held as well. Gabapentin was reduced from 300 mg TID to once daily dosing. I/O's are being documented. A metabolic profile will be repeated tomorrow AM. History of Present Illness Reason for Consultation: SUNG Requesting Physician: Marc Pittman Attending Physician: Marc Pittman History of Present Illness Mr. David Willett is a 43 year-old male with alcoholic cirrhosis who was seen in consultation this morning regarding acute renal insufficiency. Complications of cirrhosis include ascites and esophageal varices. David unfortunately continues to consume alcohol and is not listed for transplant. The patient was seen and evaluated this morning. At that time, David had bloody emesis. Dr. Hillman was contact and subsequent EGD performed. Esophagitis and grade 1 varices without active bleeding were noted. David has 2 recent hospital admissions at [facility] -- 06/30-07/07 and 07/12-07/13. During his most recent hospitalization he underwent a paracentesis and ascitic fluid studies were performed and showed no evidence of SBP. He was readmitted now with cough, fatigue and abdominal pain. Paracentesis with 4 L were removed yesterday. David remains on empiric antibiotic therapy with Zosyn. WBC has increased to 29+. He remains afebrile. Allergies Allergy/AdvReac Type Severity Reaction Status Date / Time ibuprofen AdvReac Intermediate MAKES HIM Verified 07/20/19 12:52 PUKE Home Medications Home Medications Medication Instructions Recorded Confirmed Type multivitamin [Daily-Mark] 1 tab PO QAM #1 tab 04/27/18 07/13/19 Rx bupropion HCl 150 mg PO QAM 07/18/18 07/13/19 History magnesium oxide 400 mg PO DAILY #30 cap 07/19/18 07/13/19 Rx pantoprazole 40 mg tablet,delayed 40 mg PO BID #60 tab 05/29/19 07/13/19 Rx release gabapentin 300 mg PO TID 07/01/19 07/13/19 History sucralfate 1 g PO ACHS 07/01/19 07/13/19 History furosemide [Lasix] 20 mg PO DAILY #30 tab 07/14/19 Rx spironolactone 25 mg PO DAILY #30 tab 07/14/19 Rx Patient History Medical History Alcoholism (Chronic) Anxiety Depression Esophagitis (Inactive) GERD (gastroesophageal reflux disease) Hypertension (Chronic) Kidney stones Surgical History History of esophagogastroduodenoscopy (EGD) Hx of vasectomy Family History Aunt Family history of diabetes mellitus Mother Family hx colonic polyps Other No family history of adverse response to anesthesia Denies family history of Crohn's disease Colorectal cancer Ulcerative colitis Social History Preferred Language: Greenlandic Communication Ability: Effective Visual Impairment: No Limitations Circulation Worker Required: No Beliefs That Will Affect Care: None Current Living Situation: Family Current Living Situation Comment: rents a house Other Information That Helps Us Care for You: No Feels Safe at Home: Yes Safety Concerns: Feels Safe At This Time Smoking Status: Never smoker Second Hand Exposure: No ; Hx Alcohol Use: Yes Alcohol type: hard liquor Alcohol Intake Frequency Comment: hx of heavy use, now at 3-4 x/week Hx Substance Use: No Review of Systems Review of Systems: All systems reviewed & are unremarkable except as noted in HPI & below Physical Exam Physical Exam: Limited due to COVID 19 pandemic. Exam findings based on conversation with patient's nurse and Dr. Pittman. Results & Data Vital Signs (Past 12 Hours) Vital Signs Temp Pulse Pulse Pulse Resp BP Pulse Ox 07/20/19 16:17 36.6 C 102 H 19 95/58 L 93 07/20/19 15:18 37.1 C 102 H 16 91/59 L 94 07/20/19 14:54 37.0 C 103 H 16 94/64 L 94 07/20/19 14:35 102 H 16 91/58 L 96 07/20/19 14:27 36.0 C L 102 H 12 102/75 100 07/20/19 12:53 37 C 114 H 20 109/83 96 07/20/19 12:18 36.8 C 76 18 124/69 98 07/20/19 08:46 107 H 07/20/19 06:33 102 H 20 106/68 Laboratory Results Laboratory Results - last 24 hr 07/20/19 07/20/19 07/20/19 00:50 03:10 08:36 WBC 29.08 H RBC 2.76 L Hgb 10.2 L Hct 29.9 L MCV 108.3 H MCH 37.0 H MCHC 34.1 RDW Std Deviation 58.2 H RDW Coeff of Rashida 14.9 H Plt Count 331 MPV 10.6 H Immature Gran % (Auto) 0.5 Neut % (Auto) 84.5 Lymph % (Auto) 6.4 Leake % (Auto) 8.2 Eos % (Auto) 0.3 Baso % (Auto) 0.1 Immature Gran # (Auto) 0.15 H Neut # (Auto) 24.58 H Lymph # (Auto) 1.85 Leake # (Auto) 2.38 H Eos # (Auto) 0.09 Baso # (Auto) 0.03 Echinocytes 1+ PT INR Sodium Potassium Chloride Carbon Dioxide Anion Gap BUN Creatinine Est Cr Clr Drug Dosing Est GFR ( Amer) Est GFR (Non-Af Amer) BUN/Creatinine Ratio Glucose Calcium Total Bilirubin AST ALT Alkaline Phosphatase Total Protein Albumin Globulin Albumin/Globulin Ratio Procalcitonin 1.47 H Urine Color Dark Yellow Urine Appearance Cloudy A Urine pH 5.0 Ur Specific Preston 1.028 Urine Protein Negative Urine Glucose (UA) Negative Urine Ketones Trace H Urine Blood Trace H Urine Nitrite Positive A Urine Bilirubin 2+ H Urine Urobilinogen Negative Ur Leukocyte Esterase 1+ H Urine WBC (Auto) 5-10 H Urine RBC (Auto) 5-10 H U Hyaline Cast (Auto) 1-5 U Epithel Cells (Auto) 5-10 H Urine Bacteria (Auto) Negative Ur Random Sodium 07/20/19 07/20/19 07/20/19 08:36 08:36 12:35 WBC RBC Hgb Hct MCV MCH MCHC RDW Std Deviation RDW Coeff of Rashida Plt Count MPV Immature Gran % (Auto) Neut % (Auto) Lymph % (Auto) [place]ake % (Auto) Eos % (Auto) Baso % (Auto) Immature Gran # (Auto) Neut # (Auto) Lymph # (Auto) [place]ake # (Auto) Eos # (Auto) Baso # (Auto) Echinocytes PT 17.9 H INR 1.7 H Sodium 136 Potassium 3.5 Chloride 104 Carbon Dioxide 21 Anion Gap 11.0 BUN 36 H Creatinine 2.53 H Est Cr Clr Drug Dosing 34.8 Est GFR ( Amer) 34.4 Est GFR (Non-Af Amer) 29.7 BUN/Creatinine Ratio 14.2 Glucose 100 H Calcium 8.4 L Total Bilirubin 14.9 H AST 170 H ALT 63 Alkaline Phosphatase 149 H Total Protein 5.5 L Albumin 2.1 L Globulin 3.4 Albumin/Globulin Ratio 0.6 L Procalcitonin Urine Color Urine Appearance Urine pH Ur Specific Preston Urine Protein Urine Glucose (UA) Urine Ketones Urine Blood Urine Nitrite Urine Bilirubin Urine Urobilinogen Ur Leukocyte Esterase Urine WBC (Auto) Urine RBC (Auto) U Hyaline Cast (Auto) U Epithel Cells (Auto) Urine Bacteria (Auto) Ur Random Sodium 48 PG Care Time/CCT Total # of Minutes Spent Total Time Spent with Patient: Total time spent is greater than 50% in coordination of care (as documented) at patient's floor/unit and/or counseling patient: Coding Level of Care Code 23783 Inpt Consult Level 4 Diagnoses Alcoholic cirrhosis of liver K70.31 Ascites presence: with ascites SUNG (acute kidney injury) N17.9 (1) Alcoholic cirrhosis of liver Ascites presence: with ascites Qualified Code(s): K70.31 - Alcoholic cirrhosis of liver with ascites
[2019-07-20 19:26] LABS: BUN Creatinine Ratio 14.3 (10-20); Calcium 8.4 mg/dl (8.5-10.1); Creatinine Clr Calc Pharmacy 32.8 ml/min; Est GFR (African American) 31.9; Est GFR (Non-African American) 27.5; Potassium 3.7 mmol/L (3.5-5.1)
--- NOTE | 2019-07-20 23:01 | Hospitalist Progress Note ---
Date of Service July 20, 2019 Assessment & Plan (1) Alcoholic cirrhosis of liver: (1) Refractory Ascites: Admit PCU His cough improved after 4 liters of fluid were removed. Patient had similar presentation from last admission and improved after paracenthesis. D/W pulmonary, COVID infection seems unlikely as patient denies any sick contacts. His family who visits him has not had any sick contacts or travel to endemic region. Patient also reports having a cough in previous stay, which improved after paracenthesis. On antibiotics, but fluid analysis does not appear to be SBP. D/W GI. WBC continues to increase. Right leg edema improving now that ascites has been removed, no pain in the that leg, if swelling doesn't continue to improve could consider a doppler, but with INR of 1.8 clot is less likely (2) Hyperbilirubinemia: Bilirrubin has increased since last admission to 19.2, now down to 14.9; no ruq pain. Likely secondary to alcoholic liver disease Will consult GI. (3) Anemia: Investigated last admission. Now slightly improved at 11. He did have a positive heme occult stool last admission. Continue home sucralfate and PPI Past EGD without esophageal varices Had repeat EGD today, showed friable gastric mucosa. will add octreotide. GI consulted - had been recommended to have colonoscopy outpatient (4) Alcohol abuse: Patient reports he has not had a drink since before his last admission in mid June. (5) Gastric reflux: Continue ppi and sucralfate (6) Dyspnea: improved. 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 GI consulted (8) Jaundice: (9) Acute CKD (chronic kidney disease), stage III: creatinine has been gradually increasing (10) LACTIC ACIDOSIS: Unsure of source. Urine appears dirty possible UTI, but wouldn't explained such a high WBC Will continue with antibiotics for now. (11) Leukocytosis: as stated above. (12) DVT prophylaxis: No chemoprophylaxis for elevated INR, will order SCDs (2) Ascites: (3) Leukocytosis: (4) Jaundice: Admission and Anticipated Discharge Date Admission Date: July 18, 2019 Subjective Patient reports feeling well. He has had episodes of hematemesis, and had an upper EGD done earlier today. Patient reports he no longer is having a cough. Patient denies any abdominal pain, fever, chills, nausea, vomiting. Review of Systems Review of Systems: All systems reviewed & are unremarkable except as noted in HPI & below Physical Exam Physical Exam: General: no distress Eyes: normal inspection, PERLL Respiratory: chest non tender, improved breath sounds Cardiac: tachycardia and rhythm, no rub or gallop, no murmur, no edema, no jvd GI/: active bowel sounds, less distended Extremities: normal range of motion, normal strength, non tender Neuro:oriented x 3, moves all extremities, tremors while hands are extended. Psych: alert, normal mood and affect Skin:jaundiced, dry Results & Data Results & Data ([facility]) Vital Signs (Past 12 Hours) Vital Signs Temp Pulse Pulse Resp BP Pulse Ox 07/20/19 18:59 36.8 C 103 H 20 103/69 93 07/20/19 16:17 36.6 C 102 H 19 95/58 L 93 07/20/19 15:18 37.1 C 102 H 16 91/59 L 94 07/20/19 14:54 37.0 C 103 H 16 94/64 L 94 07/20/19 14:35 102 H 16 91/58 L 96 07/20/19 14:27 36.0 C L 102 H 12 102/75 100 07/20/19 12:53 37 C 114 H 20 109/83 96 07/20/19 12:18 36.8 C 76 18 124/69 98 PG Care Time/CCT Total # of Minutes Spent Total Time Spent with Patient: Total time spent is greater than 50% in coordination of care (as documented) at patient's floor/unit and/or counseling patient: Coding Level of Care Code 65286 Subseq Hosp Care Lvl 3 Diagnoses Alcoholic cirrhosis of liver K70.31 Ascites presence: with ascites Ascites K70.11 Ascites type: due to alcoholic hepatitis Leukocytosis D72.829 Leukocytosis type: unspecified Jaundice R17 Time Spent (min) 40 (1) Ascites Ascites type: due to alcoholic hepatitis Qualified Code(s): K70.11 - Alcoholic hepatitis with ascites (2) Leukocytosis Leukocytosis type: unspecified Qualified Code(s): D72.829 - Elevated white blood cell count, unspecified (3) Alcoholic cirrhosis of liver Ascites presence: with ascites Qualified Code(s): K70.31 - Alcoholic cirrhosis of liver with ascites
[2019-07-20] MEDS ORDERED: PHYTONADIONE 10 MG in SODIUM CHLORIDE 0.9% 50 ML IV ONE (23:38)
[2019-07-21] MEDS ORDERED: PROPRANOLOL HCL 10 MG TAB PO STA (00:27)
[2019-07-21 00:31] LABS: Hematocrit (blood only) 27.2 % (42-52); Hemoglobin 9.3 g/dL (14.0-18.0)
[2019-07-21] MEDS ORDERED: OCTREOTIDE ACETATE 50 MCG in SYRINGE 9.5 ML IV ONE (03:45)
[2019-07-21] MEDS: OCTREOTIDE ACETATE 500 MCG in 0.9 % SODIUM CHLORIDE 100 ML IV SCH ×2 (04:02→13:02)
[2019-07-21] MEDS: PANTOprazole 40 MG in SYRINGE 0 ML IV SCH ×2 (04:02→22:24)
--- NOTE | 2019-07-21 04:04 | Communication Note ---
Date of Service: July 21, 2019 Called by nursing at 2330, for continued hematemesis. Reported as dark red blood within emesis basin approximately 250mL. On arrival to patient's room, patient in no discomfort, stating that he has continued to have this episodic emesis, and feels like he just can't keep anything down. Mouth and oral mucosa with dried sanguinous appearing fluid, abdomen non-tender, non-distended, bowel sounds active. Reviewed EGD report, demonstrating esophageal varices but no active gastric or esophageal bleeds. Pt INR today of 1.7, Repeat H&H ordered demonstrating Hgb of 9.3, down from 10.2 earlier in the day. Ordered 10mg of IV Vitamin K, and 10mg PO propanolol for decreased variceal burden. Patient made NPO Recalled to bedside, as patient has bright red hematemesis; abdomen non-tender, non-distended, bowel sounds active. Started Octreotide 50mcg IV bolus with then 50mcg/hr infusion, switched PPI from PO to IV. Repeat Hgb 9.0, INR elevated to 1.8, Albumin 2.0, Cr 2.77 Spoke with 07/21/19 07/21/19 07/21/19 Range/Units 04:15 04:15 04:15 WBC 23.71 H (4.8-10.8) K/uL RBC 2.45 L (4.7-6.1) M/uL Hgb 9.0 L (14.0-18.0) g/dL Hct 26.9 L (42-52) % MCV 109.8 H (80-100) fL MCH 36.7 H (25-34) pg MCHC 33.5 (32-36) g/dL RDW Std Deviation 59.1 H (36.4-46.3) fL RDW Coeff of Rashida 14.9 H (11.5-14.5) % Plt Count 345 (130-400) K/uL MPV 10.6 H (7.4-10.4) fL Immature Gran % (Auto) % Neut % (Auto) % Lymph % (Auto) % [place] % (Auto) % Eos % (Auto) % Baso % (Auto) % Immature Gran # (Auto) (0.00-0.02) K/uL Neut # (Auto) (1.4-6.5) K/uL Lymph # (Auto) (1.2-3.4) K/uL [place] # (Auto) (0.11-0.59) K/uL Eos # (Auto) (0-0.5) K/uL Baso # (Auto) (0-0.2) K/uL Echinocytes PT 18.1 H (9.0-12.0) Seconds INR 1.8 H (0.9-1.1) Sodium 136 (136-145) mmol/L Potassium 3.8 (3.5-5.1) mmol/L Chloride 104 (98-107) mmol/L Carbon Dioxide 25 (21-32) mmol/L Anion Gap 7.0 (3-11) BUN 43 H (7-18) mg/dl Creatinine 2.77 H (0.6-1.4) mg/dl Est Cr Clr Drug Dosing 31.8 ml/min Est GFR ( Amer) 30.8 Est GFR (Non-Af Amer) 26.6 BUN/Creatinine Ratio 15.5 (10-20) Glucose 102 H (70-99) mg/dl Calcium 8.0 L (8.5-10.1) mg/dl Total Bilirubin 14.3 H (0.2-1) mg/dl AST 158 H (15-37) U/L ALT 62 (12-78) U/L Alkaline Phosphatase 141 H (45-117) U/L Total Protein 5.1 L (6.4-8.2) gm/dl Albumin 2.0 L (3.4-5.0) gm/dl Globulin 3.1 (2.5-4.0) gm/dl Albumin/Globulin Ratio 0.6 L (0.9-2) Procalcitonin (0-0.5) ng/ml Ur Random Sodium mmol/L 07/21/19 07/20/19 07/20/19 Range/Units 00:05 18:29 12:35 WBC (4.8-10.8) K/uL RBC (4.7-6.1) M/uL Hgb 9.3 L (14.0-18.0) g/dL Hct 27.2 L (42-52) % MCV (80-100) fL MCH (25-34) pg MCHC (32-36) g/dL RDW Std Deviation (36.4-46.3) fL RDW Coeff of Rashida (11.5-14.5) % Plt Count (130-400) K/uL MPV (7.4-10.4) fL Immature Gran % (Auto) % Neut % (Auto) % Lymph % (Auto) % [place] % (Auto) % Eos % (Auto) % Baso % (Auto) % Immature Gran # (Auto) (0.00-0.02) K/uL Neut # (Auto) (1.4-6.5) K/uL Lymph # (Auto) (1.2-3.4) K/uL [place] # (Auto) (0.11-0.59) K/uL Eos # (Auto) (0-0.5) K/uL Baso # (Auto) (0-0.2) K/uL Echinocytes PT (9.0-12.0) Seconds INR (0.9-1.1) Sodium 136 (136-145) mmol/L Potassium 3.7 (3.5-5.1) mmol/L Chloride 103 (98-107) mmol/L Carbon Dioxide 24 (21-32) mmol/L Anion Gap 9.0 (3-11) BUN 39 H (7-18) mg/dl Creatinine 2.69 H (0.6-1.4) mg/dl Est Cr Clr Drug Dosing 32.8 ml/min Est GFR ( Amer) 31.9 Est GFR (Non-Af Amer) 27.5 BUN/Creatinine Ratio 14.3 (10-20) Glucose 105 H (70-99) mg/dl Calcium 8.4 L (8.5-10.1) mg/dl Total Bilirubin (0.2-1) mg/dl AST (15-37) U/L ALT (12-78) U/L Alkaline Phosphatase (45-117) U/L Total Protein (6.4-8.2) gm/dl Albumin (3.4-5.0) gm/dl Globulin (2.5-4.0) gm/dl Albumin/Globulin Ratio (0.9-2) Procalcitonin (0-0.5) ng/ml Ur Random Sodium 48 mmol/L 07/20/19 07/20/19 07/20/19 Range/Units 08:36 08:36 08:36 WBC 29.08 H (4.8-10.8) K/uL RBC 2.76 L (4.7-6.1) M/uL Hgb 10.2 L (14.0-18.0) g/dL Hct 29.9 L (42-52) % MCV 108.3 H (80-100) fL MCH 37.0 H (25-34) pg MCHC 34.1 (32-36) g/dL RDW Std Deviation 58.2 H (36.4-46.3) fL RDW Coeff of Rashida 14.9 H (11.5-14.5) % Plt Count 331 (130-400) K/uL MPV 10.6 H (7.4-10.4) fL Immature Gran % (Auto) 0.5 % Neut % (Auto) 84.5 % Lymph % (Auto) 6.4 % [place] % (Auto) 8.2 % Eos % (Auto) 0.3 % Baso % (Auto) 0.1 % Immature Gran # (Auto) 0.15 H (0.00-0.02) K/uL Neut # (Auto) 24.58 H (1.4-6.5) K/uL Lymph # (Auto) 1.85 (1.2-3.4) K/uL [place] # (Auto) 2.38 H (0.11-0.59) K/uL Eos # (Auto) 0.09 (0-0.5) K/uL Baso # (Auto) 0.03 (0-0.2) K/uL Echinocytes 1+ PT 17.9 H (9.0-12.0) Seconds INR 1.7 H (0.9-1.1) Sodium 136 (136-145) mmol/L Potassium 3.5 (3.5-5.1) mmol/L Chloride 104 (98-107) mmol/L Carbon Dioxide 21 (21-32) mmol/L Anion Gap 11.0 (3-11) BUN 36 H (7-18) mg/dl Creatinine 2.53 H (0.6-1.4) mg/dl Est Cr Clr Drug Dosing 34.8 ml/min Est GFR ( Amer) 34.4 Est GFR (Non-Af Amer) 29.7 BUN/Creatinine Ratio 14.2 (10-20) Glucose 100 H (70-99) mg/dl Calcium 8.4 L (8.5-10.1) mg/dl Total Bilirubin 14.9 H (0.2-1) mg/dl AST 170 H (15-37) U/L ALT 63 (12-78) U/L Alkaline Phosphatase 149 H (45-117) U/L Total Protein 5.5 L (6.4-8.2) gm/dl Albumin 2.1 L (3.4-5.0) gm/dl Globulin 3.4 (2.5-4.0) gm/dl Albumin/Globulin Ratio 0.6 L (0.9-2) Procalcitonin (0-0.5) ng/ml Ur Random Sodium mmol/L 07/20/19 Range/Units 00:50 WBC (4.8-10.8) K/uL RBC (4.7-6.1) M/uL Hgb (14.0-18.0) g/dL Hct (42-52) % MCV (80-100) fL MCH (25-34) pg MCHC (32-36) g/dL RDW Std Deviation (36.4-46.3) fL RDW Coeff of Rashida (11.5-14.5) % Plt Count (130-400) K/uL MPV (7.4-10.4) fL Immature Gran % (Auto) % Neut % (Auto) % Lymph % (Auto) % [place] % (Auto) % Eos % (Auto) % Baso % (Auto) % Immature Gran # (Auto) (0.00-0.02) K/uL Neut # (Auto) (1.4-6.5) K/uL Lymph # (Auto) (1.2-3.4) K/uL [place] # (Auto) (0.11-0.59) K/uL Eos # (Auto) (0-0.5) K/uL Baso # (Auto) (0-0.2) K/uL Echinocytes PT (9.0-12.0) Seconds INR (0.9-1.1) Sodium (136-145) mmol/L Potassium (3.5-5.1) mmol/L Chloride (98-107) mmol/L Carbon Dioxide (21-32) mmol/L Anion Gap (3-11) BUN (7-18) mg/dl Creatinine (0.6-1.4) mg/dl Est Cr Clr Drug Dosing ml/min Est GFR ( Amer) Est GFR (Non-Af Amer) BUN/Creatinine Ratio (10-20) Glucose (70-99) mg/dl Calcium (8.5-10.1) mg/dl Total Bilirubin (0.2-1) mg/dl AST (15-37) U/L ALT (12-78) U/L Alkaline Phosphatase (45-117) U/L Total Protein (6.4-8.2) gm/dl Albumin (3.4-5.0) gm/dl Globulin (2.5-4.0) gm/dl Albumin/Globulin Ratio (0.9-2) Procalcitonin 1.47 H (0-0.5) ng/ml Ur Random Sodium mmol/L Resident Activity Tracking Resident Involvement: Resident Care Provided Care Provided: Adult Hospital Medicine
[2019-07-21 04:30] LABS: Hematocrit (blood only) 26.9 % (42-52); Mean Corpuscular Hemoglobin 36.7 pg (25-34); Mean Corpuscular Hgb Conc 33.5 g/dL (32-36); Mean Corpuscular Volume 109.8 fL (80-100); Mean Platelet Volume 10.6 fL (7.4-10.4); Platelet Count 345 K/uL (130-400); RDW Coefficient of Variation 14.9 % (11.5-14.5); RDW Standard Deviation 59.1 fL (36.4-46.3); Red Blood Count 2.45 M/uL (4.7-6.1); White Blood Count 23.71 K/uL (4.8-10.8)
[2019-07-21 04:39] LABS: INR 1.8 (0.9-1.1); Prothrombin Time 18.1 Seconds (9.0-12.0)
[2019-07-21] MEDS ORDERED: SODIUM CHLORIDE 0.9% 250 ML IV PRN ×3 (04:42→22:42)
[2019-07-21 04:50] LABS: Albumin Globulin Ratio 0.6 (0.9-2); BUN Creatinine Ratio 15.5 (10-20); Bilirubin,Total 14.3 mg/dl (0.2-1); Creatinine Clr Calc Pharmacy 31.8 ml/min; Est GFR (African American) 30.8; Est GFR (Non-African American) 26.6; Globulin 3.1 gm/dl (2.5-4.0); Potassium 3.8 mmol/L (3.5-5.1); Total Protein 5.1 gm/dl (6.4-8.2)
[2019-07-21] MEDS: ALBUMIN 25% 50 ML IV SCH ×4 (05:37→23:36)
--- NOTE | 2019-07-21 05:39 | Hospitalist Progress Note ---
Date of Service July 21, 2019 Assessment & Plan (1) Hematemesis: - Initially dark appearing hematemesis, with progression to bright red blood - EGD report from 07/20/2019 indicates patient has grade 1 esophageal varices, with friability of gastric surfaces - 07/19 Hgb 10.2, subsequent H&H checks demonstrate new Hgb of 9.0 - INR 1.7, given 10 mg of vitamin K, subsequent recheck INR 1.8 - Patient given 10 mg propanolol for decrease of hepatic load on varices - Started on octreotide infusion at 50 mcg/h, switched Protonix to IV 40 mg twice daily - ordered 2 units of FFP, and 2 units of Albumin - Type and screen ordered - Q4h H&H ordered - Meld score of 32, potentially indicating need for evaluation by transplant center - ICU solution design engineer provider made aware of patient: patient currently not needing critical care management - GI: Dr. Hillman made aware of changes overnight: will evaluate in AM, patient was still consuming alcohol up until at least 2 weeks ago - If continued decline in VS, consider transfer to ICU or transplant center - Patient now strict n.p.o. - consented for blood Admission and Anticipated Discharge Date Admission Date: July 18, 2019 Subjective Called by nursing at 2330, for hematemesis. Reported as dark red blood within emesis basin approximately 250mL. On arrival to patient's room, patient in no discomfort, stating that he has continued to have this episodic emesis, and feels like he just can't keep anything down. Mouth and oral mucosa with dried sanguinous appearing fluid, abdomen non-tender, non-distended, bowel sounds active. Reviewed EGD report, demonstrating esophageal varices but no active gastric or esophageal bleeds. Pt INR earlier today of 1.7, Repeat H&H ordered demonstrating Hgb of 9.3, down from 10.2 earlier in the day. Ordered 10mg of IV Vitamin K, and 10mg PO propanolol for decreased variceal burden. Patient made NPO Recalled to bedside at 0330, as patient now has bright red hematemesis approximately 100mL; abdomen non-tender, non-distended, bowel sounds active. Started Octreotide 50mcg IV bolus with then 50mcg/hr infusion, switched PPI from PO to IV. Repeat Hgb 9.0, INR elevated to 1.8, Albumin 2.0, Cr 2.77 Spoke with ICU person on-call regarding concern of patient's risk for potential need for increase in level of care if patient continues to decompensate: at this time, patient does not necessitate critical care at this time Spoke with Dr. Hillman regarding these changes overnight. Review of Systems Review of Systems: All systems reviewed & are unremarkable except as noted in Subjective Physical Exam Constitutional: WD/WN, vitals as above Eyes: PERRLA, scleral icterus ENMT: erythematous oropharynx, with dried sanguinous materials on buccal surfaces Neck: normal visual inspection Respiratory: normal respiratory effort, lungs clear to auscultation Cardiovascular: Rate/Rhythm: regular rhythm and + tachycardic Heart Sounds: no gallop, no murmur and no cardiac rub Vessels: no JVD Gastrointestinal (Abdomen): Inspection/Auscultation: normal bowel sounds; abdomen not distended Percussion/Palpation: abdomen soft and + ascites; abdomen nontender and no guarding Musculoskeletal: no cyanosis or clubbing, extremities motor strength 5/5 Skin: + jaundice Neurologic: CN's II-XI intact bilaterally and plantar reflexes intact bilaterally Psychiatric: A+Ox3, euthymic affect Lymphatic: no cervical or axillary lymphadenopathy Results & Data Results & Data ([facility]) Vital Signs (Past 12 Hours) Vital Signs Temp Pulse Pulse Resp BP Pulse Ox 07/21/19 03:30 36.9 C 79 16 103/72 91 07/21/19 00:30 36.9 C 102 H 18 105/64 92 07/21/19 00:15 36.9 C 101 H 18 102/72 92 07/20/19 23:27 37.0 C 105 H 18 103/70 91 07/20/19 18:59 36.8 C 103 H 20 103/69 93 Laboratory Results 07/21/19 07/21/19 07/21/19 Range/Units 05:07 04:15 04:15 WBC 23.71 H (4.8-10.8) K/uL RBC 2.45 L (4.7-6.1) M/uL Hgb 9.0 L (14.0-18.0) g/dL Hct 26.9 L (42-52) % MCV 109.8 H (80-100) fL MCH 36.7 H (25-34) pg MCHC 33.5 (32-36) g/dL RDW Std Deviation 59.1 H (36.4-46.3) fL RDW Coeff of Rashida 14.9 H (11.5-14.5) % Plt Count 345 (130-400) K/uL MPV 10.6 H (7.4-10.4) fL Immature Gran % (Auto) % Neut % (Auto) % Lymph % (Auto) % [place] % (Auto) % Eos % (Auto) % Baso % (Auto) % Immature Gran # (Auto) (0.00-0.02) K/uL Neut # (Auto) (1.4-6.5) K/uL Lymph # (Auto) (1.2-3.4) K/uL [place] # (Auto) (0.11-0.59) K/uL Eos # (Auto) (0-0.5) K/uL Baso # (Auto) (0-0.2) K/uL Echinocytes PT 18.1 H (9.0-12.0) Seconds INR 1.8 H (0.9-1.1) Sodium (136-145) mmol/L Potassium (3.5-5.1) mmol/L Chloride (98-107) mmol/L Carbon Dioxide (21-32) mmol/L Anion Gap (3-11) BUN (7-18) mg/dl Creatinine (0.6-1.4) mg/dl Est Cr Clr Drug Dosing ml/min Est GFR ( Amer) Est GFR (Non-Af Amer) BUN/Creatinine Ratio (10-20) Glucose (70-99) mg/dl Calcium (8.5-10.1) mg/dl Total Bilirubin (0.2-1) mg/dl AST (15-37) U/L ALT (12-78) U/L Alkaline Phosphatase (45-117) U/L Total Protein (6.4-8.2) gm/dl Albumin (3.4-5.0) gm/dl Globulin (2.5-4.0) gm/dl Albumin/Globulin Ratio (0.9-2) Procalcitonin (0-0.5) ng/ml Ur Random Sodium mmol/L Blood Type Pending Antibody Screen Pending 07/21/19 07/21/19 07/20/19 Range/Units 04:15 00:05 18:29 WBC (4.8-10.8) K/uL RBC (4.7-6.1) M/uL Hgb 9.3 L (14.0-18.0) g/dL Hct 27.2 L (42-52) % MCV (80-100) fL MCH (25-34) pg MCHC (32-36) g/dL RDW Std Deviation (36.4-46.3) fL RDW Coeff of Rashida (11.5-14.5) % Plt Count (130-400) K/uL MPV (7.4-10.4) fL Immature Gran % (Auto) % Neut % (Auto) % Lymph % (Auto) % [place] % (Auto) % Eos % (Auto) % Baso % (Auto) % Immature Gran # (Auto) (0.00-0.02) K/uL Neut # (Auto) (1.4-6.5) K/uL Lymph # (Auto) (1.2-3.4) K/uL [place] # (Auto) (0.11-0.59) K/uL Eos # (Auto) (0-0.5) K/uL Baso # (Auto) (0-0.2) K/uL Echinocytes PT (9.0-12.0) Seconds INR (0.9-1.1) Sodium 136 136 (136-145) mmol/L Potassium 3.8 3.7 (3.5-5.1) mmol/L Chloride 104 103 (98-107) mmol/L Carbon Dioxide 25 24 (21-32) mmol/L Anion Gap 7.0 9.0 (3-11) BUN 43 H 39 H (7-18) mg/dl Creatinine 2.77 H 2.69 H (0.6-1.4) mg/dl Est Cr Clr Drug Dosing 31.8 32.8 ml/min Est GFR ( Amer) 30.8 31.9 Est GFR (Non-Af Amer) 26.6 27.5 BUN/Creatinine Ratio 15.5 14.3 (10-20) Glucose 102 H 105 H (70-99) mg/dl Calcium 8.0 L 8.4 L (8.5-10.1) mg/dl Total Bilirubin 14.3 H (0.2-1) mg/dl AST 158 H (15-37) U/L ALT 62 (12-78) U/L Alkaline Phosphatase 141 H (45-117) U/L Total Protein 5.1 L (6.4-8.2) gm/dl Albumin 2.0 L (3.4-5.0) gm/dl Globulin 3.1 (2.5-4.0) gm/dl Albumin/Globulin Ratio 0.6 L (0.9-2) Procalcitonin (0-0.5) ng/ml Ur Random Sodium mmol/L Blood Type Antibody Screen 07/20/19 07/20/19 07/20/19 Range/Units 12:35 08:36 08:36 WBC (4.8-10.8) K/uL RBC (4.7-6.1) M/uL Hgb (14.0-18.0) g/dL Hct (42-52) % MCV (80-100) fL MCH (25-34) pg MCHC (32-36) g/dL RDW Std Deviation (36.4-46.3) fL RDW Coeff of Rashida (11.5-14.5) % Plt Count (130-400) K/uL MPV (7.4-10.4) fL Immature Gran % (Auto) % Neut % (Auto) % Lymph % (Auto) % [place] % (Auto) % Eos % (Auto) % Baso % (Auto) % Immature Gran # (Auto) (0.00-0.02) K/uL Neut # (Auto) (1.4-6.5) K/uL Lymph # (Auto) (1.2-3.4) K/uL [place] # (Auto) (0.11-0.59) K/uL Eos # (Auto) (0-0.5) K/uL Baso # (Auto) (0-0.2) K/uL Echinocytes PT 17.9 H (9.0-12.0) Seconds INR 1.7 H (0.9-1.1) Sodium 136 (136-145) mmol/L Potassium 3.5 (3.5-5.1) mmol/L Chloride 104 (98-107) mmol/L Carbon Dioxide 21 (21-32) mmol/L Anion Gap 11.0 (3-11) BUN 36 H (7-18) mg/dl Creatinine 2.53 H (0.6-1.4) mg/dl Est Cr Clr Drug Dosing 34.8 ml/min Est GFR ( Amer) 34.4 Est GFR (Non-Af Amer) 29.7 BUN/Creatinine Ratio 14.2 (10-20) Glucose 100 H (70-99) mg/dl Calcium 8.4 L (8.5-10.1) mg/dl Total Bilirubin 14.9 H (0.2-1) mg/dl AST 170 H (15-37) U/L ALT 63 (12-78) U/L Alkaline Phosphatase 149 H (45-117) U/L Total Protein 5.5 L (6.4-8.2) gm/dl Albumin 2.1 L (3.4-5.0) gm/dl Globulin 3.4 (2.5-4.0) gm/dl Albumin/Globulin Ratio 0.6 L (0.9-2) Procalcitonin (0-0.5) ng/ml Ur Random Sodium 48 mmol/L Blood Type Antibody Screen 07/20/19 07/20/19 Range/Units 08:36 00:50 WBC 29.08 H (4.8-10.8) K/uL RBC 2.76 L (4.7-6.1) M/uL Hgb 10.2 L (14.0-18.0) g/dL Hct 29.9 L (42-52) % MCV 108.3 H (80-100) fL MCH 37.0 H (25-34) pg MCHC 34.1 (32-36) g/dL RDW Std Deviation 58.2 H (36.4-46.3) fL RDW Coeff of Rashida 14.9 H (11.5-14.5) % Plt Count 331 (130-400) K/uL MPV 10.6 H (7.4-10.4) fL Immature Gran % (Auto) 0.5 % Neut % (Auto) 84.5 % Lymph % (Auto) 6.4 % [place] % (Auto) 8.2 % Eos % (Auto) 0.3 % Baso % (Auto) 0.1 % Immature Gran # (Auto) 0.15 H (0.00-0.02) K/uL Neut # (Auto) 24.58 H (1.4-6.5) K/uL Lymph # (Auto) 1.85 (1.2-3.4) K/uL [place] # (Auto) 2.38 H (0.11-0.59) K/uL Eos # (Auto) 0.09 (0-0.5) K/uL Baso # (Auto) 0.03 (0-0.2) K/uL Echinocytes 1+ PT (9.0-12.0) Seconds INR (0.9-1.1) Sodium (136-145) mmol/L Potassium (3.5-5.1) mmol/L Chloride (98-107) mmol/L Carbon Dioxide (21-32) mmol/L Anion Gap (3-11) BUN (7-18) mg/dl Creatinine (0.6-1.4) mg/dl Est Cr Clr Drug Dosing ml/min Est GFR ( Amer) Est GFR (Non-Af Amer) BUN/Creatinine Ratio (10-20) Glucose (70-99) mg/dl Calcium (8.5-10.1) mg/dl Total Bilirubin (0.2-1) mg/dl AST (15-37) U/L ALT (12-78) U/L Alkaline Phosphatase (45-117) U/L Total Protein (6.4-8.2) gm/dl Albumin (3.4-5.0) gm/dl Globulin (2.5-4.0) gm/dl Albumin/Globulin Ratio (0.9-2) Procalcitonin 1.47 H (0-0.5) ng/ml Ur Random Sodium mmol/L Blood Type Antibody Screen Medications Administered Current Inpatient Medications Bupropion HCl (Wellbutrin-Xl) 150 mg PO QAM [facility]VERT[facility] Stop: 08/18/19 08:59 Last Admin: 07/20/19 07:48 Dose: 150 mg Documented by: Furosemide (Lasix) 20 mg PO DAILY [facility] Stop: 08/18/19 08:59 Last Admin: 07/20/19 07:47 Dose: 20 mg Documented by: Gabapentin (Neurontin) 300 mg PO QD@08 [facility] Stop: 08/20/19 07:59 Piperacillin Sod/Tazobactam (Sod 3.375 gm/ Dextrose) 115 mls @ 28.75 mls/hr IV Q8H [facility]; Protocol Stop: 07/28/19 21:59 Last Infusion: 07/21/19 00:50 Dose: Infused Documented by: Parenteral Electrolytes (Normosol-R) 1,000 mls @ 125 mls/hr IV .Q8H [facility] Stop: 07/21/19 06:14 Last Admin: 07/20/19 23:14 Dose: 125 mls/hr Documented by: Octreotide Acetate 500 mcg/ (Sodium Chloride) 105 mls @ 10.5 mls/hr IV .Q10H [facility] Stop: 08/20/19 03:44 Last Admin: 07/21/19 04:02 Dose: 50 mcg/hr, 10.5 mls/hr Documented by: Pantoprazole Sodium 40 mg/ (Syringe) 10 mls @ 5 mls/min IV BID [facility] Stop: 08/20/19 03:49 Last Admin: 07/21/19 04:02 Dose: 5 mls/min Documented by: Sodium Chloride (Nss) 250 mls @ 15 mls/hr IV .[id number] PRN PRN Reason: For Transfusion Stop: 07/21/19 14:43 Albumin Human (Albumin 25%) 50 mls @ 50 mls/hr IV Q1H [facility] Stop: 07/21/19 06:59 Magnesium Oxide (Mag-Ox) 400 mg PO DAILY [facility] Stop: 08/18/19 08:59 Last Admin: 07/20/19 07:47 Dose: 400 mg Documented by: Miscellaneous Information (Consult) 1 ea N/A UD PRN PRN Reason: Consult Stop: 08/17/19 15:41 Multivitamins (Multivitamin Tab) 1 tab PO QAM [facility] Stop: 08/18/19 08:59 Last Admin: 07/20/19 07:47 Dose: 1 tab Documented by: Ondansetron HCl (Zofran) 4 mg IV Q6H PRN PRN Reason: Nausea Stop: 08/18/19 13:28 Last Admin: 07/20/19 21:15 Dose: 4 mg Documented by: Spironolactone (Aldactone) 50 mg PO DAILY [facility] Stop: 08/20/19 08:59 Sucralfate (Carafate Tab) 1 gm PO ACHS [facility] Stop: 08/17/19 20:59 Last Admin: 07/20/19 21:15 Dose: 1 gm Documented by: Resident Activity Tracking Resident Involvement: Resident Care Provided Care Provided: Adult Hospital Medicine
--- NOTE | 2019-07-21 05:48 | Gastroenterology Progress Note ---
Date of Service July 21, 2019 Assessment & Plan (1) Hematemesis: I spoke with the resident physician, and informed him that it is unlikely that the patient is having a variceal bleed, as varices were Grade I on exam yesterday, and he had no stigmata of variceal bleeding. The probable source of his bleeding is the general friability of his gastric mucosa and his elevated INR secondary to his liver disease. I would continue with his Octreotide gtt at 50 micrograms per hour Continue Protonix 40 mg BID (2) Alcoholic cirrhosis of liver: David has a poor prognosis, with decompensation of his cirrhosis, worsening renal function and GI bleeding. Recommended Dr. Stevens contact a tertiary center with Liver transplant team to get their opinion, however, I do not believe he is a transplant candidate at this time, due to his continued alcohol abuse. I would still reach out to them, however, to get their opinion. I would also recommend reevaluation of code status with the patient, as he has a poor prognosis, and his overall health has been declining with 3 hospitalizations within the past 3 weeks. (3) SUNG (acute kidney injury): I appreciate the input of Dr. Butcher (4) Alcoholic hepatitis: Prednisolone therapy has been held thusfar, due to possible infection and now current GI bleeding Admission and Anticipated Discharge Date Admission Date: July 18, 2019 Subjective I was contacted by Dr. Stevens, resident physician this AM, secondary to recurrent episode of hematemesis this AM and a decline in H/H from 10.2/29.9 yesterday, to today's level of 9.0/26.9. EGD was performed yesterday, and the patient was noted to have Grade I non-bleeding varices, mild esophagitis, a hiatal hernia and friable gastric mucosa with diffuse involvement, most likely consistent with portal hypertensive gastropathy. His calculated MELD score is 32, and his cirrhosis is secondary to alcohol abuse, with his most recent heavy use within the past month, as per the patient. His Discriminant function has been >32, however, prednisolone therapy was not advised due to suspected infection of unknown etiology. He does have worsening renal function as well, however, it is not consistent with HRS, and he has been seen by Dr. Butcher as recently as yesterday. In the past 8 days, he has had 2 therapeutic paracenteses, with fluid studies that have both been negative for SBP. He has had hallucinations during this admission, as well as tachycardia which could be consistent with alcohol withdrawal, for which he has been on the withdrawal protocol. Chest X- ray on admission showed no evidence of Hepatic hydrothorax. He has been on Zosyn therapy since admission with negative blood cultures and ascitic fluid culture at present. Review of Systems Review of Systems: Not performed Physical Exam Physical Exam: Not performed Results & Data Results & Data ([facility]) Vital Signs (Past 12 Hours) Vital Signs Temp Pulse Pulse Resp BP Pulse Ox 07/21/19 03:30 36.9 C 79 16 103/72 91 07/21/19 00:30 36.9 C 102 H 18 105/64 92 07/21/19 00:15 36.9 C 101 H 18 102/72 92 07/20/19 23:27 37.0 C 105 H 18 103/70 91 07/20/19 18:59 36.8 C 103 H 20 103/69 93 PG Care Time/CCT Total # of Minutes Spent Total Time Spent with Patient: Total time spent is greater than 50% in coordination of care (as documented) at patient's floor/unit and/or counseling patient: Coding Level of Care Code None Diagnoses Hematemesis K92.0 Alcoholic cirrhosis of liver K70.31 Ascites presence: with ascites SUNG (acute kidney injury) N17.9 Alcoholic hepatitis K70.10 (1) Alcoholic cirrhosis of liver Ascites presence: with ascites Qualified Code(s): K70.31 - Alcoholic cirrhosis of liver with ascites
[2019-07-21] MEDS: PIPERACILLIN/TAZOBACTAM 3.375 GM in DEXTROSE 5% 100 ML IV SCH ×3 (05:51→23:11)
[2019-07-21] MEDS: MAGNESIUM OXIDE 400 MG TAB PO SCH (07:45)
[2019-07-21] MEDS: SUCRALFATE 1 GM TAB PO SCH ×4 (07:45→22:24)
[2019-07-21] MEDS: BuPROPion XL 150 MG TABCR PO SCH (07:45)
[2019-07-21] MEDS: MULTIVITAMIN TAB PO SCH (07:46)
[2019-07-21 07:58] LABS: Hemoglobin 7.7 g/dL (14.0-18.0)
[2019-07-21] MEDS ORDERED: GABAPENTIN 300 MG CAP PO SCH (08:00)
[2019-07-21] MEDS ORDERED: SPIRONOLACTONE 25 MG TAB PO SCH (09:00)
[2019-07-21] MEDS: nadoloL 40 MG TAB PO SCH (09:24)
[2019-07-21] MEDS: MIDODRINE HCL 2.5 MG TAB PO SCH ×3 (09:24→15:48)
--- NOTE | 2019-07-21 09:35 | Hospitalist Progress Note ---
Date of Service July 21, 2019 Assessment & Plan (1) Alcoholic cirrhosis of liver: 43 yo male with alcoholic hepatitis and refractory ascitites. Last drink was mid June. Patient has been hospitalized 3 times in past 30 days which is a poor prognositicator Patient also has a high MELD score which is at 33 and has worsened during the hospital stay despite treatment. Had extensive discussion with patient regarding treatment plan and code status. Had discussion with Anika Ricks for possible transfer. Theyagreed with our treatment plan of holding diuretics for his worsening creatinine. Recommend continuing antibiotics though unknown source. Recommended to continue midorine, which was added prior to calling. Recommended to start albumin 25% 25 gr IV Q8H. (2) Ascites: Patient has refractory ascitites, Holding diuretics due to worsening kindey function. will add albumin as noted above. (3) Leukocytosis: Unknown source of infection. Possible urinary tract infection. following cultures. (4) Jaundice: from alcoholic ascitites (5) Hematemesis: EGD showed gradie 1 esophagela varices. On PPI, octreotide. will monitor (6) Lactic acidosis: POA.improed. (7) DVT prophylaxis: (8) Hepatic encephalopathy: patient was hallucinating yesterday but this has not been the case today. may require lactulose if this returns. Not exhibiting signs of alcohol withdrawal. (9) Acute blood loss anemia: will monitor hemoglobin later today. lkely from coagulopathy from cirrhosis. (10) Hepatorenal failure: Patient has acute hepatorenal failure. will continue to monitor. CODE: FULL CODE. DOES NOT WANT EXTENSIVE CODE STATUS Admission and Anticipated Discharge Date Admission Date: July 18, 2019 Subjective 43 yo male is in bed. He had a busy niight in which he had episodes of hematemesis. He currently reports feeling better. He reports yesterday that he had episodes where he was seeing things (like small toys) on his bed. However after speaking with nursing staff, no toys were ever o the bed. Today though he reports this has not been the case. Patient preferred [facility], for a location. Called [facility] for possible transfer. Spoke with Dr. Allison, to discuss posible transfer. He agreed with our treatment plan hich included holding diuretics, starting midodrine, continue antibiotics. He recommedned to start albumin 25%, 25 gr IV Q8H. Review of Systems Review of Systems: All systems reviewed & are unremarkable except as noted in HPI & below Physical Exam Physical Exam: General: no distress, jaundiced Eyes: normal inspection, PERLL Respiratory: chest non tender, improved breath sounds Cardiac: regular rate and rhythm, no rub or gallop, no murmur, no edema, no jvd GI/: active bowel sounds, less distended, mild ascitites Extremities: normal range of motion, normal strength, non tender Neuro:oriented x 3, moves all extremities, tremors while hands are extended. Psych: alert, normal mood and affect Skin:jaundiced, dry Results & Data Results & Data ([facility]) Vital Signs (Past 12 Hours) Vital Signs Temp Pulse Pulse Resp BP BP Pulse Ox 07/21/19 09:21 37.2 C 78 18 90/56 L 96 07/21/19 08:41 36.9 C 81 16 93/60 L 92 07/21/19 08:33 36.9 C 88 16 93/57 L 95 07/21/19 08:04 79 07/21/19 07:47 37.1 C 98 H 18 92/60 L 94 07/21/19 07:25 37.1 C 80 16 89/55 L 94 07/21/19 06:57 36.6 C 83 18 83/56 L 92 07/21/19 06:42 36.8 C 83 20 84/55 L 92 07/21/19 03:30 36.9 C 79 16 103/72 91 07/21/19 00:30 36.9 C 102 H 18 105/64 92 07/21/19 00:15 36.9 C 101 H 18 102/72 92 07/20/19 23:27 37.0 C 105 H 18 103/70 91 PG Care Time/CCT Total # of Minutes Spent Total Time Spent with Patient: Total time spent is greater than 50% in coordination of care (as documented) at patient's floor/unit and/or counseling patient: Prolonged Care Time Prolonged Care Time: Yes Total Prolonged Care Time: 65 8:00 TO 8:45 9:50 TO 10:10 Coding Level of Care Code 12672 Subseq Hosp Care Lvl 3 Diagnoses Alcoholic cirrhosis of liver K70.31 Ascites presence: with ascites Ascites K70.11 Ascites type: due to alcoholic hepatitis Leukocytosis D72.829 Leukocytosis type: unspecified Jaundice R17 Hematemesis K92.0 Lactic acidosis E87.2 DVT prophylaxis Z29.9 Hepatic encephalopathy K72.90 Acute blood loss anemia D62 Hepatorenal failure K76.7 Additional Codes Prolonged Care Time - Prolonged Care Time: Yes ([id number]) Time Spent (min) 65 (1) Ascites Ascites type: due to alcoholic hepatitis Qualified Code(s): K70.11 - Alcoholic hepatitis with ascites (2) Leukocytosis Leukocytosis type: unspecified Qualified Code(s): D72.829 - Elevated white blood cell count, unspecified (3) Alcoholic cirrhosis of liver Ascites presence: with ascites Qualified Code(s): K70.31 - Alcoholic cirrhosis of liver with ascites
[2019-07-21] MEDS ORDERED: ALBUMIN 25% 50 ML IV SCH ×4 (10:00→18:00)
--- NOTE | 2019-07-21 11:24 | Infectious Disease Consult ---
Date of Consultation July 21, 2019 Assessment & Plan (1) Hepatic encephalopathy: doubt infection, all culture remain negative. can continue current abx pending final cultures, if negative would suggest cipro 500mg bid prophlaxis for sbp as he remains high risk. liver transplant consult pending, may not be candidate due to etoh, gi following. (2) Chronic liver failure: (3) Leukocytosis: History of Present Illness Attending Physician: Marc Pittman pt admitted with abd fullness, has etoh cirrhosis and ESLD, was recently d/c on 07/13 for same, during that admission has almost 5 L removed, cultures negative. has had chronic leukocytosis and elevated LFTS. GI following, had EGD on 07/199 grade 1 varices noted, min hematemesis. wbc 23, creat 2.3, nephro following. blood culture negative. had 4 L fluid removed on 07/17 culture negative to date, ID consulted for elevated wbc. on zosyn, tolerating well. afebrile since admission. now tolerating clears, denies abd pain, no cp, sob, cough, deneis n/v/d. no f/c. Allergies Allergy/AdvReac Type Severity Reaction Status Date / Time ibuprofen AdvReac Intermediate MAKES HIM Verified 07/20/19 12:52 PUKE Home Medications Home Medications Medication Instructions Recorded Confirmed Type multivitamin [Daily-Mark] 1 tab PO QAM #1 tab 04/27/18 07/13/19 Rx bupropion HCl 150 mg PO QAM 07/18/18 07/13/19 History magnesium oxide 400 mg PO DAILY #30 cap 07/19/18 07/13/19 Rx pantoprazole 40 mg tablet,delayed 40 mg PO BID #60 tab 05/29/19 07/13/19 Rx release gabapentin 300 mg PO TID 07/01/19 07/13/19 History sucralfate 1 g PO ACHS 07/01/19 07/13/19 History furosemide [Lasix] 20 mg PO DAILY #30 tab 07/14/19 Rx spironolactone 25 mg PO DAILY #30 tab 07/14/19 Rx Patient History Medical History Alcoholism (Chronic) Anxiety Depression Esophagitis (Inactive) GERD (gastroesophageal reflux disease) Hypertension (Chronic) Kidney stones Surgical History History of esophagogastroduodenoscopy (EGD) Hx of vasectomy Family History Aunt Family history of diabetes mellitus Mother Family hx colonic polyps Other No family history of adverse response to anesthesia Denies family history of Crohn's disease Colorectal cancer Ulcerative colitis Social History Preferred Language: Nigerian Communication Ability: Effective Visual Impairment: No Limitations Line Haul Driver Required: No Beliefs That Will Affect Care: None Current Living Situation: Family Current Living Situation Comment: rents a house Other Information That Helps Us Care for You: No Feels Safe at Home: Yes Safety Concerns: Feels Safe At This Time Smoking Status: Never smoker Second Hand Exposure: No ; Hx Alcohol Use: Yes Alcohol type: hard liquor Alcohol Intake Frequency Comment: hx of heavy use, now at 3-4 x/week Hx Substance Use: No Review of Systems Review of Systems: All systems reviewed & are unremarkable except as noted in HPI & below Physical Exam Constitutional: WD/WN, vitals as above Eyes: PERRL, conjunctivae normal, anicteric sclerae + scleral abnormality ENMT: external ear and nose normal, oropharynx normal Neck: normal visual inspection Respiratory: normal respiratory effort, lungs clear to auscultation Cardiovascular: RRR, no murmur, no edema Gastrointestinal (Abdomen): normal bowel sounds, soft, nontender, no hepatosplenomegaly Inspection/Auscultation: + abdomen distended Musculoskeletal: no cyanosis or clubbing, extremities motor strength 5/5 Skin: no rashes, warm and dry + jaundice Psychiatric: A+Ox3, euthymic affect Results & Data ([facility]) Vital Signs (Past 12 Hours) Vital Signs Temp Pulse Pulse Resp BP BP Pulse Ox 07/21/19 10:37 36.8 C 83 20 91/58 L 94 07/21/19 09:52 36.7 C 75 18 91/60 L 94 07/21/19 09:47 36.9 C 77 18 95/62 L 93 07/21/19 09:37 36.7 C 79 16 92/62 L 94 07/21/19 09:21 37.2 C 78 18 90/56 L 96 07/21/19 08:41 36.9 C 81 16 93/60 L 92 07/21/19 08:33 36.9 C 88 16 93/57 L 95 07/21/19 08:04 79 07/21/19 07:47 37.1 C 98 H 18 92/60 L 94 07/21/19 07:25 37.1 C 80 16 89/55 L 94 07/21/19 06:57 36.6 C 83 18 83/56 L 92 07/21/19 06:42 36.8 C 83 20 84/55 L 92 07/21/19 03:30 36.9 C 79 16 103/72 91 07/21/19 00:30 36.9 C 102 H 18 105/64 92 07/21/19 00:15 36.9 C 101 H 18 102/72 92 07/20/19 23:27 37.0 C 105 H 18 103/70 91 Laboratory Results Microbiology 07/18/19 14:40 Blood Aerobic Blood Culture - Preliminary No growth in Aerobic bottle after 48 hours. 07/18/19 14:40 Blood Anaerobic Blood Culture - Preliminary No growth in Anaerobic bottle after 48 hours. 07/18/19 14:43 Blood Aerobic Blood Culture - Preliminary No growth in Aerobic bottle after 48 hours. 07/18/19 14:43 Blood Anaerobic Blood Culture - Preliminary No growth in Anaerobic bottle after 48 hours. 07/19/19 Unknown Peritoneal Fluid Gram Stain - Final 07/19/19 Unknown Peritoneal Fluid Aerobic and Anaerobic Culture - Preliminary No growth to date. PG Care Time/CCT Total # of Minutes Spent Total Time Spent with Patient: Total time spent is greater than 50% in coordination of care (as documented) at patient's floor/unit and/or counseling patient: Coding Level of Care Code 06645 Inpt Consult Level 4 Diagnoses Hepatic encephalopathy K72.90 Chronic liver failure K72.10 Hepatic coma status: without hepatic coma Leukocytosis D72.829 Leukocytosis type: unspecified (1) Leukocytosis Leukocytosis type: unspecified Qualified Code(s): D72.829 - Elevated white blood cell count, unspecified (2) Chronic liver failure Hepatic coma status: without hepatic coma Qualified Code(s): K72.10 - Chronic hepatic failure without coma
[2019-07-21 12:04] LABS: Hematocrit (blood only) 21.3 % (42-52); Hemoglobin 7.3 g/dL (14.0-18.0)
--- NOTE | 2019-07-21 13:35 | Nephrology Progress Note ---
Date of Service July 21, 2019 Assessment & Plan (1) Alcoholic cirrhosis of liver: (2) SUNG (acute kidney injury): David is a 43 year-old male with alcoholic cirrhosis complicated by ascites and grade 1 varices without bleed. MELD >30. Bilirubin is 14.3. INR has increased to 1.8. Oral vitamin K is being given. Hgb has dropped further to 7.3. Based on EGD findings, this is likely related to gastroesophagitis. Unfortunately, David continued to drink alcohol up until admission. He presented with abdominal pain and cough. David developed hematemesis. EGD demonstrated esophagitis and grade 1 varices without bleeding. 4 L of ascitic fluid were drained post admission. He has been on empiric antibiotics for SBP with Zosyn. Cultures and cell counts not diagnostic for SBP. Baseline creatinine has been approximately 1.5 mg/dL. Creatinine was 2.5 mg/dL on admission. It has now increased to 2.7 mg/dL this morning. He remains non- oliguric. A positive fluid balance with IV normosol was provided. There has been rapid reaccumulation of ascites. Urine sodium is 48. There may be a component of ATN. Despite the normal urine output and the elevated serum sodium, I would not exclude progressive HRS based on the clinical presentation. Overall, the prognosis is poor and condition guarded. David certainly has severe portal hypertension and systemic hypotension. His liver dysfunction is worsening and close monitoring will be necessary. Please continue the octreotide gtt at 50-100 mcg/hr. Provide IV albumin 25-50 grams 6-8 hours. Maintain a MAP goal of >65. Document strict I/O's and repeat a metabolic profile tomorrow AM. I discussed these recommendations with Dr. Pittman this morning. Renal US was completed at the end of June which demonstrated normal appearing kidneys. Bladder demonstrated suggestion of chronic RAMOS. Reza catheter has been placed. A non contrast CT scan has been ordered to hep evaluate abdominal pain as well. I have held furosemide and Aldactone. Carafate has been held as well. Gabapentin was reduced from 300 mg TID to once daily dosing. Subjective Additional ~250 ml of hematemesis noted overnight. David was feeling better at the time of my evaluation. He denies any melena. He denied significant pain but reported some persistent abdominal discomfort. No fevesr or chills. David did not seem to comprehend the severity of his illness. He asked if I thought he would be in the hospital much longer. I explained to him that there is a very serious risk of associated with decompensated liver disease, SUNG, and GI bleeding. I discussed the plan of care with Dr. Pittman. Unfortunately, due to continued alcohol use, transfer for possible transplant evaluation is unlikely. Urine output remains non oliguric but abdominal ascites is reaccumulating and BP has dropped. Nadaolol was added this morning. Octreotide gtt started overnight. Review of Systems Review of Systems: All systems reviewed & are unremarkable except as noted in HPI & below Physical Exam Physical Exam: Liimted due to COVID 19 pandemic. Constitutional: + ill appearing; not in distress Eyes: sclerae not anicteric ENMT: Mouth: + dry oral mucous membranes; no oral mucosal abnormality Neck: normal visual inspection and trachea midline Respiratory: normal respiratory effort Cardiovascular: Extremities: + edema (trace pedal) Gastrointestinal (Abdomen): Inspection/Auscultation: + abdomen distended Skin: + jaundice Neurologic: Motor/Sensory: no asterixis Psychiatric: Orientation: alert and oriented x 3 Results & Data Vital Signs (Past 12 Hours) Vital Signs Temp Pulse Pulse Resp BP BP Pulse Ox 07/21/19 11:47 36.4 C L 64 18 84/45 L 91 07/21/19 10:37 36.8 C 83 20 91/58 L 94 07/21/19 09:52 36.7 C 75 18 91/60 L 94 07/21/19 09:47 36.9 C 77 18 95/62 L 93 07/21/19 09:37 36.7 C 79 16 92/62 L 94 07/21/19 09:21 37.2 C 78 18 90/56 L 96 07/21/19 08:41 36.9 C 81 16 93/60 L 92 07/21/19 08:33 36.9 C 88 16 93/57 L 95 07/21/19 08:04 79 07/21/19 07:47 37.1 C 98 H 18 92/60 L 94 07/21/19 07:25 37.1 C 80 16 89/55 L 94 07/21/19 06:57 36.6 C 83 18 83/56 L 92 07/21/19 06:42 36.8 C 83 20 84/55 L 92 07/21/19 03:30 36.9 C 79 16 103/72 91 Laboratory Results Laboratory Results - last 24 hr 07/20/19 07/21/19 07/21/19 18:29 00:05 04:15 WBC RBC Hgb 9.3 L Hct 27.2 L MCV MCH MCHC RDW Std Deviation RDW Coeff of Rashida Plt Count MPV PT INR Sodium 136 136 Potassium 3.7 3.8 Chloride 103 104 Carbon Dioxide 24 25 Anion Gap 9.0 7.0 BUN 39 H 43 H Creatinine 2.69 H 2.77 H Est Cr Clr Drug Dosing 32.8 31.8 Est GFR ( Amer) 31.9 30.8 Est GFR (Non-Af Amer) 27.5 26.6 BUN/Creatinine Ratio 14.3 15.5 Glucose 105 H 102 H Calcium 8.4 L 8.0 L Total Bilirubin 14.3 H AST 158 H ALT 62 Alkaline Phosphatase 141 H Total Protein 5.1 L Albumin 2.0 L Globulin 3.1 Albumin/Globulin Ratio 0.6 L Blood Type Blood Type Recheck Antibody Screen 07/21/19 07/21/19 07/21/19 04:15 04:15 04:15 WBC 23.71 H RBC 2.45 L Hgb 9.0 L Hct 26.9 L MCV 109.8 H MCH 36.7 H MCHC 33.5 RDW Std Deviation 59.1 H RDW Coeff of Rashida 14.9 H Plt Count 345 MPV 10.6 H PT 18.1 H INR 1.8 H Sodium Potassium Chloride Carbon Dioxide Anion Gap BUN Creatinine Est Cr Clr Drug Dosing Est GFR ( Amer) Est GFR (Non-Af Amer) BUN/Creatinine Ratio Glucose Calcium Total Bilirubin AST ALT Alkaline Phosphatase Total Protein Albumin Globulin Albumin/Globulin Ratio Blood Type Blood Type Recheck A Positive Antibody Screen 07/21/19 07/21/19 07/21/19 05:07 07:45 11:48 WBC RBC Hgb 7.7 L 7.3 L Hct 23.0 L 21.3 L MCV MCH MCHC RDW Std Deviation RDW Coeff of Rashida Plt Count MPV PT INR Sodium Potassium Chloride Carbon Dioxide Anion Gap BUN Creatinine Est Cr Clr Drug Dosing Est GFR ( Amer) Est GFR (Non-Af Amer) BUN/Creatinine Ratio Glucose Calcium Total Bilirubin AST ALT Alkaline Phosphatase Total Protein Albumin Globulin Albumin/Globulin Ratio Blood Type A Positive Blood Type Recheck Antibody Screen NEGATIVE PG Care Time/CCT Total # of Minutes Spent Total Time Spent with Patient: Total time spent is greater than 50% in coordin ation of care (as documented) at patient's floor/unit and/or counseling patient: Coding Level of Care Code 82403 Subseq Hosp Care Lvl 3 Diagnoses Alcoholic cirrhosis of liver K70.31 Ascites presence: with ascites SUNG (acute kidney injury) N17.9 (1) Alcoholic cirrhosis of liver Ascites presence: with ascites Qualified Code(s): K70.31 - Alcoholic cirrhosis of liver with ascites
[2019-07-21] MEDS ORDERED: prednisoLONE SYRUP 15 MG/5 ML BTL PO STA (16:15)
[2019-07-21] MEDS ORDERED: GLUCAGON 5 MG in SYRINGE 0 ML IV STA (16:23)
[2019-07-21] MEDS ORDERED: PHYTONADIONE 10 MG in SODIUM CHLORIDE 0.9% 50 ML IV ONE (16:40)
[2019-07-21 17:02] LABS: Hematocrit (blood only) 20.9 % (42-52); Hemoglobin 6.9 g/dL (14.0-18.0)
[2019-07-21] MEDS ORDERED: LIDOCAINE HCL 2% 2 ML VIAL/AMP(20MG/ML) INFIL ONE (17:06)
[2019-07-21] MEDS ORDERED: ONDANSETRON INJ 2 MG/ML 2 ML VIAL ONE (17:06)
[2019-07-21] MEDS ORDERED: PROPOFOL IV EMULSION 10 MG/ML 20 ML VIAL IV ONE (17:06)
--- NOTE | 2019-07-21 17:13 | Gastroenterology Progress Note ---
Date of Service July 21, 2019 Assessment & Plan (1) Hematemesis: Agreed to repeat EGD now emergently due to continued hematemesis, despite PPI, Octreotide, Non-selective b-kody Prognosis is grim as patient has Multi-system organ failure EGD yesterday showed no definitive lesion which would allow for successful intervention, as entire stomach was friable, and there was no evidence of acute variceal hemorrhage. Patient is not a transplant candidate, and without evidence of variceal bleeding and elevated WBC of unknown etiology, he is not a TIPS candidate. Further recommendations will follow EGD (2) Alcoholic cirrhosis of liver: Admission and Anticipated Discharge Date Admission Date: July 18, [address] Pittman, secondary to acute hematemesis this afternoon. I discussed case with Dr. Pittman in detail. Patient remains a full code. Review of Systems Constitutional: + weakness; no fever and no chills Respiratory: + cough Cardiovascular: no chest pain Gastrointestinal: + hematemesis; no abdominal pain Physical Exam Constitutional: + ill appearing Respiratory: Auscultation: + diminished lung sounds (bilateral bases) Cardiovascular: Rate/Rhythm: regular rate and regular rhythm Gastrointestinal (Abdomen): Inspection/Auscultation: + abdomen distended Percussion/Palpation: + abdomen tender, abdomen soft and + ascites Skin: + jaundice Results & Data Results & Data ([facility]) Vital Signs (Past 12 Hours) Vital Signs Temp Pulse Pulse Resp BP BP BP 07/21/19 16:48 78/41 L 07/21/19 16:45 36.7 C 65 22 73/43 L 07/21/19 16:35 36.6 C 66 22 89/50 L 07/21/19 15:52 84/43 L 07/21/19 15:49 77/49 L 07/21/19 15:41 36.9 C 64 16 73/37 L 75/50 L 07/21/19 15:39 66 07/21/19 11:47 36.4 C L 64 18 84/45 L 07/21/19 10:37 36.8 C 83 20 91/58 L 07/21/19 09:52 36.7 C 75 18 91/60 L 07/21/19 09:47 36.9 C 77 18 95/62 L 07/21/19 09:37 36.7 C 79 16 92/62 L 07/21/19 09:21 37.2 C 78 18 90/56 L 07/21/19 08:41 36.9 C 81 16 93/60 L 07/21/19 08:33 36.9 C 88 16 93/57 L 07/21/19 08:04 79 07/21/19 07:47 37.1 C 98 H 18 92/60 L 07/21/19 07:25 37.1 C 80 16 89/55 L 07/21/19 06:57 36.6 C 83 18 83/56 L 07/21/19 06:42 36.8 C 83 20 84/55 L Pulse Ox 07/21/19 16:48 07/21/19 16:45 94 07/21/19 16:35 94 07/21/19 15:52 94 07/21/19 15:49 07/21/19 15:41 81 L 07/21/19 15:39 07/21/19 11:47 91 07/21/19 10:37 94 07/21/19 09:52 94 07/21/19 09:47 93 07/21/19 09:37 94 07/21/19 09:21 96 07/21/19 08:41 92 07/21/19 08:33 95 07/21/19 08:04 07/21/19 07:47 94 07/21/19 07:25 94 07/21/19 06:57 92 07/21/19 06:42 92 PG Care Time/CCT Total # of Minutes Spent Total Time Spent with Patient: Total time spent is greater than 50% in coordination of care (as documented) at patient's floor/unit and/or counseling patient: Coding Level of Care Code None Diagnoses Hematemesis K92.0 Alcoholic cirrhosis of liver K70.31 Ascites presence: with ascites (1) Alcoholic cirrhosis of liver Ascites presence: with ascites Qualified Code(s): K70.31 - Alcoholic cirrhosis of liver with ascites
--- NOTE | 2019-07-21 17:44 | Communication Note ---
Date of Service: July 21, 2019 This is a life threatening situation and I spent 60 minutes on critical time. Patient was becoming hypotensive. Patient was ordered 2 PRBC transfusion. Patient was ordered vitamin K IV. Patient then had a hematemesis of 750 ml of fluid. D/W Dr. Hillman, will do a repeat scope but unlikely that this will help as he had friable mucosa in the stomach. D/W Dr. Guerra, will transfer to ICU. Spoke with Machine Packaging Technician. Obtained code status. Updated his mother. Coding Level of Care Code Critical Care 1st 30-74 mins
--- NOTE | 2019-07-21 18:30 | Anesthesiology Consultation ---
Date of Service July 21, 2019 Assessment & Plan Chart Review Chart Review: Acceptable Risk for Surgery Consults Requested none History Surgery Operation Date: 07/20/19 08:50 Proposed Procedures p Esophagogastroduodenoscopy - Yusef G. Case, DO Operation Date: 07/21/19 09:10 Proposed Procedures p Esophagogastroduodenoscopy - Yusef G. Case, DO Height/Weight Height: 5 ft 7 in Weight: 75.3 kg Allergies Allergy/AdvReac Type Severity Reaction Status Date / Time ibuprofen AdvReac Intermediate MAKES HIM Verified 07/20/19 12:52 PUKE Medications Home Medications Medication Instructions Recorded Confirmed Last Taken multivitamin [Daily-Mark] 1 tab PO QAM #1 tab 04/27/18 07/13/19 07/13/19 bupropion HCl 150 mg PO QAM 07/18/18 07/13/19 07/13/19 magnesium oxide 400 mg PO DAILY #30 cap 07/19/18 07/13/19 07/13/19 pantoprazole 40 mg tablet,delayed 40 mg PO BID #60 tab 05/29/19 07/13/1906/01 release gabapentin 300 mg PO TID 07/01/19 07/13/19 07/13/19 sucralfate 1 g PO ACHS 07/01/19 07/13/19 07/12/19 furosemide [Lasix] 20 mg PO DAILY #30 tab 07/14/19 Unknown spironolactone 25 mg PO DAILY #30 tab 07/14/19 Unknown Active Medications Generic Name Dose Route Start Last Admin Trade Name Freq PRN Reason Stop Dose Admin Bupropion HCl 150 mg 07/19/19 09:00 07/21/19 07:45 Wellbutrin-Xl PO 08/18/19 08:59 150 mg QAM ALVERTO Administration Furosemide 20 mg 07/19/19 09:00 07/20/19 07:47 Lasix PO 08/18/19 08:59 20 mg DAILY ALVERTO Administration Piperacillin Sod/Tazobactam 115 mls @ 28.75 mls/hr 07/18/19 22:00 07/21/19 17:08 Sod 3.375 gm/ Dextrose IV 07/28/19 21:59 Infused Q8H ALVERTO Infusion Protocol Octreotide Acetate 500 mcg/ 105 mls @ 10.5 mls/hr 07/21/19 03:45 07/21/19 13:02 Sodium Chloride IV 08/20/19 03:44 50 mcg/hr .Q10H ALVERTO 10.5 mls/hr Administration 50 MCG/HR Pantoprazole Sodium 40 mg/ 10 mls @ 5 mls/min 07/21/19 03:50 07/21/19 04:02 Syringe IV 08/20/19 03:49 5 mls/min BID ALVERTO Administration Albumin Human 50 mls @ 50 mls/hr 07/21/19 17:00 07/21/19 16:42 Albumin 25% IV 07/24/19 16:59 50 mls/hr Q6H ALVERTO Administration Albumin Human 50 mls @ 50 mls/hr 07/21/19 18:00 07/21/19 17:04 Albumin 25% IV 07/24/19 17:59 50 mls/hr Q6H ALVERTO Administration Midodrine 5 mg 07/21/19 08:00 07/21/19 15:48 Proamatine PO 08/20/19 07:59 5 mg TID@0800,1200,1700 ALVERTO Administration Nadolol 40 mg 07/21/19 09:00 07/21/19 09:24 Corgard PO 08/20/19 08:59 40 mg QAM ALVERTO Administration Ondansetron HCl 4 mg 07/19/19 13:29 07/20/19 21:15 Zofran IV 08/18/19 13:28 4 mg Q6H PRN Administration Nausea Sucralfate 1 gm 07/18/19 21:00 07/21/19 15:48 Carafate Tab PO 08/17/19 20:59 1 gm ACHS ALVERTO Administration NPO Date Last Intake of Fluids: 07/19/19 Time Last Intake of Fluids: 08:00 Date Last Intake of Solids: 07/19/19 Time Last Intake of Solids: 10:00 Past Medical History Medical History Alcoholism (Chronic) Anxiety Depression Esophagitis (Inactive) GERD (gastroesophageal reflux disease) Hypertension (Chronic) Kidney stones Past Family History Family History Aunt Family history of diabetes mellitus Mother Family hx colonic polyps Other No family history of adverse response to anesthesia Denies family history of Crohn's disease Colorectal cancer Ulcerative colitis Past Surgical History Surgical History History of esophagogastroduodenoscopy (EGD) Hx of vasectomy Social History Smoking Status: Never smoker Hx Alcohol Use: Yes Alcohol type: hard liquor alcohol intake frequency: 3 or more drinks per day Alcohol Intake Frequency Comment: quit drinking 20 days ago Hx Substance Use: No substance use type: marijuana Substance Use Type Other:: history Physical Exam Vital Signs Last Vital Signs Temp 36.7 C 07/21/19 16:45 Pulse 61 07/21/19 16:51 Resp 22 07/21/19 16:51 BP 74/45 L 07/21/19 16:51 Pulse Ox 94 07/21/19 16:51 Testing Laboratory Results 07/21/19 15:58 07/21/19 04:15 PT 18.1 Seconds (9.0-12.0) H 07/21/19 04:15 INR 1.8 (0.9-1.1) H 07/21/19 04:15 APTT 42.4 Seconds (21.0-31.0) H 07/18/19 14:40 Urine Color Dark Yellow 07/20/19 03:10 Urine Appearance Cloudy (Clear) A 07/20/19 03:10 Urine pH 5.0 (4.5-7.5) 07/20/19 03:10 Ur Specific [place] 1.028 (1.000-1.030) 07/20/19 03:10 Urine Protein Negative (Negative) 07/20/19 03:10 Urine Glucose (UA) Negative (Negative) 07/20/19 03:10 Urine Ketones Trace (Negative) H 07/20/19 03:10 Urine Nitrite Positive (Negative) A 07/20/19 03:10 Ur Leukocyte Esterase 1+ (Negative) H 07/20/19 03:10 Urine WBC (Auto) 5-10 /hpf (0-5) H 07/20/19 03:10 Urine RBC (Auto) 5-10 /hpf (0-4) H 07/20/19 03:10 U Hyaline Cast (Auto) 1-5 /lpf (0-5) 07/20/19 03:10 U Epithel Cells (Auto) 5-10 /lpf (0-5) H 07/20/19 03:10 Urine Bacteria (Auto) Negative (Negative) 07/20/19 03:10 Blood Type A Positive 07/21/19 05:07 Antibody Screen NEGATIVE 07/21/19 05:07 07/20/19 03:10 Urine Culture - Preliminary Urine,Straight Cath No growth - Less than 1,000 colonies/mL, Final report to follow. 07/18/19 14:40 Aerobic Blood Culture - Preliminary Blood No growth in Aerobic bottle after 48 hours. Anaerobic Blood Culture - Preliminary No growth in Anaerobic bottle after 48 hours. 07/18/19 14:43 Aerobic Blood Culture - Preliminary Blood No growth in Aerobic bottle after 48 hours. Anaerobic Blood Culture - Preliminary No growth in Anaerobic bottle after 48 hours. 07/19/19 Unknown Gram Stain - Final Peritoneal Fluid Aerobic and Anaerobic Culture - Preliminary No growth to date.
[2019-07-21] MEDS ORDERED: fentaNYL citrate 100 MCG/2 ML VIAL IV PRN (18:31)
[2019-07-21] MEDS ORDERED: ATROPINE SULFATE 0.1 MG/ML 10ML SYR IV PRN (18:31)
--- NOTE | 2019-07-21 19:05 | GI REPORT ---
Patient Name: David Willett Procedure Date: 07/21/2019 5:37 PM Date of : 1975 Admit Type: Inpatient Age: 43 Gender: Male Attending MD: Yusef Hillman DO Procedure: Upper GI endoscopy Providers: Yusef Hillman DO Referring MD: Marc Pittman M.d. Indications: Hematemesis Medicines: General Anesthesia Complications: No immediate complications. Estimated Blood Loss: Estimated blood loss: none. Procedure: Pre-Anesthesia Assessment: - Prior to the procedure, a History and Physical was performed, and patient medications and allergies were reviewed. The patient's tolerance of previous anesthesia was also reviewed. The risks and benefits of the procedure and the sedation options and risks were discussed with the patient. All questions were answered, and informed consent was obtained. Prior Anticoagulants: The patient has taken no previous anticoagulant or antiplatelet agents. ASA Grade Assessment: E - Emergency. After reviewing the risks and benefits, the patient was deemed in satisfactory condition to undergo the procedure. After obtaining informed consent, the endoscope was passed under direct vision. Throughout the procedure, the patient's blood pressure, pulse, and oxygen saturations were monitored continuously. The Endoscope was introduced through the mouth, and advanced to the second part of duodenum. The upper GI endoscopy was somewhat difficult due to poor endoscopic visualization. Successful completion of the procedure was aided by lavage. The patient tolerated the procedure fairly well. Findings: Mildly severe esophagitis with no bleeding was found. Grade I varices were found in the lower third of the esophagus. There was no obvious stigmata of variceal bleeding. They were 5 to 7 mm in largest diameter. Six bands were successfully placed with complete eradication, resulting in deflation of varices. There was no bleeding at the end of the maneuver. Red blood was found in the gastric fundus, however, there was no obvious bleeding source. The GE junction was especially friable with oozing of the mucosa with passage of the endoscope. Diffuse severe inflammation characterized by erythema and friability was found in the entire examined stomach. A small hiatal hernia was present. Hematin (altered blood/[id number]-thoqcl-hvlq material) was found in the entire duodenum. Impression: - Mildly severe reflux esophagitis. - Grade I esophageal varices. Completely eradicated. Banded. - Red blood in the gastric fundus. - Gastritis. - Small hiatal hernia. - Blood in the entire examined duodenum. - No specimens collected. Recommendation: - Return patient to ICU for ongoing care. - Clear liquid diet. - Continue present medications. Yusef Hillman, DO 07/21/2019 7:04:44 PM This report has been signed electronically. Note Initiated On: 07/21/2019 5:37 PM Number of Addenda: 0 I attest to the content of the Intraoperative Record and orders documented therein, exceptions below {[id number]}
--- NOTE | 2019-07-21 19:23 | Gastroenterology Progress Note ---
Date of Service July 21, 2019 Assessment & Plan (1) Alcoholic cirrhosis of liver: (2) Hematemesis: Continue Octreotide gtt at 50 micrograms per hour Continue IV Abx per primary team and ID for infection prophylaxis in cirrhotic with GI bleeding Continue Nadolol 40 mg by mouth daily Continue Protonix 40 mg IV BID Continue supportive care Admission and Anticipated Discharge Date Admission Date: July 18, 2019 Subjective Patient underwent emergent EGD, please see full report for details. There was noted to be fresh blood in the stomach and duodenum, however, there was no obvious bleeding source. He was noted to have Grade I varices on yesterday's EGD, and they looked slightly larger today, however, there was no stigmata of active or recent bleeding from them. Due to no other bleeding source, I did place 6 bands on 2 separate columns of varices successfully. Of note, his GE junction and gastric cardia seemed especially friable, with mucosal oozing of b lood with passage of the scope, however, again no obvious single source was noted. I discussed the case in detail with the vibratory pile driver, Dr. Cintron, and I recommended discussion with patient concerning code status again, as his prognosis remains extremely poor. We also discussed consideration in transferring the patient for a possible TIPS, if he would rebleed, however, with elevated WBC's and no obvious variceal hemorrhage, I am unsure as to whether he will be accepted, though it is reasonable to try. Results & Data Results & Data ([facility]) Vital Signs (Past 12 Hours) Vital Signs Temp Pulse Pulse Resp BP BP BP 07/21/19 16:51 61 22 74/45 L 07/21/19 16:48 78/41 L 07/21/19 16:45 36.7 C 65 22 73/43 L 07/21/19 16:35 36.6 C 66 22 89/50 L 07/21/19 15:52 84/43 L 07/21/19 15:49 77/49 L 07/21/19 15:41 36.9 C 64 16 73/37 L 75/50 L 07/21/19 15:39 66 07/21/19 11:47 36.4 C L 64 18 84/45 L 07/21/19 10:37 36.8 C 83 20 91/58 L 07/21/19 09:52 36.7 C 75 18 91/60 L 07/21/19 09:47 36.9 C 77 18 95/62 L 07/21/19 09:37 36.7 C 79 16 92/62 L 07/21/19 09:21 37.2 C 78 18 90/56 L 07/21/19 08:41 36.9 C 81 16 93/60 L 07/21/19 08:33 36.9 C 88 16 93/57 L 07/21/19 08:04 79 07/21/19 07:47 37.1 C 98 H 18 92/60 L 07/21/19 07:25 37.1 C 80 16 89/55 L Pulse Ox 07/21/19 16:51 94 07/21/19 16:48 07/21/19 16:45 94 07/21/19 16:35 94 07/21/19 15:52 94 07/21/19 15:49 07/21/19 15:41 81 L 07/21/19 15:39 07/21/19 11:47 91 07/21/19 10:37 94 07/21/19 09:52 94 07/21/19 09:47 93 07/21/19 09:37 94 07/21/19 09:21 96 07/21/19 08:41 92 07/21/19 08:33 95 07/21/19 08:04 07/21/19 07:47 94 07/21/19 07:25 94 PG Care Time/CCT Total # of Minutes Spent Total Time Spent with Patient: Total time spent is greater than 50% in coordina tion of care (as documented) at patient's floor/unit and/or counseling patient: Coding Level of Care Code None Diagnoses Alcoholic cirrhosis of liver K70.31 Ascites presence: with ascites Hematemesis K92.0 (1) Alcoholic cirrhosis of liver Ascites presence: with ascites Qualified Code(s): K70.31 - Alcoholic cirrhosis of liver with ascites
[2019-07-21] MEDS ORDERED: PHENYLEPHRINE 100MCG/ML 5ML SYR ONE (19:32)
[2019-07-21] MEDS ORDERED: ePHEDrine sulfate 50 MG/ML SYR ONE (19:32)
[2019-07-21] MEDS ORDERED: VASOPRESSIN 20 UNIT/ML VIAL ONE (19:32)
[2019-07-21] MEDS ORDERED: ePHEDrine sulfate 50 MG/ML AMP ONE (19:41)
[2019-07-21] MEDS: ePHEDrine sulfate 50 MG/ML AMP IV PRN ×3 (19:43→19:53)
--- NOTE | 2019-07-21 20:19 | Anesthesiology Progress Note ---
Date of Service July 21, 2019 Anesthesia Post Procedure Vital Signs Vital Signs: Temp Pulse Pulse Pulse Resp BP BP 07/21/19 20:05 77 33 H 07/21/19 19:55 74 27 H 07/21/19 19:45 69 28 H 07/21/19 19:35 67 25 H 07/21/19 19:25 65 25 H 07/21/19 19:17 36.0 C L 70 22 07/21/19 16:51 61 22 74/45 L 07/21/19 16:48 07/21/19 16:45 36.7 C 65 22 73/43 L 07/21/19 16:35 36.6 C 66 22 89/50 L 07/21/19 15:52 07/21/19 15:49 07/21/19 15:41 36.9 C 64 16 73/37 L 07/21/19 15:39 66 07/21/19 11:47 36.4 C L 64 18 07/21/19 10:37 36.8 C 83 20 91/58 L 07/21/19 09:52 36.7 C 75 18 91/60 L 07/21/19 09:47 36.9 C 77 18 07/21/19 09:37 36.7 C 79 16 92/62 L 07/21/19 09:21 37.2 C 78 18 90/56 L 07/21/19 08:41 36.9 C 81 16 93/60 L 07/21/19 08:33 36.9 C 88 16 93/57 L 07/21/19 08:04 79 07/21/19 07:47 37.1 C 98 H 18 92/60 L 07/21/19 07:25 37.1 C 80 16 89/55 L 07/21/19 06:57 36.6 C 83 18 07/21/19 06:42 36.8 C 83 20 84/55 L 07/21/19 03:30 36.9 C 79 16 07/21/19 00:30 36.9 C 102 H 18 07/21/19 00:15 36.9 C 101 H 18 07/20/19 23:27 37.0 C 105 H 18 BP Pulse Ox 07/21/19 20:05 81/50 L 97 07/21/19 19:55 84/52 L 96 07/21/19 19:45 78/52 L 94 07/21/19 19:35 87/59 L 94 07/21/19 19:25 92/68 L 94 07/21/19 19:17 99/71 L 92 07/21/19 16:51 94 07/21/19 16:48 78/41 L 07/21/19 16:45 94 07/21/19 16:35 94 07/21/19 15:52 84/43 L 94 07/21/19 15:49 77/49 L 07/21/19 15:41 75/50 L 81 L 07/21/19 15:39 07/21/19 11:47 84/45 L 91 07/21/19 10:37 94 07/21/19 09:52 94 07/21/19 09:47 95/62 L 93 07/21/19 09:37 94 07/21/19 09:21 96 07/21/19 08:41 92 07/21/19 08:33 95 07/21/19 08:04 07/21/19 07:47 94 07/21/19 07:25 94 07/21/19 06:57 83/56 L 92 07/21/19 06:42 92 07/21/19 03:30 103/72 91 07/21/19 00:30 105/64 92 07/21/19 00:15 102/72 92 07/20/19 23:27 103/70 91 Transfer of Care Handoff Completed per policy Notes Mental Status: alert / awake / arousable and participated in evaluation Patient Amnestic to Procedure: Yes Nausea / Vomiting: adequately controlled Pain: adequately controlled Airway Patency, RR, SpO2: stable & adequate BP & HR: see Notes below (pt awake in Pacu but has had modest hypotension with SBP 70's. Received 2 u PRBCs in OR. Now receiving crystalloid bolus, IV phenylephrine as needed for BP support. SICU admission is planned. Discussed with SICU staff who plans central line placement and vasopressor infusion.) Hydration State: stable & adequate Anesthetic Complications: no major complications apparent
[2019-07-21] MEDS ORDERED: STAT IV Infusion **Titration per Protocol STA (20:27)
[2019-07-21] MEDS ORDERED: ICU PROTOCOL FOR HYPERGLYCEMIA PRN (20:38)
--- NOTE | 2019-07-21 20:38 | Critical Care Consultation ---
Date of Consultation July 21, 2019 Assessment & Plan (1) Admitted to intensive care unit: Reason Critically Ill: 43-year-old male with history of alcoholic cirrhosis, varices presents to the ICU following EGD after having hematemesis and acute blood loss anemia and hepatorenal syndrome. Neuro - Encephalopathypatient mildly confused after returning from the OR where he received sedation which is likely contributing -Ammonia negative, mildly elevated BUN -has been hospitalized for 8 days and would be outside of window for alcohol withdrawal at this point -Has improved since arrival, continue to monitor Cardiac - Hypotensionlikely attributed to liver failure versus septic shock (see ID for management of questionable sepsis) -will obtain echo in a.m. to rule out cardiogenic shock -Currently requiring vasopressors, map goal 75 for hepatorenal syndrome -A-line inserted for continuous BP monitoring -Continue albumin infusions -Monitoring CVP Respiratory - Acute hypoxic respiratory insufficiencypatient currently requiring supplemental oxygen via nasal cannula -No prior medical history of respiratory disease -Chest x-ray revealed bilateral opacities consistent with volume overload versus pneumonia (see ID for management) -Currently holding Lasix for hypotension, will limit fluid intake -Continuous monitoring pulse ox, wean oxygen as indicated with goal oxygen saturation 92 to 96% GI - N.p.o. Alcoholic cirrhosis/liver failurepatient with end-stage liver disease, meld score 33 with 53% predicted mortality in the next 3 months -Patient reports last alcoholic beverage in April, at this time would not be a candidate for liver transplant -EGD revealed grade 1 varices, no active bleeding per EGD report, see EGD note for details Hematemesisupper GI bleeding secondary to esophagitis versus varices -Received vitamin K and FFP earlier today -No obvious signs of obvious bleeding source per EGD report, GI placed 6 bands in the esophagus for grade 1 varices that appeared slightly larger on today's EGD -Considering transfer to tertiary center for evaluation for TIPS, however unlikely that patient would be candidate at this time considering elevated WBC and suspected sepsis/infection -We will continue PPI, octreotide drip -will monitor closely in ICU for signs of continued bleeding RENAL/LYTES - SUNG/hepatorenal syndromecreatinine continues to elevate and currently 2.8 -Significant portal hypertension noted on last abdominal ultrasound -Currently treating for hepatorenal syndrome with scheduled albumin infusions, levo fed drip with map goal 75 -Nephrology following, follow-up recommendations -Continue Nadaolol and octreotide drip - Foleystrict I's and O's ENDO - No history diabetes or thyroid disease ICU hyperglycemic protocol HEME - Acute blood loss anemiaupper GI source considering recent hematemesis, varices versus esophagitis, no active bleed on EGDsee management above -Trending hemoglobin every 4 hours -Transfused 2 units FFP earlier today and 1 unit RBCs following arrival to ICU as patient had significant drop of hemoglobin from baseline and was hypotensive -Observe for further signs of bleeding and transfuse if necessary ID - Sepsis?High suspicion for SBP considering ascites and liver failure versus pulmonary source with bilateral opacities on chest x-ray -WBC significantly elevated, will continue to trend -Procalcitonin elevated, trending -No growth to date on blood cultures, peritoneal fluid, or urine culture; will follow-up final reports -Nasal MRSA negative, bio fire negative -Continue antibiotic coverage with Zosyn for now LINES/IV ACCESS - Right IJ, arterial line, PIV's, Reza DVT PROPHYLAXIS - SCDs, holding anticoagulation for elevated INR I have personally spent 60 minutes of critical care time in the direct management of this patient. This is a life/limb threatening event. This includes time spent evaluating patient, direct bedside care, chart review, placing orders, interpretation of diagnostic studies, discussion with consultants, patient, and family members, as well as other required patient management activities. This time is exclusive of all separately billable procedures, and teaching time and separate from and in addition to any other critical care service time. Thank you for allowing us to participate in the care of this patient. Please refer to my attending physician's documentation for any further recommendations. (2) Hepatorenal failure: (3) Acute blood loss anemia: (4) Hepatic encephalopathy: (5) Alcoholic cirrhosis of liver: (6) Ascites: (7) CKD (chronic kidney disease), stage III: (8) Chronic liver failure: (9) Leukocytosis: (10) Ascites: (11) Acute hypotension: (12) Jaundice: (13) Elevated liver enzymes: History of Present Illness Attending Physician: Marc Pittman History of Present Illness Mr. Ellis is a 43-year-old male with past medical history significant for alcoholic cirrhosis of liver, ascites, EtOH abuse, and esophageal varices. He continues to use alcohol on a regular basis and is not a candidate for liver transplant. He has had 2 recent hospitalizations within the past month. He presented on this admission with cough, fatigue, and abdominal pain and was placed on empiric Zosyn. Paracentesis was performed with 4 L removed without growth on preliminary. On 07/19 he presented with hematemesis and was taken for EGD which showed grade 1 varices without active bleeding and significant esophagitis. Early this morning the patient again experienced hematemesis and later developed hypotension and anemia. Of note, patient has a developing SUNG suspicious for hepatorenal syndrome. He was again taken for an emergent EGD which was unable to identify obvious source of bleeding. However Dr. Hillman did note that the patient's varices appeared to have enlarged and 6 bands were placed over 2 separate columns, per EGD note. See GI note for details. Following EGD patient was then transferred to ICU for further management. On arrival to the ICU the patient is mildly confused but alert to self and time and is able to converse somewhat appropriately. He is slightly hypotensive with maps in the low 60s. He denies fevers, headache, syncope, shortness of breath, palpitations, chest pain. He does report abdominal pain with minimal palpation. Patient to remain in ICU for further management at this time. Will start on vasopressors and will insert central line and arterial lines. Allergies Allergy/AdvReac Type Severity Reaction Status Date / Time ibuprofen AdvReac Intermediate MAKES HIM Verified 07/20/19 12:52 PUKE Home Medications Home Medications Medication Instructions Recorded Confirmed Type multivitamin [Daily-Mark] 1 tab PO QAM #1 tab 04/27/18 07/13/19 Rx bupropion HCl 150 mg PO QAM 07/18/18 07/13/19 History magnesium oxide 400 mg PO DAILY #30 cap 07/19/18 07/13/19 Rx pantoprazole 40 mg tablet,delayed 40 mg PO BID #60 tab 05/29/19 07/13/19 Rx release gabapentin 300 mg PO TID 07/01/19 07/13/19 History sucralfate 1 g PO ACHS 07/01/19 07/13/19 History furosemide [Lasix] 20 mg PO DAILY #30 tab 07/14/19 Rx spironolactone 25 mg PO DAILY #30 tab 07/14/19 Rx Patient History Medical History Alcoholism (Chronic) Anxiety Depression Esophagitis (Inactive) GERD (gastroesophageal reflux disease) Hypertension (Chronic) Kidney stones Surgical History History of esophagogastroduodenoscopy (EGD) Hx of vasectomy Family History Aunt Family history of diabetes mellitus Mother Family hx colonic polyps Other No family history of adverse response to anesthesia Denies family history of Crohn's disease Colorectal cancer Ulcerative colitis Social History Preferred Language: Spanish Communication Ability: Effective Visual Impairment: No Limitations 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: No Beliefs That Will Affect Care: None Current Living Situation: Family Current Living Situation Comment: rents a house Other Information That Helps Us Care for You: No Feels Safe at Home: Yes Safety Concerns: Feels Safe At This Time Smoking Status: Never smoker Second Hand Exposure: No ; Hx Alcohol Use: Yes Alcohol type: hard liquor Alcohol Intake Frequency Comment: hx of heavy use, now at 3-4 x/week Hx Substance Use: No Review of Systems Review of Systems: All systems reviewed & are unremarkable except as noted in HPI & below Review of systems limited due to confusion Physical Exam Constitutional: cooperative and comfortable Eyes: PERRLA, jaundiced sclera ENMT: external ear and nose normal, oropharynx normal Neck: trachea midline, no thyromegaly Respiratory: Lungs clear and diminished in all lopez with auscultation, symmetrical chest wall movement, nonlabored breathing with normal respiratory rate Cardiovascular: Rate/Rhythm: regular rate and regular rhythm Heart Sounds: normal S1 and normal S2 Vessels: no JVD Gastrointestinal (Abdomen): Abdomen distended, semifirm, tender with deep palpation in upper right quadrant, positive bowel sounds auscultated Skin: No rashes, generalized jaundice Neurologic: PERRL, EOMI, accommodation nl, no face palsy, no dysarthria Psychiatric: Orientation: alert, oriented to person and oriented to time; + not oriented to place Genitourinary: Indwelling Reza catheter Results & Data Results & Data ([facility]) Vital Signs (Past 12 Hours) Vital Signs Temp Pulse Pulse Pulse Resp BP BP 07/21/19 20:15 36.2 C L 77 29 H 07/21/19 20:05 77 33 H 07/21/19 19:55 74 27 H 07/21/19 19:45 69 28 H 07/21/19 19:35 67 25 H 07/21/19 19:25 65 25 H 07/21/19 19:17 36.0 C L 70 22 07/21/19 16:51 61 22 74/45 L 07/21/19 16:48 07/21/19 16:45 36.7 C 65 22 73/43 L 07/21/19 16:35 36.6 C 66 22 89/50 L 07/21/19 15:52 07/21/19 15:49 07/21/19 15:41 36.9 C 64 16 73/37 L 07/21/19 15:39 66 07/21/19 11:47 36.4 C L 64 18 07/21/19 10:37 36.8 C 83 20 91/58 L 07/21/19 09:52 36.7 C 75 18 91/60 L 07/21/19 09:47 36.9 C 77 18 07/21/19 09:37 36.7 C 79 16 92/62 L 07/21/19 09:21 37.2 C 78 18 90/56 L 07/21/19 08:41 36.9 C 81 16 93/60 L BP Pulse Ox 07/21/19 20:15 91/60 L 95 07/21/19 20:05 81/50 L 97 07/21/19 19:55 84/52 L 96 07/21/19 19:45 78/52 L 94 07/21/19 19:35 87/59 L 94 07/21/19 19:25 92/68 L 94 07/21/19 19:17 99/71 L 92 07/21/19 16:51 94 07/21/19 16:48 78/41 L 07/21/19 16:45 94 07/21/19 16:35 94 07/21/19 15:52 84/43 L 94 07/21/19 15:49 77/49 L 07/21/19 15:41 75/50 L 81 L 07/21/19 15:39 07/21/19 11:47 84/45 L 91 07/21/19 10:37 94 07/21/19 09:52 94 07/21/19 09:47 95/62 L 93 07/21/19 09:37 94 07/21/19 09:21 96 07/21/19 08:41 92 Coding Level of Care Code Critical Care 1st 30-74 mins Diagnoses Admitted to intensive care unit Z78.9 Hepatorenal failure K76.7 Acute blood loss anemia D62 Hepatic encephalopathy K72.90 Alcoholic cirrhosis of liver K70.31 Ascites presence: with ascites Ascites K70.11 Ascites type: due to alcoholic hepatitis CKD (chronic kidney disease), stage III N18.3 Chronic liver failure K72.10 Hepatic coma status: without hepatic coma Leukocytosis D72.829 Leukocytosis type: unspecified Ascites K70.31 Ascites type: due to alcoholic cirrhosis Acute hypotension I95.9 Jaundice R17 Elevated liver enzymes R74.8 (1) Ascites Ascites type: due to alcoholic hepatitis Qualified Code(s): K70.11 - Alcoholic hepatitis with ascites (2) Ascites Ascites type: due to alcoholic cirrhosis Qualified Code(s): K70.31 - Alcoholic cirrhosis of liver with ascites (3) Leukocytosis Leukocytosis type: unspecified Qualified Code(s): D72.829 - Elevated white blood cell count, unspecified (4) Alcoholic cirrhosis of liver Ascites presence: with ascites Qualified Code(s): K70.31 - Alcoholic cirrhosis of liver with ascites (5) Chronic liver failure Hepatic coma status: without hepatic coma Qualified Code(s): K72.10 - Chronic hepatic failure without coma
[2019-07-21 20:39] LABS: Hematocrit (blood only) 21.2 % (42-52); Hemoglobin 7.2 g/dL (14.0-18.0)
[2019-07-21] MEDS: NOREPINEPHRINE BIT INJ 8 MG in DEXTROSE 5% 500 ML IV SCH (20:48)
[2019-07-21 21:08] LABS: Mean Corpuscular Hemoglobin 34.3 pg (25-34); Mean Platelet Volume 10.3 fL (7.4-10.4); Platelet Count 166 K/uL (130-400); White Blood Count 15.48 K/uL (4.8-10.8)
[2019-07-21 21:19] LABS: Base Excess VBG -2.1 mEq/L; HCO3 VBG 22 mmol/L; PCO2 VBG 34 mmHg (38-50); PO2 VBG 32 mmHg; pH VBG 7.43 (7.36-7.41)
[2019-07-21 21:23] LABS: INR 1.8 (0.9-1.1); Prothrombin Time 18.5 Seconds (9.0-12.0)
[2019-07-21 21:40] LABS: Calcium 7.6 mg/dl (8.5-10.1); Creatinine Clr Calc Pharmacy 30.8 ml/min; Est GFR (African American) 29.6; Est GFR (Non-African American) 25.6; Oxygen Saturation VBG < 60.0 %; Potassium 3.7 mmol/L (3.5-5.1)
--- NOTE | 2019-07-21 22:16 | Procedure Note ---
Procedure Note Date of Service July 21, 2019 Note ARTERIAL LINE PROCEDURE NOTE: Procedure: Arterial Line Placement Attending: Dr. Ken Guerra Provider: CHADWICK Wharton Indication: Monitoring on Pressors Anesthesia:Lidocaine 1% Line placed emergently as patient is hemodynamically unstable and confused A time-out was completed verifying correct patient, procedure, site, positioning, and implant(s) or special equipment if applicable. Patient's right groin was prepped and draped in the usual sterile fashion. Ultrasound guidance was used to aid needle placement. A 20g arterial line was introduced using Seldinger technique into the right femoral artery. Wire was inserted through the insertion needle, and the needle was removed. Arterial catheter was then inserted over the wire and wire was removed. Good blood return was observed and good waveform was observed on the monitor. The patient tolerated the procedure well. Confirmation of placement with ultrasound. Images saved to medical record. Blood Loss: Minimal Complications: None Procedural Ultrasound Guidance: Procedure Date: 07/21/2019 Indication: Arterial line insertion Attending: Dr. Ken Guerra Provider: CHADWICK Wharton Artery Identified: YES Line confirmed in Artery with ultrasound: Yes Complications: NONE Patient tolerated procedure: WELL Coding
--- NOTE | 2019-07-21 22:16 | Procedure Note ---
Procedure Note Date of Service July 21, 2019 Note INTERNAL JUGULAR CENTRAL LINE PROCEDURE NOTE: Procedure: Internal Jugular Central Line Placement Attending: Dr. Ken Guerra Provider: CHADWICK Wharton Indication: Central Drug Administration Anesthesia:Lidocaine 1% Central line emergently placed as patient was hemodynamically unstable on vasopressors, and confused. A time-out was completed verifying correct patient, procedure, site, positioning, and implants(s) or special equipment if applicable. Patients right neck was cleansed and draped in the typical sterile fashion using Chloraprep. The Internal Jugular Vein and Carotid Artery were identified using ultrasound. The superficial tissue was anesthetized using 3 mL of 1% lidocaine without epinephrine under direct visualization with the ultrasound. After adequate anesthetization was achieved, the Internal Jugular vein was cannulated under direct ultrasound guidance using an introducer needle on a syringe. Good venous blood return was maintained prior to removal of syringe from introducer needle. Using Seldinger Technique, a guide wire was advanced through the introducer needle without resistance. The introducer needle was removed and ultrasound images were obtained of the guide wire within the Internal Jugular Vein and saved to the patients medical record. A small incision was made in penetrating fashion at the guide wire insertion site utilizing an 11 blade scalpel. The dilator was advanced to the vessel without resistance. The dilator was exchanged for the triple lumen catheter which was advanced into the vessel without resistance. The guide wire was removed intact from the catheter without issue. C laves were placed on each catheter tip with confirmation of good blood flow from each lumen. Each port was easily flushed with sterile saline. The catheter was placed at 15 cm and sut[address] in place. BioPatch was applied to the catheter and a sterile Tegaderm dressing was applied over the catheter with careful attention to sterility. Patient tolerated procedure well. No immediate complications were met. Post procedure x-ray was completed, placement was appropriate and no pneumothorax was noted. Images obtained are saved for permanent record Procedural Ultrasound Guidance: Procedure Date: 07/21/2019 Indication: Central line insertion Attending: Dr. Ken Guerra Provider: CHADWICK Wharton Artery AND Vein visualized: Yes Compressible Vein: Yes Guidewire or Short Catheter seen in vein prior to dilation: Yes Line confirmed in Vein with ultrasound: Yes Images obtained are saved for permanent record. Coding CPT Codes Tubes, Drains, and Vasc Access - Tubes, Drains, and Vasc Access: [id number] Place Catheter In Artery ([id number]) Tubes, Drains, and Vasc Access - Tubes, Drains, and Vasc Access: [id number] Ultrasound Guidance For Vascular ([id number]) Tubes, Drains, and Vasc Access - Tubes, Drains, and Vasc Access: [id number] Place catheter in vein superior or inferior vena cava ([id number]) Tubes, Drains, and Vasc Access - Tubes, Drains, and Vasc Access: [id number] Ultrasound Guidance For Vascular ([id number]) [facility] Procedure Codes (Charges) Tubes, Drains, and Vasc Access Procedure 1: Tubes, Drains, and Vasc Access: [id number] Place Catheter In Artery Procedure 2: Tubes, Drains, and Vasc Access: [id number] Ultrasound Guidance For Vascular Procedure 3: Tubes, Drains, and Vasc Access: [id number] Place catheter in vein superior or inferior vena cava Procedure 4: Tubes, Drains, and Vasc Access: [id number] Ultrasound Guidance For Vascular
--- NOTE | 2019-07-21 22:21 | XRay Report ---
SINGLE VIEW CHEST CLINICAL HISTORY: Central venous catheter placement. FINDINGS: An AP, portable, semierect chest radiograph is compared to study dated 07/18/2019. The examin ation is degraded by portable technique and patient rotation. A right internal jugular central venous catheter is in place. The tip of the catheter projects over the right atrium. The cardiomediastinal silhouette is unremarkable. There is elevation of the right hemidiaphragm. There is diffuse interstit ial thickening with bilateral airspace opacities. Trace pleural effusions are suspected. No pneumotho rax is seen. The bony thorax is grossly intact. IMPRESSION: 1. A right internal jugular centimeters catheter has been placed as above. No pneumothorax is seen po st procedure. 2. There is diffuse coarsening of the interstitium with bilateral airspace opacities. This could be s een in the setting of fluid overload/pulmonary edema and/or an infectious/inflammatory pneumonitis. C linical correlation be required. 3. Suspect trace pleural effusions. ACT 112: Negative or not required by law. Electronically signed by: Sabas Muñiz M.D. 07/21/2019 10:19 PM
[2019-07-21 23:24] VITALS: TEMP 98.2
[2019-07-22] MEDS: OCTREOTIDE ACETATE 500 MCG in 0.9 % SODIUM CHLORIDE 100 ML IV SCH ×3 (00:24→19:56)
[2019-07-22] MEDS: ALBUMIN 25% 50 ML IV SCH ×7 (00:36→17:11)
[2019-07-22] MEDS ORDERED: ALBUMIN 25% 50 ML IV SCH (02:00)
[2019-07-22 02:22] LABS: Urine Chloride < 10 mmol/L; Urine Potassium 38.3 mmol/L; Urine Sodium 47 mmol/L
[2019-07-22 05:04] LABS: Basophils # (auto) 0.05 K/uL (0-0.2); Basophils % (auto) 0.2 %; Eosinophils % (auto) 2.9 %; Hematocrit (blood only) 25.5 % (42-52); Hemoglobin 8.9 g/dL (14.0-18.0); Immature Granulocytes % (auto) 0.5 %; Lymphocytes # (auto) 2.26 K/uL (1.2-3.4); Lymphocytes % (auto) 11.1 %; Mean Corpuscular Hemoglobin 33.8 pg (25-34); Mean Corpuscular Hgb Conc 34.9 g/dL (32-36); Monocytes # (auto) 1.44 K/uL (0.11-0.59); Neutrophils # (auto) 15.98 K/uL (1.4-6.5); Neutrophils % (auto) 78.3 %; Platelet Count 209 K/uL (130-400); RDW Standard Deviation 78.4 fL (36.4-46.3); Red Blood Count 2.63 M/uL (4.7-6.1); White Blood Count 20.43 K/uL (4.8-10.8)
[2019-07-22 05:20] LABS: INR 1.8 (0.9-1.1); Prothrombin Time 18.3 Seconds (9.0-12.0)
[2019-07-22 05:31] LABS: Albumin Level 3.1 gm/dl (3.4-5.0); Anisocytosis Present; BUN Creatinine Ratio 17.6 (10-20); Calcium 7.9 mg/dl (8.5-10.1); Creatinine Clr Calc Pharmacy 32.3 ml/min; Est GFR (African American) 31.4; Est GFR (Non-African American) 27.1; Potassium 3.2 mmol/L (3.5-5.1)
[2019-07-22 05:44] LABS: Albumin Globulin Ratio 1.6 (0.9-2); Bilirubin Direct 9.6 mg/dl (0-0.2); Bilirubin,Total 16.3 mg/dl (0.2-1); Globulin 1.9 gm/dl (2.5-4.0)
[2019-07-22] MEDS: PIPERACILLIN/TAZOBACTAM 3.375 GM in DEXTROSE 5% 100 ML IV SCH ×3 (05:48→22:02)
[2019-07-22 06:13] LABS: Magnesium 2.4 mg/dl (1.8-2.4); Phosphorus 2.7 mg/dl (2.5-4.9)
[2019-07-22] MEDS: POTASSIUM CHLORIDE / WTR 20 MEQ/100 ML PLCT IV SCH ×2 (06:45→08:46)
[2019-07-22] MEDS: SUCRALFATE 1 GM TAB PO SCH ×4 (08:02→22:02)
[2019-07-22] MEDS: BuPROPion XL 150 MG TABCR PO SCH (08:03)
[2019-07-22] MEDS: nadoloL 40 MG TAB PO SCH (08:03)
[2019-07-22] MEDS: PANTOprazole 40 MG in SYRINGE 0 ML IV SCH ×2 (08:04→22:02)
[2019-07-22] MEDS ORDERED: prednisoLONE 15 MG/5 ML UDP PO SCH (09:00)
--- NOTE | 2019-07-22 09:33 | XCELERA ---
[id number] \\[email or web address]\[id number]_[id number]
--- NOTE | 2019-07-22 10:00 | Electrocardiogram Report ---
Test Reason : Blood Pressure : / mmHG Vent. Rate : 064 BPM Atrial Rate : 064 BPM P-R Int : 142 ms QRS Dur : 080 ms QT Int : 564 ms P-R-T Axes : 018 025 055 degrees QTc Int : 581 ms Poor data quality, interpretation may be adversely affected Normal sinus rhythm Prolonged QT Abnormal ECG When compared with ECG of 18-JUL-2019 13:41, HR has decreased by 41 bpm QRS duration has increased Nonspecific T wave abnormality no longer present Confirmed by Arsen Skelton ([id number]) on 07/22/2019 9:59:54 AM Referred By: REFERRED SELF Confirmed By:Arsen Skelton
[2019-07-22 10:01] LABS: Hematocrit (blood only) 25.2 % (42-52); Hemoglobin 8.9 g/dL (14.0-18.0)
--- NOTE | 2019-07-22 11:34 | Nephrology Progress Note ---
Date of Service July 22, 2019 Assessment & Plan (1) SUNG (acute kidney injury): -- Baseline Cr 1.3. SUNG due to intravascular volume depletion related to paracentesis and anemia from hematemesis -- Kidney function releatively stable overnight. Patient is nonoliguric -- Continue Levophed, Octreotide and albumin infusions -- Prognosis remains guarded -- Monitor serial PRP (2) Alcoholic cirrhosis of liver: -- As per GI not a liver transplant candidate (3) Hematemesis: -- Esophageal varices. No active bleeding on EGD. Now on Nadolol therapy -- Hgb improved to 8.9 this morning Subjective Mr. Willett was seen & examined in the ICU this morning. He is oriented x 3 and complains of abdominal distention. No further hematemesis overnight. He remains visibly jaundiced. Review of Systems Constitutional: + weakness; no fever Eyes: no problem reported Ear, Nose, Mouth, Throat: no problem reported Respiratory: no cough and no dyspnea Cardiovascular: no chest pain Gastrointestinal: no nausea and no vomiting Genitourinary: no dysuria Musculoskeletal: no back pain Integumentary: no rash Neurologic: no confusion Physical Exam Constitutional: + frail appearing jaundiced Eyes: PERRL (icteric sclera) ENMT: external ear and nose normal, oropharynx normal Neck: trachea midline, no thyromegaly Respiratory: normal respiratory effort, lungs clear to auscultation Cardiovascular: Rate/Rhythm: regular rate and regular rhythm Gastrointestinal (Abdomen): Inspection/Auscultation: + abdomen distended Percussion/Palpation: abdomen nontender Skin: no rashes, warm and dry Neurologic: awake Results & Data Vital Signs (Past 12 Hours) Vital Signs Temp Pulse Resp BP Pulse Ox 07/22/19 08:12 75 24 94/53 L 96 07/22/19 08:00 80 26 H 89 L 07/22/19 07:00 77 25 H 91 07/22/19 06:21 77 30 H 96/64 L 95 07/22/19 06:00 77 16 92 07/22/19 05:00 77 26 H 92 07/22/19 04:00 82 37 H 89 L 07/22/19 03:00 75 25 H 94 07/22/19 02:21 75 23 85/57 L 93 07/22/19 02:00 75 21 92 07/22/19 01:30 36.8 C 77 22 125/66 94 07/22/19 01:24 36.8 C 76 22 126/66 94 07/22/19 00:24 36.8 C 76 22 121/61 94 07/21/19 23:54 36.8 C 76 24 122/63 95 07/21/19 23:39 36.8 C 75 23 126/65 94 Laboratory Results Laboratory Tests 07/22/19 07/22/19 04:33 04:33 WBC 20.43 H Hgb 8.9 L Hct 25.5 L Plt Count 209 Sodium 134 L Potassium 3.2 L Chloride 105 Carbon Dioxide 21 BUN 48 H Creatinine 2.73 H Glucose 113 H PG Care Time/CCT Total # of Minutes Spent Total Time Spent with Patient: Total time spent is greater than 50% in coordination of care (as documented) at patient's floor/unit and/or counseling patient: Coding Level of Care Code 94118 Subseq Hosp Care Lvl 3 Diagnoses SUNG (acute kidney injury) N17.9 Alcoholic cirrhosis of liver K70.31 Ascites presence: with ascites Hematemesis K92.0 (1) Alcoholic cirrhosis of liver Ascites presence: with ascites Qualified Code(s): K70.31 - Alcoholic cirrhosis of liver with ascites
--- NOTE | 2019-07-22 12:21 | Gastroenterology Progress Note ---
Date of Service July 22, 2019 Assessment & Plan (1) Alcoholic cirrhosis of liver: Continue current therapy and supportive care Transplant evaluation if patient survives current health crisis and abstains from alcohol (2) Hematemesis: Recommend continuing IV Octreotide for 5 days Continue Nadolol 40 mg PO daily Continue Protonix 40 mg IV BID Continue Abx as per primary team and ID for infection prophylaxis and leukocytosis Will need repeat EGD in 2-3 weeks if he survives current health crisis DNR now at mother's request Admission and Anticipated Discharge Date Admission Date: July 18, 2019 Marybeth Hernandez was sitting up in bed this morning. He states he feels slightly better today. No further hematemesis noted per nursing. No hematochezia or melena, though he is on bed zafar at present. He denies any fevers, chills, nausea, or diarrhea, and further denies abdominal pain. His mother has made him a DNR per nursing. Review of Systems Review of Systems: All systems reviewed & are unremarkable except as noted in HPI & below Physical Exam Constitutional: + ill appearing Eyes: sclerae not anicteric ENMT: external ear and nose normal, oropharynx normal Neck: trachea midline Respiratory: normal respiratory effort, lungs clear to auscultation Cardiovascular: RRR, no murmur, no edema Gastrointestinal (Abdomen): Inspection/Auscultation: + abdomen distended Percussion/Palpation: abdomen soft and + fluid wave; abdomen nontender Skin: + jaundice Psychiatric: Orientation: oriented to person and oriented to place Results & Data Results & Data ([facility]) Vital Signs (Past 12 Hours) Vital Signs Temp Pulse Resp BP Pulse Ox 07/22/19 08:12 75 24 94/53 L 96 07/22/19 08:00 80 26 H 89 L 07/22/19 07:00 77 25 H 91 07/22/19 06:21 77 30 H 96/64 L 95 07/22/19 06:00 77 16 92 07/22/19 05:00 77 26 H 92 07/22/19 04:00 82 37 H 89 L 07/22/19 03:00 75 25 H 94 07/22/19 02:21 75 23 85/57 L 93 07/22/19 02:00 75 21 92 07/22/19 01:30 36.8 C 77 22 125/66 94 07/22/19 01:24 36.8 C 76 22 126/66 94 07/22/19 00:24 36.8 C 76 22 121/61 94 PG Care Time/CCT Total # of Minutes Spent Total Time Spent with Patient: Total time spent is greater than 50% in coordination of care (as documented) at patient's floor/unit and/or counseling patient: Coding Level of Care Code 47827 Subseq Hosp Care Lvl 3 Diagnoses Alcoholic cirrhosis of liver K70.31 Ascites presence: with ascites Hematemesis K92.0 (1) Alcoholic cirrhosis of liver Ascites presence: with ascites Qualified Code(s): K70.31 - Alcoholic cirrhos is of liver with ascites
--- NOTE | 2019-07-22 12:51 | Critical Care Progress Note ---
Date of Service July 22, 2019 Assessment & Plan (1) Admitted to intensive care unit: --Hypotension Likely secondary to upper GI bleed -- > status post EGD x2. With banding of esophageal varices by GI. Friable mucosa appreciated. No active signs of bleeding Patient got 4 units of PRBC so far thank you along with 2 units of FFP Continue with PPI twice daily We will resume nadolol once a blood pressure is better controlled. Patient also got vitamin K p.o. yesterday. Continue monitoring H&H. Patient is on vasopressor support for the time being to increase his map which will help with his possible hepatorenal syndrome as well. --Acute hypoxic respiratory failure There is a component of fluid overload as well here on top of atelectasis secondary to abdominal pressure Continue with O2 to keep saturation greater than 90% --SUNG on CKD Complex etiology Nonoliguric I think there is a complement of hepatorenal although urine sodium is 47, patient was on lasix and spironolactone this might be the reason the sodium is high in the urine Hypotension can also be playing a role Patient still has tense abdomen likely from his underlying ascites Strict in and out --Leukocytosis Etiology unclear Could be reactive secondary to GI bleed Continue with antibiotics for the time being Follow-up septic work-up --History of liver cirrhosis secondary to alcohol use with ascites Patient quit alcohol in the middle of April 2019 Patient had paracentesis done on 07/21/2019 with removal of 4 L of fluid. SAAG greater than 1.1. Fluid differential does not go along with SBP although patient has been on antibiotics at the time he came to the hospital. Meld>30 Prognosis poor. --Hypokalemia Replaced --Prophylaxis IPC's PPI twice daily Patient wanted his mother to make all the decisions. Had a discussion on the phone with mother Mrs. Rhonda Ardon. Discussed current condition and prognosis of the patient. Patient's mother knows that her son has this chronic illness from the liver and she does not want to escalate care. She wants patient to be kept comfortable. We will get palliative care involved. Start the patient on lactulose 20 g on a daily basis as well as with a history of cirrhosis. Plan: We will do paracentesis on him 1 more time as I think abdominal distention is playing a role in his respiratory distress. Continue with antibiotics for the time being. Etiology is unclear. Leukocytosis can be reactive from GI bleed Palliative care consult Continue with vasopressor support for the time being and with strict in and out I have personally spent 61 minutes of critical care time in the direct management of this patient. This is a life/limb threatening event. This includes time spent evaluating patient, direct bedside care, chart review, placing orders, interpretation of diagnostic studies, discussion with consultants, patient, and family members, as well as other required patient management activities. This time is exclusive of all separately billable procedures, and teaching time and separate from and in addition to any other critical care service time. Please note the above document was generated using voice recognition software. It may contain grammatical, syntax or spelling errors. (2) Alcoholic cirrhosis of liver: (3) CKD (chronic kidney disease), stage III: (4) Acute hypotension: Admission and Anticipated Discharge Date Admission Date: July 18, 2019 Subjective Patient seen and examined at bedside. Mild respiratory distress. No adverse events overnight. Patient denies any chest pain, complains of mild shortness of breath and cough. No headache, no nausea or vomiting. Has been on Levophed to maintain map around 70. Denies any headache, no dizziness. Review of Systems Review of Systems: All systems reviewed & are unremarkable except as noted in HPI & below Physical Exam Physical Exam: Constitutional: Mild respiratory distress HEENT: EOMI, PERRLA, scleral icterus Respiratory system: Decreased air entry bilaterally, positive crackles bilateral lower lobes, no wheeze, no rhonchi CVS: S1-S2 positive, no murmurs or gallops Abdomen: Tense, distended, decreased bowel sounds x4. Sites of previous paracentesis has been oozing of ascitic fluid. Extremities: +2 pulses bilaterally radialis/ dorsalis pedis, no cyanosis, positive edema bilateral lower extremity Neuro: Awake alert oriented to self and place Psych: Normal mood and affect G/U: Positive Reza Skin: no rashes, warm and dry Lymphatic: no cervical or axillary lymphadenopathy Results & Data Results & Data ([facility]) Vital Signs (Past 12 Hours) Vital Signs Temp Pulse Resp BP Pulse Ox 07/22/19 12:01 78 33 H 95/62 L 94 07/22/19 12:00 78 23 94 07/22/19 11:01 76 28 H 90/59 L 92 07/22/19 11:00 76 27 H 91 07/22/19 10:02 77 23 86/60 L 93 07/22/19 10:00 78 31 H 92 07/22/19 09:02 77 28 H 94/66 L 95 07/22/19 09:00 76 28 H 94 07/22/19 08:13 76 26 H 96 07/22/19 08:12 75 24 94/53 L 96 07/22/19 08:00 80 26 H 89 L 07/22/19 07:00 77 25 H 91 07/22/19 06:21 77 30 H 96/64 L 95 07/22/19 06:00 77 16 92 07/22/19 05:00 77 26 H 92 07/22/19 04:00 82 37 H 89 L 07/22/19 03:00 75 25 H 94 07/22/19 02:21 75 23 85/57 L 93 07/22/19 02:00 75 21 92 07/22/19 01:30 36.8 C 77 22 125/66 94 07/22/19 01:24 36.8 C 76 22 126/66 94 07/22/19 09:47 07/22/19 04:33 Coding Level of Care Code Critical Care 1st 30-74 mins Diagnoses Admitted to intensive care unit Z78.9 Alcoholic cirrhosis of liver K70.31 Ascites presence: with ascites CKD (chronic kidney disease), stage III N18.3 Acute hypotension I95.9 Time Spent (min) 67 (1) Alcoholic cirrhosis of liver Ascites presence: with ascites Qualified Code(s): K70.31 - Alcoholic cirrhosis of liver with ascites
[2019-07-22] MEDS ORDERED: LACTULOSE SYRUP 20 GM/30 ML UDC PO SCH (13:00)
[2019-07-22] MEDS: NOREPINEPHRINE BIT INJ 8 MG in DEXTROSE 5% 500 ML IV SCH (13:05)
[2019-07-22] MEDS: MoRPHine SULFATE 2 MG/ML CARP IV PRN ×2 (13:15→22:32)
--- NOTE | 2019-07-22 16:32 | Procedure Note ---
Procedure Note Date of Service July 22, 2019 Procedure: Diagnostic therapeutic ultrasound-guided catheter paracentesis Conduit Reamer Operator: Dr. Ken Guerra Indication: Ascites for symptomatic relief Consent: Taken on the phone from mother and verified with timeout prior to procedure Anesthesia: 1% lidocaine without epinephrine local. Procedure: Consent was verified and timeout performed. Appropriate imaging studies were reviewed prior to the procedure. Patient was placed in a supine position and limited abdominal ultrasound was performed. See separate imaging. Appropriate site for paracentesis was selected. The skin was prepped and draped in normal sterile fashion. Lidocaine was used for local analgesia. Fluid was aspirated via the finder needle. A small skin cece was made with the scalpel and the catheter over the needle apparatus was advanced via Z technique. Using the syringe one-way valve system, a total of 4000 mL's of serous dark yellow fluid was removed. The catheter was removed and observed to be intact. A sterile dressing was applied. The patient tolerated the procedure without obvious complication Blood loss: Less than 2 cc Coding CPT Codes Abdomen - Abdominal: 61818 Peritoneal Lavage, including imaging guidance, when performed ([id number]) [facility] [place] Procedure Codes (Charges) Abdomen Abdominal: 01838 Peritoneal Lavage, including imaging guidance, when performed
[2019-07-22 17:21] LABS: Hematocrit (blood only) 25.9 % (42-52)
[2019-07-22] MEDS ORDERED: SODIUM CHLORIDE 0.65% NA SOLN 45 ML (OCEAN) ONE (19:32)
--- NOTE | 2019-07-22 22:33 | Hospitalist Progress Note ---
Date of Service July 22, 2019 Assessment & Plan (1) Alcoholic cirrhosis of liver: 43 yo male with alcoholic hepatitis and refractory ascitites. Patient is currently in the ICU. Patient is now on vasopressors. Patient has a poor prognosis due to refractory ascitites, low blo pressure, anemia, and HEPATORENAL SYNDROME. Had extensive discussion with patient regarding treatment plan and code status. Had discussion with [facility] for possible transfer. They agreed with our treatment plan of holding diuretics for his worsening creatinine. Continue albumin, midodrine. Plan as per whey department operator. (2) Ascites: Patient has refractory ascitites, Holding diuretics due to worsening kindey function. will add albumin as noted above. (3) Leukocytosis: Unknown source of infection. Possible urinary tract infection. following cultures. (4) Jaundice: from alcoholic ascitites (5) Hematemesis: EGD showed gradie 1 esophagela varices. On PPI, octreotide. will monitor (6) Lactic acidosis: POA.improed. (7) DVT prophylaxis: (8) Hepatic encephalopathy: patient was hallucinating yesterday but this has not been the case today. may require lactulose if this returns. Not exhibiting signs of alcohol withdrawal. (9) Acute blood loss anemia: will monitor hemoglobin later today. lkely from coagulopathy from cirrhosis. (10) Hepatorenal failure: Patient has acute hepatorenal failure. will continue to monitor. CODE: FULL CODE. DOES NOT WANT EXTENSIVE CODE STATUS Admission and Anticipated Discharge Date Admission Date: July 18, 2019 Subjective Patient reports no new sympotms. He continues to feel fatigued and weak. He does report feeling better than yesterday. Review of Systems Review of Systems: All systems reviewed & are unremarkable except as noted in HPI & below Physical Exam Physical Exam: General: no distress, jaundiced Eyes: normal inspection, PERLL Respiratory: chest non tender, improved breath sounds Cardiac: regular rate and rhythm, no rub or gallop, no murmur, no edema, no jvd GI/: active bowel sounds, less distended, mild ascitites Extremities: normal range of motion, normal strength, non tender Neuro:oriented x 3, moves all extremities, tremors while hands are extended. Psych: alert, normal mood and affect Skin:jaundiced, dry Results & Data Results & Data ([facility]) Vital Signs (Past 12 Hours) Vital Signs Pulse Resp BP Pulse Ox 07/22/19 22:18 86 34 H 104/65 92 07/22/19 22:02 85 26 H 89/63 L 94 07/22/19 21:02 84 38 H 91/62 L 95 07/22/19 20:01 82 34 H 94/62 L 89 L 07/22/19 19:01 82 30 H 95/63 L 94 07/22/19 18:02 80 27 H 90/61 L 93 07/22/19 18:00 81 29 H 93 07/22/19 17:01 81 33 H 91/62 L 91 07/22/19 17:00 82 25 H 90 07/22/19 16:01 80 30 H 87/60 L 91 07/22/19 16:00 80 26 H 91 07/22/19 15:01 79 29 H 86/54 L 89 L 07/22/19 15:00 80 26 H 87 L 07/22/19 14:41 79 35 H 90/60 L 90 07/22/19 14:01 78 31 H 90/60 L 91 07/22/19 14:00 79 32 H 91 07/22/19 13:02 78 31 H 93/59 L 92 07/22/19 13:00 79 31 H 93 07/22/19 12:01 78 33 H 95/62 L 94 07/22/19 12:00 78 23 94 07/22/19 11:01 76 28 H 90/59 L 92 07/22/19 11:00 76 27 H 91 PG Care Time/CCT Total # of Minutes Spent Total Time Spent with Patient: Total time spent is greater than 50% in coordination of care (as documented) at patient's floor/unit and/or counseling patient: Coding Level of Care Code 03429 Subseq Hosp Care Lvl 3 Diagnoses Alcoholic cirrhosis of liver K70.31 Ascites presence: with ascites Ascites K70.11 Ascites type: due to alcoholic hepatitis Leukocytosis D72.829 Leukocytosis type: unspecified Jaundice R17 Hematemesis K92.0 Lactic acidosis E87.2 DVT prophylaxis Z29.9 Hepatic encephalopathy K72.90 Acute blood loss anemia D62 Hepatorenal failure K76.7 Time Spent (min) 35 (1) Ascites Ascites type: due to alcoholic hepatitis Qualified Code(s): K70.11 - Alcoholic hepatitis with ascites (2) Leukocytosis Leukocytosis type: unspecified Qualified Code(s): D72.829 - Elevated white blood cell count, unspecified (3) Alcoholic cirrhosis of liver Ascites presence: with ascites Qualified Code(s): K70.31 - Alcoholic cirrhosis of liver with ascites
[2019-07-22 22:44] LABS: Hematocrit (blood only) 26.7 % (42-52); Hemoglobin 9.3 g/dL (14.0-18.0)
[2019-07-23] MEDS: NOREPINEPHRINE BIT INJ 8 MG in DEXTROSE 5% 500 ML IV SCH (00:32)
[2019-07-23] MEDS ORDERED: ALBUMIN 25% 50 ML IV SCH ×2 (02:00→04:00)
[2019-07-23] MEDS: MoRPHine SULFATE 2 MG/ML CARP IV PRN (02:28)
[2019-07-23 02:53] VITALS: PULSE 89
[2019-07-23 03:16] VITALS: BP 94/65
[2019-07-23 03:17] VITALS: O2SAT 89
[2019-07-23] MEDS ORDERED: FUROSEMIDE 40 MG/4 ML VIAL IV ONE (03:28)
[2019-07-23] MEDS ORDERED: FUROSEMIDE 40 MG in SYRINGE 0 ML IV ONE (03:45)
[2019-07-23] MEDS ORDERED: STAT IV Infusion **Titration per Protocol STA (03:55)
[2019-07-23] MEDS ORDERED: MoRPHine SULF/NSS 250 MG/250 ML BTL IV SCH (04:00)
--- NOTE | 2019-07-23 04:27 | Critical Care Progress Note ---
Date of Service July 23, 2019 Assessment & Plan (1) Admitted to intensive care unit: Reason Critically Ill: 43-year-old male with history of alcoholic cirrhosis was being treated liver failure, hepatorenal failure, upper GI bleed but continued to deteriorate and now in hypoxic respiratory failure. Per conversation with patient's mother and POA we are now transitioning to comfort care measures. Neuro - CAM ICU: Positive Pain management: Morphine drip for comfort care status Cardiac - We will continue to monitor with telemetry, further vital signs discontinued Discontinuing vasopressors Respiratory - Chest x-ray revealed significant pulmonary congestion and patient with worsening hypoxia Will discontinue supplemental oxygen as we are now withdrawing life-sustaining measures per conversation with family GI - Alcoholic cirrhosisdiscontinuing medications and transition to comfort care -Patient with meld greater than 30 and poor prognosis, not candidate for liver transplant as he has continued to consume alcohol recently RENAL/LYTES - Hepatorenal syndromediscontinuing vasopressors and other life-sustaining measures and medication -We will discontinue lab draws at this time for comfort - May leave Reza for now if it adds to patient's comfort ENDO - Discontinue hyperglycemic protocol and blood glucometer monitoring HEME - Discontinuing all lab draws at this time ID - Discontinued antibiotic therapy LINES/IV ACCESS - We will leave lines in place for now for patient's comfort, can discontinue central line and A-line if it adds comfort to patient DVT PROPHYLAXIS - Discontinuing SCDs I have personally spent 40 minutes of critical care time in the direct management of this patient. This is a life/limb threatening event. This includes time spent evaluating patient, direct bedside care, chart review, placing orders, interpretation of diagnostic studies, discussion with consultants, patient, and family members, as well as other required patient management activities. This time is exclusive of all separately billable procedures, and teaching time and separate from and in addition to any other critical care service time. Thank you for allowing us to participate in the care of this patient. Please refer to my attending physician's documentation for any further recommendations. (2) Hepatorenal failure: (3) Acute blood loss anemia: (4) Hepatic encephalopathy: (5) Alcoholic cirrhosis of liver: (6) Chronic liver failure: (7) CKD (chronic kidney disease), stage III: (8) Confusion: (9) Acute hypotension: (10) Alcoholism: (11) Respiratory failure with hypoxia: Admission and Anticipated Discharge Date Admission Date: July 18, 2019 Supervising Physician Co-Signing Physician Notes I saw and evaluated the patient with César Cintron, and agree with findings and plan as documented in the note. Patient seen and examined at bedside. Overnight patient saturation dropped. Patient was found to be in pulmonary edema likely secondary to SUNG which was not responding to vasopressor support. As per discussion with the family/mother plan was to make patient comfortable. Withdrawal of all medications and vasopressors. Keep the patient comfortable and start the patient on morphine drip. Family will be at bedside given patient is on comfort measures. Subjective This morning patient has continued to clinically deteriorate and is now in respiratory distress requiring 15 L oxygen via nonrebreather with sats in the upper 80s. Chest x-ray revealed significant bilateral pulmonary congestion. Per conversations with Dr. Guerra and the patient's mother, who is POA at this time, from yesterday it was decided that the patient was DNR without escalation of care. The patient's mother, Reva, was contacted this morning regarding the patient's clinical deterioration. Per our conversation, decision was made by the patient's mother to make the patient comfortable and withdrawal life- sustaining interventions. Arrangements have been made for the patient's mother and her to visit the patient at bedside as we are now withdrawing care. Will transition to comfort care status at this time. Review of Systems Review of Systems: Patient denies headache, pain, palpitations, chest pain. Patient does report abdominal pain and significant shortness of breath. Physical Exam Constitutional: + ill appearing and + in distress ENMT: external ear and nose normal, oropharynx normal Neck: trachea midline, no thyromegaly Respiratory: + respiratory distress, + labored breathing, + uses accessory muscles, + tachypneic and symmetric chest movement Auscultation: + crackles Cardiovascular: Rate/Rhythm: regular rate and regular rhythm Heart Sounds: normal S1 and normal S2 Vessels: no JVD Gastrointestinal (Abdomen): Abdomen distended, semifirm, tender with palpation Neurologic: PERRL, EOMI, accommodation nl, no face palsy, no dysarthria Psychiatric: Orientation: alert, oriented to person and oriented to time; + not oriented to place Results & Data Results & Data ([facility]) Vital Signs (Past 12 Hours) Vital Signs Pulse Resp BP Pulse Ox 07/23/19 03:10 89 L 07/23/19 03:05 89 26 H 94/65 L 88 L 07/23/19 03:03 90 38 H 95/59 L 91 07/23/19 03:00 89 29 H 92 07/23/19 02:02 89 35 H 98/68 L 92 07/23/19 01:02 89 26 H 103/73 90 07/23/19 00:02 88 22 99/66 L 91 07/23/19 00:00 88 07/22/19 23:02 86 23 91/64 L 94 07/22/19 22:18 86 34 H 104/65 92 07/22/19 22:02 85 26 H 89/63 L 94 07/22/19 21:02 84 38 H 91/62 L 95 07/22/19 20:01 82 34 H 94/62 L 89 L 07/22/19 19:01 82 30 H 95/63 L 94 07/22/19 18:02 80 27 H 90/61 L 93 07/22/19 18:00 81 29 H 93 07/22/19 17:01 81 33 H 91/62 L 91 07/22/19 17:00 82 25 H 90 Coding Level of Care Code Critical Care 1st 30-74 mins Diagnoses Admitted to intensive care unit Z78.9 Hepatorenal failure K76.7 Acute blood loss anemia D62 Hepatic encephalopathy K72.90 Alcoholic cirrhosis of liver K70.31 Ascites presence: with ascites Chronic liver failure K72.10 Hepatic coma status: without hepatic coma CKD (chronic kidney disease), stage III N18.3 Confusion R41.0 Acute hypotension I95.9 Alcoholism F10.20 Respiratory failure with hypoxia J96.91 (1) Alcoholic cirrhosis of liver Ascites presence: with ascites Qualified Code(s): K70.31 - Alcoholic cirrhosis of liver with ascites (2) Chronic liver failure Hepatic coma status: without hepatic coma Qualified Code(s): K72.10 - Chronic hepatic failure without coma
[2019-07-23] MEDS ORDERED: GLYCOPYRROLATE 0.2 MG/ML VIAL IV PRN (04:28)
[2019-07-23] MEDS ORDERED: LORazepam 2 MG/4 ML VIAL IV PRN (04:32)
--- NOTE | 2019-07-23 07:19 | XRay Report ---
XR chest 1V portable CLINICAL HISTORY: Respiratory failure COMPARISON STUDY: 07/21/2019 FINDINGS: The cardiac and mediastinal contours remain stable. There is a right-sided central venous c atheter. There are progressive bilateral pulmonary airspace opacities consistent with a worsening mul tifocal pneumonia/ARDS..[ IMPRESSION: Progressive bilateral pulmonary airspace opacities. ACT 112: Negative or not required by law. Electronically signed by: Julius Arroyo M.D. 07/23/2019 7:17 AM
--- NOTE | 2019-07-23 09:09 | Death Pronouncement Note ---
Date of Service July 23, 2019 Pronouncement Note Admission Date Admission Date: July 18, 2019 PRONOUNCEMENT NOTE:- Date: 07/23/2019 Time: 8:57 AM I was contacted by nursing staff regarding the patients declining status and concerns for imminent demise. Assessment: I presented to the patients room for evaluation. Upon assessment, the patient was found to be in a terminal state. Pupils were fixed and dilated without response. No palpable pulses appreciated. No spontaneous breaths noted. Heart sounds were absent. No response to painful stimuli. Time of : 8:57 am as pronounced by myself. Family aware present at bedside. Appropriate response to grief appreciated. Condolences provided. Questions were addressed and emotional support was provided. Patients primary service was contacted and made aware of patient demise. Contributing Factors (1) Admitted to intensive care unit: (2) Hepatorenal failure: (3) Acute blood loss anemia: (4) Hepatic encephalopathy: (5) Alcoholic cirrhosis of liver: (6) Chronic liver failure: (7) CKD (chronic kidney disease), stage III: (8) Confusion: (9) Acute hypotension: (10) Alcoholism: (11) Respiratory failure with hypoxia: Additional Data Attending physician: Marc Pittman Coding Level of Care Code D/C Day Management <30 mins Diagnoses Admitted to intensive care unit Z78.9 Hepatorenal failure K76.7 Acute blood loss anemia D62 Hepatic encephalopathy K72.90 Alcoholic cirrhosis of liver K70.31 Ascites presence: with ascites Chronic liver failure K72.10 Hepatic coma status: without hepatic coma CKD (chronic kidney disease), stage III N18.3 Confusion R41.0 Acute hypotension I95.9 Alcoholism F10.20 Respiratory failure with hypoxia J96.91
--- NOTE | 2019-07-23 09:11 | Nephrology Progress Note ---
Date of Service July 23, 2019 Subjective Chart reviewed this morning. Patient is lethargic, requiring O2 at 15 L/min FM. Critical care team has discussed plan of care, prognosis w/ family. POA understands poor prognosis and has transitioned patient to comfort measures. Will sign off. Please call if further Nephrology assistance is needed Results & Data Vital Signs (Past 12 Hours) Vital Signs Pulse Resp BP Pulse Ox 07/23/19 03:10 89 L 07/23/19 03:05 89 26 H 94/65 L 88 L 07/23/19 03:03 90 38 H 95/59 L 91 07/23/19 03:00 89 29 H 92 07/23/19 02:02 89 35 H 98/68 L 92 07/23/19 01:02 89 26 H 103/73 90 07/23/19 00:02 88 22 99/66 L 91 07/23/19 00:00 88 07/22/19 23:02 86 23 91/64 L 94 07/22/19 22:18 86 34 H 104/65 92 07/22/19 22:02 85 26 H 89/63 L 94 PG Care Time/CCT Total # of Minutes Spent Total Time Spent with Patient: Total time spent is greater than 50% in coordination of care (as documented) at patient's floor/unit and/or counseling patient: Coding Level of Care Code 83510 Subseq Hosp Care Lvl 1
--- NOTE | 2019-07-23 09:54 | Discharge Summary ---
Date of Service July 23, 2019 Admission HPI Per Admitting Provider 43 yo male who returns to the hospital with the same complaint of abdominal fullness, SOB and cough. He had recent hospital stays at [facility] For ascities and alcoholic hepatitis. on 07/14/2019 and 07/08/2019 respectively. Primary Care Provider: Amaya Anand DO Mr. Willett presents for complaints of abdominal fullness. He was recently discharged from [facility] for ascities from alcholic hepatitis on 07/14/19 and had a large volume paracenthesis completed where they drained 4750 mls of ascites. He again presents with a cough and generalized weakness He states he is no longer SOB at time of exam. Patient denies any recent travel, sick contacts, palpitations, nausea, vomiting, diarrhea or constipation, dysuria. Patient remains jaundiced. Pmhx: htn, anxiety, GERD Social: lives alone, non smoker, no alcohol since 4 days prior to last admission but previous to that had been drinking much of the day Family: diabetes, alcoholism Principal Diagnosis alcoholic cirrhosis Discharge Exam no spontaneous movements, no heart beat, negative gag reflex \ \ Discharge Data Allergies Allergy/AdvReac Type Severity Reaction Status Date / Time ibuprofen AdvReac Intermediate MAKES HIM Verified 07/20/19 12:52 PUKE Consultations 07/18/19 16:34 ED Decision to Admit Stat 07/18/19 17:52 Consult Gastroenterology Routine 07/20/19 17:03 Consult Infectious Diseases Routine 07/21/19 20:33 Consult Logistics Administrator Routine 07/21/19 20:38 Consult Case Management - Discharge Planning Routine 07/22/19 12:51 Consult Palliative Care Routine Procedures Performed Operation Date: 07/20/19 08:50 Actual Procedures p Esophagogastroduodenoscopy(Not Applicable) - Yusef Hagen Case, DO Operation Date: 07/21/19 09:10 Actual Procedures p Esophagogastroduodenoscopy(Not Applicable) - Yusef Hagen Case, DO Ordered Studies 07/19/19 08:37 US paracentesis abd w/image Routine 07/21/19 16:35 CT abd pelvis wo con Routine 07/21/19 20:26 US point of care ultrasound Routine 07/22/19 12:54 US point of care ultrasound Urgent Hospital Course (1) Alcoholic cirrhosis of liver: 43 yo male with alcoholic hepatitis and refractory ascitites. Patient is currently in the ICU. Patient is now on vasopressors. Patient has a poor prognosis due to refractory ascitites, low blo pressure, anemia, and HEPATORENAL SYNDROME. Had extensive discussion with patient regarding treatment plan and code status. Had discussion with Anika Ricks for possible transfer. They agreed with our treatment plan of holding diuretics for his worsening creatinine. Continue albumin, midodrine. Plan as per guest experience specialist. Overnight, patient was changed to comfort measures as per discussion with family and Logistics Administrator. Patient the following morning. Please refer to note. (2) Ascites: Patient has refractory ascitites, Holding diuretics due to worsening kindey function. (3) Leukocytosis: Unknown source of infection. Possible urinary tract infection. following cultures. (4) Jaundice: from alcoholic ascitites (5) Hematemesis: EGD showed gradie 1 esophagela varices. On PPI, octreotide. will monitor (6) Lactic acidosis: POA.improed. (7) DVT prophylaxis: (8) Hepatic encephalopathy: patient was hallucinating yesterday but this has not been the case today. may require lactulose if this returns. Not exhibiting signs of alcohol withdrawal. (9) Acute blood loss anemia: will monitor hemoglobin later today. lkely from coagulopathy from cirrhosis. (10) Hepatorenal failure: Patient has acute hepatorenal failure. will continue to monitor. Total Time Total Time Spent Total Time Spent (In Minutes): <30mins Total Time Includes: Examination of the Patient and Discharge Planning Discharge Plan Discharge Items Patient Disposition: Reason For Visit: ASCITIES,COUGH Condition on Discharge: Fair Follow-up/Referrals: Amaya Anand DO [Primary Care Provider] - Admission Data Admit Date/Time: 07/18/19 17:49 Other DC Date/Time DO NOT enter until pt leaves facility: 07/23/19 08:57 Coding Level of Care Code D/C Day Management <30 mins Diagnoses Alcoholic cirrhosis of liver K70.31 Ascites presence: with ascites Ascites K70.11 Ascites type: due to alcoholic hepatitis Leukocytosis D72.829 Leukocytosis type: unspecified Jaundice R17 Hematemesis K92.0 Lactic acidosis E87.2 DVT prophylaxis Z29.9 Hepatic encephalopathy K72.90 Acute blood loss anemia D62 Hepatorenal failure K76.7
--- NOTE | 2019-07-28 13:45 | Coding Query ---
CODING QUERY To promote full compliance with coding requirements relating to patient care, provider participation is requested in all cases of adult education instructor uncertainty. Please assist us with the question(s) below: Coding Question(s): Please document if internal jugular line was placed on the right or left side. Physician's Response(s): Central line was placed in the right IJ. Thanks. Principal Diagnosis: "that condition established after study, to be chiefly responsible for occasioning the admission of the patient to the hospital for care." Co-Existing Principal Diagnosis: "when two or more diagnoses equally meet the criteria for principal diagnosis as determined by the circumstances of admission, diagnostic work up, and/or therapy provided, and the Alphabetic Index, Tabular List, or another coding guideline does not provide sequencing direction, any one of the diagnoses may be sequenced first." "When the physician has documented what appears to be a current diagnosis in the body of the record, but has not included the diagnosis in the final diagnostic statement, the physician should be asked whether the diagnosis should be added." (Source [facility]oding [facility] 2 QTR90. p3-4) ANALILIA
--- NOTE | 2019-08-16 07:39 | Coding Query ---
CODING QUERY To promote full compliance with coding requirements relating to patient care, provider participation is requested in all cases of welding robot operator uncertainty. Please assist us with the question(s) below: Coding Question(s): Per coding guidelines when there is conflicting documentation within the medical record we are required to query for clarification. Patient was admitted with SOB. Conflicting documentation: 03/01 PN acute on chronic CHF weight on admission is less then dry weight 03/02 PN patient does not appear to be wet 03/02 Heart Failure Consult documents Chronic CHF and states patient does not appear volume overload currently, symptoms likely multi- factorial with a component of anxiety which exacerbates her symptoms. d/c on PO lasix and follow up with CHF clinic 03/03, 03/04, 03/05 PN patient does not appear wet on exam Please clarify and document principle diagnosis: Physician's Response(s): I do not see any progress notes from March 01. Thank you Radha Rincon Principal Diagnosis: "that condition established after study, to be chiefly responsible for occasioning the admission of the patient to the hospital for care." Co-Existing Principal Diagnosis: "when two or more diagnoses equally meet the criteria for principal diagnosis as determined by the circumstances of admission, diagnostic work up, and/or therapy provided, and the Alphabetic Index, Tabular List, or another coding guideline does not provide sequencing direction, any one of the diagnoses may be sequenced first." "When the physician has documented what appears to be a current diagnosis in the body of the record, but has not included the diagnosis in the final diagnostic statement, the physician should be asked whether the diagnosis should be added." (Source Coding [facility] 2 QTR90. p3-4) ANALILIA
== END 2019-07-23 08:57 | disposition expired | DRG 432 ==
LOC: ED 13:13 → 2S 17:49 → 1E 07-21 17:12